=== PATIENT | female | born 1950 | race Caucasian/White ===

== ENCOUNTER 2020-05-04 10:57 | Outpatient (CLI) | payer MEDICARE, SELFPAY ==
--- NOTE | ~2020-05-04 | CT_ITS ---
EXAMINATION: CT diagnostic chest wo con EXAM DATE: 05/04/2020 11:21 INDICATION: R91.8 - Other nonspecific abnormal finding of lung field. Shortness of breath and cough. TECHNIQUE: Spiral CT of the chest without contrast. Axial, coronal and sagittal images were reviewe d. Coronal maximum intensity pixel images of chest reviewed. The dose-length product (DLP) for this examination was 141.03 mGy-cm. The exposure was tailored according to patient size (auto mA exposur e control), and iterative reconstruction (ASIR) was used as additional dose reduction technique. Comp arison is made to prior examination from 12/04/2018. FINDINGS: There is been continued interval decrease in size of the left lower lobe PET negative nodu le measuring 1.4 cm versus 2.1 cm on prior study. Decrease in size of several subcentimeter right mid dle lobe nodules. Persistent calcified bilateral upper lobe scarring. Findings are consistent with po stinfectious residua. No suspicious pulmonary nodules. There is severe emphysema. There is chronic hyperinflation. There are no pleural or pericardial effus ions. Tracheobronchial tree is patent. There is no mediastinal, hilar or axillary lymphadenopathy . There is no pneumothorax. Narrow cardiac silhouette from hyperinflated lungs. The main, central pulmonary arteries are dilated which can indicate elevated pulmonary arterial pressure, pulmonary ar terial hypertension. There is mild coronary arterial calcification, arterial sclerosis. No change i n the soft tissue and fat density peripherally calcified 3 cm mass at the aortic hiatus, benign. The re is 2 cm gallstone. There is an IVC filter. Duodenal diverticulum. There is thoracic spondylosis w ithout osteoblastic or osteolytic lesions identified. IMPRESSION: 1. Scattered postinfectious residua. 2. Severe emphysema. Hyperinflation. 3. Pulmonary arterial hypertension. 4. Other chronic findings. Reviewed, dictated and finalized at location A.
== END 2020-05-04 10:58 | disposition home or self-care (01) ==
LOC: ANHIMG 11:02
PROVIDERS: PCP Family Medicine; Visit Provider Nurse Practitioner Family
DX: R91.8 Other nonspecific abnormal finding of lung field (principal); J44.9 Chronic obstructive pulmonary disease, unspecified; J43.9 Emphysema, unspecified
CPT/HCPCS: 71250

== ENCOUNTER 2020-12-08 08:55 | Outpatient (CLI) | payer MEDICARE, SELFPAY ==
[2020-12-08 09:48] LABS: Basophils Absolute Auto 0.1 K/mm3 (0.0-0.1); Basophils Percent Auto 1.2 % (0.2-1.2); Eosinophils Absolute Auto 0.3 K/mm3 (0-0.3); Eosinophils Percent Auto 4.5 % (0-4.4); Hematocrit 43.8 % (37.0-47.0); Hemoglobin 14.2 g/dL (12.0-15.0); Immature Granulocyte Absolute 0.02 K/mm3 (0.00-0.031); Immature Granulocyte Percent A 0.3 % (0-0.5); Lymphocytes Absolute Auto 1.19 K/mm3 (0.9-3.2); Lymphocytes Percent Auto 17.3 % (18.3-44.2); Mean Corpuscular HGB Conc 32.4 g/dl (32-36); Mean Corpuscular Hemoglobin 30.7 pg (26-34); Mean Corpuscular Volume 94.6 fl (80-100); Mean Platelet Volume 9.7 fl (7.4-10.4); Monocytes Absolute Auto 0.5 K/mm3 (0.1-0.6); Monocytes Percent Auto 7.5 % (2.6-8.5); Neutrophils Absolute Auto 4.8 K/mm3 (1.3-6.7); Neutrophils Percent Auto 69.2 % (45.5-73.1); Platelet Count Result 276 k/mm3 (150-375); Red Blood Count 4.63 M/mm3 (4.2-5.4); Red Cell Distribution Width 14.6 % (11.5-14.5); White Blood Count 6.9 K/mm3 (4.5-10.0)
[2020-12-08 09:59] LABS: Alanine Aminotransferase 22 U/L (4-35); Alkaline Phosphatase 88 U/L (38-126); Anion Gap 5 mmol/L (8-16); Aspartate Amino Transferase 30 U/L (14-36); Bilirubin,Total 0.4 mg/dL (0.2-1.3); Blood Urea Nitrogen 14 mg/dL (7-17); Calcium 9.6 mg/dL (8.4-10.2); Carbon Dioxide 31 mmol/L (22-30); Chloride 106 mmol/L (98-107); Cholesterol 160 mg/dL (0-200); Estimated Glomerular Filt Rate > 60; Glucose 100 mg/dL (65-110); HDL Direct 61 mg/dL; Potassium 3.9 mmol/L (3.4-5.0); Sodium 142 mmol/L (137-145); Triglycerides 92 mg/dL (<150)
[2020-12-08 10:10] LABS: LDL Cholesterol Direct 71 mg/dL
[2020-12-08 10:29] LABS: Thyroid Stimulating Hormone 0.236 uIU/mL (0.465-4.680)
[2020-12-08 10:44] LABS: Add Urine Microscopic? YES; Appearance Urine Cloudy (Clear); Bacteria Urine Trace /hpf; Bilirubin Urine Negative (Negative); Blood Urine Negative (Negative); Color Urine Yellow (Yellow); Glucose Urine UA Negative (Negative); Ketones Urine Negative (Negative); Leukocyte Esterase Ur 2+ LEU/UL (NEGATIVE); Mucus Urine Rare /lpf; Nitrate Urine Positive (Negative); Protein Urine Negative (Negative); RBC Urine 0-2 /hpf (0-2); Specific Grav Ur 1.013 (1.001-1.035); Squamous Epithelial Cell Urine Few /hpf (Few); Transitional Epi Cells Urine Rare /hpf (None Seen); Urobilinogen Urine Negative mg/dL (<2.0)
== END 2020-12-08 08:56 | disposition home or self-care (01) ==
LOC: ANHLAB 09:00
PROVIDERS: PCP Family Medicine; Visit Provider Family Medicine
DX: E78.5 Hyperlipidemia, unspecified (principal); R53.83 Other fatigue; N39.0 Urinary tract infection, site not specified; Z00.00 Encounter for general adult medical examination without abnormal findings
CPT/HCPCS: 36415; 80053; 80061; 81001; 84443; 85025

== ENCOUNTER 2021-01-13 08:57 | Outpatient (CLI) | payer MEDICARE, SELFPAY ==
--- NOTE | ~2021-01-13 | XR_ITS ---
EXAMINATION: XR chest 2V DATE: 01/13/2021 09:18 INDICATION: Chest pain and shortness of breath TECHNIQUE: PA and lateral views of the chest are obtained. COMPARISON: CT, 05/04/2020 FINDINGS: There is severe emphysema. A calcified mass of the right lung apex is consistent with old g ranulomatous disease. The lungs are free of acute opacities. There is no pleural effusion or pneumoth orax. There is mild thoracic spondylosis. IMPRESSION: 1. No acute cardiopulmonary abnormality. Reviewed, dictated and finalized at location A. DRIVER
== END 2021-01-13 08:58 | disposition home or self-care (01) ==
PROVIDERS: PCP Family Medicine; Visit Provider Nurse Practitioner Family
DX: R07.9 Chest pain, unspecified (principal); Z87.09 Personal history of other diseases of the respiratory system
CPT/HCPCS: 71046

== ENCOUNTER 2021-05-10 09:50 | Emergency (ER) | payer MEDICARE, SELFPAY ==
[2021-05-10] VITALS (11 sets, daily range): BP systolic 122–155; BP diastolic 78–110; PULSE 102–132; RESP 20–28; TEMP 36.4; O2SAT 93–100
--- NOTE | ~2021-05-10 | XR_ITS ---
EXAMINATION: XR chest 1V portable DATE: 05/10/2021 11:48 INDICATION: Pneumothorax TECHNIQUE: frontal view of the chest was obtained. COMPARISON: Chest radiograph dated 05/10/2021 at 10:39 AM FINDINGS: Small to moderate-sized left pneumothorax which appears unchanged at the periphery of the left lower lung zone with increased overlying the right apex with separation of the pleural margins increasing f rom 2.5 cm to 4.0 cm. Severe upper lobe predominant severe emphysema. Chronic calcified mass at the r ight upper lung zone and a few scattered calcified nodules in the left mid and upper lung zone consis tent with old granulomatous disease. Bandlike atelectasis in the left lower lung zone. No pleural eff usion or right-sided pneumothorax. The cardiomediastinal silhouette remains normal and midline. Visua lized bones and soft tissues are unremarkable. IMPRESSION: 1. Increasing small to moderate-sized left pneumothorax without mediastinal shift or diaphragmatic de pression to suggest tension. 2. Severe emphysema. 3. Chronic calcified right upper lobe mass likely sequela of old granulomatous disease. Reviewed, dictated and finalized at location A. IMPRESSION: 1. Increasing small to moderate-sized left pneumothorax without mediastinal jordon ft or diaphragmatic depression to suggest tension. 2. Severe emphysema. 3. Chronic calcified right upper lobe mass likely sequela of old granulomatous disease.
--- NOTE | ~2021-05-10 | XR_ITS ---
EXAMINATION: XR chest 1V portable DATE: 05/10/2021 10:41 INDICATION: Soreness of breath TECHNIQUE: frontal view of the chest was obtained. COMPARISON: Chest radiograph dated 01/13/2021 FINDINGS: Severe upper lung predominant emphysema. There is a new small left pneumothorax at both the apex as w ell as the periphery of the left lower lung zone. Unchanged calcified mass at the right upper lung zo ne and several smaller calcified nodules in the left mid and upper lung zones consistent with old gra nulomatous disease. No pleural effusion. The cardiomediastinal silhouette is normal with no midline s hift. Enlargement of the central pulmonary arteries consistent with pulmonary arterial hypertension. IMPRESSION: 1. Severe emphysema with new small to moderate left pneumothorax. Dr. Galicia discussed these findin gs with Dr. Hernandes at 10:50 AM. Reviewed, dictated and finalized at location A. IMPRESSION: 1. Severe emphysema with new small to moderate left pneumothorax. Dr. Galicia discussed these findings with Dr. Hernandes at 10:50 AM.
--- NOTE | ~2021-05-10 | CT_ITS ---
EXAMINATION: CT diagnostic chest wo con DATE: 05/10/2021 12:40 INDICATION: Emphysema, pneumothorax TECHNIQUE: Computed tomography (CT) of the chest was performed without intravenous contrast. The dose -length product (DLP) was 230.01 mGy-cm. Automated exposure control and iterative reconstruction tech [employer] were employed. COMPARISON: 05/04/2020 FINDINGS: There is severe emphysema. A moderate-sized left pneumothorax is noted. The lungs are free of acute opacities. Calcified masses in the upper lobes are consistent with old granulomatous disease . There is a chronic nodule of the left lower lobe abutting the major fissure which is decreased in s ize since the comparison examination. No pleural effusion is identified. No pathologically enlarged t horacic lymph nodes are identified. The heart size is normal. Again noted is a chronic rim calcified mass to the right of aorta near the diaphragm, consistent with a benign finding. There is calcified c oronary artery atherosclerosis. Cholelithiasis is noted. There is moderate thoracic spondylosis. IMPRESSION: 1. Moderate-sized left pneumothorax. 2. Severe emphysema. Reviewed, dictated and finalized at location B.
--- NOTE | 2021-05-10 09:59 | ECG_ITS ---
Measurements Intervals [place] Rate: 118 P: 76 OR: 140 QRS: 43 QRSD: 89 T: 81 QT: 341 QTc: 479 Interpretive Statements SINUS TACHYCARDIA WITH OCCASIONAL ECTOPIC PREMATURE COMPLEXES LOW QRS VOLTAGE IN PRECORDIAL LEADS [QRS DEFLECTION < 1.0 mV IN CHEST LEADS] MODERATE ST DEPRESSION [0.05+ mV ST DEPRESSION] NO PREVIOUS ECG AVAILABLE FOR COMPARISON Electronically Signed On 05-10-2021 14:07:48 CDT by Zeeshan Vasquez M.D.
--- NOTE | 2021-05-10 10:01 | ED.SOB ---
HPI - SOB/Dyspnea General Chief Complaint: Shortness of Breath/Dyspnea Stated Complaint: dyspnea Time Seen by Provider: 05/10/21 09:58 Source: patient, EMS and RN notes reviewed Mode of arrival: EMS Limitations: clinical condition History of Present Illness HPI Narrative: Patient is 70 years old white female presents with shortness of breath started yesterday got worse this morning, history of COPD. Patient on chronic oxygen by nasal cannula at 2 L/min Related Data Home Medications Medication Instructions Recorded Confirmed aspirin 325 mg tablet 325 mg PO DAILY 02/02/19 12/08/20 biotin 10,000 mcg capsule mcg PO 02/02/19 12/08/20 multivitamin 1 tablet PO DAILY 02/02/19 12/08/20 Allergies Allergy/AdvReac Type Severity Reaction Status Date / Time codeine Allergy Intermediate Anaphylactic Verified 12/08/20 10:01 Shock erythromycin base Allergy Mild HIVES AND Verified 12/08/20 10:01 EDEMA Penicillins Allergy Mild EDEMA & Verified 12/08/20 10:01 HIVES Sulfa (Sulfonamide Allergy Mild HIVES AND Verified 12/08/20 10:01 Antibiotics) EDEMA ampicillin Allergy Unknown RASH Verified 12/08/20 10:01 Review of Systems Review of Systems: ROS unobtainable: Yes unobtainable due to medical condition PMFSH Past Medical History Medical History Chronic respiratory failure COPD (chronic obstructive pulmonary disease) Emphysema lung History of kidney stones with extraction History of pulmonary embolism History of tobacco abuse Multiple nodules of lung Osteoporosis Snoring Spontaneous pneumothorax twice Surgical History Surgical History History of adenoidectomy History of breast biopsy History of hysterectomy with bilateral oophorectomy History of tonsillectomy Hx of fracture of wrist s/p L ORIF S/P IVC filter Family History Family History Father Patient's father is Sibling Family history of malignant neoplasm of breast Mother Family history of congestive heart failure Diabetes mellitus Social History Social History Smoking packs per day: 0.5 Smoking cigarettes per day: 10.0 Years smoked: 37 Smoking pack-years: 18.50 Smoking status: Former smoker Tobacco type: cigarettes Second hand tobacco smoke exposure: No Smoking end date: 02/18/99 Alcohol intake: never Substance use: never Substance use type: does not use Gender identity (if verbalized by the patient): Female Exam Narrative: General appearance: Well-developed, well-nourished, restless, labored breathing Skin: Normal color Head: Normocephalic, nontraumatic Eyes: Clear conjunctiva ENT: Oropharynx normal, ears normal, nose normal Neck: Supple, nontender Chest and respiratory: Diminution of air entry bilaterally Heart: Tachycardia Abdomen: Soft, nontender, no organomegaly, quiet bowel sounds Vascular: Normal peripheral pulses, normal capillary refill. Musculoskeletal: Normal range of motion, nontender back Neurologic: Alert and oriented ?3, ABLE BODIED SEAMAN is normal as tested, no gross motor deficit Course Course Emergency Course: Patient came to the ED with shortness of breath, work-up showed exacerbation of COPD and mild to moderate pneumothorax, chest tube at this time, discussed with Dr. Miranda, patient had numerous pneumothorax in the past. Patient transferred to [facility], thoracic surgeon who agreed to not place chest tube at this time and send patient to us as soon as possible. At the time of dispositi
[2021-05-10] MEDS: methylPREDNISolone SOD SUCC 125 MG VIAL IV PUSH (10:21)
[2021-05-10] MEDS: ALBUTEROL SULFATE NEB 2.5 MG/0.5 ML INH 5 MG INHALATION ×3 (10:25→11:16)
[2021-05-10] MEDS: IPRATROPIUM BR 0.02% INH SOLN 0.5 MG/2.5 ML VIAL INHALATION ×3 (10:25→11:16)
[2021-05-10 10:32] LABS: Alveolar/Arterial O2 Gradient 95.9 mmHg; Base Excess ABG -0.3 mEq/l (+/-2.0); Device NASAL CANNULA; Fractional Inspired Oxygen 30 %; HCO3 ABG 24.5 mEq/l (22.0-26.0); Modified Allen's Test Pass; Oxygen Content ABG 20.5 %vol (16.0-22.0); Oxyhemoglobin 93.3 % THb (90.0-100.0); PO2 ABG 69.8 mmHg (80.0-100.0); PO2 FiO2 Ratio Arterial Blood 2.33 %; Site Drawn RIGHT RADIAL; Total Hemoglobin 15.6 g/dL (12.0-18.0); pH ABG 7.395 (7.350-7.450)
--- NOTE | 2021-05-10 11:36 | ECG_ITS ---
Measurements Intervals [place] Rate: 186 P: WI: 0 QRS: 7 QRSD: 86 T: 158 QT: 235 QTc: 414 Interpretive Statements ATRIAL FIBRILLATION WITH RAPID VENTRICULAR RESPONSE LOW QRS VOLTAGE IN PRECORDIAL LEADS [QRS DEFLECTION < 1.0 mV IN CHEST LEADS] NONSPECIFIC ST & T-WAVE ABNORMALITY ABNORMAL ECG Electronically Signed On 05-10-2021 14:19:45 CDT by Zeeshan Vasquez M.D.
[2021-05-10 11:42] LABS: Partial Thromboplastin Time 20.2 SECONDS (22.3-36.8); Prothrombin Time 12.5 Seconds (11.1-14.7)
[2021-05-10 11:44] LABS: Alanine Aminotransferase 19 U/L (4-35); Albumin Level 4.6 g/dL (3.5-5.1); Alkaline Phosphatase 106 U/L (38-126); Anion Gap 6 mmol/L (8-16); Aspartate Amino Transferase 35 U/L (14-36); Bilirubin,Total 0.8 mg/dL (0.2-1.3); Blood Urea Nitrogen 17 mg/dL (7-17); Calcium 9.8 mg/dL (8.4-10.2); Carbon Dioxide 29 mmol/L (22-30); Chloride 103 mmol/L (98-107); Estimated CRCL calculation 70 ml/min; Estimated Glomerular Filt Rate > 60; Glucose 114 mg/dL (65-110); Magnesium 2.1 mg/dL (1.6-2.3); Potassium 3.8 mmol/L (3.4-5.0); Sodium 138 mmol/L (137-145)
[2021-05-10 11:45] LABS: D Dimer 1.75 ug/mL (<0.48)
[2021-05-10] MEDS: dilTIAZem HCl INJ 25 MG/5 ML VIAL 10 MG IV PUSH (11:46)
[2021-05-10 11:56] LABS: NT Pro B Type Natriuretic Pept 149 pg/mL (5-100); Troponin I < 0.012 ng/mL (0.000-0.034)
--- NOTE | 2021-05-10 13:36 | PC.NURSE ---
report called to reina Roche at [facility] in [facility]. [facility] here to transport patient
== END 2021-05-10 13:52 | disposition short-term general hospital (02) ==
PROVIDERS: Emergency Provider Emergency Medicine; PCP Family Medicine
DX: J44.9 Chronic obstructive pulmonary disease, unspecified (principal); J93.9 Pneumothorax, unspecified; I48.91 Unspecified atrial fibrillation; R00.0 Tachycardia, unspecified; Z87.891 Personal history of nicotine dependence; Z87.442 Personal history of urinary calculi
CPT/HCPCS: 36415; 36600; 71045; 71250; 80053; 82805; 83735; 83880; 84484; 85380; 85610; 85730; 87040; 93005; 94640; 96374; 96375; 99285; J2930

== ENCOUNTER 2021-06-09 16:45 | Emergency (ER) | payer MEDICARE, SELFPAY ==
[2021-06-09] VITALS (11 sets, daily range): BP systolic 97–137; BP diastolic 61–77; PULSE 74–99; RESP 14–25; TEMP 37.1; O2SAT 95–100
--- NOTE | 2021-06-09 19:15 | PC.NURSE ---
Patient report given to TITUS Winter. All questions answered and care of pt transferred.
--- NOTE | 2021-06-09 19:28 | ED.GENADULT ---
HPI - General Adult General Chief complaint: Unspecified Stated complaint: all swollen up Time Seen by Provider: 06/09/21 18:42 Source: patient Mode of arrival: ambulatory Limitations: no limitations History of Present Illness HPI narrative: Patient is a 8-year-old female complaining of increasing bilateral extremity edema x1 week. Patient states that she is currently on Lasix for it and her doctor recently increased her dose but states that her edema has not decreased so her doctor told her to go to the emergency room. Patient denies any chest pain, shortness of breath, abdominal distention, calf pain or swelling, fever or chills. Related Data Home Medications Medication Instructions Recorded Confirmed multivitamin 1 tablet PO DAILY 02/02/19 06/06/21 Allergies Allergy/AdvReac Type Severity Reaction Status Date / Time codeine Allergy Intermediate Anaphylactic Verified 06/09/21 19:49 Shock erythromycin base Allergy Mild HIVES AND Verified 06/09/21 19:49 EDEMA Penicillins Allergy Mild EDEMA & Verified 06/09/21 19:49 HIVES Sulfa (Sulfonamide Allergy Mild HIVES AND Verified 06/09/21 19:49 Antibiotics) EDEMA ampicillin Allergy Unknown RASH Verified 06/09/21 19:49 Review of Systems Review of Systems: All systems reviewed & are unremarkable except as noted in HPI and below Constitutional: Constitutional: Denies body ache(s), Denies chills, Denies excessive sweating, Denies fatigue, Denies fever(s), Denies headache(s), Denies lethargy, Denies malaise, Denies weakness and Denies weight loss Eyes: Eyes: Denies blurry vision, Denies change in vision and Denies loss of vision ENT: Denies dizziness, Denies ear discharge, Denies headache(s), Denies lip swelling, Denies epistaxis, Denies nasal congestion, Denies neck pain, Denies throat swelling and Denies tongue swelling Cardiovascular: Cardiovascular: Denies chest pain, Denies chest pain at rest, Denies chest pain with activity, Denies diaphoresis, Denies rapid heart rate, Denies edema, Denies irregular heart rhythm, Denies lightheadedness, Denies palpitations, Denies dyspnea and Denies dyspnea on exertion Respiratory: Respiratory: Denies chest congestion, Denies cough, Denies hemoptysis, Denies dyspnea and Denies dyspnea on exertion Gastrointestinal: Gastrointestinal: Denies abdominal pain, Denies melena, Denies hematochezia, Denies diarrhea, Denies nausea, Denies vomiting and Denies hematemesis Musculoskeletal: Musculoskeletal: Denies abnormal gait, Denies deformity, Denies joint swelling, Denies limited range of motion, Denies neck pain and Denies numbness Neurologic: Denies Abnormal speech present, Denies abnormal gait, Denies confusion, Denies dizziness, Denies headache(s), Denies focal weakness, Denies loss of vision, Denies numbness, Denies Other visual disturbances, Denies Sensory deficit (Neuro) and Denies weakness Psychiatric: Psychiatric: Denies confusion, Denies depression, Denies auditory hallucinations, Denies homicidal ideation and Denies suicidal ideation Endocrine: Endocrine: Denies cold intolerance, Denies excessive sweating, Denies fatigue, Denies heat intolerance and Denies palpitations Hematologic/Lymphatic: Hematologic/Lymphatic: Denies easy bleeding and Denies easy bruising Allergic/Immunologic: Allergic/Immunologic: Denies lip swelling, Denies throat swelling and Denies tongue swelling PMFSH Past Medical History Medical History Chronic respiratory failure COPD (chronic obstructive pulmonary disease) Emphysema lung History of kidney stones with extraction History of pulmonary embolism History of tobacco abuse Multiple nodules of lung Osteoporosis Snoring Spontaneous pneumothorax x3 Surgical History Surgical History History of adenoidectomy History of breast biopsy History of hysterectomy with bilateral oophorectomy History
[2021-06-09] MEDS: FUROSEMIDE INJ 40 MG/4 ML VIAL 20 MG IV PUSH (19:48)
--- NOTE | 2021-06-09 19:51 | PC.NURSE ---
Report received from TITUS Escobar. Labs being collected. IV initiated and lasix given; pt requesting purewick, states cannot use a bedpan nor a commode.
[2021-06-09 19:53] LABS: Basophils Absolute Auto 0.1 K/mm3 (0.0-0.1); Basophils Percent Auto 1.1 % (0.2-1.2); Eosinophils Absolute Auto 0.4 K/mm3 (0-0.3); Eosinophils Percent Auto 6.7 % (0-4.4); Hematocrit 33.8 % (37.0-47.0); Hemoglobin 10.4 g/dL (12.0-15.0); Immature Granulocyte Absolute 0.04 K/mm3 (0.00-0.031); Immature Granulocyte Percent A 0.7 % (0-0.5); Mean Corpuscular HGB Conc 30.8 g/dl (32-36); Mean Corpuscular Hemoglobin 29.8 pg (26-34); Mean Corpuscular Volume 96.8 fl (80-100); Mean Platelet Volume 8.7 fl (7.4-10.4); Monocytes Absolute Auto 0.7 K/mm3 (0.1-0.6); Monocytes Percent Auto 11.6 % (2.6-8.5); Neutrophils Absolute Auto 3.8 K/mm3 (1.3-6.7); Neutrophils Percent Auto 61.9 % (45.5-73.1); Platelet Count Result 318 k/mm3 (150-375); Red Blood Count 3.49 M/mm3 (4.2-5.4); Red Cell Distribution Width 16.4 % (11.5-14.5); White Blood Count 6.1 K/mm3 (4.5-10.0)
--- NOTE | 2021-06-09 19:57 | PC.NURSE ---
Purewicks not available per 3rd floor charge operator. Pt given BSC, hat to measure output, and call light. When this RN out to find toilet paper, pt assists self to commode without difficulty. Pt on 3L/NC which she states is her home dose of oxygen.
[2021-06-09 20:04] LABS: Anion Gap 1 mmol/L (8-16); Blood Urea Nitrogen 14 mg/dL (7-17); Calcium 8.5 mg/dL (8.4-10.2); Carbon Dioxide 34 mmol/L (22-30); Chloride 100 mmol/L (98-107); Estimated CRCL calculation 60 ml/min; Estimated Glomerular Filt Rate > 60; Glucose 95 mg/dL (65-110); Potassium 3.5 mmol/L (3.4-5.0); Sodium 135 mmol/L (137-145)
--- NOTE | 2021-06-09 20:15 | PC.NURSE ---
Pt demanding IV catheter be removed, states is unable to function with it in. IV dc'd cath intact.
== END 2021-06-09 20:35 | disposition home or self-care (01) ==
PROVIDERS: Emergency Provider Emergency Medicine; PCP Family Medicine
DX: R60.0 Localized edema (principal); J96.10 Chronic respiratory failure, unspecified whether with hypoxia or hypercapnia; J43.9 Emphysema, unspecified; Z87.442 Personal history of urinary calculi; Z86.711 Personal history of pulmonary embolism; M81.0 Age-related osteoporosis without current pathological fracture; Z87.891 Personal history of nicotine dependence
CPT/HCPCS: 36415; 80048; 85025; 96374; 99284; J1940

== ENCOUNTER 2022-01-15 11:00 | Outpatient (CLI) | payer MEDICARE, SELFPAY ==
[2022-01-15 11:55] LABS: Appearance Urine Cloudy (Clear); Bilirubin Urine Negative (Negative); Blood Urine 3+ (Negative); Color Urine Yellow (Yellow); Glucose Urine UA Negative (Negative); Ketones Urine Negative (Negative); Leukocyte Esterase Ur 3+ LEU/UL (NEGATIVE); Nitrate Urine Negative (Negative); Protein Urine 2+ mg/dL (Negative); Urobilinogen Urine 0.2 mg/dL (<2.0)
[2022-01-15 11:56] LABS: Hematocrit 35.4 % (37.0-47.0); Hemoglobin 11.4 g/dL (12.0-15.0); Mean Corpuscular HGB Conc 32.2 g/dl (32-36); Mean Corpuscular Hemoglobin 29.6 pg (26-34); Mean Corpuscular Volume 91.9 fl (80-100); Mean Platelet Volume 9.1 fl (7.4-10.4); Platelet Count Result 360 k/mm3 (150-375); Red Blood Count 3.85 M/mm3 (4.2-5.4); Red Cell Distribution Width 13.9 % (11.5-14.5); White Blood Count 7.4 K/mm3 (4.5-10.0)
[2022-01-15 12:03] LABS: Bacteria Urine Trace /hpf; Mucus Urine Rare /lpf; RBC Urine >75 /hpf (0-2); WBC Urine >75 /hpf (0-3)
[2022-01-15 12:11] LABS: Hemoglobin A1C 5.7 % (<5.7)
[2022-01-15 12:14] LABS: Alanine Aminotransferase 16 U/L (6-35); Albumin Level 4.2 g/dL (3.5-5.1); Alkaline Phosphatase 90 U/L (38-126); Anion Gap 10 mmol/L (8-16); Aspartate Amino Transferase 27 U/L (14-36); Bilirubin,Total 0.4 mg/dL (0.2-1.3); Blood Urea Nitrogen 24 mg/dL (7-17); Calcium 10.9 mg/dL (8.4-10.2); Carbon Dioxide 36 mmol/L (22-30); Chloride 94 mmol/L (98-107); Cholesterol 199 mg/dL (0-200); Estimated Glomerular Filt Rate 44; Glucose 95 mg/dL (65-110); HDL Direct 56 mg/dL; Potassium 3.4 mmol/L (3.4-5.0); Sodium 140 mmol/L (137-145); Triglycerides 147 mg/dL (<150)
[2022-01-15 12:21] LABS: Add Urine Microscopic? YES
[2022-01-15 12:25] LABS: LDL Cholesterol Direct 82 mg/dL
== END 2022-01-15 11:01 | disposition home or self-care (01) ==
LOC: ANHLAB 11:06
PROVIDERS: PCP Family Medicine; Visit Provider Family Medicine
DX: E78.5 Hyperlipidemia, unspecified (principal); J44.9 Chronic obstructive pulmonary disease, unspecified; M81.0 Age-related osteoporosis without current pathological fracture; R06.83 Snoring; R73.01 Impaired fasting glucose; R91.8 Other nonspecific abnormal finding of lung field
CPT/HCPCS: 36415; 80053; 80061; 81001; 83036; 84443; 85027

== ENCOUNTER 2022-01-25 23:19 | Inpatient (IN) | payer MEDICARE, SELFPAY ==
--- NOTE | ~2022-01-25 | CT_ITS ---
EXAMINATION: CTA chest PE protocol DATE: 01/26/2022 00:04 INDICATION: Shortness of breath. History of pneumothorax. TECHNIQUE: Computed tomography angiography (CTA) of the chest was performed with 100 mL Omnipaque-350 intravenous contrast timed to evaluate the pulmonary arteries. Coronal maximum intensity projection 3D-reconstructions were created by the technologist. Automated exposure control and iterative reconst ruction technique were employed. Exam dose: 360.52 mGy-cm total exam DLP. COMPARISON: 01/25/2022 portable AP chest 05/10/2021 CT chest FINDINGS: There is diagnostic contrast enhancement of the pulmonary arteries. No pulmonary embolism i s detected. No thoracic aortic aneurysm or dissection. Normal heart size. Coronary artery calcification. No peric ardial effusion. Chronic stable 2.6 cm AP 3.3 cm vertical dimension rim calcified lower right periaortic mediastinal m ass is unchanged since 12/04/2018 and presumably benign. Small sliding hiatal hernia. There is severe bullous emphysema, with chronic fibrocalcific scarring in both upper lobes more promi nent on the right. Approximately 3 cm concentrically calcified gallstone. Very prominent right hydronephrosis. IVC filter. Included skeletal structures are unremarkable other than degenerative spurring of the thoracic spine. IMPRESSION: Severe bullous emphysema No evidence of pulmonary embolism Cholelithiasis Prominent right hydronephrosis IVC filter Reviewed, dictated and finalized at Location A. Reviewed, dictated and finalized at location B. IRATORY SUPERVISOR
--- NOTE | ~2022-01-25 | XR_ITS ---
EXAMINATION: XR chest 1V portable INDICATION: Shortness of breath, history of pneumothorax TECHNIQUE: Portable AP chest at 2320 hours COMPARISON: 05/10/2021 FINDINGS: There is severe emphysema. No pleural effusion or pneumothorax. The lungs are free of acute opacities. Calcified right lung masses and nodules are consistent with old granulomatous disease. IMPRESSION: 1. No acute cardiopulmonary abnormality. 2. Severe emphysema. Reviewed, dictated and finalized at location A. IDER
--- NOTE | ~2022-01-25 | XR_ITS ---
EXAMINATION: XR chest 1V portable DATE: 02/02/2022 06:30 INDICATION: Respiratory failure. TECHNIQUE: A single frontal view of the chest was obtained. COMPARISON: Chest single view 02/01/2022 FINDINGS: There are lucencies in the lungs with architectural distortion and interstitial opacities, consistent with emphysema. A calcified mass in right upper lobe is consistent with old granulomatous disease. There are airspace opacities in the right lower lung zone. There is scarring at left lung ba se. No pleural effusion or pneumothorax. The heart size is normal. The endotracheal tube tip is 5.5 c m above the jade. The nasogastric tube tip is beyond the inferior margin of the radiograph, but at least to the stomach. A right upper extremity peripherally inserted central venous catheter (PICC) is seen with tip in the superior vena cava. IMPRESSION: 1. Improved airspace opacities in right lower lung zone, consistent with atelectasis/scarring versus pneumonia. 2. Severe emphysema. Reviewed, dictated and finalized at location A. CAL RECEPTIONIST MEDICAL ASSISTANT IMPRESSION: 1. Improved airspace opacities in right lower lung zone, consistent with atelec tasis/scarring versus pneumonia. 2. Severe emphysema.
--- NOTE | ~2022-01-25 | XR_ITS ---
EXAMINATION: XR chest 1V portable INDICATION: Respiratory failure TECHNIQUE: Portable AP chest at 0608 hours COMPARISON: 02/02/2022 FINDINGS: There is severe emphysema. A right upper extremity PICC ends with its tip in the superior v kylie cava. The endotracheal and nasogastric tubes have been removed. A calcified mass of the right upp er lobe is consistent with old granulomatous disease. No pleural effusion or pneumothorax. The lungs are free of acute opacities. IMPRESSION: 1. No acute cardiopulmonary abnormality. 2. Endotracheal and nasogastric tube removal. Reviewed, dictated and finalized at location A. US RIDER
--- NOTE | ~2022-01-25 | XR_ITS ---
EXAMINATION: XR chest 1V portable DATE: 02/01/2022 06:07 INDICATION: Respiratory failure. TECHNIQUE: A single frontal view of the chest was obtained. COMPARISON: Chest single view 01/31/2022 FINDINGS: The lungs are hyperexpanded with lucencies and architectural distortion, consistent with em physema. A calcified mass in right upper lobe is consistent with old granulomatous disease. There are airspace opacities in right mid and lower lung zones. There is scarring at left lung base. No pleura l effusion or pneumothorax. The heart size is normal. The endotracheal tube tip is 2.4 cm above the c mary. A right upper extremity peripherally inserted central venous catheter (PICC) is seen with tip in the superior vena cava. The nasogastric tube tip is beyond the inferior margin of the radiograph, but at least to the stomach. IMPRESSION: 1. Stable airspace opacities in right mid and lower lung zone suspicious for pneumonia. 2. Severe emphysema. Reviewed, dictated and finalized at location A. NT PATCHER IMPRESSION: 1. Stable airspace opacities in right mid and lower lung zone suspicious for pn eumonia. 2. Severe emphysema.
--- NOTE | ~2022-01-25 | XR_ITS ---
EXAMINATION: XR barium swallow modified DATE: 02/03/2022 12:11 INDICATION: Possible aspiration TECHNIQUE: Modified barium esophagram was performed by myself who administered fluoroscopy, in conju nction with speech pathologist who administered barium in varying consistencies as per speech patholo gist documentation. This was recorded on tape. A single fluoroscopic spot image was recorded. Fluoros copy exposure time was 2.1 minutes. The DAP for this procedure was 1.406 Gycm2. FINDINGS: Oral stage: Adequate function. Pharyngeal phase: Adequate function. Laryngeal penetration: None. Aspiration: None. Laryngeal sensitivity: Not applicable. IMPRESSION: Normal modified barium swallow. Please refer to speech pathologist findings and specific feeding recommendations. Reviewed, dictated and finalized at location A. TECH
--- NOTE | ~2022-01-25 | XR_ITS ---
EXAMINATION: XR chest 1V portable DATE: 01/29/2022 07:10 INDICATION: Respiratory distress. TECHNIQUE: A single frontal view of the chest was obtained. COMPARISON: Chest single view 01/25/2022, chest CT 01/25/2022 FINDINGS: There are lucencies, interstitial opacities, and architectural distortion in the lungs, con sistent with severe emphysema. There are worsened reticulonodular opacities in right mid and lower eze ng zones. A calcified mass in right upper lobe is consistent with old granulomatous disease. There is chronic blunting of left lateral costophrenic angle, consistent with scarring. No pleural effusion o r pneumothorax. The heart size is normal. IMPRESSION: 1. Worsened reticulonodular opacities in right mid and lower lung zones, consistent with pulmonary ed roger versus pneumonia. 2. Severe emphysema. Reviewed, dictated and finalized at location A. AGE COLLECTOR IMPRESSION: 1. Worsened reticulonodular opacities in right mid and lower lung zones, consis tent with pulmonary edema versus pneumonia. 2. Severe emphysema.
--- NOTE | ~2022-01-25 | XR_ITS ---
EXAMINATION: XR chest 1V portable DATE: 01/30/2022 05:50 INDICATION: Respiratory failure. TECHNIQUE: A single frontal view of the chest was obtained. COMPARISON: Chest single view 01/29/2022, chest CT 01/25/2022 FINDINGS: The lungs demonstrate lucencies and architectural distortion and interstitial opacities, co nsistent with severe emphysema. A calcified mass in right upper lobe is consistent with old granuloma tous disease. There are airspace opacities in right mid and lower lung zones. There is chronic blunti ng of left lateral costophrenic angle, consistent with scarring. No pleural effusion or pneumothorax. The heart size is normal. The endotracheal tube tip is 1.3 cm above the jade. The nasogastric tube tip is beyond the inferior margin of the radiograph, but at least to the stomach. A right upper extr emity peripherally inserted central venous catheter (PICC) is seen with tip in the superior vena cava . IMPRESSION: 1. Stable airspace opacities in right mid and lower lung zones suspicious for pneumonia. 2. Severe emphysema. Reviewed, dictated and finalized at location A. TECH IMPRESSION: 1. Stable airspace opacities in right mid and lower lung zones suspicious for p neumonia. 2. Severe emphysema.
--- NOTE | ~2022-01-25 | US_ITS ---
EXAMINATION: US renal BI DATE: 01/29/2022 22:41 INDICATION: Right-sided hydronephrosis. TECHNIQUE: Multiple ultrasound grayscale images of the kidneys were obtained. COMPARISON: CT abdomen and pelvis 10/08/2018 FINDINGS: The right kidney measures 10.7 x 5.2 x 5.9 cm. The left kidney measures 10.4 x 5.6 x 5.6 cm. The kidn eys demonstrate normal parenchymal echogenicity. There is no hydronephrosis. The bladder is decompres sed. IMPRESSION: 1. Normal kidneys. No hydronephrosis. Reviewed, dictated and finalized at location A. T MESSENGER
--- NOTE | ~2022-01-25 | XR_ITS ---
EXAMINATION: XR abdomen NG/feed tube insert DATE: 01/29/2022 08:03 INDICATION: Orogastric tube placement. TECHNIQUE: A supine view of the abdomen was obtained. COMPARISON: Abdomen radiograph 07/31/2018 FINDINGS: The lower abdomen is excluded. There are no visible dilated loops of bowel. The nasogastric tube tip is in the stomach. There is a filter in the inferior vena cava. IMPRESSION: 1. Nasogastric tube tip in the stomach. Reviewed, dictated and finalized at location A. DRY CLEANER
--- NOTE | ~2022-01-25 | US_ITS ---
Limited Abdominal Sonogram: Real-time sonographic imaging of the right upper quadrant was performed. Clinical History: Abnormal LFTs Findings: The liver appears normal with no evidence of mass lesion or bile duct dilatation. Main por sal vein is patent, with normal directional flow. The gallbladder is well distended, and contains an echogenic, shadowing gallstone, measuring 2.5 cm in diameter. No gallbladder wall thickening evident. The common bile duct measures up to 8 mm. The visualized pancreas is unremarkable. Impression: Cholelithiasis. Mildly dilated common bile duct. Reviewed, dictated and finalized at location [] CISE PHYSIOLOGY PROFESSOR Impression: Cholelithiasis. Mildly dilated common bile duct.
--- NOTE | ~2022-01-25 | XR_ITS ---
EXAMINATION: XR chest 1V portable INDICATION: Shortness of breath TECHNIQUE: Portable AP chest at 1018 hours COMPARISON: 02/03/2022 FINDINGS: There is severe emphysema. Again noted is a chronic calcified mass of the right upper lobe, consistent with old granulomatous disease. A right upper extremity PICC ends with its tip in the sup erior vena cava. The lungs are free of acute opacities. IMPRESSION: 1. No acute cardiopulmonary abnormality. Reviewed, dictated and finalized at location A. UCTION SPECIALIST
--- NOTE | ~2022-01-25 | XR_ITS ---
EXAMINATION: XR chest ET placement DATE: 01/29/2022 08:04 INDICATION: Intubation. TECHNIQUE: A single frontal view of the chest was obtained. COMPARISON: Chest single view at 6:50 AM FINDINGS: Right lateral costophrenic angle is excluded. There are lucencies, interstitial opacities, and architectural distortion the lungs, consistent with severe emphysema. A calcified mass in right u pper lobe is consistent with old granulomatous disease. There are worsened airspace and interstitial opacities in right mid and lower lung zones. There is chronic blunting of left lateral costophrenic a ngle, likely scarring. No pneumothorax. The heart size is normal. The endotracheal tube tip is 7.0 cm above the jade. The nasogastric tube tip is beyond the inferior margin of the radiograph, but at l east to the stomach. IMPRESSION: 1. Worsened airspace and interstitial opacities in right mid and lower lung zones, consistent with pn eumonia. 2. Severe emphysema. Reviewed, dictated and finalized at location A. ER/WAITRESS SECOND CLASS IMPRESSION: 1. Worsened airspace and interstitial opacities in right mid and lower lung zon es, consistent with pneumonia. 2. Severe emphysema.
--- NOTE | ~2022-01-25 | XR_ITS ---
EXAMINATION: XR abdomen NG/feed tube insert INDICATION: OG tube placement TECHNIQUE: Portable AP KUB-NG at 1711 hours COMPARISON: 01/29/2022 FINDINGS: The OG tube has been repositioned and now ends with its tip in the stomach and proximal shari e port near the gastroesophageal junction. An IVC filter is noted. There are small pleural effusions. IMPRESSION: 1. OG tube in the stomach with its proximal side port near the gastroesophageal junction. Consider ad vancing 2 to 3 cm. Reviewed, dictated and finalized at location A. ER TAILER IMPRESSION: 1. OG tube in the stomach with its proximal side port near the gastroesophageal junction. Consider advancing 2 to 3 cm.
--- NOTE | ~2022-01-25 | XR_ITS ---
EXAMINATION: XR chest 1V portable DATE: 01/31/2022 06:26 INDICATION: Respiratory failure. TECHNIQUE: A single frontal view of the chest was obtained. COMPARISON: Chest single view 01/30/2022 FINDINGS: The lungs are hyperexpanded with lucencies, interstitial opacities, and architectural disto rtion, consistent with emphysema. A calcified mass in right upper lobe is consistent with old granulo matous disease. There are airspace opacities in right mid and lower lung zones. No pleural effusion o r pneumothorax. The heart size is normal. The endotracheal tube tip is 3.2 cm above the jade. The n asogastric tube tip is beyond the inferior margin of the radiograph, but at least to the stomach. A r ight upper extremity peripherally inserted central venous catheter (PICC) is seen with tip in the sup erior vena cava. IMPRESSION: 1. Stable airspace opacities in right mid and lower lung zone suspicious for pneumonia. 2. Severe emphysema. Reviewed, dictated and finalized at location A. YL BLENDER OPERATOR IMPRESSION: 1. Stable airspace opacities in right mid and lower lung zone suspicious for pn eumonia. 2. Severe emphysema.
--- NOTE | ~2022-01-25 | XR_ITS ---
EXAMINATION: XR chest PICC line DATE: 01/29/2022 09:26 INDICATION: PICC line placement TECHNIQUE: frontal and lateral views of the chest were obtained. COMPARISON: Chest radiograph dated 01/29/2022 FINDINGS: Right upper extremity peripherally inserted central venous catheter (PICC) tip at the mid superior v kylie cava. Endotracheal tube tip 2.3 cm above the jade. Nasogastric tube extends below the left hem idiaphragm with distal tip collimated off the study. Increased lucency and architectural distortion in the bilateral upper lung zones consistent with kathy re emphysema and associated chronic scarring. Chronic calcified mass in the right upper lung zone con sistent with old granulomatous disease. Increasing indistinct interstitial and mild airspace opacitie s in the right mid and lower lung zones which could represent pneumonia or asymmetric pulmonary edema . No pneumothorax. The lung bases are excluded from the [id number] limiting assessment for pleural effusion. Heart size is normal. IMPRESSION: 1. Right PICC line tip in the midsuperior vena cava. 2. Increasing opacities in the right mid to lower lung zone consistent with pneumonia versus less lik monique asymmetric pulmonary edema. 3. Severe emphysema. Reviewed, dictated and finalized at location A. RAGE STEWARD IMPRESSION: 1. Right PICC line tip in the midsuperior vena cava. 2. Increasing opacities in the right mid to lower lung zone consistent with pne umonia versus less likely asymmetric pulmonary edema. 3. Severe emphysema.
[2022-01-25 23:22] VITALS: BP 103/83; PULSE 112; RESP 31; TEMP 36.9; O2SAT 100
[2022-01-25 23:30] VITALS: BP 127/73; PULSE 110; RESP 26; TEMP 36.8; O2SAT 99
--- NOTE | 2022-01-25 23:37 | ED.GENADULT ---
HPI - General Adult General Chief complaint: Shortness of Breath/Dyspnea Stated complaint: DIFFICULTY IN BREATHING Time Seen by Provider: 01/25/22 23:36 History of Present Illness HPI narrative: This is a 71-year-old female with a history of COPD and multiple spontaneous pneumothorax presenting to the ED with difficulty breathing. Patient has had steadily worse difficulty breathing over last 3 days. It became acutely worse approximately 1 hour before arrival. When EMS arrived she was hypoxic 75% on her home oxygen of 3 L. They placed her on 15 L non-rebreather which increased her oxygen saturation to 98%. Patient denies chest pain, fever, chills, productive cough. She is concerned she is having another pneumothorax. Related Data Home Medications Medication Instructions Recorded Confirmed multivitamin (Multiple Vitamins 1 tablet PO DAILY 02/02/19 01/15/22 tablet) Allergies Allergy/AdvReac Type Severity Reaction Status Date / Time codeine Allergy Intermediate Anaphylactic Verified 12/26/21 08:10 Shock erythromycin base Allergy Mild HIVES AND Verified 12/26/21 08:10 EDEMA Penicillins Allergy Mild EDEMA & Verified 12/26/21 08:10 HIVES Sulfa (Sulfonamide Allergy Mild HIVES AND Verified 12/26/21 08:10 Antibiotics) EDEMA ampicillin Allergy Unknown RASH Verified 12/26/21 08:10 Review of Systems Review of Systems: CONSTITUTIONAL: Denies night sweats. EYES: No eye pain ENT: Denies rhinorrhea CARDIOVASCULAR: Denies palpitations RESPIRATORY: Denies hemoptysis GASTROINTESTINAL: Denies hematemesis GENITOURINARY: Denies hematuria. SKIN: Denies rash MUSCULOSKELETAL: Denies myalgia. NEUROLOGIC: Denies weakness. PSYCHIATRIC: Denies delusions PMFSH Past Medical History Medical History Chronic respiratory failure COPD (chronic obstructive pulmonary disease) Emphysema lung History of kidney stones with extraction History of pulmonary embolism History of tobacco abuse Multiple nodules of lung Osteoporosis Paroxysmal A-fib Snoring Spontaneous pneumothorax x3 Surgical History Surgical History History of adenoidectomy History of breast biopsy History of hysterectomy with bilateral oophorectomy History of tonsillectomy Hx of fracture of wrist s/p L ORIF S/P IVC filter Family History Family History Father Patient's father is Sibling Family history of malignant neoplasm of breast Mother Family history of congestive heart failure Diabetes mellitus Social History Social History Smoking packs per day: 0.5 Smoking cigarettes per day: 10.0 Years smoked: 37 Smoking pack-years: 18.50 Smoking status: Former smoker Tobacco type: cigarettes Second hand tobacco smoke exposure: No Smoking end date: 02/18/99 Alcohol intake: never Substance use: never Substance use type: does not use Gender identity (if verbalized by the patient): Female Exam Narrative: APPEARANCE: Patient is in respiratory distress. She has 1-2 word dyspnea. Head: atraumatic. EYES: EOMI, NOSE: Atraumatic NECK: Trachea midline RESPIRATORY: Increased respiratory rate, decreased lung sounds on the left CARDIOVASCULAR: tachycardic ABDOMINAL: Non-distended MUSCULOSKELETAl: No obvious deformities NEURO: Alert. Moving 4/4 extremities SKIN:: Warm, dry. Normal color PSYCHIATRIC: anxious Course Vital Signs Vital signs: Vital Signs Temperature 98.5 F 01/25/22 23:22 Pulse Rate 112 H 01/25/22 23:22 Respiratory Rate 31 H 01/25/22 23:22 Blood Pressure 103/83 01/25/22 23:22 Pulse Oximetry 100 01/25/22 23:22 Temperature 98.3 F 01/25/22 23:30 Pulse Rate 108 H 01/26/22 01:19 Respiratory Rate 23 H 01/26/22 01:19 Blood Pressure 127/73
[2022-01-25 23:41] LABS: Basophils Percent Auto 0.4 % (0.2-1.2); Eosinophils Absolute Auto 0.2 K/mm3 (0-0.3); Eosinophils Percent Auto 2.2 % (0-4.4); Hematocrit 33.9 % (37.0-47.0); Hemoglobin 11.3 g/dL (12.0-15.0); Immature Granulocyte Absolute 0.04 K/mm3 (0.00-0.031); Immature Granulocyte Percent A 0.4 % (0-0.5); Lymphocytes Absolute Auto 0.69 K/mm3 (0.9-3.2); Lymphocytes Percent Auto 7.1 % (18.3-44.2); Mean Corpuscular HGB Conc 33.3 g/dl (32-36); Mean Corpuscular Hemoglobin 29.7 pg (26-34); Mean Corpuscular Volume 89.2 fl (80-100); Mean Platelet Volume 9.1 fl (7.4-10.4); Monocytes Absolute Auto 0.1 K/mm3 (0.1-0.6); Monocytes Percent Auto 0.9 % (2.6-8.5); Neutrophils Absolute Auto 8.7 K/mm3 (1.3-6.7); Platelet Count Result 340 k/mm3 (150-375); Red Cell Distribution Width 13.8 % (11.5-14.5); White Blood Count 9.7 K/mm3 (4.5-10.0)
[2022-01-25 23:49] LABS: Alanine Aminotransferase 20 U/L (6-35); Albumin Level 4.2 g/dL (3.5-5.1); Alkaline Phosphatase 135 U/L (38-126); Anion Gap 7 mmol/L (8-16); Aspartate Amino Transferase 41 U/L (14-36); Bilirubin,Total 0.5 mg/dL (0.2-1.3); Blood Urea Nitrogen 30 mg/dL (7-17); Calcium 9.9 mg/dL (8.4-10.2); Carbon Dioxide 37 mmol/L (22-30); Chloride 93 mmol/L (98-107); Estimated Glomerular Filt Rate 40; Glucose 131 mg/dL (65-110); Sodium 137 mmol/L (137-145)
[2022-01-25 23:59] LABS: NT Pro B Type Natriuretic Pept 215 pg/mL (5-100)
[2022-01-26] VITALS (83 sets, daily range): BP systolic 97–121; BP diastolic 56–87; PULSE 76–115; RESP 14–32; TEMP 36.4–36.7; O2SAT 92–100; BMI 21.9; BMI 23.2
[2022-01-26 00:07] LABS: Troponin I 0.063 ng/mL (0.000-0.034)
[2022-01-26] MEDS: ALBUTEROL SULFATE NEB 2.5 MG/3 ML INH 15 MG INHALATION (00:13)
[2022-01-26] MEDS: IPRATROPIUM BR 0.02% INH SOLN 0.5 MG/2.5 ML VIAL 1.5 MG INHALATION (00:14)
[2022-01-26 00:16] LABS: Influenza A QL RT-PCR Negative (Negative); Influenza B QL RT-PCR Negative (Negative); SARS-CoV-2 RNA PCR Negative
[2022-01-26] MEDS: MAGNESIUM SULF 2 GM/WATER 50ML 2 GM/50 ML BAG IVPB (00:19)
[2022-01-26] MEDS: methylPREDNISolone SOD SUCC 125 MG VIAL IV PUSH (00:19)
--- NOTE | 2022-01-26 01:03 | ECG_ITS ---
Measurements Intervals [place] Rate: 99 P: 93 VT: 162 QRS: -18 QRSD: 110 T: 98 QT: 396 QTc: 510 Interpretive Statements SINUS RHYTHM LEFTWARD AXIS NONSPECIFIC INTERVENTRICULAR CONDUCTION DELAY COMPARED TO ECG 05/10/2021 11:38:52 SINUS RHYTHM NOW REPLACES ATRIAL FIBRILLATION Electronically Signed On 01-26-2022 7:47:07 PRODUCT DEVELOPER by Hipolito Cash M.D.
[2022-01-26] MEDS: POTASSIUM CHLORIDE 20 MEQ TABLET 40 MEQ PO (02:21)
[2022-01-26 02:56] LABS: Alveolar/Arterial O2 Gradient 125.4 mmHg; Base Excess ABG 7.5 mEq/l (+/-2.0); Fractional Inspired Oxygen 36 %; Oxygen Content ABG 15.8 %vol (16.0-22.0); Oxygen Saturation ABG 96.4 % (95.0-100.0); PCO2 ABG 44.3 mmHg (35.0-45.0); PO2 ABG 79.9 mmHg (80.0-100.0); PO2 FiO2 Ratio Arterial Blood 2.22 %; Total Hemoglobin 11.8 g/dL (12.0-18.0); pH ABG 7.476 (7.350-7.450)
[2022-01-26 02:57] LABS: Device NASAL CANNULA; Modified Allen's Test Pass; Site Drawn RIGHT RADIAL
[2022-01-26] MEDS: LACTATED RINGERS 1,000 ML 100 ML IV CONT ×2 (03:01→14:03)
[2022-01-26] MEDS: methylPREDNISolone SOD SUCC 125 MG VIAL 60 MG IV PUSH ×3 (06:26→23:20)
--- NOTE | 2022-01-26 08:29 | PC.NURSE ---
pt refusing breathing treatment at this time. pt states she wants to eat first. educated pt on the importance of receiving her breathing treatment now. pt still refusing and states she will do it later. Respiratory states they will be back this afternoon to try again.
--- NOTE | 2022-01-26 08:40 | PCRCNOTE ---
0830 ATTEMPTED TO GIVE PT. A BREATHING TX BUT SHE STATED SHE WANTED TO EAT INSTEAD. RTahiraN. NOTIFIED.
[2022-01-26] MEDS: ALBUTEROL SULFATE NEB 2.5 MG/3 ML INH 5 MG INHALATION ×2 (09:16→15:41)
[2022-01-26] MEDS: IPRATROPIUM BR 0.02% INH SOLN 0.5 MG/2.5 ML VIAL INHALATION ×2 (09:17→15:41)
--- NOTE | 2022-01-26 11:28 | PM.IMHP ---
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 Patient has had steadily worse difficulty breathing over last 2 weeks.? It became acutely worse approximately 1 hour before arrival.? She denies any abdominal pain, nausea, vomiting, diarrhea. No fevers or chills. No sick contacts or recent travel. No URI symptoms noted. When EMS arrived she was hypoxic 75% on her home oxygen of 3 L.? They placed her on 15 L non-rebreather which increased her oxygen saturation to 98%.? Patient denies chest pain, fever, chills, productive cough.? She is concerned she is having another pneumothorax. In the ER, chest x-ray was obtained showing no signs of pneumothorax. Point of care ultrasound confirmed this. Stat CT PE was also ordered to confirm no pneumothorax. She did have an elevated troponin that was mild. She was also noted to be hypokalemic. Fluid and COVID were negative. Review of Systems Review of Systems: 12 point review of systems was assessed and was negative except as noted in the HPI PMFSH Past Medical History Medical History Chronic respiratory failure COPD (chronic obstructive pulmonary disease) Emphysema lung History of kidney stones with extraction History of pulmonary embolism History of tobacco abuse Multiple nodules of lung Osteoporosis Paroxysmal A-fib Snoring Spontaneous pneumothorax x3 Surgical History Surgical History History of adenoidectomy History of breast biopsy History of hysterectomy with bilateral oophorectomy History of tonsillectomy Hx of fracture of wrist s/p L ORIF S/P IVC filter Family History Family History Father Patient's father is Sibling Family history of malignant neoplasm of breast Mother Family history of congestive heart failure Diabetes mellitus Social History Social History Smoking packs per day: 0.5 Smoking cigarettes per day: 10.0 Years smoked: 37 Smoking pack-years: 18.50 Smoking status: Former smoker Tobacco type: cigarettes Second hand tobacco smoke exposure: No Smoking end date: 02/18/98 Alcohol intake: never Substance use: never Substance use type: does not use Lack of Transportation: No Lack of Food: Never True Current Housing: I Have Housing Concerned About Future Housing: No Difficulty Paying Gas/Electric Bills: No Difficulty Paying for Meds: No Currently Unemployed: No Education: Associate Degree Difficulty w/ Childcare or Family Care: No Gender identity (if verbalized by the patient): Female Spiritual care concerns: No Meds Home Medications and Allergies Home Medications Medication Instructions Recorded Confirmed Type multivitamin (Multiple Vitamins 1 tablet PO DAILY 02/02/19 01/26/22 History tablet) Anoro Ellipta 62.5 mcg-25 1 inh inhalation Q24H 90 days #90 01/18/21 01/26/22 Rx mcg/actuation powder for ea inhalation (umeclidinium-vilanterol) apixaban 5 mg tablet (Eliquis) 5 mg PO BID #60 tabs 06/06/21 01/26/22 Rx albuterol sulfate 90 mcg/actuation 1 inh inhalation Q4-6H PRN 11/27/21 01/26/22 Rx aerosol inhaler (Ventolin HFA) shortness of breath or wheezing 90 days #8.5 grams amiodarone 200 mg tablet 100 mg PO DAILY 01/26/22 01/26/22 History apixaban 5 mg tablet (Eliquis) 5 mg BID 01/26/22 01/26/22 History furosemide 20 mg tablet 20 mg BID 01/26/22 01/26/22 History spironolactone 25 mg tablet 12.5 mg DAILY 01/26/22 01/26/22 History Allergies Allergy/AdvReac Type Severity [place]
--- NOTE | 2022-01-26 13:07 | PC.NURSE ---
standard heart healthy food tray ordered
--- NOTE | 2022-01-26 15:56 | PCDIET ---
Brief nutrition note: Screened for MST 4, weight loss >34 lb, negative for poor appetite. Per EMR, weight loss -22 lb, 14%/8 months - significant for malnutrition. Pt is being admitted and will be assessed further on Saturday. Bella Rojas RD LDN
--- NOTE | 2022-01-26 16:20 | PC.NURSE ---
heart healthly diet food tray ordered
[2022-01-26] MEDS: APIXABAN 5 MG TABLET PO (21:04)
--- NOTE | 2022-01-26 21:52 | ADMGEN ---
This patient, Alexus Zambrano, was admitted to IMU Room 206-02 on 01/26/22 at 2121. Patient/family oriented to hospital policies and general routines including ID bracelet, bed and alarms, visiting hours, pain management, procedures, bathroom and other care routines, personal items, smoking policy, room service/diet, and visiting hours. Information on how to activate the Rapid Response Team has been discussed. Patient/Family are encouraged to report perceived risks to care and to ask questions if they do not understand what they are told or what they should do.
[2022-01-27] VITALS (21 sets, daily range): BP systolic 101–136; BP diastolic 58–81; PULSE 76–106; RESP 16–24; TEMP 36.2–36.7; O2SAT 92–100
[2022-01-27] MEDS: guaiFENesin 12 HR 600 MG TABCR PO ×2 (01:27→09:37)
[2022-01-27] MEDS: LACTATED RINGERS 1,000 ML 100 ML IV CONT ×2 (03:23→14:42)
[2022-01-27] MEDS: methylPREDNISolone SOD SUCC 125 MG VIAL 60 MG IV PUSH ×3 (05:47→22:10)
[2022-01-27] MEDS: ALBUTEROL SULFATE NEB 2.5 MG/3 ML INH 5 MG INHALATION ×3 (08:30→21:11)
[2022-01-27] MEDS: IPRATROPIUM BR 0.02% INH SOLN 0.5 MG/2.5 ML VIAL INHALATION ×3 (08:30→21:11)
[2022-01-27] MEDS: APIXABAN 5 MG TABLET PO ×2 (09:37→20:41)
[2022-01-27] MEDS: SPIRONOLACTONE 12.5 MG TABLET BY MOUTH (09:37)
[2022-01-27] MEDS: AMIODARONE HCL 100 MG TABLET PO (09:37)
[2022-01-27] MEDS: FUROSEMIDE 20 MG TABLET BY MOUTH ×2 (09:37→16:06)
[2022-01-27] MEDS: MULTIVITAMINS THERAPEUTIC TAB (*BKC) 1 TABLET PO (09:38)
[2022-01-27] MEDS: hydrOXYzine HCL 25 MG TABLET 50 MG PO ×3 (09:42→20:42)
[2022-01-27 10:19] LABS: Hematocrit 32.3 % (37.0-47.0); Hemoglobin 10.3 g/dL (12.0-15.0); Mean Corpuscular HGB Conc 31.9 g/dl (32-36); Mean Corpuscular Hemoglobin 29.9 pg (26-34); Mean Corpuscular Volume 93.6 fl (80-100); Mean Platelet Volume 9.6 fl (7.4-10.4); Platelet Count Result 366 k/mm3 (150-375); Red Blood Count 3.45 M/mm3 (4.2-5.4); Red Cell Distribution Width 14.2 % (11.5-14.5); White Blood Count 23.8 K/mm3 (4.5-10.0)
[2022-01-27 10:39] LABS: Anion Gap 12 mmol/L (8-16); Blood Urea Nitrogen 31 mg/dL (7-17); Calcium 9.6 mg/dL (8.4-10.2); Carbon Dioxide 29 mmol/L (22-30); Chloride 100 mmol/L (98-107); Estimated CRCL calculation 43 ml/min; Estimated Glomerular Filt Rate 55; Glucose 232 mg/dL (65-110); Potassium 3.2 mmol/L (3.4-5.0); Sodium 141 mmol/L (137-145)
[2022-01-27 10:55] LABS: Troponin I 0.711 ng/mL (0.000-0.034)
--- NOTE | 2022-01-27 12:34 | PM.IMPN ---
Progress Note: A&P Assessment and Plan (1) COPD exacerbation: Code(s): J44.1 - Chronic obstructive pulmonary disease with (acute) exacerbation Status: Acute Assessment and Plan: Patient advice to quit smoking. Bronchodilators. Spirometry and chest x-ray Keeping BMI less than 25. Routine exercises. Pneumoniae and flu vaccines as advised Evaluation for home O2 if saturations less than 88% on room air Follow-up with primary care and wood window and door craftsman routine moderate patient's use of steroids has multiple admissions for intubation and COPD exacerbation (2) Paroxysmal A-fib: Code(s): I48.0 - Paroxysmal atrial fibrillation Status: Acute Assessment and Plan: monitor heart rate. Next item continue Eliquis. Continue beta-blockers (3) Acute hypokalemia: Code(s): E87.6 - Hypokalemia Status: Acute Assessment and Plan: monitor potassium level current level is a 3.2. (4) History of tobacco abuse: Code(s): Z87.891 - Personal history of nicotine dependence Status: Acute Assessment and Plan: Smoking cessation counseling done (5) Hyperglycemia: Code(s): R73.9 - Hyperglycemia, unspecified Status: Acute Assessment and Plan: patient's blood sugar running in the 200 will check hemoglobin A1c, thyroid, lipid panel,. May start patient on a sliding scale for right Plan DVT prophylaxis. GI prophylaxis. All records reviewed Discussed plan of care with the nursing staff and with the patient in detail. Answered all questions and concerns from the patient. All labs have been reviewed. Code status updated patient's troponin continued to trend downward dictation may have been done utilizing a voice recognition system. Attempts have been made to correct errors. However, there may be uncorrected grammatical, spelling, and recognition errors present. Time Spent With Patient Time with patient: 25 - 35 minutes Subjective Date/time seen: 01/27/22 12:34 Interval history: no new complaints appears a little anxious Review of Systems Review of Systems: All systems reviewed & are unremarkable except as noted in HPI and below Exam Const: General: comfortable and no acute distress HENMT: Ears: TM's normal bilaterally Eyes: General: appearance normal, both eyes and all related structures Pupils: Equal, round and reactive pupils present Neck: Neck: supple and no JVD Resp: Auscultation: clear to auscultation bilaterally and diminished lung sounds Cardio: Rate: regular rate Rhythm: regular rhythm GI: GI Palp: Yes Soft to palpation Auscultation: normal bowel sounds Skin: General skin exam: normal color Wounds: no wounds Neuro: General: deep tendon reflexes 2+ bilaterally Speech: normal speech Motor exam (neuro): 5/5 motor strength present throughout Extrem: General: normal to inspection Objective Data Vital Signs Vital Signs: Vital Signs - 24 hr 01/26/22 13:59 01/26/22 15:42 01/26/22 15:40 Temperature Pulse Rate 89 88 Respiratory Rate 22 H 20 Blood Pressure 107/70 Pulse Oximetry 99 95 Oxygen Delivery Nasal Cannula Oxygen Flow Rate 3 01/26/22 15:57 01/26/22 17:29 01/26/22 12:45 Temperature Pulse Rate 92 100 89 Respiratory Rate 25 H 20 17 Blood Pressure 111/67 Pulse Oximetry 98 96 Oxygen Delivery Oxygen Flow Rate 01/26/22 13:00 01/26/22 13:01 01/26/22 13:15 Temperature Pulse Rate 86 88 92 Respiratory Rate 19 18 20 Blood Pressure 103/66 Pulse Oximetry 98 97 98 Oxygen Delivery Oxygen Flow Rate 01/26/22 13:30 01/26/22 13:31 01/26/22 13:45 Temperature Pulse Rate 88 89 89 Respiratory Rate 23 H 22 H 25 H Blood Pressure 107/70 Pulse Oximetry 96 97 96 Oxygen Delivery Oxygen Flow Rate 01/26/22 14:06 01/26/22 14:15 01/26/22 14:46 Temperature Pulse Rate 87 87 90 Respiratory Rate 17 19 15 Blood Pressure Pulse Oximetry 97 97 97 Oxy
[2022-01-27 14:01] LABS: Hemoglobin A1C 5.8 % (<5.7)
--- NOTE | 2022-01-27 15:33 | PM.CNPUL ---
Assessment and Plan Assessment and plan (1) COPD exacerbation: Code(s): J44.1 - Chronic obstructive pulmonary disease with (acute) exacerbation Status: Acute Assessment and Plan: She has end stage COPD, had resection of bulla and endobronchial valve in Apr 2021; reports increase in symptoms for the last month, more dyspnea with less and less exertion. She is coughing quite a bit, may benefit from Cornet valve and Pulmozyme. Will stop hydroxyzine, was started for anxiety. Try Robitussin DM for cough ed[place] at night time. Find her most recent echo. She sees student services dean Dr Santos, also at [facility]. She may have pulmonary hypertension. She was negative for COVID/flu/RSV; still, viral infections are the most common trigger for COPD exacerbations. She has an IVC filter from 2017, LE DVTs with collaterals. (2) Chronic respiratory failure: Code(s): J96.10 - Chronic respiratory failure, unspecified whether with hypoxia or hypercapnia Status: Acute Assessment and Plan: Has been on O2 several years. Plan add Cornet valve and Dornase alpha Q 12 hours decrease solumedrol to 40 mg IV Q 8 hours stop hydroxyzine; this is drying her secretions to the point she cannot expectorate, was on it for anxiety Start Robitussin DM 5 mL q.4 hours p.r.n. cough Continue Rx for COPD; look for recent echo results; had in [facility] in November, card Dr Santos Contact her pulmonary doctor tomorrow, Dr Yordy Luque at [facility]; [phone]; another number is [phone]; she has advanced COPD, was much improved after left ptx with bleb resection 3/26/22 and endobronchial valve 05/14/21; worse about 1 month ago History of Present Illness History of Present Illness Consult date: 01/28/22 Requesting physician: Cindi Pappas DO Chief complaint: COPD Narrative: [place] at bedside. NEW CONSULT: Alexus Zambrano is 71 years old former smoker now followed by warehouse clerk Dr Yordy Luque in [place], [place]. She has advanced COPD, history of spontaneous pneumothoraces. She was in the ER here May 10, 2021 for acute shortness of breath with a repeat left pneumothorax, was placed on O2 with transfer to [facility] in [place], [place] for surgery May 13, 2021 for bleb resection. This was followed by an endobronchial valve placement on angie left side. Days later, she developed acute DVT in lower legs, already had an IVC filter from 2018. She recovered, having follow up care there with Dr Chung, cardiothoracic surgery, Dr Dubois pulmonary and Dr Santos [facility]iology. She has been treated with Eliquis for LE DVTs. This admission, she reports 2-3 days of acute increase in shortness of breath without sputum production, no cough. She coughs very little. She sleeps on one small pillow. She had increased shortness of breath an hour after lying down to sleep. She has not have infectious symptoms such as fever, sore throat, congestion, myalgias, loss of smell or taste, Her exercise tolerance is limited. She [place] through all her tasks, however has to stop and rest at times. She has lost 54 lb since May. Review of Systems Review of Systems: All systems reviewed & are unremarkable except as noted in HPI and below PMFSH Past Medical History Medical History Chronic respiratory failure COPD (chronic obstructive pulmonary disease) Emphysema lung History of kidney stones with extraction History of pulmonary embolism History of tobacco abuse Multiple nodules of lung Osteoporosis Paroxysmal A-fib Snoring Spontaneous pneumothorax x3 Surgical History Surgical History History of adenoidectomy History of breast b
[2022-01-28] VITALS (20 sets, daily range): BP systolic 107–138; BP diastolic 43–76; PULSE 57–120; RESP 16–22; TEMP 36.2–36.8; O2SAT 93–100
[2022-01-28] MEDS: LACTATED RINGERS 1,000 ML 100 ML IV CONT (00:44)
[2022-01-28] MEDS: ALBUTEROL SULFATE NEB 2.5 MG/3 ML INH 5 MG INHALATION ×4 (02:38→19:42)
[2022-01-28] MEDS: IPRATROPIUM BR 0.02% INH SOLN 0.5 MG/2.5 ML VIAL INHALATION ×4 (02:39→19:43)
[2022-01-28] MEDS: hydrOXYzine HCL 25 MG TABLET 50 MG PO ×3 (02:48→13:58)
[2022-01-28] MEDS: methylPREDNISolone SOD SUCC 125 MG VIAL 60 MG IV PUSH ×2 (06:24→13:58)
[2022-01-28] MEDS: MULTIVITAMINS THERAPEUTIC TAB (*BKC) 1 TABLET PO (08:45)
[2022-01-28] MEDS: APIXABAN 5 MG TABLET PO ×2 (08:46→20:19)
[2022-01-28] MEDS: AMIODARONE HCL 100 MG TABLET PO (08:46)
[2022-01-28] MEDS: SPIRONOLACTONE 12.5 MG TABLET BY MOUTH (08:46)
[2022-01-28] MEDS: POTASSIUM CHLORIDE 20 MEQ PACKET (FOR LIQUID) 40 MEQ PO (08:47)
[2022-01-28] MEDS: FUROSEMIDE 20 MG TABLET BY MOUTH ×2 (08:47→16:20)
[2022-01-28 11:18] LABS: Alanine Aminotransferase 39 U/L (6-35); Albumin Level 3.5 g/dL (3.5-5.1); Alkaline Phosphatase 82 U/L (38-126); Anion Gap 7 mmol/L (8-16); Aspartate Amino Transferase 51 U/L (14-36); Bilirubin,Total 0.2 mg/dL (0.2-1.3); Blood Urea Nitrogen 25 mg/dL (7-17); Calcium 9.1 mg/dL (8.4-10.2); Carbon Dioxide 29 mmol/L (22-30); Chloride 102 mmol/L (98-107); Estimated CRCL calculation 48 ml/min; Estimated Glomerular Filt Rate > 60; Glucose 229 mg/dL (65-110); Potassium 3.7 mmol/L (3.4-5.0); Sodium 138 mmol/L (137-145)
--- NOTE | 2022-01-28 12:24 | PM.IMPN ---
Progress Note: A&P Assessment and Plan (1) COPD exacerbation: Code(s): J44.1 - Chronic obstructive pulmonary disease with (acute) exacerbation Status: Acute Assessment and Plan: Patient advice to quit smoking. Bronchodilators. O2 if saturations less than 88% on room air Follow-up with primary care and control engineer routine chronic use of steroids multiple admissions for intubation and COPD exacerbation (2) Paroxysmal A-fib: Code(s): I48.0 - Paroxysmal atrial fibrillation Status: Acute Assessment and Plan: monitor heart rate. continue Eliquis. Continue beta-blockers (3) Acute hypokalemia: Code(s): E87.6 - Hypokalemia Status: Acute Assessment and Plan: monitor potassium level current level (4) History of tobacco abuse: Code(s): Z87.891 - Personal history of nicotine dependence Status: Acute Assessment and Plan: Smoking cessation counseling done (5) Hyperglycemia: Code(s): R73.9 - Hyperglycemia, unspecified Status: Acute Assessment and Plan: patient's blood sugar running in the 200 will check hemoglobin A1c, thyroid, lipid panel,. May start patient on a sliding scale for right patient's hemoglobin A1c is 5.8 Plan DVT prophylaxis. GI prophylaxis. All records reviewed Discussed plan of care with the nursing staff and with the patient in detail. Answered all questions and concerns from the patient. All labs have been reviewed. Code status updated patient's troponin continued to trend downward dictation may have been done utilizing a voice recognition system. Attempts have been made to correct errors. However, there may be uncorrected grammatical, spelling, and recognition errors present. Time Spent With Patient Time with patient: 25 - 35 minutes Subjective Date/time seen: 01/28/22 12:24 Interval history: patient still pretty short breath currently getting nebulizer treatment Review of Systems Review of Systems: All systems reviewed & are unremarkable except as noted in HPI and below Exam Narrative: GEN: Alert, oriented, not in distress. HEENT: pupils are equal, EOMI, symmetrical face; oral membranes moist, Mallampati III airway, edentulous NECK: Trachea is midline CHEST: Equal air entry, symmetric excursion, decreased breath sounds. She has 4 small scars on the left lateral chest from thorascopic surgery April 2021. CV: Regular S1S2 no m/g/r. Heart rate is 91, sinus rhythm. ABD : (+) bowel sounds Extremities : no clubbing, cyanosis, or edema. Calves are nontender. PSYCH: normal thought and speech, gait not tested. Objective Data Vital Signs Vital Signs: Vital Signs - 24 hr 01/27/22 14:43 01/27/22 15:06 01/27/22 14:00 Temperature Pulse Rate 93 93 92 Respiratory Rate 18 18 Blood Pressure Pulse Oximetry Oxygen Delivery Oxygen Flow Rate 01/27/22 16:00 01/27/22 16:00 01/27/22 16:00 Temperature 36.7 C Pulse Rate 95 93 93 Respiratory Rate 20 Blood Pressure 109/58 L Pulse Oximetry 98 96 Oxygen Delivery Nasal Cannula Oxygen Flow Rate 3 01/27/22 18:00 01/27/22 20:00 01/27/22 20:00 Temperature 36.4 C Pulse Rate 89 94 94 Respiratory Rate 18 18 Blood Pressure 136/74 Pulse Oximetry 100 100 Oxygen Delivery Nasal Cannula Oxygen Flow Rate 3 01/27/22 21:15 01/27/22 21:17 01/27/22 21:29 Temperature Pulse Rate 87 91 Respiratory Rate 20 20 Blood Pressure Pulse Oximetry 94 Oxygen Delivery Nasal Cannula Oxygen Flow Rate 3 01/27/22 23:58 01/28/22 00:00 01/27/22 20:00 Temperature 36.6 C Pulse Rate 88 88 106 H Respiratory Rate 20 20 Blood Pressure 103/61 Pulse Oximetry 99 99 Oxygen Delivery Nasal Cannula Oxygen Flow Rate 3 01/27/22 22:00 01/28/22 00:00 01/28/22 02:00 Temperature Pulse Rate 89 92 79 Respiratory Rate Blood Pressure Pulse Oximetry Oxygen Delivery Oxygen
[2022-01-28 13:35] LABS: Hematocrit 33.3 % (37.0-47.0); Hemoglobin 10.6 g/dL (12.0-15.0); Mean Corpuscular HGB Conc 31.8 g/dl (32-36); Mean Corpuscular Hemoglobin 30.2 pg (26-34); Mean Corpuscular Volume 94.9 fl (80-100); Mean Platelet Volume 9.3 fl (7.4-10.4); Platelet Count Result 369 k/mm3 (150-375); Red Blood Count 3.51 M/mm3 (4.2-5.4); Red Cell Distribution Width 14.6 % (11.5-14.5)
[2022-01-28 13:49] LABS: Alanine Aminotransferase 43 U/L (6-35); Albumin Level 3.7 g/dL (3.5-5.1); Alkaline Phosphatase 86 U/L (38-126); Anion Gap 5 mmol/L (8-16); Aspartate Amino Transferase 51 U/L (14-36); Bilirubin,Total 0.3 mg/dL (0.2-1.3); Blood Urea Nitrogen 26 mg/dL (7-17); Calcium 9.2 mg/dL (8.4-10.2); Carbon Dioxide 32 mmol/L (22-30); Chloride 102 mmol/L (98-107); Estimated CRCL calculation 48 ml/min; Estimated Glomerular Filt Rate > 60; Glucose 150 mg/dL (65-110); Potassium 3.5 mmol/L (3.4-5.0); Sodium 139 mmol/L (137-145)
[2022-01-28] MEDS: guaiFENesin 12 HR 600 MG TABCR PO (20:19)
[2022-01-28] MEDS: methylPREDNISolone SOD SUCC 40 MG VIAL IV PUSH (21:34)
[2022-01-29] VITALS (40 sets, daily range): BP systolic 73–136; BP diastolic 51–88; PULSE 53–135; RESP 18–36; TEMP 36.1–36.8; O2SAT 93–100; BMI 24.4
[2022-01-29] MEDS: ALBUTEROL SULFATE NEB 2.5 MG/3 ML INH 5 MG INHALATION ×4 (01:14→20:43)
[2022-01-29] MEDS: IPRATROPIUM BR 0.02% INH SOLN 0.5 MG/2.5 ML VIAL INHALATION ×4 (01:14→20:43)
[2022-01-29] MEDS: methylPREDNISolone SOD SUCC 40 MG VIAL IV PUSH ×3 (05:08→21:17)
[2022-01-29] MEDS: LORazepam INJ (*CRX) 2 MG/ML VIAL 1 MG IV PUSH (06:40)
[2022-01-29 06:51] LABS: Alveolar/Arterial O2 Gradient 50.3 mmHg; Base Excess ABG 1.2 mEq/l (+/-2.0); Carboxyhemoglobin 0.3 % THb (0-2.0); Fractional Inspired Oxygen 50 %; HCO3 ABG 28.5 mEq/l (22.0-26.0); Methemoglobin ABG 0.1 %THb (0-1.5); Oxygen Content ABG 17.5 %vol (16.0-22.0); Oxygen Saturation ABG 99.5 % (95.0-100.0); Oxyhemoglobin 98.1 % THb (90.0-100.0); PCO2 ABG 58.1 mmHg (35.0-45.0); PO2 ABG 240.8 mmHg (80.0-100.0); PO2 FiO2 Ratio Arterial Blood 4.82 %; Reduced Hemoglobin 1.5 %THb (0-5.0); Total Hemoglobin 12.3 g/dL (12.0-18.0); pH ABG 7.309 (7.350-7.450)
[2022-01-29 06:54] LABS: Device NASAL CANNULA; Modified Allen's Test Pass; Site Drawn RIGHT BRACHIAL
[2022-01-29 06:55] LABS: Basophils Absolute Auto 0.1 K/mm3 (0.0-0.1); Basophils Percent Auto 0.4 % (0.2-1.2); Hematocrit 35.4 % (37.0-47.0); Hemoglobin 10.9 g/dL (12.0-15.0); Immature Granulocyte Absolute 0.41 K/mm3 (0.00-0.031); Lymphocytes Absolute Auto 0.88 K/mm3 (0.9-3.2); Lymphocytes Percent Auto 4.3 % (18.3-44.2); Mean Corpuscular HGB Conc 30.8 g/dl (32-36); Mean Corpuscular Hemoglobin 29.1 pg (26-34); Mean Corpuscular Volume 94.4 fl (80-100); Mean Platelet Volume 9.4 fl (7.4-10.4); Monocytes Absolute Auto 1.2 K/mm3 (0.1-0.6); Neutrophils Absolute Auto 17.9 K/mm3 (1.3-6.7); Neutrophils Percent Auto 87.3 % (45.5-73.1); Nucleated Red Blood Cells Perc 0.1 % (0.0-0.2); Platelet Count Result 517 k/mm3 (150-375); Red Blood Count 3.75 M/mm3 (4.2-5.4); Red Cell Distribution Width 14.6 % (11.5-14.5); White Blood Count 20.5 K/mm3 (4.5-10.0)
[2022-01-29 07:04] LABS: Alanine Aminotransferase 166 U/L (6-35); Alkaline Phosphatase 106 U/L (38-126); Anion Gap 8 mmol/L (8-16); Aspartate Amino Transferase 165 U/L (14-36); Bilirubin,Total 0.4 mg/dL (0.2-1.3); Blood Urea Nitrogen 29 mg/dL (7-17); Calcium 9.2 mg/dL (8.4-10.2); Carbon Dioxide 32 mmol/L (22-30); Chloride 105 mmol/L (98-107); Estimated CRCL calculation 40 ml/min; Estimated Glomerular Filt Rate 49; Glucose 215 mg/dL (65-110); Potassium 4.3 mmol/L (3.4-5.0); Sodium 145 mmol/L (137-145)
--- NOTE | 2022-01-29 07:14 | P.RRN_ITS ---
Critical Care Event Note Summary Code activated: No Narrative: 01/29/2022 at 06:30 Nursing staff called me because the patient was having respiratory distress. She was sitting forward in bed and tripoding. The patient was initially refusing to wear nebulizer treatment due to claustrophobia. Eventually stated compliant with nebulizer treatment. When I arrived nebulizer treatment was in process in the patient was heard to be audibly wheezing from across the room. Respiratory therapy told me that prior to the nebulizer treatment the patient had almost absent breath sounds. Patient's respiratory rate was 32 and she was diaphoretic. The patient received 1 mg of Ativan due to severe anxiety. An ABG was performed during the course of rapid response in pH of 7.3 pCO2 of 58 and PO2 of 240 but the patient had been on a nebulizer treatment which likely corresponded with her PO2. The patient had been on her home oxygen level of 3 L before that. The patient looks more comfortable. Chest x-ray was obtained and reviewed and did demonstrate worsening opacities the right middle lobe and lower lung zones consistent with pulmonary edema versus pneumonia. I wanted the place patient on BiPAP but the patient adamantly refused. I discussed the patient's case with respiratory therapy and we were going to try vapotherm. Went to another patient's bedside and at at 07:23 and a another rapid response was called. I arrived at the patient's bedside and patient was satting 70% on the they both term. Patient was mccall pale and minimally responsive. She still had labored respirations. Decision was made to move the patient to the ICU for immediate intubation. As the patient arrived to the ICU and I was preparing for intubation medical device engineer arrived and patient care was transitioned to the medical device engineer at that time. Of note patient did he have QT prolongation on initial EKG and medication choices will need to be adjusted based on this information. We may need repeat EKG to see if patient still has persisting QT prolongation. 1. acute decompensated hypercapnic respiratory failure 2. pneumonia 40 minute spent in critical care activities. Due to a high probability of clinically significant, life threatening deterioration, the patient required my highest level of preparedness to intervene emergently and I personally spent this critical care time directly and personally managing the patient. This critical care time included obtaining a history; examining the patient; pulse oximetry; ordering and review of studies; arranging urgent treatment with development of a management plan; evaluation of patient's response to treatment; frequent reassessment; and discussions with other providers. It was exclusive of separately billable procedures and treating other patients and teaching time. Please see Assessment and Plan section and the rest of the note for further information on patient assessment and treatment. This case had a high probability of a clinically significant, sudden, or life threatening deterioration of this patient's condition which required my full and direct attention, intervention and personal management. Critical care time: 30 - 74 mins
[2022-01-29] MEDS: FENTANYL 2,500MCG/NS250ML(*CRX 2,500 MCG/250 ML BAG IV CONT (07:52)
[2022-01-29] MEDS: MIDAZOLAM 100MG/NS 100ML(*CRX) 100 MG/100 ML BAG IV CONT (07:53)
[2022-01-29] MEDS: MIDAZOLAM HCL (*CRX) 2 MG/2 ML VIAL 4 MG IV PUSH (08:00)
[2022-01-29] MEDS: SUCCINYLCHOLINE CHLORIDE 20 MG/ML 10 ML VIAL 100 MG IV PUSH (08:00)
[2022-01-29] MEDS: ETOMIDATE 20 MG/10 ML AMPUL IV PUSH (08:02)
[2022-01-29 08:45] LABS: Alveolar/Arterial O2 Gradient 192.6 mmHg; Base Excess ABG -0.5 mEq/l (+/-2.0); Fractional Inspired Oxygen 50 %; HCO3 ABG 28.2 mEq/l (22.0-26.0); Oxygen Content ABG 16.5 %vol (16.0-22.0); Oxygen Saturation ABG 94.9 % (95.0-100.0); Oxyhemoglobin 93.9 % THb (90.0-100.0); PO2 ABG 88.3 mmHg (80.0-100.0); PO2 FiO2 Ratio Arterial Blood 1.77 %; Total Hemoglobin 12.4 g/dL (12.0-18.0)
[2022-01-29] MEDS: LIDOCAINE HCL 1% PF INJ 5 ML VIAL INFILTRATE (08:45)
[2022-01-29 08:46] LABS: PCO2 ABG 67.2 mmHg (35.0-45.0); pH ABG 7.241 (7.350-7.450)
[2022-01-29 08:47] LABS: Arterial Blood Gas PEEP 5 cmH2O; Arterial Blood Gas Tidal Volume 350 ml; Arterial Blood Gas Vent Mode CMV; Arterial Blood Gas Ventilator rate 20 /MIN; Device VENTILATOR; Modified Allen's Test Pass; Site Drawn LEFT RADIAL
[2022-01-29] MEDS: AZTREONAM 1 GM in DEXTROSE 5% IN WATER 50 ML 100 ML IVPB ×3 (09:34→21:18)
[2022-01-29] MEDS: LACTATED RINGERS 1,000 ML 100 ML IV CONT ×2 (09:35→20:15)
[2022-01-29] MEDS: DOXYCYCLINE 100 MG/NS 100 ML 100 MG/100 ML BAG IVPB ×2 (09:35→20:15)
[2022-01-29] MEDS: DORNASE ALFA INH SOLN 1 MG/ML 2.5 ML AMP 2.5 MG INHALATION ×2 (09:37→20:43)
--- NOTE | 2022-01-29 09:39 | WPDPROCEDUR ---
Procedures Intubation Intubation Date: 01/29/22 Intubation Time: 07:30 Consent: Patient respiratory failure and full code. Patient in altered mental status. Unable to provide any consent. Procedure done emergently as medical necessity A pre-procedural Time-Out was completed immediately before starting the procedure and confirmed: Patient Identification, Site, Procedure, Patient Position and the Availability of Requisite Equipment: Yes Sedative: etomidate Mg given: 20 Paralytic: succinylcholine Mg given: 100 Assist device used: fiber optic device ET tube size: cuffed Tube secured depth (cm): 23 Tube secured location: lips Tube placement confirmation: visualized tube passing through cords, equal breath sounds bilaterally, no breath sounds over epigastrium and confirmation by capnometry Patient tolerated procedure: well Intubation complications: none
[2022-01-29] MEDS: MINERAL OIL/WHITE PETROLATUM OINTMENT 1 APPLIC EACH EYE ×2 (09:40→20:16)
--- NOTE | 2022-01-29 09:40 | WPDCNINT ---
Assessment and Plan Assessment and plan (1) Acute respiratory failure: Code(s): J96.00 - Acute respiratory failure, unspecified whether with hypoxia or hypercapnia Status: Acute Assessment and Plan: Acute on chronic Respiratory failure secondary to end-stage COPD, possible pneumonia Status post resection of bulla, pleurodesis and endobronchial valve in Apr 2021 which was later removed Patient unable to tolerate noninvasive positive pressure ventilation. Poor mental status Intubated 01/29 Continue full mechanical ventilation support to prevent hypoxemia/hypercarbia and end organ damage. ABG reviewed and increase tidal volume to 400. Rate is at 20. 50% FiO2 and 5 of PEEP PCXR reviewed and advance ET tube by 2 cm Empiric doxycycline and aztreonam. Patient is penicillin allergy and also has prolonged QTC on her most recent EKG Sedation with Versed and fentanyl Steroids, bronchodilators Blood and sputum cultures COVID flu and RSV were negative admission (2) COPD exacerbation: Code(s): J44.1 - Chronic obstructive pulmonary disease with (acute) exacerbation Status: Acute Assessment and Plan: See above (3) Paroxysmal A-fib: Code(s): I48.0 - Paroxysmal atrial fibrillation Status: Acute Assessment and Plan: Currently in sinus rhythm Continue Eliquis your own (4) History of pulmonary embolism: Code(s): Z86.711 - Personal history of pulmonary embolism Status: Acute Assessment and Plan: On Eliquis History of IVC filter (5) Pneumonia: Code(s): J18.9 - Pneumonia, unspecified organism Status: Acute Assessment and Plan: Initial CTA did not suggest any pneumonia chest x-ray done early this morning suggest increased infiltrates in the right lower base Empiric aztreonam and doxycycline IV fluids check blood and sputum cultures (6) Acute kidney injury: Code(s): N17.9 - Acute kidney failure, unspecified Status: Acute Assessment and Plan: Slight elevation creatinine today IV fluids ordered Monitor urine output electrolytes and creatinine Check CK level Plan DVT prophylaxis -Eliquis Stress ulcer prophylaxis -Protonix Nutrition -start Tube Feeds Code Status - Full Code Patient has poor IV access hence a PICC line was placed after consent from patient's Case discussed with Dr. Morton with pulmonary Total Critical Care Time - 35 minutes Due to a high probability of clinically significant, life threatening deterioration, the patient required my highest level of preparedness to intervene emergently and I personally spent this critical care time directly and personally managing the patient. This critical care time included obtaining a history; examining the patient; pulse oximetry; ordering and review of studies; arranging urgent treatment with development of a management plan; evaluation of patient's response to treatment; frequent reassessment; and discussions with other providers. It was exclusive of separately billable procedures and treating other patients and teaching time. Please see Assessment and Plan section and the rest of the note for further information on patient assessment and treatment [employer] Consult Note Consult date: 01/29/22 Reason for consult: Acute respiratory failure HPI: Alexus Zambrano is a 71 year old female with a history of end-stage COPD on 3 L at baseline, history of being intubated multiple times in the past, and multiple spontaneous pneumothorax, pleurodesis endobronchial valve in April of 2021 presented to the ER on 01/26 with shortness of breath. Patient was diagnosed with COPD exacerbation and was admitted on the floor. Pulmonary was consulted. Patient was treated with steroids and bronchodilators. Over the course of hospitalization her status deteriorated with worsening hypoxia and respiratory failure. She had a rapid response early this morning for respiratory distress. She refus
[2022-01-29] MEDS: APIXABAN 5 MG TABLET PO ×2 (09:43→20:16)
[2022-01-29] MEDS: AMIODARONE HCL 100 MG TABLET PO (09:43)
[2022-01-29] MEDS: POTASSIUM CHLORIDE 20 MEQ TABLET.ER 40 MEQ PO (09:43)
[2022-01-29] MEDS: MULTIVITAMINS THERAPEUTIC TAB (*BKC) 1 TABLET PO (09:44)
[2022-01-29] MEDS: PANTOPRAZOLE SODIUM IV 40 MG VIAL IV PUSH (09:51)
[2022-01-29 10:20] LABS: Creatine Kinase 73 U/L (30-135)
[2022-01-29 10:34] LABS: Procalcitonin 1.3 ng/mL
[2022-01-29 12:32] LABS: Glucose Point of Care 181 mg/dl (65-105)
--- NOTE | 2022-01-29 14:33 | PM.IMPN ---
Progress Note: A&P Assessment and Plan (1) Acute respiratory failure: Code(s): J96.00 - Acute respiratory failure, unspecified whether with hypoxia or hypercapnia Status: Acute Assessment and Plan: patient hypoxic transferred to ICU patient is DNR so intubation was not done. Started on BiPAP. Still has high WBC count etiology which is unclear steroid was stopped about [address] scan chest shows possible infiltrate pneumonia/ viral etiology. Repeat CT also consistent with a lung mass lower lobe which needs further evaluation with repeat CT in 3 months. Spoke to the director private in detail discussed all findings patient already on antibiotic will continue to monitor patient. Patient and stated COPD condition critical prognosis poor patient having to ICU now (2) Pneumonia: Code(s): J18.9 - Pneumonia, unspecified organism Status: Acute (3) COPD exacerbation: Code(s): J44.1 - Chronic obstructive pulmonary disease with (acute) exacerbation Status: Acute Time Spent With Patient Time with patient: 25 - 35 minutes Subjective Date/time seen: 01/29/22 07.15 Interval history: Patient noted to be short of breath hypoxic pale rapid response was called and Review of Systems Review of Systems: ROS unobtainable: Yes unobtainable due to medical condition Exam Const: General: in distress HENMT: Mouth: Yes moist mucous membranes Eyes: Sclera: sclerae normal Neck: Neck: supple Resp: Auscultation: crackles, rales, rhonchi, wheezes and diminished lung sounds Cardio: Rate: regular rate and tachycardic GI: GI Palp: Yes Soft to palpation Auscultation: normal bowel sounds Objective Data Vital Signs Vital Signs: Vital Signs - 24 hr 01/28/22 14:37 01/28/22 16:00 01/28/22 16:00 Temperature 36.7 C Pulse Rate 100 95 106 H Respiratory Rate 16 20 Blood Pressure 136/67 Pulse Oximetry 93 Oxygen Delivery Oxygen Flow Rate Fraction of Inspired Oxygen 01/28/22 14:52 01/28/22 16:00 01/28/22 18:00 Temperature Pulse Rate 100 84 82 Respiratory Rate 16 Blood Pressure Pulse Oximetry 97 Oxygen Delivery Nasal Cannula Oxygen Flow Rate 3 Fraction of Inspired Oxygen 01/28/22 19:40 01/28/22 19:40 01/28/22 20:00 Temperature 36.2 C L Pulse Rate 112 H 112 H 118 H Respiratory Rate 16 22 H Blood Pressure 120/73 Pulse Oximetry 93 95 Oxygen Delivery Nasal Cannula Oxygen Flow Rate 3 Fraction of Inspired Oxygen 01/28/22 20:00 01/28/22 22:00 01/29/22 00:00 Temperature 36.2 C L Pulse Rate 120 H 97 98 Respiratory Rate 18 Blood Pressure 120/87 Pulse Oximetry 96 Oxygen Delivery Oxygen Flow Rate Fraction of Inspired Oxygen 01/29/22 00:00 01/29/22 01:15 01/29/22 01:17 Temperature Pulse Rate 112 H 53 L 53 L Respiratory Rate 18 18 Blood Pressure Pulse Oximetry 96 Oxygen Delivery Nasal Cannula Oxygen Flow Rate 3 Fraction of Inspired Oxygen 01/29/22 02:00 01/29/22 04:00 01/29/22 04:00 Temperature 36.2 C L Pulse Rate 112 H 100 106 H Respiratory Rate 22 H Blood Pressure 134/88 Pulse Oximetry 96 Oxygen Delivery Oxygen Flow Rate Fraction of Inspired Oxygen 01/29/22 06:00 01/29/22 06:22 01/29/22 06:22 Temperature Pulse Rate 124 H 135 H 135 H Respiratory Rate 36 H 36 H Blood Pressure Pulse Oximetry 97 Oxygen Delivery Nasal Cannula Oxygen Flow Rate 3 Fraction of Inspired Oxygen 01/29/22 07:52 01/29/22 07:53 01/29/22 08:30 Temperature Pulse Rate 109 H 109 H 109 H Respiratory Rate 20 20 Blood Pressure Pulse Oximetry 98 Oxygen Delivery Mechanical Ventilation Oxygen Flow Rate Fraction of Inspired Oxygen 50 01/29/22 08:00 01/29/22 08:00 01/29/22 08:00 Temperature 36.3 C L Pulse Rate 108 H 108 H Respiratory Rate 20 Blood Pressure 90/65 L Pulse Oximetry 100 Oxygen Delivery Mechanical Ventilation Oxygen Fl
[2022-01-29] MEDS: CENTRAL LINE FLUSH 10 ML IV PUSH ×2 (14:46→20:15)
--- NOTE | 2022-01-29 16:42 | WPDURCON ---
Assessment and Plan Assessment and plan (1) Acute kidney injury: Code(s): N17.9 - Acute kidney failure, unspecified Status: Acute Assessment and Plan: Creatinine is stable at 1.10, palomo catheter is in and draining. Recommend a repeat UA/culture even though she is on antibiotics d/t previous UA and 's report of frequency at the bedside commode. (2) Hydronephrosis: Code(s): N13.30 - Unspecified hydronephrosis Status: Acute Assessment and Plan: Seen on CTA 01/26/22, will get a DAYTON now that catheter is in place and see if hydro has resolved. If hydro is resolved it is likely d/t retention, if hydronephrosis remains, a CT abdomen and pelvis is recommended for further evaluation to rule out an obstruction. Urology Consult Note HPI Date Seen: 01/29/22 Time Seen: 12:00 Requesting Physician: Partia Pickard DO Primary Care Provider: Mic Estrada MD Consult Narrative Reason for consult: Right Hydronephrosis. Narrative: Alexus Zambrano is a 71 year old female who presented to the hospital with respiratory distress and long history of COPD with home o2 initially and was unfortunately intubated this morning during a rapid response then catheterized. 400cc was noted upon catheterization of clear yellow urine. Her UA on 01/15/22 does show leukocytes esterase and blood, however a urine culture was not sent. She is unable to give any medical history, but her is at the bedside and states that before her move to the ICU and intubation she was using the bedside commode very frequently, but didn't c/o dysuria or hematuria. She was found incdientally to have right hydronephrosis on CTA on 01/26/22 which appears to be the reason for our consultation. Creatinine is stable at 1.10, however WBC is 20. Review of Systems Review of Systems: ROS unobtainable: Yes unobtainable due to endotracheal tube Cardiovascular: Cardiovascular: Denies chest pain Respiratory: Respiratory: Reports as per HPI [facility] Past Medical History Medical History Chronic respiratory failure COPD (chronic obstructive pulmonary disease) Emphysema lung History of kidney stones with extraction History of pulmonary embolism History of tobacco abuse Multiple nodules of lung Osteoporosis Paroxysmal A-fib Snoring Spontaneous pneumothorax x3 Surgical History Surgical History History of adenoidectomy History of breast biopsy History of hysterectomy with bilateral oophorectomy History of tonsillectomy Hx of fracture of wrist s/p L ORIF S/P IVC filter Family History Family History Father Patient's father is Sibling Family history of malignant neoplasm of breast Mother Diabetes mellitus Family history of congestive heart failure Sibling Family history of malignant neoplasm of breast Sibling Family history of malignant neoplasm of breast Social History Social History Smoking packs per day: 0.5 Smoking cigarettes per day: 10.0 Years smoked: 37 Smoking pack-years: 18.50 Smoking status: Former smoker Tobacco type: cigarettes Second hand tobacco smoke exposure: No Smoking end date: 02/18/98 Alcohol intake: never Substance use: never Substance use type: does not use Lack of Transportation: No Lack of Food: Never True Current Housing: I Have Housing Concerned About Future Housing: No Difficulty Paying Gas/Electric Bills: No Difficulty Paying for Meds: No Currently Unemployed: No Education: Associate Degree Difficulty w/ Childcare or Family Care: No Gender identity (if verbalized by the patient): Female Spiritual care concerns: No Meds Home Medications and Allergies Home Medications Medication Instru
[2022-01-29 18:14] LABS: Appearance Urine Slightly Cloudy (Clear); Bilirubin Urine Negative (Negative); Blood Urine 3+ (Negative); Color Urine Yellow (Yellow); Glucose Urine UA Negative (Negative); Ketones Urine Negative (Negative); Leukocyte Esterase Ur 1+ LEU/UL (NEGATIVE); Nitrate Urine Negative (Negative); Protein Urine 1+ mg/dL (Negative); Urobilinogen Urine 0.2 mg/dL (<2.0); pH Urine 5.5 (5.0-9.0)
[2022-01-29 18:25] LABS: Bacteria Urine Trace /hpf; Mucus Urine Rare /lpf; RBC Urine >75 /hpf (0-2); Squamous Epithelial Cell Urine Rare /hpf (Few); WBC Urine 51-75 /hpf (0-3)
[2022-01-29 18:35] LABS: Add Urine Microscopic? YES
[2022-01-29] MEDS: NOREPINEPHRINE 8 MG/D5W 250 ML 8 MG/250 ML BAG 9.38 MG IV CONT (19:01)
[2022-01-30] VITALS (42 sets, daily range): BP systolic 85–112; BP diastolic 52–77; PULSE 62–105; RESP 18–22; TEMP 36.7–36.9; O2SAT 90–99
[2022-01-30 00:19] LABS: Glucose Point of Care 210 mg/dl (65-105)
[2022-01-30] MEDS: INSULIN ASPART (*BKC) 100 UNITS/ML SUB-Q ×3 (00:21→23:54)
[2022-01-30] MEDS: IPRATROPIUM BR 0.02% INH SOLN 0.5 MG/2.5 ML VIAL INHALATION ×4 (02:23→20:30)
[2022-01-30] MEDS: ALBUTEROL SULFATE NEB 2.5 MG/3 ML INH 5 MG INHALATION ×4 (02:23→20:30)
[2022-01-30 04:39] LABS: Hematocrit 31.7 % (37.0-47.0); Hemoglobin 9.9 g/dL (12.0-15.0); Mean Corpuscular HGB Conc 31.2 g/dl (32-36); Mean Corpuscular Hemoglobin 29.1 pg (26-34); Mean Corpuscular Volume 93.2 fl (80-100); Mean Platelet Volume 9.6 fl (7.4-10.4); Platelet Count Result 407 k/mm3 (150-375); Red Cell Distribution Width 14.8 % (11.5-14.5); White Blood Count 15.7 K/mm3 (4.5-10.0)
[2022-01-30 04:55] LABS: Alanine Aminotransferase 154 U/L (6-35); Albumin Level 3.2 g/dL (3.5-5.1); Alkaline Phosphatase 76 U/L (38-126); Aspartate Amino Transferase 110 U/L (14-36); Bilirubin,Total 0.6 mg/dL (0.2-1.3); Blood Urea Nitrogen 32 mg/dL (7-17); Calcium 8.2 mg/dL (8.4-10.2); Carbon Dioxide 30 mmol/L (22-30); Estimated CRCL calculation 53 ml/min; Estimated Glomerular Filt Rate > 60; Glucose 293 mg/dL (65-110); Magnesium 1.8 mg/dL (1.6-2.3); Potassium 4.1 mmol/L (3.4-5.0); Sodium 134 mmol/L (137-145)
[2022-01-30 05:06] LABS: Alveolar/Arterial O2 Gradient 91.2 mmHg; Base Excess ABG 5.8 mEq/l (+/-2.0); Carboxyhemoglobin 0.3 % THb (0-2.0); Fractional Inspired Oxygen 30 %; HCO3 ABG 31.1 mEq/l (22.0-26.0); Methemoglobin ABG 0.2 %THb (0-1.5); Oxygen Content ABG 14.8 %vol (16.0-22.0); Oxygen Saturation ABG 93.1 % (95.0-100.0); Oxyhemoglobin 91.5 % THb (90.0-100.0); PCO2 ABG 48.6 mmHg (35.0-45.0); PO2 ABG 65.6 mmHg (80.0-100.0); PO2 FiO2 Ratio Arterial Blood 2.19 %; Total Hemoglobin 11.5 g/dL (12.0-18.0); pH ABG 7.424 (7.350-7.450)
[2022-01-30 05:07] LABS: Arterial Blood Gas PEEP 5 cmH2O; Arterial Blood Gas Vent Mode CMV; Arterial Blood Gas Ventilator rate 20 /MIN; Device VENTILATOR; Modified Allen's Test Pass; Site Drawn LEFT RADIAL
[2022-01-30 05:08] LABS: Arterial Blood Gas Tidal Volume 400 ml
[2022-01-30] MEDS: methylPREDNISolone SOD SUCC 40 MG VIAL IV PUSH ×3 (05:49→21:27)
[2022-01-30] MEDS: AZTREONAM 1 GM in DEXTROSE 5% IN WATER 50 ML 100 ML IVPB ×3 (05:49→21:26)
[2022-01-30] MEDS: CENTRAL LINE FLUSH 10 ML IV PUSH ×3 (05:50→21:27)
[2022-01-30 06:11] LABS: Anion Gap 0 mmol/L (8-16); Chloride 104 mmol/L (98-107)
[2022-01-30] MEDS: DORNASE ALFA INH SOLN 1 MG/ML 2.5 ML AMP 2.5 MG INHALATION ×2 (08:18→20:30)
[2022-01-30 08:30] LABS: Hepatitis B Surface Antigen Negative (Negative)
[2022-01-30 08:36] LABS: HAV RESULT Negative (Negative); Hepatitis B Core IgM Result Negative (Negative)
[2022-01-30 08:48] LABS: Hepatitis C Virus Antibody Negative (Negative)
[2022-01-30] MEDS: MIDAZOLAM 100MG/NS 100ML(*CRX) 100 MG/100 ML BAG IV CONT (09:12)
[2022-01-30] MEDS: AMIODARONE HCL 100 MG TABLET PO (09:14)
[2022-01-30] MEDS: APIXABAN 5 MG TABLET PO ×2 (09:14→21:26)
[2022-01-30] MEDS: MULTIVITAMINS THERAPEUTIC TAB (*BKC) 1 TABLET PO (09:14)
[2022-01-30] MEDS: PANTOPRAZOLE SODIUM IV 40 MG VIAL IV PUSH (09:14)
[2022-01-30] MEDS: DOXYCYCLINE 100 MG/NS 100 ML 100 MG/100 ML BAG IVPB ×2 (09:17→21:26)
--- NOTE | 2022-01-30 11:11 | WPDINTPN ---
Progress Note: A&P Assessment and Plan (1) Acute respiratory failure: Code(s): J96.00 - Acute respiratory failure, unspecified whether with hypoxia or hypercapnia Status: Acute Assessment and Plan: Acute on chronic Respiratory failure secondary to end-stage COPD, possible pneumonia Status post resection of bulla, pleurodesis and endobronchial valve in Apr 2021 which was later removed Patient unable to tolerate noninvasive positive pressure ventilation. Poor mental status Intubated 01/29 -Continue full mechanical ventilation support to prevent hypoxemia/hypercarbia and end organ damage. -ABG reviewed 30% FiO2 and 5 of PEEP -chest x-ray this morning: Stable airspace opacities in right mid and lower lung zones suspicious for pneumonia. Severe emphysema. -Empiric vancomycin, doxycycline and aztreonam (01/29) Patient is penicillin allergy and also had prolonged QTC on her most recent EKG -Sedation with Versed and fentanyl, RASS of 0--2, daily sedation vacation -continue Steroids and bronchodilators -COVID, influenza A & B and RSV were negative on admission (2) Shock: Code(s): R57.9 - Shock, unspecified Status: Acute Assessment and Plan: Patient presented with end-stage COPD quit pneumonia, on antibiotics as above - Sputum cultures have been ordered -01/29: Urine cultures pending -will order blood cultures (3) COPD exacerbation: Code(s): J44.1 - Chronic obstructive pulmonary disease with (acute) exacerbation Status: Acute Assessment and Plan: Continue mechanical ventilation, steroids, bronchodilators and antibiotics (4) Paroxysmal A-fib: Code(s): I48.0 - Paroxysmal atrial fibrillation Status: Acute Assessment and Plan: Currently in sinus rhythm Continue Eliquis, which she takes at home (5) History of pulmonary embolism: Code(s): Z86.711 - Personal history of pulmonary embolism Status: Acute Assessment and Plan: On Eliquis History of IVC filter (6) Pneumonia: Code(s): J18.9 - Pneumonia, unspecified organism Status: Acute Assessment and Plan: Initial CTA did not suggest any pneumonia chest x-ray done on 01/29 morning suggest increased infiltrates in the right lower base -Continue antibiotics as above -IV fluids currently off (7) Acute kidney injury: Code(s): N17.9 - Acute kidney failure, unspecified Status: Acute Assessment and Plan: Slight elevation creatinine 01/29 Patient received IV fluids -creatinine down to 0.8 this morning -Monitor urine output electrolytes and creatinine -creatinine kinase level is normal Plan DVT prophylaxis -Eliquis Stress ulcer prophylaxis -Protonix Nutrition - tolerating tube feeds Lines: PICC line placed on 01/29/202201/29:Discussed with and updated with patient's condition, plan of care. Code Status - Full Code Total Critical Care Time - 34 minutes Due to a high probability of clinically significant, life threatening deterioration, the patient required my highest level of preparedness to intervene emergently and I personally spent this critical care time directly and personally managing the patient. This critical care time included obtaining a history; examining the patient; pulse oximetry; ordering and review of studies; arranging urgent treatment with development of a management plan; evaluation of patient's response to treatment; frequent reassessment; and discussions with other providers. It was exclusive of separately billable procedures and treating other patients and teaching time. Please see Assessment and Plan section and the rest of the note for further information on patient assessment and treatment Subjective Date/time seen: 01/30/22 11:12 Interval history: ?71 year old female with a history of end-stage COPD on 3 L at baseline, history of being intubated multiple times in the past, and multiple spontaneous pneumothorax, pleurodesis e
--- NOTE | 2022-01-30 11:24 | PCNFU ---
Nutrition Follow-Up Complete: Inadequate Oral Intake as related to mechanical vent and evidenced by NPO. goal: Meet estimated nutritional needs. Patient is meeting current goal. We will continue current goal. Pt current nutrition is Vital AF 1.2 at 50 ml/hr. Last recorded weight is 68.6 kg. Bowel Motility:+Bm reported 01/27 Labs Reviewed:Glu 293, BUN 32, Alb 3.2,Na 134 Meds Noted:Versed,Fentanyl, Eliquis, Vancomycin, MVI, Protonix, Levophed. Skin: WNL Additional Notes: Patient remains on mechanical vent and tube feedings of Vital AF 1.2 at 50 ml/hr and tolerating. Tube feedings is providing 1320 kcals/82 gms protein/892 ml water. Meeting 100% kcal and protein needs with vent. Flush 30 ml q 4 hours. Agree with diet orders. Will monitor in ICU rounds and reassessing every Saturday and Saturday.
[2022-01-30] MEDS: INSULIN GLARGINE (*BKC) 100 UNITS/ML SUB-Q (11:48)
[2022-01-30 12:15] LABS: Glucose Point of Care 153 mg/dl (65-105)
[2022-01-30] MEDS: FENTANYL 2,500MCG/NS250ML(*CRX 2,500 MCG/250 ML BAG 7.5 MCG IV CONT (15:19)
[2022-01-30 17:28] LABS: Glucose Point of Care 171 mg/dl (65-105)
--- NOTE | 2022-01-30 21:06 | WPDUROPN2 ---
Progress Note: A&P Assessment and Plan (1) Hydronephrosis: Code(s): N13.30 - Unspecified hydronephrosis Status: Acute Assessment and Plan: Renal US shows resolution of hydronephrosis as compared to CTA from 01/26/22. No further assessment needed. Ok to do a voiding trial and remove palomo once extubated. (2) Acute kidney injury: Code(s): N17.9 - Acute kidney failure, unspecified Status: Acute Assessment and Plan: Resolved, creatinine is now 0.80. Subjective Subjective Date/Time Seen: 01/30/22 21:06 Patient's urine remains clear in palomo, urine culture is pending, creatinine is stable at 0.80 [place] shows resolution of hydronephrosis as previously seen on CTA 01/26/22 in the right ureter. Review of Systems Review of Systems: ROS unobtainable: Yes unobtainable due to endotracheal tube Exam Const: General: cooperative Cardio: Rate: regular rate GI: GI Palp: Yes Soft to palpation and No Tenderness to palpation present (GI) : General: Yes no CVA tenderness Urinary Catheter: Urinary Catheter: patent and draining and urine clear Extrem: Right lower extremity: no edema Left lower extremity: no edema Objective Data Vital Signs Vital Signs: Vital Signs - 24 hr 01/29/22 21:43 01/29/22 21:44 01/29/22 22:00 Temperature Pulse Rate 68 69 67 Respiratory Rate 20 20 20 Blood Pressure 120/77 Pulse Oximetry 94 Oxygen Delivery Fraction of Inspired Oxygen 01/29/22 22:00 01/29/22 22:00 01/29/22 23:14 Temperature Pulse Rate 67 65 70 Respiratory Rate 20 Blood Pressure 120/77 Pulse Oximetry 93 Oxygen Delivery Mechanical Ventilation Fraction of Inspired Oxygen 30 01/29/22 23:34 01/30/22 00:00 01/30/22 00:00 Temperature 98.2 F Pulse Rate 64 66 66 Respiratory Rate 20 Blood Pressure 112/75 Pulse Oximetry 94 93 Oxygen Delivery Mechanical Ventilation Fraction of Inspired Oxygen 01/30/22 02:23 01/30/22 02:30 01/30/22 02:32 Temperature Pulse Rate 64 64 62 Respiratory Rate 20 20 Blood Pressure Pulse Oximetry 95 Oxygen Delivery Mechanical Ventilation Fraction of Inspired Oxygen 01/30/22 02:00 01/30/22 02:00 01/30/22 04:00 Temperature Pulse Rate 64 65 62 Respiratory Rate 20 Blood Pressure 98/68 L Pulse Oximetry 99 Oxygen Delivery Fraction of Inspired Oxygen 01/30/22 04:00 01/30/22 04:00 01/30/22 05:08 Temperature Pulse Rate 64 64 64 Respiratory Rate 20 20 Blood Pressure 106/65 Pulse Oximetry 95 94 95 Oxygen Delivery Mechanical Ventilation Mechanical Ventilation Fraction of Inspired Oxygen 30 30 01/30/22 05:53 01/30/22 05:53 01/30/22 08:20 Temperature 98.1 F Pulse Rate 64 64 65 Respiratory Rate 20 Blood Pressure 102/63 Pulse Oximetry 94 94 Oxygen Delivery Mechanical Ventilation Fraction of Inspired Oxygen 30 01/30/22 08:21 01/30/22 09:12 01/30/22 09:14 Temperature Pulse Rate 65 80 73 Respiratory Rate 20 20 Blood Pressure Pulse Oximetry Oxygen Delivery Fraction of Inspired Oxygen 01/30/22 08:48 01/30/22 08:00 01/30/22 08:00 Temperature 98.2 F Pulse Rate 67 68 68 Respiratory Rate 20 20 Blood Pressure 92/54 L Pulse Oximetry 93 Oxygen Delivery Fraction of Inspired Oxygen 01/30/22 08:00 01/30/22 08:00 01/30/22 10:00 Temperature Pulse Rate 68 77 Respiratory Rate 20 20 Blood Pressure Pulse Oximetry 93 Oxygen Delivery Mechanical Ventilation Fraction of Inspired Oxygen 30 01/30/22 10:00 01/30/22 10:00 01/30/22 11:08 Temperature Pulse Rate 77 77 78 Respiratory Rate 20 Blood Pressure 92/55 L Pulse Oximetry 91 94 Oxygen Delivery Mechanical Ventilation Fraction of Inspired Oxygen 30 01/30/22 08:00 01/30/22 10:00 01/30/22 12:00 Temperature Pulse Rate 68 77 81 Respiratory Rate Blood Pressure 92/54 L 92/55 L Pulse Oximetry Oxygen Delivery Fraction of In
[2022-01-30] MEDS: MINERAL OIL/WHITE PETROLATUM OINTMENT 1 APPLIC EACH EYE (21:26)
[2022-01-30 23:53] LABS: Glucose Point of Care 219 mg/dl (65-105)
[2022-01-31] VITALS (42 sets, daily range): BP systolic 84–128; BP diastolic 47–81; PULSE 60–88; RESP 11–21; TEMP 36.6–36.9; O2SAT 68–100
[2022-01-31] MEDS: NOREPINEPHRINE 8 MG/D5W 250 ML 8 MG/250 ML BAG 3.75 MG IV CONT (02:19)
[2022-01-31] MEDS: IPRATROPIUM BR 0.02% INH SOLN 0.5 MG/2.5 ML VIAL INHALATION ×4 (02:30→21:27)
[2022-01-31] MEDS: ALBUTEROL SULFATE NEB 2.5 MG/3 ML INH 5 MG INHALATION ×4 (02:30→21:27)
[2022-01-31] MEDS: MIDAZOLAM 100MG/NS 100ML(*CRX) 100 MG/100 ML BAG IV CONT (04:08)
[2022-01-31] MEDS: AZTREONAM 1 GM in DEXTROSE 5% IN WATER 50 ML 100 ML IVPB ×3 (05:07→21:22)
[2022-01-31] MEDS: methylPREDNISolone SOD SUCC 40 MG VIAL IV PUSH ×3 (05:07→21:07)
[2022-01-31] MEDS: CENTRAL LINE FLUSH 10 ML IV PUSH ×3 (05:07→21:07)
[2022-01-31 05:17] LABS: Hematocrit 32.1 % (37.0-47.0); Hemoglobin 10.1 g/dL (12.0-15.0); Mean Corpuscular HGB Conc 31.5 g/dl (32-36); Mean Corpuscular Hemoglobin 29.4 pg (26-34); Mean Corpuscular Volume 93.3 fl (80-100); Mean Platelet Volume 9.6 fl (7.4-10.4); Platelet Count Result 400 k/mm3 (150-375); Red Blood Count 3.44 M/mm3 (4.2-5.4); Red Cell Distribution Width 15.1 % (11.5-14.5); White Blood Count 17.5 K/mm3 (4.5-10.0)
[2022-01-31 05:36] LABS: Alanine Aminotransferase 153 U/L (6-35); Albumin Level 2.9 g/dL (3.5-5.1); Alkaline Phosphatase 65 U/L (38-126); Anion Gap 1 mmol/L (8-16); Aspartate Amino Transferase 80 U/L (14-36); Bilirubin,Total 0.5 mg/dL (0.2-1.3); Blood Urea Nitrogen 42 mg/dL (7-17); Calcium 7.8 mg/dL (8.4-10.2); Carbon Dioxide 29 mmol/L (22-30); Chloride 105 mmol/L (98-107); Estimated CRCL calculation 53 ml/min; Estimated Glomerular Filt Rate > 60; Glucose 141 mg/dL (65-110); Magnesium 1.9 mg/dL (1.6-2.3); Potassium 5.6 mmol/L (3.4-5.0); Sodium 135 mmol/L (137-145)
[2022-01-31 05:43] LABS: Alveolar/Arterial O2 Gradient 92.9 mmHg; Base Excess ABG 5.1 mEq/l (+/-2.0); Carboxyhemoglobin 0.3 % THb (0-2.0); Fractional Inspired Oxygen 30 %; HCO3 ABG 30.2 mEq/l (22.0-26.0); Methemoglobin ABG 0.1 %THb (0-1.5); Oxygen Content ABG 15.3 %vol (16.0-22.0); Oxygen Saturation ABG 93.3 % (95.0-100.0); PCO2 ABG 46.9 mmHg (35.0-45.0); PO2 ABG 65.9 mmHg (80.0-100.0); Reduced Hemoglobin 7.6 %THb (0-5.0); Total Hemoglobin 11.8 g/dL (12.0-18.0); pH ABG 7.427 (7.350-7.450)
[2022-01-31 05:44] LABS: Device VENTILATOR; Modified Allen's Test Pass; Site Drawn RIGHT RADIAL
[2022-01-31 05:45] LABS: Arterial Blood Gas PEEP 5 cmH2O; Arterial Blood Gas Tidal Volume 400 ml; Arterial Blood Gas Vent Mode CMV; Arterial Blood Gas Ventilator rate 20 /MIN
[2022-01-31 06:06] LABS: Anion Gap 1 mmol/L (8-16); Blood Urea Nitrogen 43 mg/dL (7-17); Calcium 8.4 mg/dL (8.4-10.2); Carbon Dioxide 32 mmol/L (22-30); Chloride 103 mmol/L (98-107); Estimated CRCL calculation 48 ml/min; Estimated Glomerular Filt Rate > 60; Glucose 171 mg/dL (65-110); Potassium 4.2 mmol/L (3.4-5.0); Sodium 136 mmol/L (137-145)
[2022-01-31] MEDS: DORNASE ALFA INH SOLN 1 MG/ML 2.5 ML AMP 2.5 MG INHALATION ×2 (08:16→21:28)
[2022-01-31] MEDS: AMIODARONE HCL 100 MG TABLET PO (08:23)
[2022-01-31] MEDS: APIXABAN 5 MG TABLET PO ×2 (08:23→21:07)
[2022-01-31] MEDS: PANTOPRAZOLE SODIUM IV 40 MG VIAL IV PUSH (08:24)
[2022-01-31] MEDS: MULTIVITAMINS THERAPEUTIC TAB (*BKC) 1 TABLET PO (08:24)
[2022-01-31] MEDS: INSULIN GLARGINE (*BKC) 100 UNITS/ML SUB-Q (08:30)
[2022-01-31] MEDS: MINERAL OIL/WHITE PETROLATUM OINTMENT 1 APPLIC EACH EYE (08:30)
[2022-01-31] MEDS: DOXYCYCLINE 100 MG/NS 100 ML 100 MG/100 ML BAG IVPB ×2 (08:31→21:13)
--- NOTE | 2022-01-31 11:21 | WPDINTPN ---
Progress Note: A&P Assessment and Plan (1) Acute respiratory failure: Code(s): J96.00 - Acute respiratory failure, unspecified whether with hypoxia or hypercapnia Status: Acute Assessment and Plan: Acute on chronic Respiratory failure secondary to end-stage COPD, possible pneumonia Status post resection of bulla, pleurodesis and endobronchial valve in Apr 2021 which was later removed Patient unable to tolerate noninvasive positive pressure ventilation. Poor mental status Intubated 01/29 -Continue full mechanical ventilation support to prevent hypoxemia/hypercarbia and end organ damage. -ABG reviewed 30% FiO2 and 5 of PEEP -chest x-ray this morning: Stable airspace opacities in right mid and lower lung zones suspicious for pneumonia. Severe emphysema. -Empiric vancomycin, doxycycline and aztreonam (01/29) Patient is penicillin allergy and also had prolonged QTC on her most recent EKG -Sedation with Versed and fentanyl, RASS of 0--2, daily sedation vacation -continue Steroids and bronchodilators -COVID, influenza A & B and RSV were negative on admission (2) Shock: Code(s): R57.9 - Shock, unspecified Status: Acute Assessment and Plan: Patient presented with end-stage COPD quit pneumonia, on antibiotics as above - Sputum cultures have been ordered -01/29: Urine cultures pending -01/30: Blood cultures no growth to date, preliminary report (3) COPD exacerbation: Code(s): J44.1 - Chronic obstructive pulmonary disease with (acute) exacerbation Status: Acute Assessment and Plan: Continue mechanical ventilation, steroids, bronchodilators and antibiotics (4) Paroxysmal A-fib: Code(s): I48.0 - Paroxysmal atrial fibrillation Status: Acute Assessment and Plan: Currently in sinus rhythm Continue Eliquis, which she takes at home (5) History of pulmonary embolism: Code(s): Z86.711 - Personal history of pulmonary embolism Status: Acute Assessment and Plan: On Eliquis History of IVC filter (6) Pneumonia: Code(s): J18.9 - Pneumonia, unspecified organism Status: Acute Assessment and Plan: Initial CTA did not suggest any pneumonia chest x-ray done on 01/29 morning suggest increased infiltrates in the right lower base -Continue antibiotics as above -IV fluids currently off (7) Acute kidney injury: Code(s): N17.9 - Acute kidney failure, unspecified Status: Acute Assessment and Plan: Slight elevation creatinine 01/29 Patient received IV fluids -creatinine down to 0.9 this morning -Monitor urine output electrolytes and creatinine -creatinine kinase level is normal Plan DVT prophylaxis -Eliquis Stress ulcer prophylaxis -Protonix Nutrition - tolerating tube feeds Lines: PICC line placed on 01/29/202201/31:Discussed with and updated with patient's condition, plan of care. Code Status - Full Code Total Critical Care Time - 36 minutes Due to a high probability of clinically significant, life threatening deterioration, the patient required my highest level of preparedness to intervene emergently and I personally spent this critical care time directly and personally managing the patient. This critical care time included obtaining a history; examining the patient; pulse oximetry; ordering and review of studies; arranging urgent treatment with development of a management plan; evaluation of patient's response to treatment; frequent reassessment; and discussions with other providers. It was exclusive of separately billable procedures and treating other patients and teaching time. Please see Assessment and Plan section and the rest of the note for further information on patient assessment and treatment Subjective Date/time seen: 01/31/22 11:21 Interval history: ?71 year old female with a history of end-stage COPD on 3 L at baseline, history of being intubated multiple times in the past, and multiple spon
--- NOTE | 2022-01-31 12:01 | PCFNICU ---
ICU Rounding Note: Pt current nutrition is Vital AF 1.2 at 50 ml/hr. Last recorded weight is 68.6 kg. Bowel Motility:+BM reported 01/27 Labs Reviewed:Glu 171, BUN 43, Na 136, Alb 2.9 Meds Noted:Versed,Fentanyl, Eliquis, Vancomycin, MVI, Protonix, Levophed. Skin: WNL Additional Notes:Patient remains on mechanical vent and tube feedings of Vital AF 1.2 at 50 ml/hr and tolerating. Flush 30 ml q 4 hours. Agree with diet orders. Monitoring: Will monitor in ICU rounds and reassessing every Saturday and Saturday.
[2022-01-31 12:28] LABS: Glucose Point of Care 145 mg/dl (65-105)
--- NOTE | 2022-01-31 16:19 | WPDGICN ---
Assessment and Plan Assessment and plan (1) Acute respiratory failure: Code(s): J96.00 - Acute respiratory failure, unspecified whether with hypoxia or hypercapnia Status: Acute Assessment and Plan: she has severe COPD. She is intubated and sedated consequently unable to give any history (2) COPD (chronic obstructive pulmonary disease): Code(s): J44.9 - Chronic obstructive pulmonary disease, unspecified Status: Acute (3) Cholelithiasis: Code(s): K80.20 - Calculus of gallbladder without cholecystitis without obstruction Status: Acute Assessment and Plan: ultrasound does reveal cholelithiasis but no evidence of acute cholecystitis. The bile duct is 8 mm in diameter which is at the upper limits of normal. There was no evidence of common bile duct stone. (4) Common bile duct dilatation: Code(s): K83.8 - Other specified diseases of biliary tract Status: Acute Assessment and Plan: Common bile duct is at the upper limits of normal. Given her normal bilirubin and normal alkaline phosphatase, I think it is unlikely that she has choledocholithiasis. Plan I am not concerned about the findings on ultrasound. Certainly she is at risk for developing cholecystitis at some point, but I doubt that she is a surgical candidate. I will drop off her case please call if I can be of any additional help. GI Consult Note Consult date/time: 01/31/22 16:19 HPI: Alexus Zambrano is a 71 year old female with severe COPD who was admitted with acute respiratory failure. She has a history of having had resection of bolus and pleurodesis. She is currently sedated with Versed and fentanyl and be treated with bronchodilators and steroids. Due to her being sedated I am not able to get any history from her. I have been asked to see her regarding an abnormal ultrasound which shows cholelithiasis and a mildly dilated common bile duct. She has have some elevation of her ALT from 59-153. Alkaline phosphatase however has remained normal. Bilirubin has remained normal. Review of Systems Review of Systems: ROS unobtainable: Yes unobtainable due to endotracheal tube PMFSH Past Medical History Medical History Chronic respiratory failure COPD (chronic obstructive pulmonary disease) Emphysema lung History of kidney stones with extraction History of pulmonary embolism History of tobacco abuse Multiple nodules of lung Osteoporosis Paroxysmal A-fib Snoring Spontaneous pneumothorax x3 Surgical History Surgical History History of adenoidectomy History of breast biopsy History of hysterectomy with bilateral oophorectomy History of tonsillectomy Hx of fracture of wrist s/p L ORIF S/P IVC filter Family History Family History Father Patient's father is Sibling Family history of malignant neoplasm of breast Mother Diabetes mellitus Family history of congestive heart failure Sibling Family history of malignant neoplasm of breast Sibling Family history of malignant neoplasm of breast Social History Social History Smoking packs per day: 0.5 Smoking cigarettes per day: 10.0 Years smoked: 37 Smoking pack-years: 18.50 Smoking status: Former smoker Tobacco type: cigarettes Second hand tobacco smoke exposure: No Smoking end date: 02/18/98 Alcohol intake: never Substance use: never Substance use type: does not use Lack of Transportation: No Lack of Food: Never True Current Housing: I Have Housing Concerned About Future Housing: No Difficulty Paying Gas/Electric Bills: No Difficulty Paying for Meds: No Currently Unemployed: No Education: Associate Degree Difficulty w/ Childcare or Family Care: No Genjorge alberto
[2022-01-31 17:43] LABS: Vancomycin Trough 11.1 ug/mL (10.0-20.0)
[2022-01-31 17:45] LABS: Glucose Point of Care 179 mg/dl (65-105)
[2022-02-01] VITALS (32 sets, daily range): BP systolic 89–130; BP diastolic 61–77; PULSE 52–96; RESP 12–25; TEMP 36–37.1; O2SAT 93–100
[2022-02-01 00:07] LABS: Glucose Point of Care 214 mg/dl (65-105)
[2022-02-01] MEDS: INSULIN ASPART (*BKC) 100 UNITS/ML SUB-Q (00:09)
[2022-02-01] MEDS: MIDAZOLAM 100MG/NS 100ML(*CRX) 100 MG/100 ML BAG IV CONT ×2 (00:14→11:36)
[2022-02-01] MEDS: ALBUTEROL SULFATE NEB 2.5 MG/3 ML INH 5 MG INHALATION ×4 (02:00→20:10)
[2022-02-01] MEDS: IPRATROPIUM BR 0.02% INH SOLN 0.5 MG/2.5 ML VIAL INHALATION ×4 (02:00→20:10)
[2022-02-01] MEDS: CENTRAL LINE FLUSH 10 ML IV PUSH ×3 (05:59→21:52)
[2022-02-01] MEDS: AZTREONAM 1 GM in DEXTROSE 5% IN WATER 50 ML 100 ML IVPB ×3 (05:59→21:51)
[2022-02-01] MEDS: methylPREDNISolone SOD SUCC 40 MG VIAL IV PUSH ×3 (06:02→21:52)
[2022-02-01 06:13] LABS: Glucose Point of Care 182 mg/dl (65-105)
[2022-02-01 07:54] LABS: Alveolar/Arterial O2 Gradient 22.1 mmHg; Base Excess ABG 5.1 mEq/l (+/-2.0); Carboxyhemoglobin 0.3 % THb (0-2.0); Fractional Inspired Oxygen 30 %; HCO3 ABG 28.9 mEq/l (22.0-26.0); Methemoglobin ABG 0.2 %THb (0-1.5); Oxygen Content ABG 16.2 %vol (16.0-22.0); Oxyhemoglobin 97.5 % THb (90.0-100.0); PCO2 ABG 39.4 mmHg (35.0-45.0); PO2 ABG 145.5 mmHg (80.0-100.0); PO2 FiO2 Ratio Arterial Blood 4.85 %; Total Hemoglobin 11.6 g/dL (12.0-18.0); pH ABG 7.483 (7.350-7.450)
[2022-02-01 07:56] LABS: Device VENTILATOR; Modified Allen's Test Pass; Site Drawn RIGHT RADIAL
[2022-02-01 07:57] LABS: Arterial Blood Gas PEEP 5 cmH2O; Arterial Blood Gas Vent Mode ASSIST CONTROL; Arterial Blood Gas Ventilator rate 20 /MIN
[2022-02-01 07:58] LABS: Arterial Blood Gas Tidal Volume 400 ml
[2022-02-01 08:03] LABS: Hematocrit 33.8 % (37.0-47.0); Hemoglobin 10.5 g/dL (12.0-15.0); Mean Corpuscular HGB Conc 31.1 g/dl (32-36); Mean Corpuscular Hemoglobin 29.1 pg (26-34); Mean Corpuscular Volume 93.6 fl (80-100); Mean Platelet Volume 9.8 fl (7.4-10.4); Platelet Count Result 435 k/mm3 (150-375); Red Blood Count 3.61 M/mm3 (4.2-5.4); Red Cell Distribution Width 15.5 % (11.5-14.5); White Blood Count 17.3 K/mm3 (4.5-10.0)
[2022-02-01 08:17] LABS: Alanine Aminotransferase 123 U/L (6-35); Albumin Level 2.9 g/dL (3.5-5.1); Alkaline Phosphatase 71 U/L (38-126); Anion Gap 2 mmol/L (8-16); Aspartate Amino Transferase 49 U/L (14-36); Bilirubin,Total 0.4 mg/dL (0.2-1.3); Blood Urea Nitrogen 45 mg/dL (7-17); Calcium 8.1 mg/dL (8.4-10.2); Carbon Dioxide 30 mmol/L (22-30); Chloride 102 mmol/L (98-107); Estimated CRCL calculation 60 ml/min; Estimated Glomerular Filt Rate > 60; Glucose 132 mg/dL (65-110); Magnesium 2.2 mg/dL (1.6-2.3); Potassium 4.8 mmol/L (3.4-5.0); Sodium 134 mmol/L (137-145)
[2022-02-01] MEDS: DOXYCYCLINE 100 MG/NS 100 ML 100 MG/100 ML BAG IVPB ×2 (08:47→21:01)
[2022-02-01] MEDS: AMIODARONE HCL 100 MG TABLET PO (08:50)
[2022-02-01] MEDS: MINERAL OIL/WHITE PETROLATUM OINTMENT 1 APPLIC EACH EYE ×2 (08:50→21:01)
[2022-02-01] MEDS: APIXABAN 5 MG TABLET PO ×2 (08:50→21:02)
[2022-02-01] MEDS: PANTOPRAZOLE SODIUM IV 40 MG VIAL IV PUSH (08:50)
[2022-02-01] MEDS: MULTIVITAMINS THERAPEUTIC TAB (*BKC) 1 TABLET PO (08:53)
[2022-02-01] MEDS: INSULIN GLARGINE (*BKC) 100 UNITS/ML SUB-Q (09:10)
[2022-02-01 09:14] LABS: Glucose Point of Care 198 mg/dl (65-105)
[2022-02-01] MEDS: DORNASE ALFA INH SOLN 1 MG/ML 2.5 ML AMP 2.5 MG INHALATION (09:53)
[2022-02-01] MEDS: polyethylene glycoL 3350 17 GM POWD.PACK PO (11:30)
[2022-02-01] MEDS: FENTANYL 2,500MCG/NS250ML(*CRX 2,500 MCG/250 ML BAG IV CONT (11:31)
[2022-02-01] MEDS: NOREPINEPHRINE 8 MG/D5W 250 ML 8 MG/250 ML BAG 1.88 MG IV CONT (11:34)
[2022-02-01] MEDS: dexmedeTOMIDine 400 MCG/100 ML 400 MCG/100 ML BAG IV CONT (11:37)
--- NOTE | 2022-02-01 11:52 | PCFNICU ---
ICU Rounding Note: Pt current nutrition is Vital AF 1.2 at 50 ml/hr. Last recorded weight is 68.6 kg. Bowel Motility:+Bm reported 01/27-miralax started today. Labs Reviewed:Glu 132, Na 134, BUN 45, Hgb 10.5,Hct 33.8 Meds Noted:Versed,Fentanyl, Eliquis, Vancomycin, MVI, Protonix Skin: WNL Additional Notes: Patient remain on mechanical vent. Tolerating tube feedings. Plans for breathing trial today. Following daily in ICU rounds. Will monitor in ICU rounds and reassessing every Saturday and Saturday.
--- NOTE | 2022-02-01 12:04 | PC.NURSE ---
Fentanyl and Versed titrated to off at 1145. Precedex started. patient restless but follows commands. bedside. levo off at 1200
[2022-02-01 12:13] LABS: Glucose Point of Care 193 mg/dl (65-105)
--- NOTE | 2022-02-01 13:10 | WPDINTPN ---
Progress Note: A&P Assessment and Plan (1) Acute respiratory failure: Code(s): J96.00 - Acute respiratory failure, unspecified whether with hypoxia or hypercapnia Status: Acute Assessment and Plan: Acute on chronic Respiratory failure secondary to end-stage COPD, possible pneumonia Status post resection of bulla, pleurodesis and endobronchial valve in Apr 2021 which was later removed Patient unable to tolerate noninvasive positive pressure ventilation. Poor mental status Intubated 01/29 -Continue full mechanical ventilation support to prevent hypoxemia/hypercarbia and end organ damage. -ABG reviewed 30% FiO2 and 5 of PEEP -chest x-ray this morning: Stable airspace opacities in right mid and lower lung zones suspicious for pneumonia. Severe emphysema. -Empiric vancomycin, doxycycline and aztreonam (01/29) Patient is penicillin allergy and also had prolonged QTC on her most recent EKG -Sedation with Versed and fentanyl, RASS of 0--2, daily sedation vacation. Will discontinue fentanyl and Versed and start Precedex infusion, once patient is more awake will place her on spontaneous breathing trial and evaluate for extubation -continue Steroids and bronchodilators -COVID, influenza A & B and RSV were negative on admission (2) Shock: Code(s): R57.9 - Shock, unspecified Status: Acute Assessment and Plan: Patient presented with end-stage COPD quit pneumonia, on antibiotics as above - Sputum cultures have been ordered -01/29: Urine cultures growing E coli, should be covered by aztreonam -01/30: Blood cultures no growth to date, preliminary report - (3) COPD exacerbation: Code(s): J44.1 - Chronic obstructive pulmonary disease with (acute) exacerbation Status: Acute Assessment and Plan: Continue mechanical ventilation, steroids, bronchodilators and antibiotics (4) Paroxysmal A-fib: Code(s): I48.0 - Paroxysmal atrial fibrillation Status: Acute Assessment and Plan: Currently in sinus rhythm Continue Eliquis, which she takes at home (5) History of pulmonary embolism: Code(s): Z86.711 - Personal history of pulmonary embolism Status: Acute Assessment and Plan: On Eliquis History of IVC filter (6) Pneumonia: Code(s): J18.9 - Pneumonia, unspecified organism Status: Acute Assessment and Plan: Initial CTA did not suggest any pneumonia chest x-ray done on 01/29 morning suggest increased infiltrates in the right lower base -Continue antibiotics as above -IV fluids currently off (7) Acute kidney injury: Code(s): N17.9 - Acute kidney failure, unspecified Status: Acute Assessment and Plan: Slight elevation creatinine 01/29 Patient received IV fluids -creatinine down to 0.9 this morning -Monitor urine output electrolytes and creatinine -creatinine kinase level is normal Plan DVT prophylaxis -Eliquis Stress ulcer prophylaxis -Protonix Nutrition - tolerating tube feeds Lines: PICC line placed on 01/29/202202/01:Discussed with and updated with patient's condition, plan of care. Code Status - Full Code Total Critical Care Time - 34 minutes Due to a high probability of clinically significant, life threatening deterioration, the patient required my highest level of preparedness to intervene emergently and I personally spent this critical care time directly and personally managing the patient. This critical care time included obtaining a history; examining the patient; pulse oximetry; ordering and review of studies; arranging urgent treatment with development of a management plan; evaluation of patient's response to treatment; frequent reassessment; and discussions with other providers. It was exclusive of separately billable procedures and treating other patients and teaching time. Please see Assessment and Plan section and the rest of the note for further information on patient assessment and treatment Subj
[2022-02-01] MEDS: dexmedeTOMIDine 400 MCG/100 ML 400 MCG/100 ML BAG 12.01 MCG IV CONT (18:05)
[2022-02-01 18:13] LABS: Glucose Point of Care 188 mg/dl (65-105)
[2022-02-01 18:28] LABS: Glucose Point of Care 198 mg/dl (65-105)
[2022-02-01 23:20] LABS: Glucose Point of Care 196 mg/dl (65-105)
[2022-02-02] VITALS (107 sets, daily range): BP systolic 80–127; BP diastolic 60–87; PULSE 54–104; RESP 12–29; TEMP 35.9–37.1; O2SAT 94–100
[2022-02-02] MEDS: ALBUTEROL SULFATE NEB 2.5 MG/3 ML INH 5 MG INHALATION ×4 (02:15→20:39)
[2022-02-02] MEDS: IPRATROPIUM BR 0.02% INH SOLN 0.5 MG/2.5 ML VIAL INHALATION ×4 (02:15→20:40)
[2022-02-02] MEDS: dexmedeTOMIDine 400 MCG/100 ML 400 MCG/100 ML BAG 12.01 MCG IV CONT (03:00)
[2022-02-02] MEDS: AZTREONAM 1 GM in DEXTROSE 5% IN WATER 50 ML 100 ML IVPB ×3 (06:00→21:45)
[2022-02-02] MEDS: methylPREDNISolone SOD SUCC 40 MG VIAL IV PUSH (06:00)
[2022-02-02] MEDS: CENTRAL LINE FLUSH 10 ML IV PUSH ×3 (06:00→21:46)
[2022-02-02 06:19] LABS: Alveolar/Arterial O2 Gradient 80.8 mmHg; Carboxyhemoglobin 0.3 % THb (0-2.0); Fractional Inspired Oxygen 30 %; Methemoglobin ABG 0.3 %THb (0-1.5); Oxygen Content ABG 15.8 %vol (16.0-22.0); Oxyhemoglobin 95.4 % THb (90.0-100.0); PCO2 ABG 39.7 mmHg (35.0-45.0); PO2 ABG 86.5 mmHg (80.0-100.0); PO2 FiO2 Ratio Arterial Blood 2.88 %; Total Hemoglobin 11.7 g/dL (12.0-18.0); pH ABG 7.466 (7.350-7.450)
[2022-02-02 06:21] LABS: Device VENTILATOR; Modified Allen's Test Pass; Site Drawn RIGHT RADIAL
[2022-02-02 06:22] LABS: Arterial Blood Gas PEEP 5 cmH2O; Arterial Blood Gas Pressure Support 10 cmH2O; Arterial Blood Gas Vent Mode SPONTANEOUS
[2022-02-02 06:45] LABS: Alanine Aminotransferase 91 U/L (6-35); Albumin Level 2.8 g/dL (3.5-5.1); Alkaline Phosphatase 75 U/L (38-126); Anion Gap 3 mmol/L (8-16); Aspartate Amino Transferase 29 U/L (14-36); Bilirubin,Total 0.3 mg/dL (0.2-1.3); Blood Urea Nitrogen 43 mg/dL (7-17); Calcium 8.1 mg/dL (8.4-10.2); Carbon Dioxide 32 mmol/L (22-30); Chloride 105 mmol/L (98-107); Estimated CRCL calculation 60 ml/min; Estimated Glomerular Filt Rate > 60; Glucose 171 mg/dL (65-110); Magnesium 2.1 mg/dL (1.6-2.3); Potassium 4.6 mmol/L (3.4-5.0); Sodium 140 mmol/L (137-145)
[2022-02-02 07:36] LABS: Vancomycin Trough 15.9 ug/mL (10.0-20.0)
[2022-02-02] MEDS: DORNASE ALFA INH SOLN 1 MG/ML 2.5 ML AMP 2.5 MG INHALATION ×2 (08:23→20:40)
[2022-02-02 08:43] LABS: Hematocrit 34.2 % (37.0-47.0); Hemoglobin 10.8 g/dL (12.0-15.0); Mean Corpuscular HGB Conc 31.6 g/dl (32-36); Mean Corpuscular Hemoglobin 29.2 pg (26-34); Mean Corpuscular Volume 92.4 fl (80-100); Mean Platelet Volume 9.9 fl (7.4-10.4); Platelet Count Result 357 k/mm3 (150-375); Red Cell Distribution Width 15.5 % (11.5-14.5); White Blood Count 14.8 K/mm3 (4.5-10.0)
[2022-02-02] MEDS: MINERAL OIL/WHITE PETROLATUM OINTMENT 1 APPLIC EACH EYE (08:54)
[2022-02-02] MEDS: APIXABAN 5 MG TABLET PO ×2 (08:57→20:00)
[2022-02-02] MEDS: MULTIVITAMINS THERAPEUTIC TAB (*BKC) 1 TABLET PO (08:57)
[2022-02-02] MEDS: AMIODARONE HCL 100 MG TABLET PO (08:57)
[2022-02-02] MEDS: DOXYCYCLINE 100 MG/NS 100 ML 100 MG/100 ML BAG IVPB (08:58)
[2022-02-02] MEDS: PANTOPRAZOLE SODIUM IV 40 MG VIAL IV PUSH (08:58)
[2022-02-02] MEDS: polyethylene glycoL 3350 17 GM POWD.PACK PO (08:59)
[2022-02-02 09:31] LABS: Alveolar/Arterial O2 Gradient 79.2 mmHg; Base Excess ABG 6.6 mEq/l (+/-2.0); Fractional Inspired Oxygen 30 %; HCO3 ABG 31.5 mEq/l (22.0-26.0); Oxygen Content ABG 15.4 %vol (16.0-22.0); Oxygen Saturation ABG 96.2 % (95.0-100.0); Oxyhemoglobin 94.9 % THb (90.0-100.0); PCO2 ABG 46.3 mmHg (35.0-45.0); PO2 ABG 80.3 mmHg (80.0-100.0); PO2 FiO2 Ratio Arterial Blood 2.68 %; Total Hemoglobin 11.5 g/dL (12.0-18.0)
[2022-02-02 09:32] LABS: Arterial Blood Gas PEEP 5 cmH2O; Arterial Blood Gas Vent Mode SPONTANEOUS; Device VENTILATOR; Site Drawn LEFT BRACHIAL
[2022-02-02 09:33] LABS: Arterial Blood Gas Pressure Support 8 cmH2O
--- NOTE | 2022-02-02 11:47 | PCFNICU ---
ICU Rounding Note: Pt current nutrition is NPO. Last recorded weight is 69 kg. Bowel Motility:No BM noted, miralax given today. Labs Reviewed: Glu 171, BUN 43, Alb 2.8 Meds Noted:Eliquis, Vancomycin, MVI, Protonix Skin: WNL Additional Notes: Patient is currently NPO. Extubated today. Speech/OT/PT ordered. Will monitor in ICU rounds and reassessing every 3 days.
--- NOTE | 2022-02-02 12:07 | WPDINTPN ---
Progress Note: A&P Assessment and Plan (1) Acute respiratory failure: Code(s): J96.00 - Acute respiratory failure, unspecified whether with hypoxia or hypercapnia Status: Acute Assessment and Plan: Acute on chronic Respiratory failure secondary to end-stage COPD, possible pneumonia Status post resection of bulla, pleurodesis and endobronchial valve in Apr 2021 which was later removed Patient unable to tolerate noninvasive positive pressure ventilation. Poor mental status Intubated 01/29 -patient has been on pressure support ventilation 11/22 for 24 hours, tolerating well, currently on Precedex infusion. -patient was placed on spontaneous breathing trial, tolerated well, ABGs were good, patient was successfully extubated on 02/02 -Empiric vancomycin, aztreonam (01/29) , DC doxycycline -continue Steroids and bronchodilators -COVID, influenza A & B and RSV were negative on admission (2) Shock: Code(s): R57.9 - Shock, unspecified Status: Acute Assessment and Plan: Patient presented with end-stage COPD quit pneumonia, on antibiotics as above - Sputum cultures have been ordered -01/29: Urine cultures growing E coli, should be covered by aztreonam -01/30: Blood cultures no growth to date, preliminary report -continue Levophed to maintain mean arterial pressures > 65 mmHg (3) COPD exacerbation: Code(s): J44.1 - Chronic obstructive pulmonary disease with (acute) exacerbation Status: Acute Assessment and Plan: Continue mechanical ventilation, steroids, bronchodilators and antibiotics (4) Paroxysmal A-fib: Code(s): I48.0 - Paroxysmal atrial fibrillation Status: Acute Assessment and Plan: Currently in sinus rhythm Continue Eliquis, which she takes at home (5) History of pulmonary embolism: Code(s): Z86.711 - Personal history of pulmonary embolism Status: Acute Assessment and Plan: On Eliquis History of IVC filter (6) Pneumonia: Code(s): J18.9 - Pneumonia, unspecified organism Status: Acute Assessment and Plan: Initial CTA did not suggest any pneumonia chest x-ray done on 01/29 morning suggest increased infiltrates in the right lower base -Continue antibiotics as above -IV fluids currently off (7) Acute kidney injury: Code(s): N17.9 - Acute kidney failure, unspecified Status: Acute Assessment and Plan: Slight elevation creatinine 12/12 Patient received IV fluids -creatinine down to 0.7 this morning -Monitor urine output electrolytes and creatinine -creatinine kinase level is normal Plan DVT prophylaxis -Eliquis Stress ulcer prophylaxis -Protonix Nutrition -patient extubated on 02/02, will have speech evaluate for bedside swallow Lines: PICC line placed on 01/29/2022 PT/OT to follow the patient, up in chair 02/02:Discussed with and updated with patient's condition, plan of care. He is aware that patient will be extubated today Code Status - Full Code Total Critical Care Time -33 minutes Due to a high probability of clinically significant, life threatening deterioration, the patient required my highest level of preparedness to intervene emergently and I personally spent this critical care time directly and personally managing the patient. This critical care time included obtaining a history; examining the patient; pulse oximetry; ordering and review of studies; arranging urgent treatment with development of a management plan; evaluation of patient's response to treatment; frequent reassessment; and discussions with other providers. It was exclusive of separately billable procedures and treating other patients and teaching time. Please see Assessment and Plan section and the rest of the note for further information on patient assessment and treatment Subjective Date/time seen: 02/02/22 12:07 Interval history: ?71 year old female with a history of end-stage COPD on 3 L at baseline, ar
--- NOTE | 2022-02-02 14:35 | PCSTNOTE ---
Please refer to the Bedside Swallow Evaluation in the EMR. Please note, silent aspiration cannot be ruled out at bedside.
[2022-02-02 17:09] LABS: Glucose Point of Care 156 mg/dl (65-105)
[2022-02-02] MEDS: methylPREDNISolone SOD SUCC 40 MG VIAL 20 MG IV PUSH (17:45)
[2022-02-02 17:50] LABS: Glucose Point of Care 125 mg/dl (65-105)
[2022-02-03] VITALS (48 sets, daily range): BP systolic 111–155; BP diastolic 67–124; PULSE 74–103; RESP 12–31; TEMP 36.7–37.2; O2SAT 88–100
[2022-02-03 00:11] LABS: Glucose Point of Care 117 mg/dl (65-105)
[2022-02-03] MEDS: IPRATROPIUM BR 0.02% INH SOLN 0.5 MG/2.5 ML VIAL INHALATION ×4 (03:14→20:41)
[2022-02-03] MEDS: ALBUTEROL SULFATE NEB 2.5 MG/3 ML INH 5 MG INHALATION ×2 (03:14→09:18)
[2022-02-03 04:19] LABS: Hematocrit 35.4 % (37.0-47.0); Hemoglobin 11.4 g/dL (12.0-15.0); Mean Corpuscular HGB Conc 32.2 g/dl (32-36); Mean Corpuscular Hemoglobin 29.8 pg (26-34); Mean Corpuscular Volume 92.7 fl (80-100); Mean Platelet Volume 9.2 fl (7.4-10.4); Platelet Count Result 404 k/mm3 (150-375); Red Blood Count 3.82 M/mm3 (4.2-5.4); Red Cell Distribution Width 15.9 % (11.5-14.5); White Blood Count 19.6 K/mm3 (4.5-10.0)
[2022-02-03 04:51] LABS: Alanine Aminotransferase 72 U/L (6-35); Albumin Level 3.1 g/dL (3.5-5.1); Alkaline Phosphatase 64 U/L (38-126); Anion Gap 3 mmol/L (8-16); Aspartate Amino Transferase 33 U/L (14-36); Bilirubin,Total 0.5 mg/dL (0.2-1.3); Blood Urea Nitrogen 40 mg/dL (7-17); Calcium 8.1 mg/dL (8.4-10.2); Carbon Dioxide 29 mmol/L (22-30); Chloride 102 mmol/L (98-107); Estimated CRCL calculation 69 ml/min; Estimated Glomerular Filt Rate > 60; Glucose 100 mg/dL (65-110); Magnesium 2.2 mg/dL (1.6-2.3); Potassium 5.3 mmol/L (3.4-5.0); Sodium 134 mmol/L (137-145)
[2022-02-03 06:03] LABS: Alveolar/Arterial O2 Gradient 167.1 mmHg; Base Excess ABG 2.8 mEq/l (+/-2.0); Carboxyhemoglobin 0.9 % THb (0-2.0); Fractional Inspired Oxygen 36 %; HCO3 ABG 27.2 mEq/l (22.0-26.0); Methemoglobin ABG 0.1 %THb (0-1.5); PCO2 ABG 41.3 mmHg (35.0-45.0); PO2 FiO2 Ratio Arterial Blood 1.16 %; Reduced Hemoglobin 23.5 %THb (0-5.0); Total Hemoglobin 12.3 g/dL (12.0-18.0); pH ABG 7.437 (7.350-7.450)
[2022-02-03 06:07] LABS: PO2 ABG 41.7 mmHg (80.0-100.0)
[2022-02-03 06:10] LABS: Modified Allen's Test Pass; Oxyhemoglobin 75.5 % THb (90.0-100.0); Site Drawn RIGHT RADIAL
[2022-02-03 06:11] LABS: Device NASAL CANNULA
[2022-02-03] MEDS: CENTRAL LINE FLUSH 10 ML IV PUSH ×3 (06:11→21:28)
[2022-02-03] MEDS: AZTREONAM 1 GM in DEXTROSE 5% IN WATER 50 ML 100 ML IVPB ×3 (06:11→21:28)
[2022-02-03] MEDS: methylPREDNISolone SOD SUCC 40 MG VIAL 20 MG IV PUSH (06:12)
[2022-02-03] MEDS: FUROSEMIDE INJ 40 MG/4 ML VIAL IV PUSH (09:24)
[2022-02-03] MEDS: PANTOPRAZOLE SODIUM IV 40 MG VIAL IV PUSH (09:26)
--- NOTE | 2022-02-03 10:38 | PM.IMPN ---
Progress Note: A&P Assessment and Plan (1) Acute respiratory failure: Code(s): J96.00 - Acute respiratory failure, unspecified whether with hypoxia or hypercapnia Status: Acute Assessment and Plan: Acute on chronic Respiratory failure secondary to end-stage COPD, possible pneumonia Status post resection of bulla, pleurodesis and endobronchial valve in Apr 2021 which was later removed Patient unable to tolerate noninvasive positive pressure ventilation. Poor mental status Intubated 01/29 -patient has been on pressure support ventilation 11/22 for 24 hours, tolerating well, currently on Precedex infusion. -patient was placed on spontaneous breathing trial, tolerated well, ABGs were good, patient was successfully extubated on 02/02 -Empiric vancomycin, aztreonam (01/29) , DC'd doxycycline -continue bronchodilators -COVID, influenza A & B and RSV were negative on admission -02/03 to medical floor (2) Shock: Code(s): R57.9 - Shock, unspecified Status: Acute Assessment and Plan: Patient presented with end-stage COPD quit pneumonia, on antibiotics as above - Sputum cultures have been ordered -01/29: Urine cultures growing E coli, should be covered by aztreonam -01/30: Blood cultures no growth to date, preliminary report -Resolved (3) COPD exacerbation: Code(s): J44.1 - Chronic obstructive pulmonary disease with (acute) exacerbation Status: Acute Assessment and Plan: Continue steroids, bronchodilators and antibiotics (4) Paroxysmal A-fib: Code(s): I48.0 - Paroxysmal atrial fibrillation Status: Acute Assessment and Plan: Currently in sinus rhythm Continue Eliquis, which she takes at home (5) History of pulmonary embolism: Code(s): Z86.711 - Personal history of pulmonary embolism Status: Acute Assessment and Plan: On Eliquis History of IVC filter (6) Pneumonia: Code(s): J18.9 - Pneumonia, unspecified organism Status: Acute Assessment and Plan: Initial CTA did not suggest any pneumonia chest x-ray done on 01/29 morning suggest increased infiltrates in the right lower base -Continue antibiotics as above -IV fluids currently off (7) Acute kidney injury: Code(s): N17.9 - Acute kidney failure, unspecified Status: Acute Assessment and Plan: Slight elevation creatinine 01/29 Resolved Subjective Date/time seen: 02/03/22 10:38 Interval history: Feeling better. [place] with any movement or conversation. Hungry. Awaiting ST eval for swallowing. Denied cp, abd pain Denied /GI isses Denied ABNL bleeding Denied focal weakness Review of Systems Review of Systems: All systems reviewed & are unremarkable except as noted in HPI and below Exam Narrative: chronically ill-appearing elderly female in no acute distress neck without JVD chest with distant breath sounds heart regular rate with normal S1 and S2 and no audible murmurs extremities without edema abdomen soft good bowel sounds nontender no masses musculoskeletal without gross deformity to visual inspection neurologic cranial nerves intact and symmetric to visual inspection Objective Data Vital Signs Vital Signs: Vital Signs - 24 hr 02/02/22 12:00 02/02/22 10:45 02/02/22 11:00 Temperature Pulse Rate 63 65 Respiratory Rate 15 18 Blood Pressure Pulse Oximetry 97 97 96 Oxygen Delivery Nasal Cannula Oxygen Flow Rate 4 02/02/22 11:01 02/02/22 11:15 02/02/22 11:30 Temperature Pulse Rate 64 66 72 Respiratory Rate 18 19 21 H Blood Pressure 98/60 L Pulse Oximetry 96 97 98 Oxygen Delivery Oxygen Flow Rate 02/02/22 11:45 02/02/22 12:00 02/02/22 12:01 Temperature Pulse Rate 62 67 64 Respiratory Rate 17 18 16 Blood Pressure 110/67 Pulse Oximetry 96 97 96 Oxygen Delivery Oxygen Flow Rate 02/02/22 12:15 02/02/22 12:31 02/02/22 14:21 Temperature Pulse Rate 68 69 67 Respir
[2022-02-03] MEDS: SODIUM ZIRCONIUM CYCLOSILICATE 10 GM POWD.PACK PO (12:14)
[2022-02-03] MEDS: MULTIVITAMINS THERAPEUTIC TAB (*BKC) 1 TABLET PO (12:15)
[2022-02-03] MEDS: polyethylene glycoL 3350 17 GM POWD.PACK PO (12:15)
[2022-02-03] MEDS: APIXABAN 5 MG TABLET PO ×2 (12:15→21:27)
[2022-02-03] MEDS: AMIODARONE HCL 100 MG TABLET PO (12:15)
[2022-02-03 12:25] LABS: Glucose Point of Care 92 mg/dl (65-105)
--- NOTE | 2022-02-03 12:32 | WPDINTPN ---
Progress Note: A&P Assessment and Plan (1) Acute respiratory failure: Code(s): J96.00 - Acute respiratory failure, unspecified whether with hypoxia or hypercapnia Status: Acute Assessment and Plan: Acute on chronic Respiratory failure secondary to end-stage COPD, possible pneumonia Status post resection of bulla, pleurodesis and endobronchial valve in Apr 2021 which was later removed Patient unable to tolerate noninvasive positive pressure ventilation. Poor mental status Intubated 01/29 Extubated 02 02 -Empiric vancomycin, aztreonam (01/29) for total of 7 days -off steroids -continue bronchodilators -COVID, influenza A & B and RSV were negative on admission (2) Shock: Code(s): R57.9 - Shock, unspecified Status: Acute Assessment and Plan: Patient presented with end-stage COPD quit pneumonia, on antibiotics as above - Sputum cultures have been ordered -01/29: Urine cultures growing E coli, should be covered by aztreonam -01/30: Blood cultures no growth to date, preliminary report -patient off Levophed, will start diuresing (3) COPD exacerbation: Code(s): J44.1 - Chronic obstructive pulmonary disease with (acute) exacerbation Status: Acute Assessment and Plan: Continue 3L oxygen via nasal cannula which is her home oxygen setting -continue bronchodilators (4) Paroxysmal A-fib: Code(s): I48.0 - Paroxysmal atrial fibrillation Status: Acute Assessment and Plan: Currently in sinus rhythm Continue Eliquis, which she takes at home (5) History of pulmonary embolism: Code(s): Z86.711 - Personal history of pulmonary embolism Status: Acute Assessment and Plan: On Eliquis History of IVC filter (6) Pneumonia: Code(s): J18.9 - Pneumonia, unspecified organism Status: Acute Assessment and Plan: Initial CTA did not suggest any pneumonia chest x-ray done on 01/29 morning suggest increased infiltrates in the right lower base -Continue antibiotics as above (7) Acute kidney injury: Code(s): N17.9 - Acute kidney failure, unspecified Status: Acute Assessment and Plan: Slight elevation creatinine 01/29 Patient received IV fluids -creatinine down to 0.6 this morning -Monitor urine output electrolytes and creatinine -creatinine kinase level is normal Plan DVT prophylaxis -Eliquis Stress ulcer prophylaxis -Protonix Nutrition -patient has passed a modified barium swallow, started on modified diet Lines: PICC line placed on 01/29/2022 Continue PT/OT to follow the patient, up in chair 02/03:Discussed with and updated with patient's condition, plan of care. Code Status - Full Code Total Critical Care Time -31 minutes -patient be transferred out of the ICU today Due to a high probability of clinically significant, life threatening deterioration, the patient required my highest level of preparedness to intervene emergently and I personally spent this critical care time directly and personally managing the patient. This critical care time included obtaining a history; examining the patient; pulse oximetry; ordering and review of studies; arranging urgent treatment with development of a management plan; evaluation of patient's response to treatment; frequent reassessment; and discussions with other providers. It was exclusive of separately billable procedures and treating other patients and teaching time. Please see Assessment and Plan section and the rest of the note for further information on patient assessment and treatment Subjective Date/time seen: 02/03/22 12:32 Interval history: ?71 year old female with a history of end-stage COPD on 3 L at baseline, history of being intubated multiple times in the past, and multiple spontaneous pneumothorax, pleurodesis endobronchial valve in April of 2021 presented to the ER on 01/26 with shortness of breath. 01/29/2022: Intubated 02/02/2022: Patient extub
[2022-02-03] MEDS: FUROSEMIDE 20 MG TABLET BY MOUTH (18:22)
[2022-02-03 20:03] LABS: Glucose Point of Care 115 mg/dl (65-105)
[2022-02-03] MEDS: guaiFENesin 12 HR 600 MG TABCR PO (21:26)
[2022-02-04] VITALS (9 sets, daily range): BP systolic 111–120; BP diastolic 60–73; PULSE 77–93; RESP 16–26; TEMP 36.4–37.1; O2SAT 94–100
[2022-02-04 00:29] LABS: Glucose Point of Care 108 mg/dl (65-105)
[2022-02-04] MEDS: ALPRAZolam (*CRX) 0.25 MG TABLET PO (00:29)
[2022-02-04] MEDS: ONDANSETRON INJ 4 MG/2 ML VIAL IV PUSH (03:20)
[2022-02-04] MEDS: AZTREONAM 1 GM in DEXTROSE 5% IN WATER 50 ML 100 ML IVPB ×3 (06:13→22:02)
[2022-02-04] MEDS: CENTRAL LINE FLUSH 10 ML IV PUSH ×3 (06:13→23:03)
[2022-02-04 06:38] LABS: Basophils Absolute Auto 0.1 K/mm3 (0.0-0.1); Basophils Percent Auto 0.6 % (0.2-1.2); Eosinophils Absolute Auto 0.1 K/mm3 (0-0.3); Eosinophils Percent Auto 0.8 % (0-4.4); Hematocrit 34.5 % (37.0-47.0); Immature Granulocyte Absolute 0.52 K/mm3 (0.00-0.031); Immature Granulocyte Percent A 4.4 % (0-0.5); Lymphocytes Absolute Auto 1.34 K/mm3 (0.9-3.2); Lymphocytes Percent Auto 11.2 % (18.3-44.2); Mean Corpuscular HGB Conc 31.9 g/dl (32-36); Mean Platelet Volume 9.1 fl (7.4-10.4); Monocytes Absolute Auto 0.9 K/mm3 (0.1-0.6); Monocytes Percent Auto 7.7 % (2.6-8.5); Neutrophils Percent Auto 75.3 % (45.5-73.1); Nucleated Red Blood Cells Perc 0.3 % (0.0-0.2); Platelet Count Result 373 k/mm3 (150-375); Red Blood Count 3.67 M/mm3 (4.2-5.4); Red Cell Distribution Width 16.2 % (11.5-14.5); White Blood Count 11.9 K/mm3 (4.5-10.0)
[2022-02-04 06:54] LABS: Anion Gap 0 mmol/L (8-16); Blood Urea Nitrogen 32 mg/dL (7-17); Calcium 7.8 mg/dL (8.4-10.2); Carbon Dioxide 34 mmol/L (22-30); Chloride 100 mmol/L (98-107); Estimated CRCL calculation 60 ml/min; Estimated Glomerular Filt Rate > 60; Glucose 76 mg/dL (65-110); Magnesium 2.2 mg/dL (1.6-2.3); Phosphorus 3.1 mg/dL (2.5-4.5); Potassium 4.3 mmol/L (3.4-5.0); Sodium 134 mmol/L (137-145)
[2022-02-04] MEDS: APIXABAN 5 MG TABLET PO ×2 (08:39→20:34)
[2022-02-04] MEDS: AMIODARONE HCL 100 MG TABLET PO (08:39)
[2022-02-04] MEDS: guaiFENesin 12 HR 600 MG TABCR PO ×2 (08:40→20:34)
[2022-02-04] MEDS: FUROSEMIDE 20 MG TABLET BY MOUTH ×2 (08:40→16:53)
[2022-02-04] MEDS: IPRATROPIUM BR 0.02% INH SOLN 0.5 MG/2.5 ML VIAL INHALATION ×2 (09:38→14:59)
[2022-02-04] MEDS: UMECLIDINIUM/VILANTEROL 62.5-25 MCG ELLIPTA 1 PUFF INHALATION (09:38)
[2022-02-04 10:33] LABS: Base Excess ABG 6.3 mEq/l (+/-2.0); Fractional Inspired Oxygen 28 %; HCO3 ABG 31.2 mEq/l (22.0-26.0); Oxygen Content ABG 16.9 %vol (16.0-22.0); Oxygen Saturation ABG 95.9 % (95.0-100.0); Oxyhemoglobin 94.5 % THb (90.0-100.0); PCO2 ABG 46.4 mmHg (35.0-45.0); PO2 ABG 77.9 mmHg (80.0-100.0); PO2 FiO2 Ratio Arterial Blood 2.78 %; Total Hemoglobin 12.7 g/dL (12.0-18.0); pH ABG 7.446 (7.350-7.450)
[2022-02-04 10:37] LABS: Site Drawn RIGHT RADIAL
[2022-02-04 10:38] LABS: Device NASAL CANNULA; Modified Allen's Test Pass
--- NOTE | 2022-02-04 12:52 | P.PNIM_ITS ---
Progress Note: A&P Assessment and Plan (1) Acute respiratory failure: Code(s): J96.00 - Acute respiratory failure, unspecified whether with hypoxia or hypercapnia Status: Acute Assessment and Plan: Acute on chronic Respiratory failure secondary to end-stage COPD, possible pneumonia Status post resection of bulla, pleurodesis and endobronchial valve in Apr 2021 which was later removed Patient unable to tolerate noninvasive positive pressure ventilation. Poor mental status Intubated 01/29 Extubated 02 02 -Empiric vancomycin, aztreonam (01/29) for total of 7 days -off steroids -continue bronchodilators -COVID, influenza A & B and RSV were negative on admission (2) Shock: Code(s): R57.9 - Shock, unspecified Status: Acute Assessment and Plan: Patient presented with end-stage COPD quit pneumonia, on antibiotics as above - Sputum cultures have been ordered -01/29: Urine cultures growing E coli, should be covered by aztreonam -01/30: Blood cultures no growth to date, preliminary report -patient off Levophed, will start diuresing (3) COPD exacerbation: Code(s): J44.1 - Chronic obstructive pulmonary disease with (acute) exacerbation Status: Acute Assessment and Plan: Continue 3L oxygen via nasal cannula which is her home oxygen setting -continue bronchodilators (4) Paroxysmal A-fib: Code(s): I48.0 - Paroxysmal atrial fibrillation Status: Acute Assessment and Plan: Currently in sinus rhythm Continue Eliquis, which she takes at home (5) History of pulmonary embolism: Code(s): Z86.711 - Personal history of pulmonary embolism Status: Acute Assessment and Plan: On Eliquis History of IVC filter (6) Pneumonia: Code(s): J18.9 - Pneumonia, unspecified organism Status: Acute Assessment and Plan: Initial CTA did not suggest any pneumonia chest x-ray done on 01/29 morning suggest increased infiltrates in the right lower base -Continue antibiotics as above (7) Acute kidney injury: Code(s): N17.9 - Acute kidney failure, unspecified Status: Acute Assessment and Plan: Slight elevation creatinine 01/29 Patient received IV fluids -creatinine down to 0.6 this morning -Monitor urine output electrolytes and creatinine -creatinine kinase level is normal Plan DVT prophylaxis -Eliquis Stress ulcer prophylaxis -Protonix Nutrition -patient has passed a modified barium swallow, started on modified diet Lines: PICC line placed on 01/29/2022 Continue PT/OT to follow the patient, up in chair 02/03:Discussed with and updated with patient's condition, plan of care. Code Status - Full Code Total Critical Care Time -31 minutes -patient be transferred out of the ICU today Due to a high probability of clinically significant, life threatening deterioration, the patient required my highest level of preparedness to intervene emergently and I personally spent this critical care time directly and personally managing the patient. This critical care time included obtaining a history; examining the patient; pulse oximetry; ordering and review of studies; arranging urgent treatment with development of a management plan; evaluation of patient's response to treatment; frequent reassessment; and discussions with other providers. It was exclusive of separately billable procedures and treating other patients and teaching time. Please see Assessment and Plan section and the rest of the note for further information on patient assessment and treatment
--- NOTE | 2022-02-04 13:19 | PCOTNOTE ---
Attempted OT evaluation, RN reports patient is being transferred to 3rd floor and is not available for evaluation. Will follow.
[2022-02-05] VITALS (9 sets, daily range): BP systolic 100–110; BP diastolic 51–63; PULSE 67–92; RESP 16–20; TEMP 36.4–36.9; O2SAT 98
[2022-02-05] MEDS: CENTRAL LINE FLUSH 10 ML IV PUSH ×3 (06:49→20:48)
[2022-02-05 07:21] LABS: Vancomycin Trough 21.5 ug/mL (10.0-20.0)
[2022-02-05] MEDS: IPRATROPIUM BR 0.02% INH SOLN 0.5 MG/2.5 ML VIAL INHALATION ×2 (07:46→13:36)
[2022-02-05] MEDS: APIXABAN 5 MG TABLET PO ×2 (09:43→20:46)
[2022-02-05] MEDS: FUROSEMIDE 20 MG TABLET BY MOUTH ×2 (09:43→17:21)
[2022-02-05] MEDS: guaiFENesin 12 HR 600 MG TABCR PO ×2 (09:43→20:46)
[2022-02-05] MEDS: polyethylene glycoL 3350 17 GM POWD.PACK PO (09:46)
[2022-02-05] MEDS: AMIODARONE HCL 100 MG TABLET PO (09:48)
--- NOTE | 2022-02-05 11:43 | PM.IMPN ---
Progress Note: A&P Assessment and Plan (1) Acute respiratory failure: Code(s): J96.00 - Acute respiratory failure, unspecified whether with hypoxia or hypercapnia Status: Acute Assessment and Plan: Acute on chronic Respiratory failure secondary to end-stage COPD, possible pneumonia Status post resection of bulla, pleurodesis and endobronchial valve in Apr 2021 which was later removed Patient unable to tolerate noninvasive positive pressure ventilation. Poor mental status Intubated 01/29 Extubated 02 02 -Empiric vancomycin, aztreonam (01/29) for total of 7 days -off steroids -continue bronchodilators -COVID, influenza A & B and RSV were negative on admission (2) Shock: Code(s): R57.9 - Shock, unspecified Status: Acute Assessment and Plan: Patient presented with end-stage COPD quit pneumonia, on antibiotics as above - Sputum cultures have been ordered -01/29: Urine cultures growing E coli, should be covered by aztreonam -01/30: Blood cultures no growth to date, preliminary report -patient off Levophed, will start diuresing (3) COPD exacerbation: Code(s): J44.1 - Chronic obstructive pulmonary disease with (acute) exacerbation Status: Acute Assessment and Plan: Continue 3L oxygen via nasal cannula which is her home oxygen setting -continue bronchodilators (4) Paroxysmal A-fib: Code(s): I48.0 - Paroxysmal atrial fibrillation Status: Acute Assessment and Plan: Currently in sinus rhythm Continue Eliquis, which she takes at home (5) History of pulmonary embolism: Code(s): Z86.711 - Personal history of pulmonary embolism Status: Acute Assessment and Plan: On Eliquis History of IVC filter (6) Pneumonia: Code(s): J18.9 - Pneumonia, unspecified organism Status: Acute Assessment and Plan: Initial CTA did not suggest any pneumonia chest x-ray done on 01/29 morning suggest increased infiltrates in the right lower base -Continue antibiotics as above (7) Acute kidney injury: Code(s): N17.9 - Acute kidney failure, unspecified Status: Acute Assessment and Plan: Slight elevation creatinine 01/29 Patient received IV fluids -creatinine down to 0.6 this morning -Monitor urine output electrolytes and creatinine -creatinine kinase level is normal Plan DVT prophylaxis -Eliquis Stress ulcer prophylaxis -Protonix Nutrition -patient has passed a modified barium swallow, started on modified diet Lines: PICC line placed on 01/29/2022 Continue PT/OT to follow the patient, up in chair 02/03:Discussed with and updated with patient's condition, plan of care. Code Status - Full Code Total Critical Care Time -31 minutes -patient be transferred out of the ICU today Due to a high probability of clinically significant, life threatening deterioration, the patient required my highest level of preparedness to intervene emergently and I personally spent this critical care time directly and personally managing the patient. This critical care time included obtaining a history; examining the patient; pulse oximetry; ordering and review of studies; arranging urgent treatment with development of a management plan; evaluation of patient's response to treatment; frequent reassessment; and discussions with other providers. It was exclusive of separately billable procedures and treating other patients and teaching time. Please see Assessment and Plan section and the rest of the note for further information on patient assessment and treatment Subjective Date/time seen: 02/05/22 11:43 breathing better Exam Narrative: General: Patient is pleasant, in no acute distress Lungs/Chest: Clear to auscultation bilaterally, decreased at bases, adequate air entry, no wheezing or crackles. Cardiac: RRR. Normal S1 S2. No murmurs Circulation: Pedal pulses are intact and symmetrical. Abdomen: Decreased bowel sounds. Obese.
--- NOTE | 2022-02-05 23:50 | PCRCNOTE ---
Window of time for administration has passed. See next scheduled administration.
[2022-02-06] VITALS (9 sets, daily range): BP systolic 115–126; BP diastolic 64–66; PULSE 68–92; RESP 18–20; TEMP 36.6; O2SAT 96–100
[2022-02-06] MEDS: IPRATROPIUM BR 0.02% INH SOLN 0.5 MG/2.5 ML VIAL INHALATION ×3 (03:30→13:53)
[2022-02-06] MEDS: CENTRAL LINE FLUSH 10 ML IV PUSH ×2 (06:11→15:23)
[2022-02-06] MEDS: FUROSEMIDE 20 MG TABLET BY MOUTH (08:28)
[2022-02-06] MEDS: guaiFENesin 12 HR 600 MG TABCR PO (08:28)
[2022-02-06] MEDS: APIXABAN 5 MG TABLET PO (08:28)
[2022-02-06] MEDS: AMIODARONE HCL 100 MG TABLET PO (08:30)
--- NOTE | 2022-02-06 08:54 | PCOTNOTE ---
Patient reports getting cleaned up, walking around in room, and just getting back into bed. Patient declined any ADLs or mobility. Will continue plan of care for OT tomorrow 02/07/22.
--- NOTE | 2022-02-06 09:40 | PCNFU ---
Nutrition Follow-Up Complete: Inadequate Oral Intake as related to mechanical vent and evidenced by NPO. Goal: Meet estimated nutritional needs. Patient is progressing towards goal.We will continue current goal. Pt current nutrition is Regular. Last recorded weight is 64.9 kg. Weight loss of 57 ibs reported per patient since April 2021. Bowel Motility:+BM reported 02/03 Labs Reviewed:no new labs to report. Meds Noted: Eliquis, Lascj Skin: WNL Additional Notes: Patient diet order has advanced to a regular diet. Oral Intake fair. Patient is refusing ensure, diet supplement changed to Nutritional Ice Cream BID providing an additional 300 kcals and 9 gms protein. Agree with diet ordersl Will monitor every 7 days.
--- NOTE | 2022-02-06 11:55 | PM.DS ---
DS: Admitting Diagnosis Discharge Date February 06, 2022 Admitting Diagnosis COPD DS: Summary Hospital Course Hospital Course: admitted for COPD exacerbation. Patient did require some time in the ICU. Since then she has been on 2-3 L of oxygen which is her normal oxygen level. She is not complaining any new shortness of breath she is actually up walking around her room in doing her normal activities. Patient can be discharged. Time Spent with Patient Time attestation: Total time spent providing and/or coordinating discharge services: Discharge Plan Discharge Attending physician on discharge: Hipolito Vargas Consulting providers: Vita Andersen ; Larry Godwin ; Annette Mosqueda ; Jude Heaton Discharging Clinician: Hipolito Vargas Patient Disposition: Home, Self-Care Activity: no preference Diet: as tolerated Patient Instructions: Antibiotic Form Stand Alone Forms: General Discharge Information Follow-up/Referrals: Mic Estrada MD [Primary Care Provider] - Discharge Medications: Continued multivitamin [Multiple Vitamins] Tablet 1 tablet PO DAILY spironolactone 25 mg tablet 12.5 mg PO DAILY furosemide 20 mg tablet 40 mg PO DAILY Eliquis 5 mg tablet 5 mg PO BID amiodarone 200 mg tablet 100 mg PO DAILY albuterol sulfate 90 mcg/actuation HFA aerosol inhaler 2 inh INHALATION Q4-6H PRN (Reason: Shortness Of Breath Or Wheezing) Anoro Ellipta 62.5-25 mcg/actuation blister with device 1 inh inhalation Q24H 90 Days Qty: 90 3RF Date of admission: 01/26/22 02:20 Primary Care Provider: Mic Estrada Admitting Provider: Patria Pickard Attending physician on admission: Patria Pickard Condition: Stable
--- NOTE | 2022-02-06 11:56 | PM.DS ---
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 Poor mental status Intubated 01/29 Extubated 02 02 -Empiric vancomycin, aztreonam (01/29) for total of 7 days -off steroids -continue bronchodilators -COVID, influenza A & B and RSV were negative on admission (2) Shock: Code(s): R57.9 - Shock, unspecified Status: Acute Assessment and Plan: Patient presented with end-stage COPD quit pneumonia, on antibiotics as above - Sputum cultures have been ordered -01/29: Urine cultures growing E coli, should be covered by aztreonam -01/30: Blood cultures no growth to date, preliminary report -patient off Levophed, will start diuresing (3) COPD exacerbation: Code(s): J44.1 - Chronic obstructive pulmonary disease with (acute) exacerbation Status: Acute Assessment and Plan: Continue 3L oxygen via nasal cannula which is her home oxygen setting -continue bronchodilators (4) Paroxysmal A-fib: Code(s): I48.0 - Paroxysmal atrial fibrillation Status: Acute Assessment and Plan: Currently in sinus rhythm Continue Eliquis, which she takes at home (5) History of pulmonary embolism: Code(s): Z86.711 - Personal history of pulmonary embolism Status: Acute Assessment and Plan: On Eliquis History of IVC filter (6) Pneumonia: Code(s): J18.9 - Pneumonia, unspecified organism Status: Acute Assessment and Plan: Initial CTA did not suggest any pneumonia chest x-ray done on 01/29 morning suggest increased infiltrates in the right lower base -Continue antibiotics as above (7) Acute kidney injury: Code(s): N17.9 - Acute kidney failure, unspecified Status: Acute Assessment and Plan: Slight elevation creatinine 01/29 Patient received IV fluids -creatinine down to 0.6 this morning -Monitor urine output electrolytes and creatinine -creatinine kinase level is normal Plan DVT prophylaxis -Eliquis Stress ulcer prophylaxis -Protonix Nutrition -patient has passed a modified barium swallow, started on modified diet Lines: PICC line placed on 01/29/2022 Continue PT/OT to follow the patient, up in chair 02/03:Discussed with and updated with patient's condition, plan of care. Code Status - Full Code Total Critical Care Time -31 minutes -patient be transferred out of the ICU today Due to a high probability of clinically significant, life threatening deterioration, the patient required my highest level of preparedness to intervene emergently and I personally spent this critical care time directly and personally managing the patient. This critical care time included obtaining a history; examining the patient; pulse oximetry; ordering and review of studies; arranging urgent treatment with development of a management plan; evaluation of patient's response to treatment; frequent reassessment; and discussions with other providers. It was exclusive of separately billable procedures and treating other patients and teaching time. Please see Assessment and Plan section and the rest of the note for further information on patient assessment and treatment DS: Summary Hospital Course Hospital Course: 71-year-old female history of COPD. Came in with respiratory failure had to be intubated in the ICU. She was extubated on the did exceptionally well. Patient can be discharged home Time Spent with Patient Time attestation: Total ariela
== END 2022-02-06 16:22 | disposition home or self-care (01) | DRG 207 ==
LOC: ANHED 01-26 01:36 → ANHIMU 01-26 15:18 → ANHICU 01-30 10:34 → ANH3MED 02-06 11:55 → ANHICU 02-07 10:54 → ANHIMU 02-07 10:54
PROVIDERS: Internal Medicine; Nurse Practitioner Adult Health; Admitting Provider Internal Medicine; Emergency Provider Emergency Medicine; PCP Family Medicine; Visit Provider Chiropractor
DX: J44.1 Chronic obstructive pulmonary disease with (acute) exacerbation (principal); J96.22 Acute and chronic respiratory failure with hypercapnia; J18.9 Pneumonia, unspecified organism; N17.9 Acute kidney failure, unspecified; N13.30 Unspecified hydronephrosis; R57.9 Shock, unspecified; J44.0 Chronic obstructive pulmonary disease with (acute) lower respiratory infection; I48.0 Paroxysmal atrial fibrillation; E87.6 Hypokalemia; R73.9 Hyperglycemia, unspecified; M81.0 Age-related osteoporosis without current pathological fracture; Z20.822 Contact with and (suspected) exposure to COVID-19; Z79.01 Long term (current) use of anticoagulants; Z86.711 Personal history of pulmonary embolism; Z87.442 Personal history of urinary calculi; Z87.891 Personal history of nicotine dependence
CPT/HCPCS: 31500; 36415; 36569; 36600; 71045; 71275; 76705; 76775; 80048; 80053; 80074; 80202; 81001; 82375; 82550; 82805; 82948; 83036; 83050; 83735; 83880; 84100; 84145; 84484; 85025; 85027; 85380; 87040; 87077; 87086; 87088; 87186; 87636; 92610; 92611; 93005; 94002; 94003; 94640; 94667; 96365; 96375; 97161; 97165; 97530; 99291; A9270; C1751; C9113; J0330; J1815; J1940; J2060; J2250; J2405; J2920; J2930; J3010; J3370; J3475; J7120; Q9967

== ENCOUNTER 2022-07-17 11:10 | Outpatient (CLI) | payer MEDICARE, SELFPAY ==
[2022-07-17 11:43] LABS: Basophils Absolute Auto 0.1 K/mm3 (0.0-0.1); Basophils Percent Auto 0.8 % (0.2-1.2); Eosinophils Absolute Auto 0.2 K/mm3 (0-0.3); Eosinophils Percent Auto 2.2 % (0-4.4); Hematocrit 34.4 % (37.0-47.0); Immature Granulocyte Absolute 0.04 K/mm3 (0.00-0.031); Immature Granulocyte Percent A 0.4 % (0-0.5); Lymphocytes Percent Auto 11.3 % (18.3-44.2); Mean Corpuscular Hemoglobin 29.4 pg (26-34); Mean Platelet Volume 9.5 fl (7.4-10.4); Monocytes Absolute Auto 0.9 K/mm3 (0.1-0.6); Monocytes Percent Auto 8.5 % (2.6-8.5); Neutrophils Absolute Auto 8.2 K/mm3 (1.3-6.7); Neutrophils Percent Auto 76.8 % (45.5-73.1); Platelet Count Result 372 k/mm3 (150-375); Red Blood Count 3.74 M/mm3 (4.2-5.4); Red Cell Distribution Width 14.9 % (11.5-14.5); White Blood Count 10.6 K/mm3 (4.5-10.0)
[2022-07-17 11:47] LABS: Alanine Aminotransferase 21 U/L (6-35); Albumin Level 4.4 g/dL (3.5-5.1); Alkaline Phosphatase 81 U/L (38-126); Aspartate Amino Transferase 35 U/L (14-36); Blood Urea Nitrogen 26 mg/dL (7-17); Calcium 11.1 mg/dL (8.4-10.2); Carbon Dioxide > 40 mmol/L (22-30); Chloride 94 mmol/L (98-107); Estimated Glomerular Filt Rate 40; Glucose 116 mg/dL (65-110); Potassium 3.6 mmol/L (3.4-5.0); Sodium 139 mmol/L (137-145)
[2022-07-17 12:55] LABS: Folic Acid > 20.0 ng/mL (2.76->20)
== END 2022-07-17 11:11 | disposition home or self-care (01) ==
LOC: ANHLAB 11:14
PROVIDERS: PCP Family Medicine; Visit Provider Family Medicine
DX: D72.829 Elevated white blood cell count, unspecified (principal); E87.6 Hypokalemia; R53.83 Other fatigue; R91.8 Other nonspecific abnormal finding of lung field; I48.0 Paroxysmal atrial fibrillation
CPT/HCPCS: 36415; 80053; 82607; 82746; 84443; 85025

== ENCOUNTER 2022-08-10 12:11 | Outpatient (CLI) | payer MEDICARE, SELFPAY ==
[2022-08-10 13:16] LABS: Blood Urea Nitrogen 26 mg/dL (7-17); Calcium 13.5 mg/dL (8.4-10.2); Carbon Dioxide > 40 mmol/L (22-30); Chloride 89 mmol/L (98-107); Estimated Glomerular Filt Rate 25; Glucose 100 mg/dL (65-110); Potassium 3.2 mmol/L (3.4-5.0); Sodium 137 mmol/L (137-145)
== END 2022-08-10 12:12 | disposition home or self-care (01) ==
LOC: ANHLAB 12:12
PROVIDERS: PCP Family Medicine; Visit Provider Physician Assistant
DX: N17.9 Acute kidney failure, unspecified (principal)
CPT/HCPCS: 36415; 80048

== ENCOUNTER 2022-08-13 08:19 | Outpatient (CLI) | payer MEDICARE, SELFPAY ==
[2022-08-13 09:24] LABS: Blood Urea Nitrogen 32 mg/dL (7-17); Calcium 12.7 mg/dL (8.4-10.2); Carbon Dioxide > 40 mmol/L (22-30); Chloride 94 mmol/L (98-107); Estimated Glomerular Filt Rate 26; Glucose 96 mg/dL (65-110); Potassium 3.3 mmol/L (3.4-5.0); Sodium 138 mmol/L (137-145)
== END 2022-08-13 08:20 | disposition home or self-care (01) ==
LOC: ANHLAB 08:20
PROVIDERS: PCP Family Medicine; Visit Provider Physician Assistant
DX: N17.9 Acute kidney failure, unspecified (principal); E87.6 Hypokalemia
CPT/HCPCS: 36415; 80048

== ENCOUNTER → 2022-08-15 12:55 | Outpatient (CLI) | payer MEDICARE, SELFPAY ==
--- NOTE | ~2022-08-15 | US_ITS ---
EXAMINATION: US renal BI DATE: 08/15/2022 13:25 INDICATION: ANIKET, hypokalemia TECHNIQUE: Multiple grayscale and Doppler ultrasound images of the kidneys were obtained. COMPARISON: 01/29/2022; CT abdomen pelvis 10/08/2018 FINDINGS: The right kidney measures 9.3 x 5.3 x 6.3 cm. The left kidney measures 10.6 x 5.5 x 6.0 cm. The kidne ys demonstrate normal parenchymal echogenicity. Mild bilateral increased cortical echogenicity. Left upper and lower pole echogenic foci with shadowing. There is no hydronephrosis. The bladder is normal . IMPRESSION: Bilateral medical renal disease. Left upper and lower pole renal calculi. Reviewed, dictated and finalized at location K.
--- NOTE | ~2022-08-15 | XR_ITS ---
EXAMINATION: XR chest 2V Exam Date/Time: 08/15/2022 13:15 CDT HISTORY: sob hx of copd and smoking and hypercalcemia Comparison: 02/04/2022. RESULT: Lines, tubes, and devices: None. Lungs and pleura: Severe emphysematous change. Large upper lung bullae. Stable peripheral right uppe r lung masses. Left costophrenic angle blunting. Cardiomediastinal silhouette: Stable. Other: No acute osseous or upper abdominal finding. IMPRESSION: Small left pleural effusion versus chronic pleural parenchymal scarring. Reviewed, dictated and finalized at location K.
== END ==
PROVIDERS: PCP Family Medicine; Visit Provider Physician Assistant
DX: E83.52 Hypercalcemia (principal); N17.9 Acute kidney failure, unspecified; Z87.891 Personal history of nicotine dependence; E87.6 Hypokalemia; R06.02 Shortness of breath; J90 Pleural effusion, not elsewhere classified
CPT/HCPCS: 71046; 76775

== ENCOUNTER 2022-08-20 10:42 | Outpatient (CLI) | payer MEDICARE, SELFPAY ==
[2022-08-20 12:56] LABS: Anion Gap 3 mmol/L (8-16); Blood Urea Nitrogen 31 mg/dL (7-17); Carbon Dioxide 38 mmol/L (22-30); Chloride 100 mmol/L (98-107); Estimated Glomerular Filt Rate 14; Glucose 91 mg/dL (65-110); Potassium 4.2 mmol/L (3.4-5.0); Sodium 141 mmol/L (137-145)
[2022-08-20 13:45] LABS: Calcium 14.5 mg/dL (8.4-10.2)
== END 2022-08-20 10:43 | disposition home or self-care (01) ==
PROVIDERS: Visit Provider Physician Assistant
DX: N17.9 Acute kidney failure, unspecified (principal); E83.52 Hypercalcemia
CPT/HCPCS: 36415; 80048

== ENCOUNTER → 2022-08-20 11:37 | Outpatient (CLI) | payer MEDICARE, SELFPAY ==
--- NOTE | ~2022-08-20 | CT_ITS ---
CT Scan of the Chest without Contrast: Clinical Indication: Abnormal chest x-ray Technique: Contiguous sections were acquired throughout the chest without intravenous contrast. Dose reduction technique was used on this scan by utilizing automated exposure control and iterative recon struction technique. The dose-length product (DLP) was 213.27 mGy-cm. COMPARISON: Chest x-ray dated 08/15/2022, prior CT dated 01/25/2022 Findings: There is no evidence of any significant mediastinal, hilar or axillary lymphadenopathy. The mediastin al soft tissues appear normal. There is no evidence of pleural or pericardial effusion. Severe COPD/emphysema is unchanged. Densely calcified chronic bilateral upper lobe pulmonary scarring , right worse than left, is unchanged. Images through the upper abdomen reveal multiple left renal stones in the left renal pelvis and left upper pole, measuring up to 1.3 cm in diameter. IVC filter and large calcified gallstone are present. There is a round mass adjacent to the right-side of the descending thoracic aorta at the aortic hiat us, with dense peripheral calcification, stable from prior exam.. Impression: Stable severe emphysema/COPD with chronic bilateral upper lobe calcified scarring, right worse than l eft. Stable round, peripherally calcified mass adjacent to the thoracic aorta at the aortic hiatus, consis tent with benign lesion given lack of interval change. Cholelithiasis and left nephrolithiasis, as noted above. Reviewed, dictated and finalized at [facility]. Impression: Stable severe emphysema/COPD with chronic bilateral upper lobe calcified scarri ng, right worse than left. Stable round, peripherally calcified mass adjacent to the thoracic aorta at the aortic hiatus, consistent with benign lesion given lack of interval change. Cholelithiasis and left nephrolithiasis, as noted above.
== END ==
PROVIDERS: PCP Physician Assistant; Visit Provider Physician Assistant
DX: R93.89 Abnormal findings on diagnostic imaging of other specified body structures (principal); J90 Pleural effusion, not elsewhere classified; J44.9 Chronic obstructive pulmonary disease, unspecified; J43.9 Emphysema, unspecified; K80.20 Calculus of gallbladder without cholecystitis without obstruction
CPT/HCPCS: 71250

== ENCOUNTER 2022-08-20 15:01 | Inpatient (IN) | payer MEDICARE, SELFPAY ==
--- NOTE | ~2022-08-20 | XR_ITS ---
Portable chest x-ray Comparison: 08/07/2022 Clinical History: Shortness of breath, COPD Findings: Stable dense consolidation or nodule at the right lung apex. Stable scarring left upper lo be. Chronic blunting of the left costophrenic angle angles noted. COPD pattern is unchanged. Cardiom ediastinal silhouette is stable. Bones and soft tissues are unremarkable. Impression: No acute abnormality. Stable COPD pattern with left upper lobe scarring and chronic blunting of the left costophrenic angle . Stable dense consolidation or nodule at the right lung apex, indeterminate. Reviewed, dictated and finalized at location . Impression: No acute abnormality. Stable COPD pattern with left upper lobe scarring and chronic blunting of the l eft costophrenic angle. Stable dense consolidation or nodule at the right lung apex, indeterminate.
--- NOTE | ~2022-08-20 | XR_ITS ---
EXAMINATION: XR chest 1V portable Exam Date/Time: 08/25/2022 15:45 CDT HISTORY: shortness of breath Comparison: 08/23/2022. RESULT: Lines, tubes, and devices: None. Lungs and pleura: No new edema, focal consolidation or effusion. Unchanged right upper lobe mass, le ft costophrenic angle blunting, and bullous emphysema. Cardiomediastinal silhouette: Stable. Other: No acute osseous or upper abdominal finding. IMPRESSION: No acute cardiopulmonary process, no significant interval change. Reviewed, dictated and finalized at location K.
--- NOTE | ~2022-08-20 | CT_ITS ---
EXAMINATION: CT abdomen pelvis wo con DATE: 08/21/2022 11:28 INDICATION: Abdominal pain, weight loss TECHNIQUE: Computed tomography (CT) of the abdomen and pelvis was performed without intravenous contr ast. The dose-length product (DLP) was 315.55 mGy-cm. Automated exposure control and iterative recons truction technique were employed. COMPARISON: 12/16/2018 FINDINGS: There is severe emphysema of the visualized lung bases. The heart size is normal. There is a chronic, stable 3.1 cm rim calcified mass to the right of the aorta at the level of the diaphragm w ith areas of internal fat. The liver, spleen, pancreas, and adrenal glands are normal. There is a sto ne of the nondistended gallbladder. There is a staghorn calculus of the left kidney lower pole extend ing into the renal pelvis. Staghorn calculus is also noted in the left kidney upper pole. The right k idney is unremarkable. There are stones in the urinary bladder. An IVC filter is noted. No pathologic ally enlarged abdominal or pelvic lymph nodes are identified. There is calcified atherosclerosis of t he aorta and many of the other arteries. No free intraperitoneal gas or evidence of bowel obstruction . A moderate volume of colonic stool is present. There are bilateral pars defects at L4 with grade 1 anterolisthesis of L4 on L5. There is moderate lumbar spondylosis. IMPRESSION: 1. Bilateral nephrolithiasis and stones in the urinary bladder. 2. Cholelithiasis. 3. Severe emphysema Reviewed, dictated and finalized at location A.
--- NOTE | ~2022-08-20 | XR_ITS ---
EXAMINATION: XR chest 1V portable DATE: 08/23/2022 16:29 INDICATION: Dyspnea. TECHNIQUE: A single frontal view of the chest was obtained on 2 radiographs. COMPARISON: Chest single view 08/21/2022, chest CT 08/20/2022 FINDINGS: There is severe emphysema. A calcified mass in right lung upper lobe is consistent with old granulomatous disease. There are stable interstitial opacities bilaterally, likely chronic lung dise ase. There is chronic blunting of left lateral costophrenic angle. No pleural effusion or pneumothora x without size is normal. IMPRESSION: 1. Severe emphysema. Reviewed, dictated and finalized at location A. IMPRESSION: 1. Severe emphysema.
[2022-08-20 15:07] VITALS: BP 186/95; PULSE 98; RESP 20; TEMP 36.7; O2SAT 97
[2022-08-20 16:49] LABS: Basophils Absolute Auto 0.1 K/mm3 (0.0-0.1); Eosinophils Absolute Auto 0.3 K/mm3 (0-0.3); Hematocrit 32.4 % (37.0-47.0); Hemoglobin 10.3 g/dL (12.0-15.0); Immature Granulocyte Absolute 0.04 K/mm3 (0.00-0.031); Immature Granulocyte Percent A 0.4 % (0-0.5); Lymphocytes Absolute Auto 0.87 K/mm3 (0.9-3.2); Lymphocytes Percent Auto 8.5 % (18.3-44.2); Mean Corpuscular HGB Conc 31.8 g/dl (32-36); Mean Corpuscular Hemoglobin 29.6 pg (26-34); Mean Corpuscular Volume 93.1 fl (80-100); Mean Platelet Volume 8.6 fl (7.4-10.4); Monocytes Absolute Auto 0.7 K/mm3 (0.1-0.6); Monocytes Percent Auto 6.7 % (2.6-8.5); Neutrophils Absolute Auto 8.2 K/mm3 (1.3-6.7); Neutrophils Percent Auto 80.4 % (45.5-73.1); Platelet Count Result 445 k/mm3 (150-375); Red Blood Count 3.48 M/mm3 (4.2-5.4); Red Cell Distribution Width 14.6 % (11.5-14.5); White Blood Count 10.2 K/mm3 (4.5-10.0)
[2022-08-20] MEDS: SODIUM CHLORIDE 0.9% IV 1,000 ML 999 ML IV CONT (16:55)
[2022-08-20] MEDS: ONDANSETRON INJ 4 MG/2 ML VIAL IV PUSH (16:55)
[2022-08-20 17:02] LABS: Alanine Aminotransferase 20 U/L (6-35); Albumin Level 4.3 g/dL (3.5-5.1); Alkaline Phosphatase 96 U/L (38-126); Anion Gap 3 mmol/L (8-16); Aspartate Amino Transferase 35 U/L (14-36); Bilirubin,Total 0.4 mg/dL (0.2-1.3); Blood Urea Nitrogen 35 mg/dL (7-17); Carbon Dioxide 38 mmol/L (22-30); Chloride 100 mmol/L (98-107); Estimated Glomerular Filt Rate 14; Glucose 106 mg/dL (65-110); Potassium 4.1 mmol/L (3.4-5.0); Sodium 141 mmol/L (137-145)
--- NOTE | 2022-08-20 17:05 | ED.GENADULT ---
HPI - General Adult General Chief complaint: Recheck/Abnormal Lab/Rx Stated complaint: abnormal US results Time Seen by Provider: 08/20/22 16:34 Source: patient Mode of arrival: ambulatory Limitations: no limitations History of Present Illness HPI narrative: This is a 72-year-old female with PMH of COPD, PE who presents to the ED after referral from her primary care doctor. (Dr. Estrada) They are concerned about abnormal renal scans and elevated kidney labs. patient reports her only complaint at this time is dark and foul-smelling urine that has been onset for the past couple of weeks. States she is short of breath but this is no different than normal for her. She states she is on 3 L of oxygen 10/09 for COPD. Patient states that her doctor took her off Lasix about a week and a half ago after they saw the increased kidney labs. She states they are unsure what is causing this function, however and she did get a renal ultrasound as well. Denies fevers, chills, chest pain, flank pain, back pain, urinary burning or hematuria. Related Data Home Medications Medication Instructions Recorded Confirmed multivitamin (Multiple Vitamins 1 tablet PO DAILY 02/02/19 07/17/22 tablet) amiodarone 200 mg tablet 100 mg PO DAILY 01/26/22 07/17/22 apixaban 5 mg tablet (Eliquis) 5 mg PO BID 01/26/22 07/17/22 spironolactone 25 mg tablet 12.5 mg PO DAILY 01/26/22 07/17/22 furosemide 20 mg tablet 20 mg PO BID 02/22/22 07/17/22 Allergies Allergy/AdvReac Type Severity Reaction Status Date / Time codeine Allergy Intermediate Anaphylactic Verified 02/22/22 09:33 Shock erythromycin base Allergy Mild HIVES AND Verified 02/22/22 09:33 EDEMA Penicillins Allergy Mild EDEMA & Verified 02/22/22 09:33 HIVES Sulfa (Sulfonamide Allergy Mild HIVES AND Verified 02/22/22 09:33 Antibiotics) EDEMA ampicillin Allergy Unknown RASH Verified 02/22/22 09:33 [facility] Past Medical History Medical History Chronic respiratory failure COPD (chronic obstructive pulmonary disease) Emphysema lung History of kidney stones with extraction History of pulmonary embolism History of tobacco abuse Multiple nodules of lung Osteoporosis Paroxysmal A-fib Snoring Spontaneous pneumothorax x3 Surgical History Surgical History History of adenoidectomy History of breast biopsy History of hysterectomy with bilateral oophorectomy History of tonsillectomy Hx of fracture of wrist s/p L ORIF S/P IVC filter Family History Family History Father Patient's father is Sibling Family history of malignant neoplasm of breast Mother Diabetes mellitus Family history of congestive heart failure Sibling Family history of malignant neoplasm of breast Sibling Family history of malignant neoplasm of breast Social History Social History Smoking packs per day: 0.5 Smoking cigarettes per day: 10.0 Years smoked: 37 Smoking pack-years: 18.50 Smoking status: Former smoker Tobacco type: cigarettes Second hand tobacco smoke exposure: No Smoking end date: 02/18/98 Alcohol intake: never Substance use: never Substance use type: does not use Lack of Transportation: No Lack of Food: Never True Current Housing: I Have Housing Concerned About Future Housing: No Difficulty Paying Gas/Electric Bills: No Difficulty Paying for Meds: No Currently Unemployed: No Education: Associate Degree Difficulty w/ Childcare or Family Care: No Living arrangements: with family Occupation/Education: other Gender identity (if verbalized by the patient): Female Spiritual care concerns: No Exam Narrative: GENERAL: Well-appearing, well-nourished, and in no acute distress. HEAD: Normocephalic, atraumatic. EYES
[2022-08-20 17:10] LABS: Calcium 14.5 mg/dL (8.4-10.2)
[2022-08-20 17:23] LABS: Appearance Urine Turbid (Clear); Bacteria Urine 4+ /hpf; Bilirubin Urine Negative (Negative); Blood Urine 3+ (Negative); Color Urine Yellow (Yellow); Glucose Urine UA Negative (Negative); Ketones Urine Negative (Negative); Leukocyte Esterase Ur 3+ LEU/UL (Negative); Nitrate Urine Negative (Negative); Non Pathogenic Casts 0-2; Protein Urine 2+ mg/dL (Negative); RBC Urine >100 /hpf (0-2); Squamous Epithelial Cell Urine None seen /hpf (Few); Urobilinogen Urine 0.2 mg/dL (<2.0); WBC Urine >100 /hpf
[2022-08-20 17:25] LABS: Add Urine Microscopic? YES
[2022-08-20 17:31] LABS: Alveolar/Arterial O2 Gradient 2.5 mmHg; Base Excess ABG 7.9 mEq/l (+/-2.0); Fractional Inspired Oxygen 21 %; HCO3 ABG 33.6 mEq/l (22.0-26.0); Oxygen Content ABG 15.7 %vol (16.0-22.0); Oxygen Saturation ABG 96.4 % (95.0-100.0); Oxyhemoglobin 94.7 % THb (90.0-100.0); PCO2 ABG 52.3 mmHg (35.0-45.0); PO2 ABG 84.6 mmHg (80.0-100.0); PO2 FiO2 Ratio Arterial Blood 4.03 %; Total Hemoglobin 11.7 g/dL (12.0-18.0); pH ABG 7.426 (7.350-7.450)
[2022-08-20 17:33] LABS: Lactic Acid Reflex 1.1 mmol/L (0.7-2.0)
[2022-08-20 18:16] LABS: Modified Allen's Test Pass; Site Drawn RIGHT RADIAL
[2022-08-20 18:49] VITALS: BP 135/84; PULSE 82; RESP 22; O2SAT 95
--- NOTE | 2022-08-20 19:42 | PM.IMHP ---
H&P: HPI History of Present Illness Date/Time: 08/20/22 19:42 Chief Complaint: Abnormal labs Narrative: This is a 72-year-old female with PMH including but not limited to of emphysema/COPD, PE who presents to the ED after referral from her primary care doctor. (Dr. Estrada).? They are concerned about abnormal renal scans and elevated kidney labs. The patient was in usual state of health until about a year ago. She carries a diagnosis of chronic respiratory failure and requires oxygen supplementation at a rate of 3 liters per minute. About a year ago, she started noticing loss of appetite and has lost about 60 lb since. Around the same time she read an article about the benefits of vitamin-D for pulmonary health and started self supplementing with 5000 units of vitamin-D daily. Patient reports her only complaint at this time is dark and foul-smelling urine that has been onset for the past couple of weeks.? She endorses shortness of breath, which is her baseline but this is no different than normal for her.? She states she has been on 3 L of oxygen 10/09 for COPD.? Patient states that her doctor took her off Lasix about a week and a half ago after they saw the increased kidney labs.?She sees Dr Chung for her chronic lung disease. She states they are unsure what is causing this renal dysfunction, however and she did get a renal ultrasound as well.? Denies fevers, chills, chest pain, flank pain, back pain, urinary burning or hematuria. The hospital medicine service was consulted for further evaluation and management. She was started on IV fluid with normal saline, Lasix, Calcitonin and zoledronic acid. Nephrology was consulted. Review of Systems Review of Systems: CONSTITUTIONAL: Negative for any fevers, chills, night sweats, tiredness, fatigue, malaise, anorexia or weight loss. CARDIOVASCULAR: Negative for chest pain, palpitations, dizziness, orthopnea or lower extremity edema. RESPIRATORY: Negative for shortness of breath, cough, wheezing, sputum. GASTROINTESTINAL: positive for inappetence, nausea and weight loss; negative for vomiting, diarrhea and abdominal pain. GENITOURINARY: Negative for frequency, nocturia, dysuria, hematuria. GYNECOLOGIC: Negative for abnormal bleeding. HEMATOLOGIC: Negative for any abnormal bleeding or bruising. MUSCULOSKELETAL: Negative for joint swelling, stiffness or pain. SKIN: Negative for rashes, eruptions, lesions or dryness. NEUROLOGIC: Negative for any focal neurologic complaints. PSYCHIATRIC: Negative for anxiety, panic, depression. [facility] Past Medical History Medical History Chronic respiratory failure COPD (chronic obstructive pulmonary disease) Emphysema lung History of kidney stones with extraction History of pulmonary embolism History of tobacco abuse Multiple nodules of lung Osteoporosis Paroxysmal A-fib Snoring Spontaneous pneumothorax x3 Surgical History Surgical History History of adenoidectomy History of breast biopsy History of hysterectomy with bilateral oophorectomy History of tonsillectomy Hx of fracture of wrist s/p L ORIF S/P IVC filter Family History Family History Father Patient's father is Sibling Family history of malignant neoplasm of breast Mother Diabetes mellitus Family history of congestive heart failure Sibling Family history of malignant neoplasm of breast Sibling Family history of malignant neoplasm of breast Social History Social History Smoking packs per day: 0.5 Smoking cigarettes per day: 10.0 Years smoked: 37 Smoking pack-years: 18.50 Smoking status: Former smoker Tobacco type: cigarettes Second hand tobacco smoke exposure: No Smoking end date: 02/18/98 Alcohol intake: never Substance use: tere
[2022-08-20 20:29] VITALS: BP 162/89; PULSE 84; RESP 19; O2SAT 100
[2022-08-20] MEDS: ALBUTEROL SULFATE (*SP) AEROSOL 1 PUFF 2 PUFF INHALATION (20:35)
--- NOTE | 2022-08-20 20:55 | ADMGEN ---
This patient, Alexus Zambrano, was admitted to Medical Room 248-01. Patient/family oriented to hospital policies and general routines including ID bracelet, bed and alarms, visiting hours, pain management, procedures, bathroom and other care routines, personal items, smoking policy, room service/diet, and visiting hours. Information on how to activate the Rapid Response Team has been discussed. Patient/Family are encouraged to report perceived risks to care and to ask questions if they do not understand what they are told or what they should do.
[2022-08-20 21:07] VITALS: BMI 19.3
[2022-08-20] MEDS: SODIUM CHLORIDE 0.9% IV 1,000 ML 100 ML IV CONT (21:14)
[2022-08-20] MEDS: ZOLEDRONIC ACID 4 MG/100 ML 100 ML 400 MG IVPB (21:15)
[2022-08-20] MEDS: levoFLOXacin 500 MG/D5W 100 ML 500 MG/100 ML BAG 100 MG IVPB (21:35)
[2022-08-20 22:24] VITALS: BP 161/87; PULSE 93; RESP 20; TEMP 36.6; O2SAT 99
[2022-08-20 23:57] LABS: Creatinine Urine 38.8 mg/dL; Total Protein Urine Random 142 mg/dL; Ur Ttl Prot Creatinine Ratio 3.66 mg/mg (0-0.20); Urea Random Urine 234 MG/DL
[2022-08-20 23:59] LABS: Sodium Urine Random 84 meq/L
[2022-08-21] VITALS (9 sets, daily range): BP systolic 125–132; BP diastolic 53–63; PULSE 71–92; RESP 16–21; TEMP 36.2–36.9; O2SAT 94–100; BMI 19.3
[2022-08-21] MEDS: APIXABAN 5 MG TABLET PO ×3 (00:33→16:18)
[2022-08-21] MEDS: FUROSEMIDE INJ 40 MG/4 ML VIAL IV PUSH ×3 (01:06→16:18)
[2022-08-21 02:38] LABS: Eosinophil Urine None Seen % (None Seen)
[2022-08-21 04:59] LABS: Urine Eos QC 2nd Tech Confirmed
[2022-08-21 06:22] LABS: Albumin Level 3.5 g/dL (3.5-5.1); Anion Gap 3 mmol/L (8-16); Blood Urea Nitrogen 31 mg/dL (7-17); Calcium 12.4 mg/dL (8.4-10.2); Carbon Dioxide 35 mmol/L (22-30); Chloride 105 mmol/L (98-107); Creatine Kinase 52 U/L (30-135); Estimated CRCL calculation 13 ml/min; Estimated Glomerular Filt Rate 14; Glucose 93 mg/dL (65-110); Phosphorus 4.5 mg/dL (2.5-4.5); Potassium 3.6 mmol/L (3.4-5.0); Sodium 143 mmol/L (137-145)
[2022-08-21 06:23] LABS: Complement C3 112 mg/dL (88-165)
[2022-08-21 06:45] LABS: Vitamin D 25 Hydroxy 91.4 ng/mL
[2022-08-21] MEDS: SODIUM CHLORIDE 0.9% IV 1,000 ML 100 ML IV CONT ×3 (06:45→21:00)
--- NOTE | 2022-08-21 07:00 | ECG_ITS ---
Measurements Intervals Kane Rate: 69 P: 80 NM: 167 QRS: 0 QRSD: 97 T: 58 QT: 397 QTc: 428 Interpretive Statements SINUS RHYTHM RSR' IN V1 OR V2, CONSIDER RIGHT VENTRICULAR HYPERTROPHY OR RIGHT VCD BASELINE ARTIFACT- I, II, III, AVR, AVF, V3-V6 BORDERLINE ECG COMPARED TO ECG 01/26/2022 01:03:39 NO SIGNIFICANT CHANGES Electronically Signed On 08-21-2022 7:18:18 CDT by Jeffery Bernstein D.O.
[2022-08-21] MEDS: UMECLIDINIUM/VILANTEROL 62.5-25 MCG ELLIPTA 1 PUFF INHALATION (07:26)
--- NOTE | 2022-08-21 08:23 | PM.IMPN ---
Progress Note: A&P Assessment and Plan (1) Hypercalcemia due to high vitamin D level: Code(s): E83.52 - Hypercalcemia; E67.3 - Hypervitaminosis D Status: Acute Assessment and Plan: -calcium on admission was 14.5. Chart review shows calcium in June was 11.1. -vitamin-D level 91.4 -she received calcitonin, zolendric acid, IV Lasix, started on prednisone, in receiving IV infusion. -serial BMPs -a telemetry -EKG shows sinus rhythm -labs pending include PTH -nephrology was consulted note does not state plan but they ordered a bunch of labs. (2) COPD (chronic obstructive pulmonary disease): Code(s): J44.9 - Chronic obstructive pulmonary disease, unspecified Status: Acute Assessment and Plan: -added azithromycin 500 mg daily for acute COPD exacerbation -supplemental oxygen at 3 L nasal cannula -q.6 schedule nebulizers -ABG on arrival shows a compensated respiratory acidosis -chest x-ray pending -sputum culture pending (3) Paroxysmal A-fib: Code(s): I48.0 - Paroxysmal atrial fibrillation Status: Acute Assessment and Plan: -rate controlled on amiodarone 100 mg p.o. daily also receiving Eliquis 5 mg b.i.d. -patient will tell you that she does not have a history of AFib. 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 But she swears she does not have it however she is on Eliquis for DVTs and then she does have this amiodarone ordered. -EKG was sinus rhythm (4) Acute UTI: Code(s): N39.0 - Urinary tract infection, site not specified Status: Acute Assessment and Plan: -mild leukocytosis on admission has started to resolve with initiation of antibiotics. She is receiving Rocephin 2 g b.i.d. -urine culture pending -UA was nitrite negative, 3+ leukocyte esterase, with pyuria. -will obtain blood cultures if patient has a fever. -I got an abdominal CT because she had concerns for a soft mass in her right upper quadrant that was palpable but freely movable. Given this along with her hypercalcemia I was not sure if there was a tumor present. She said that this sometimes cause her abdominal pain. CT shows bilateral nephrolithiasis and stones in the urinary bladder, cholelithiasis, and severe emphysema. Subjective Date/time seen: 08/21/22 08:23 Interval history: This is a 72-year-old female with a past medical history of emphysema/COPD requiring multiple ICU stays and PE/DVT on Eliquis. She was sent to the ER by her PCP with concerns about abnormal renal ultrasound and elevated creatinine. She states in the last year her health has been declining, she has lost about 60 lb in a year and has been having concerns for a mass in her left upper quadrant. She says that sometimes it causes abdominal pain. She had been taking vitamin-D because she had read that it can help with her breathing. Over the past week he she has been having increased sputum production which is clear and increased dyspnea, along with dizziness. She denies complaints of UTI though. Labs on admission show a mild leukocytosis, compensated respiratory acidosis, creatinine of 3.2/BUN 35, and a calcium of 14.5. Her UA was positive for 3+ leukocyte esterase and pyuria. She was started on ceftriaxone for her UTI. Added azithromycin for acute COPD exacerbation as well as scheduled nebulizers. We are hydrating her with NS at 100 mL an hour and monitoring creatinine. She also received treatment for her hypercalcemia with zoledronic acid, IV Lasix, prednisone, and calcitonin. We have serial BMPs ordered. Hypercalcemia remains, level is 12. Nephrology was consulted for assistance with her case. 08/21: Patient is seen today resting in bed, is at the bedside. During our interview she has intermittent periods of severe dyspnea without exertion with associated anxiety. She is on 3 L nasal cannula at baseline and she currently i
[2022-08-21] MEDS: SPIRONOLACTONE 12.5 MG TABLET PO (08:57)
[2022-08-21] MEDS: predniSONE 20 MG TABLET 40 MG PO (08:58)
[2022-08-21] MEDS: cefTRIAXone 2 GM/NS 100 ML 2 GM/100 ML BAG IVPB ×2 (09:09→20:51)
[2022-08-21] MEDS: CALCITONIN SALMON INJ 400 UNITS/2 ML VIAL 100 UNITS SUB-Q (09:10)
--- NOTE | 2022-08-21 12:07 | P.CONNP_ITS ---
Assessment and Plan Assessment and plan (1) Acute kidney injury: Code(s): N17.9 - Acute kidney failure, unspecified Status: Acute Assessment and Plan: * etiology not clear * normal baseline creatinine in January 2022 * however, noted rise in creatinine in end of June and July 2022 (1.3 --> 2.0mg/dl) * potential etiologies: * hypercalcemia * prerenal factors * concurrent diuretic use (spironolactone) * UTI/infection * evaluation to date: * renal ultrasound without obstruction * UA suggestive of infection * urine electrolytes non-prerenal * significant proteinuria noted * on antibiotics * hypercalcemia being treated (see #3) * follow trend of repeat labs and UOP (2) Acute UTI: Code(s): N39.0 - Urinary tract infection, site not specified Status: Acute Assessment and Plan: * admission UA highly suggestive * on antibiotics * follow-up on urine culture (3) Hypercalcemia: Code(s): E83.52 - Hypercalcemia Status: Acute Assessment and Plan: * presumably precipitated by OTC vitamin D supplementation * s/p IVF hydration and forced diuresis * s/p zometa and on calcitonin and steroids * follow-up on pending studies (PTH, PTHrp, Vitamin D, SPEP, UPEP.....etc) * follow repeat calcium levels (4) Chronic respiratory failure: Code(s): J96.10 - Chronic respiratory failure, unspecified whether with hypoxia or hypercapnia Status: Chronic Assessment and Plan: * appears stable/compensated at this time * due to known history of COPD * on 3L by nasal cannula at baseline * continue home medications/inhalers Long extensive discussion (> 20 minutes) with the patient as well as her at bedside with regard to her renal dysfunction along with the ongoing evaluation/investigation into the etiology of this issue with the hope that current interventions will eventually stabilize if not improve her kidney function. We did discuss the possibility that if her renal function fails to improve or continues to deteriorate without a clear-cut cause/etiology, renal biopsy may be considered as a further investigative test to delineate the etiology of her renal dysfunction. They both appeared to voice understanding. I will continue follow the patient with you while she remains hospitalized and make further recommendations as needed. Thank you for allowing me to participate in the care of this patient. History of Present Illness Reason for Consult Consult date: 08/21/22 Reason for consult: acute renal failure Chief Complaint Chief complaint: jessica,hypercalemia,uti History of Present Illness Narrative: The patient is a 72-year-old female with a past medical history as outlined below who presented to [facility] Emergency room at the behest of her primary care physician for further evaluation of her ongoing renal dysfunction/acute kidney injury. It has been noted by outpatient labs that the patient's kidney function has been deteriorating since end of June 2022. her renal function is apparently normal at baseline and this was a significant change. Unfortunately, her kidney function by outpatient labs continue to deteriorate in association with loss of appetite and weight loss. as her kidney function continued to deteriorate by outpatient labs, she was referred to the emergency room for further assessment of this issue/problem. Workup and evaluation emergency room confirmed her renal dysfunction/ acute kidney injury in association with hypercalcemia. Her only other acute complaint was that of foul s
--- NOTE | 2022-08-21 12:07 | PM.CNNEP ---
Assessment and Plan Assessment and plan (1) Acute kidney injury: Code(s): N17.9 - Acute kidney failure, unspecified Status: Acute Assessment and Plan: etiology not clear normal baseline creatinine in January 2022 however, noted rise in creatinine in end of June and July 2022 (1.3 --> 2.0mg/dl) potential etiologies: hypercalcemia prerenal factors concurrent diuretic use (spironolactone) UTI/infection evaluation to date: renal ultrasound without obstruction UA suggestive of infection urine electrolytes non-prerenal significant proteinuria noted on antibiotics hypercalcemia being treated (see #3) follow trend of repeat labs and UOP (2) Acute UTI: Code(s): N39.0 - Urinary tract infection, site not specified Status: Acute Assessment and Plan: admission UA highly suggestive on antibiotics follow-up on urine culture (3) Hypercalcemia: Code(s): E83.52 - Hypercalcemia Status: Acute Assessment and Plan: presumably precipitated by OTC vitamin D supplementation s/p IVF hydration and forced diuresis s/p zometa and on calcitonin and steroids follow-up on pending studies (PTH, PTHrp, Vitamin D, SPEP, UPEP.....etc) follow repeat calcium levels (4) Chronic respiratory failure: Code(s): J96.10 - Chronic respiratory failure, unspecified whether with hypoxia or hypercapnia Status: Chronic Assessment and Plan: appears stable/compensated at this time due to known history of COPD on 3L by nasal cannula at baseline continue home medications/inhalers Long extensive discussion (> 20 minutes) with the patient as well as her at bedside with regard to her renal dysfunction along with the ongoing evaluation/investigation into the etiology of this issue with the hope that current interventions will eventually stabilize if not improve her kidney function. We did discuss the possibility that if her renal function fails to improve or continues to deteriorate without a clear-cut cause/etiology, renal biopsy may be considered as a further investigative test to delineate the etiology of her renal dysfunction. They both appeared to voice understanding. I will continue follow the patient with you while she remains hospitalized and make further recommendations as needed. Thank you for allowing me to participate in the care of this patient. History of Present Illness Reason for Consult Consult date: 08/21/22 Reason for consult: acute renal failure Chief Complaint Chief complaint: jessica,hypercalemia,uti History of Present Illness Narrative: The patient is a 72-year-old female with a past medical history as outlined below who presented to [facility] Emergency room at the behest of her primary care physician for further evaluation of her ongoing renal dysfunction/acute kidney injury. It has been noted by outpatient labs that the patient's kidney function has been deteriorating since end of June 2022. her renal function is apparently normal at baseline and this was a significant change. Unfortunately, her kidney function by outpatient labs continue to deteriorate in association with loss of appetite and weight loss. as her kidney function continued to deteriorate by outpatient labs, she was referred to the emergency room for further assessment of this issue/problem. Workup and evaluation emergency room confirmed her renal dysfunction/ acute kidney injury in association with hypercalcemia. Her only other acute complaint was that of foul smelly urine that she has noticed for the last week or so. She does have shortness of breath but this is a chronic issues/problems secondary to her known history of COPD and the need for chronic oxygen support/therapy. She does report that her primary care physician took her off diuretics about a week and a half ago when it was noted that her renal function was declining. Urinalysis done in the [facility]
[2022-08-21 12:08] LABS: Anion Gap 6 mmol/L (8-16); Blood Urea Nitrogen 30 mg/dL (7-17); Calcium 12.6 mg/dL (8.4-10.2); Carbon Dioxide 34 mmol/L (22-30); Chloride 104 mmol/L (98-107); Estimated CRCL calculation 13 ml/min; Estimated Glomerular Filt Rate 15; Glucose 124 mg/dL (65-110); Potassium 3.7 mmol/L (3.4-5.0); Sodium 144 mmol/L (137-145)
[2022-08-21] MEDS: IPRATROPIUM BR 0.02% INH SOLN 0.5 MG/2.5 ML VIAL INHALATION ×2 (13:20→20:32)
[2022-08-21] MEDS: ALBUTEROL SULFATE NEB 2.5 MG/3 ML INH INHALATION ×2 (13:20→20:32)
[2022-08-21 15:05] LABS: Alanine Aminotransferase 20 U/L (6-35); Alkaline Phosphatase 87 U/L (38-126); Anion Gap 4 mmol/L (8-16); Aspartate Amino Transferase 29 U/L (14-36); Basophils Absolute Auto 0.1 K/mm3 (0.0-0.1); Basophils Percent Auto 0.9 % (0.2-1.2); Bilirubin,Total 0.3 mg/dL (0.2-1.3); Blood Urea Nitrogen 30 mg/dL (7-17); Calcium 12.6 mg/dL (8.4-10.2); Carbon Dioxide 35 mmol/L (22-30); Chloride 103 mmol/L (98-107); Eosinophils Absolute Auto 0.4 K/mm3 (0-0.3); Eosinophils Percent Auto 4.7 % (0-4.4); Estimated CRCL calculation 13 ml/min; Estimated Glomerular Filt Rate 14; Glucose 122 mg/dL (65-110); Hematocrit 29.1 % (37.0-47.0); Hemoglobin 8.7 g/dL (12.0-15.0); Immature Granulocyte Absolute 0.01 K/mm3 (0.00-0.031); Immature Granulocyte Percent A 0.1 % (0-0.5); Lymphocytes Absolute Auto 0.61 K/mm3 (0.9-3.2); Mean Corpuscular HGB Conc 29.9 g/dl (32-36); Mean Corpuscular Hemoglobin 29.2 pg (26-34); Mean Corpuscular Volume 97.7 fl (80-100); Mean Platelet Volume 9.1 fl (7.4-10.4); Monocytes Absolute Auto 0.7 K/mm3 (0.1-0.6); Monocytes Percent Auto 7.9 % (2.6-8.5); Neutrophils Percent Auto 79.4 % (45.5-73.1); Platelet Count Result 393 k/mm3 (150-375); Potassium 3.8 mmol/L (3.4-5.0); Red Blood Count 2.98 M/mm3 (4.2-5.4); Red Cell Distribution Width 15.3 % (11.5-14.5); Sodium 142 mmol/L (137-145); White Blood Count 8.8 K/mm3 (4.5-10.0)
[2022-08-21] MEDS: AZITHROMYCIN 250 MG TABLET 500 MG PO (15:22)
[2022-08-21 15:23] LABS: Ovalocytes 1+ (NORMAL); Platelet Estimate Increased (Adequate); Schistocytes None Seen (NORMAL)
[2022-08-22] VITALS (14 sets, daily range): BP systolic 113–123; BP diastolic 53–58; PULSE 63–101; RESP 18–20; TEMP 36.5–36.7; O2SAT 94–98
[2022-08-22] MEDS: ALBUTEROL SULFATE NEB 2.5 MG/3 ML INH INHALATION ×4 (01:44→20:00)
[2022-08-22] MEDS: IPRATROPIUM BR 0.02% INH SOLN 0.5 MG/2.5 ML VIAL INHALATION ×4 (01:44→20:00)
[2022-08-22 05:01] LABS: Basophils Percent Auto 0.2 % (0.2-1.2); Hematocrit 26.9 % (37.0-47.0); Hemoglobin 8.5 g/dL (12.0-15.0); Immature Granulocyte Absolute 0.07 K/mm3 (0.00-0.031); Immature Granulocyte Percent A 0.7 % (0-0.5); Lymphocytes Absolute Auto 0.28 K/mm3 (0.9-3.2); Lymphocytes Percent Auto 2.6 % (18.3-44.2); Mean Corpuscular HGB Conc 31.6 g/dl (32-36); Mean Corpuscular Hemoglobin 29.9 pg (26-34); Mean Corpuscular Volume 94.7 fl (80-100); Mean Platelet Volume 9.2 fl (7.4-10.4); Monocytes Absolute Auto 0.6 K/mm3 (0.1-0.6); Neutrophils Absolute Auto 9.6 K/mm3 (1.3-6.7); Neutrophils Percent Auto 90.5 % (45.5-73.1); Platelet Count Result 388 k/mm3 (150-375); Red Blood Count 2.84 M/mm3 (4.2-5.4); Red Cell Distribution Width 14.8 % (11.5-14.5); White Blood Count 10.6 K/mm3 (4.5-10.0)
[2022-08-22 05:15] LABS: INR 1.4; Partial Thromboplastin Time 26.3 SECONDS (22.3-36.8); Prothrombin Time 17.6 Seconds (11.1-14.7)
[2022-08-22 05:16] LABS: Alanine Aminotransferase 19 U/L (6-35); Albumin Level 3.6 g/dL (3.5-5.1); Alkaline Phosphatase 68 U/L (38-126); Anion Gap 9 mmol/L (8-16); Aspartate Amino Transferase 24 U/L (14-36); Bilirubin,Total 0.2 mg/dL (0.2-1.3); Blood Urea Nitrogen 31 mg/dL (7-17); Calcium 11.1 mg/dL (8.4-10.2); Carbon Dioxide 29 mmol/L (22-30); Chloride 104 mmol/L (98-107); Estimated CRCL calculation 14 ml/min; Estimated Glomerular Filt Rate 16; Glucose 130 mg/dL (65-110); Magnesium 1.9 mg/dL (1.6-2.3); Phosphorus 4.2 mg/dL (2.5-4.5); Potassium 3.3 mmol/L (3.4-5.0); Sodium 142 mmol/L (137-145)
[2022-08-22] MEDS: CALCITONIN SALMON INJ 400 UNITS/2 ML VIAL 100 UNITS SUB-Q (08:31)
[2022-08-22] MEDS: SPIRONOLACTONE 12.5 MG TABLET PO (08:31)
[2022-08-22] MEDS: APIXABAN 5 MG TABLET PO ×2 (08:31→16:30)
[2022-08-22] MEDS: predniSONE 20 MG TABLET 40 MG PO (08:31)
[2022-08-22] MEDS: AZITHROMYCIN 250 MG TABLET 500 MG PO (08:31)
[2022-08-22] MEDS: FUROSEMIDE INJ 40 MG/4 ML VIAL IV PUSH (08:32)
[2022-08-22] MEDS: cefTRIAXone 2 GM/NS 100 ML 2 GM/100 ML BAG IVPB (08:32)
[2022-08-22] MEDS: UMECLIDINIUM/VILANTEROL 62.5-25 MCG ELLIPTA 1 PUFF INHALATION (09:37)
[2022-08-22] MEDS: SODIUM CHLORIDE 0.9% IV 1,000 ML 100 ML IV CONT ×2 (09:41→19:49)
--- NOTE | 2022-08-22 11:01 | PM.IMPN ---
Progress Note: A&P Assessment and Plan (1) Hypercalcemia due to high vitamin D level: Code(s): E83.52 - Hypercalcemia; E67.3 - Hypervitaminosis D Status: Acute Assessment and Plan: -calcium on admission was 14.5.? Chart review shows calcium in June was 11.1. Today improved to 11.1 -vitamin-D level 91.4 -she received calcitonin, zolendric acid, IV Lasix, started on prednisone, is receiving IV infusion. -serial BMPs -telemetry -EKG shows sinus rhythm -labs pending include PTH -nephrology was consulted note does not state plan but they ordered a bunch of labs. (2) ANIKET (acute kidney injury): Code(s): N17.9 - Acute kidney failure, unspecified Status: Acute Assessment and Plan: Significant rise in serum Cr over baseline, not improving after IV fluids. Discontinued IV furosemide. Will monitor for signs of fluid overload. Nephrology consulted and greatly appreciate recommendations. (3) COPD (chronic obstructive pulmonary disease): Code(s): J44.9 - Chronic obstructive pulmonary disease, unspecified Status: Acute Assessment and Plan: -previous provider added azithromycin 500 mg daily for acute COPD exacerbation -supplemental oxygen at 3 L nasal cannula -q.6 schedule nebulizers -ABG on arrival shows a compensated respiratory acidosis -chest x-ray pending -sputum culture pending (4) Acute UTI: Code(s): N39.0 - Urinary tract infection, site not specified Status: Acute Assessment and Plan: -mild leukocytosis on admission has started to resolve with initiation of antibiotics.? She is receiving Rocephin 2 g b.i.d. which was changed to every 24 hours. -urine culture E. coli with several medication resistant requiring continued IV antibiotics given patient's allergies and renal function. -UA was nitrite negative, 3+ leukocyte esterase, with pyuria. -will obtain blood cultures if patient has a fever. (5) Paroxysmal A-fib: Code(s): I48.0 - Paroxysmal atrial fibrillation Status: Acute Assessment and Plan: -rate controlled on amiodarone 100 mg p.o. daily also receiving Eliquis 5 mg b.i.d. -patient will tell you that she does not have a history of AFib.? 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 But she swears she does not have it however she is on Eliquis for DVTs and then she does have this amiodarone ordered. -EKG was sinus rhythm Time Spent With Patient Time with patient: Greater than 35 minutes Subjective Date/time seen: 08/22/22 11:01 Interval history: This is a 72-year-old female with a past medical history of emphysema/COPD requiring multiple ICU stays and PE/DVT on Eliquis.? She was sent to the ER by her PCP with concerns about abnormal renal ultrasound and elevated creatinine.? She states in the last year her health has been declining, she has lost about 60 lb in a year and has been having concerns for a mass in her left upper quadrant.? She says that sometimes it causes abdominal pain.? She had been taking vitamin-D because she had read that it can help with her breathing.? Over the past week he she has been having increased sputum production which is clear and increased dyspnea, along with dizziness.? She denies complaints of UTI though. Labs on admission show a mild leukocytosis, compensated respiratory acidosis, creatinine of 3.2/BUN 35, and a calcium of 14.5.? Her UA was positive for 3+ leukocyte esterase and pyuria.? She was started on ceftriaxone for her UTI.? Added azithromycin for acute COPD exacerbation as well as scheduled nebulizers.? We are hydrating her with NS at 100 mL an hour and monitoring creatinine.? She also received treatment for her hypercalcemia with zoledronic acid, IV Lasix, prednisone, and calcitonin.? We have serial BMPs ordered.? Hypercalcemia remains, level is 12.? Nephrology was consulted for assistance with her case. 08/21:? Patient is seen
--- NOTE | 2022-08-22 14:51 | P.PNNP_ITS ---
Progress Note: A&P Assessment and Plan (1) Acute kidney injury: Code(s): N17.9 - Acute kidney failure, unspecified Status: Acute Assessment and Plan: * slight improvement noted * etiology not clear * normal baseline creatinine in January 2022 * however, noted rise in creatinine in end of June and July 2022 (1.3 --> 2.0mg/dl) * potential etiologies: * hypercalcemia * prerenal factors * concurrent diuretic use (spironolactone) * UTI/infection * evaluation to date: * renal ultrasound without obstruction * UA suggestive of infection * urine electrolytes non-prerenal * significant proteinuria noted * on antibiotics * hypercalcemia being treated (see #3) * follow trend of repeat labs and UOP (2) Acute UTI: Code(s): N39.0 - Urinary tract infection, site not specified Status: Acute Assessment and Plan: * admission UA highly suggestive * urine culture with E. coli * on antibitoics (3) Hypercalcemia: Code(s): E83.52 - Hypercalcemia Status: Acute Assessment and Plan: * presumably precipitated by OTC vitamin D supplementation * s/p IVF hydration and forced diuresis * s/p zometa and on calcitonin and steroids * follow-up on pending studies (PTH, PTHrp, Vitamin D, SPEP, UPEP.....etc) * follow repeat calcium levels (4) Chronic respiratory failure: Code(s): J96.10 - Chronic respiratory failure, unspecified whether with hypoxia or hypercapnia Status: Chronic Assessment and Plan: * appears stable/compensated at this time * due to known history of COPD * on 3L by nasal cannula at baseline * continue home medications/inhalers Will continue to follow. Subjective Date/time seen: 08/22/22 14:51 Interval history: Follow-up for acute kidney injury/acute renal failure. Seems to be doing fairly well at the time of my visit; respiratory stat us/breathing appears at baseline; calcium still elevated bu not worse; renal function is a tad better as well; no other acute issues/events overnight or earlier this morning. Exam Narrative: General: chronically ill appearing female in NAD Heart: normal S1 and S2; no rub Lungs: coarse breath souinds Abdomen: soft, nontender, nondistended, positive bowel sounds Extremities: no cyanosis or clubbing; no edema Skin: warm and dry Objective Data Vital Signs Vital Signs: Vital Signs Temp Pulse Resp BP Pulse Ox O2 Del Method O2 Flow Rate 08/22/22 14:45 63 20 08/22/22 14:33 101 H 20 08/22/22 13:49 97.8 F 81 18 113/53 L 98 08/22/22 08:32 20 96 Nasal Cannula 3 08/22/22 09:45 93 20 08/22/22 09:39 85 20 08/22/22 09:39 96 Nasal Cannula 3 08/22/22 06:00 98.1 F 86 18 118/58 L 97 08/22/22 01:53 85 18 08/22/22 01:46 93 18 08/21/22 20:00 82 16 98 Nasal Cannula 3 08/21/22 21:45 97.8 F 86 20 132/63 99 08/21/22 20:37 92 20 94 Nasal Cannula 3 08/21/22 20:34 92 19 Intake/Output Intake/Output: Intake & Output 08/19/22 08/20/22 08/21/22 08/22/22 23:59 23:59 23:59 23:59 Intake Total 1200 3810 1980 Output Total 4950 2800 Balance 1726 -4155 -655
--- NOTE | 2022-08-22 14:51 | PM.PNNEP ---
Progress Note: A&P Assessment and Plan (1) Acute kidney injury: Code(s): N17.9 - Acute kidney failure, unspecified Status: Acute Assessment and Plan: slight improvement noted etiology not clear normal baseline creatinine in January 2022 however, noted rise in creatinine in end of June and July 2022 (1.3 --> 2.0mg/dl) potential etiologies: hypercalcemia prerenal factors concurrent diuretic use (spironolactone) UTI/infection evaluation to date: renal ultrasound without obstruction UA suggestive of infection urine electrolytes non-prerenal significant proteinuria noted on antibiotics hypercalcemia being treated (see #3) follow trend of repeat labs and UOP (2) Acute UTI: Code(s): N39.0 - Urinary tract infection, site not specified Status: Acute Assessment and Plan: admission UA highly suggestive urine culture with E. coli on antibitoics (3) Hypercalcemia: Code(s): E83.52 - Hypercalcemia Status: Acute Assessment and Plan: presumably precipitated by OTC vitamin D supplementation s/p IVF hydration and forced diuresis s/p zometa and on calcitonin and steroids follow-up on pending studies (PTH, PTHrp, Vitamin D, SPEP, UPEP.....etc) follow repeat calcium levels (4) Chronic respiratory failure: Code(s): J96.10 - Chronic respiratory failure, unspecified whether with hypoxia or hypercapnia Status: Chronic Assessment and Plan: appears stable/compensated at this time due to known history of COPD on 3L by nasal cannula at baseline continue home medications/inhalers Will continue to follow. Subjective Date/time seen: 08/22/22 14:51 Interval history: Follow-up for acute kidney injury/acute renal failure. Seems to be doing fairly well at the time of my visit; respiratory status/breathing appears at baseline; calcium still elevated bu not worse; renal function is a tad better as well; no other acute issues/events overnight or earlier this morning. Exam Narrative: General: chronically ill appearing female in NAD Heart: normal S1 and S2; no rub Lungs: coarse breath souinds Abdomen: soft, nontender, nondistended, positive bowel sounds Extremities: no cyanosis or clubbing; no edema Skin: warm and dry Objective Data Vital Signs Vital Signs: Vital Signs Temp Pulse Resp BP Pulse Ox O2 Del Method O2 Flow Rate 08/22/22 14:45 63 20 08/22/22 14:33 101 H 20 08/22/22 13:49 97.8 F 81 18 113/53 L 98 08/22/22 08:32 20 96 Nasal Cannula 3 08/22/22 09:45 93 20 08/22/22 09:39 85 20 08/22/22 09:39 96 Nasal Cannula 3 08/22/22 06:00 98.1 F 86 18 118/58 L 97 08/22/22 01:53 85 18 08/22/22 01:46 93 18 08/21/22 20:00 82 16 98 Nasal Cannula 3 08/21/22 21:45 97.8 F 86 20 132/63 99 08/21/22 20:37 92 20 94 Nasal Cannula 3 08/21/22 20:34 92 19 Intake/Output Intake/Output: Intake & Output 08/19/22 08/20/22 08/21/22 08/22/22 23:59 23:59 23:59 23:59 Intake Total 1200 3810 1980 Output Total 4950 2800 Balance 1200 -8690 820 Meds/Results Medications: Active Medications Generic Name Dose Route Start Last Admin Trade Name Freq PRN Reason Stop Dose Admin Albuterol 2 puff 08/20/22 23:38 08/20/22 20:35 Albuterol Sulfate (*Sp) Aerosol 1 Puff INHALATION 2 puff Q6HRT PRN Administration Shortness Of Breath Albuterol 2.5 mg 08/21/22 14:00 08/22/22 14:32 Albuterol Sulfate Neb 2.5 Mg/3 Ml Inh INHALATION 2.5 mg Q6HRT KENYETTA Administration Apixaban 5 mg 08/20/22 22:47 08/22/22 08:31 Apixaban 5 Mg Tablet PO 5 mg BID KENYETTA Administration Calcitonin [place] 100 units 08/21/22 09:00 08/22/22 08:31 Calcitonin [place] Inj 400 Units/2 Ml Vial SUB-Q 100 units DAILY KENYETTA Administration Sodium Chloride 1,000 mls @ 100 mls/hr 08/20/22 18:40 08/22/22 09:41
[2022-08-22 16:25] LABS: Ionized Calcium 7.1 mg/dL (4.7-5.5)
[2022-08-23] VITALS (15 sets, daily range): BP systolic 114–141; BP diastolic 54–70; PULSE 75–96; RESP 16–20; TEMP 36.1–36.6; O2SAT 94–100
[2022-08-23] MEDS: ALBUTEROL SULFATE NEB 2.5 MG/3 ML INH INHALATION ×4 (01:15→20:09)
[2022-08-23] MEDS: IPRATROPIUM BR 0.02% INH SOLN 0.5 MG/2.5 ML VIAL INHALATION ×4 (01:15→20:09)
[2022-08-23 05:15] LABS: Albumin Level 3.1 g/dL (3.5-5.1); Anion Gap 5 mmol/L (8-16); Blood Urea Nitrogen 31 mg/dL (7-17); Calcium 9.7 mg/dL (8.4-10.2); Carbon Dioxide 29 mmol/L (22-30); Chloride 107 mmol/L (98-107); Estimated CRCL calculation 18 ml/min; Estimated Glomerular Filt Rate 21; Glucose 126 mg/dL (65-110); Phosphorus 3.7 mg/dL (2.5-4.5); Potassium 3.2 mmol/L (3.4-5.0); Sodium 141 mmol/L (137-145)
[2022-08-23] MEDS: SODIUM CHLORIDE 0.9% IV 1,000 ML 100 ML IV CONT (06:02)
[2022-08-23] MEDS: UMECLIDINIUM/VILANTEROL 62.5-25 MCG ELLIPTA 1 PUFF INHALATION (07:58)
[2022-08-23] MEDS: POTASSIUM CHLORIDE 20 MEQ ER TABLET 40 MEQ PO (08:41)
[2022-08-23] MEDS: APIXABAN 5 MG TABLET PO ×2 (08:43→18:05)
[2022-08-23] MEDS: predniSONE 20 MG TABLET 40 MG PO (08:43)
[2022-08-23] MEDS: MULTIVITAMINS THERAPEUTIC TAB (*BKC) 1 TABLET PO (08:44)
[2022-08-23] MEDS: CALCITONIN SALMON INJ 400 UNITS/2 ML VIAL 100 UNITS SUB-Q (08:44)
[2022-08-23] MEDS: cefTRIAXone 2 GM/NS 100 ML 2 GM/100 ML BAG IVPB (08:44)
[2022-08-23] MEDS: SPIRONOLACTONE 12.5 MG TABLET PO (08:45)
[2022-08-23 09:28] LABS: Kappa\\Lambda Light Chains 2.28 (0.26-1.65)
--- NOTE | 2022-08-23 09:49 | PM.IMPN ---
Progress Note: A&P Assessment and Plan (1) Hypercalcemia due to high vitamin D level: Code(s): E83.52 - Hypercalcemia; E67.3 - Hypervitaminosis D Status: Acute Assessment and Plan: With treatment patient has received in the hospital stay calcium has returned to a normal level currently 9.7. (2) ANIKET (acute kidney injury): Code(s): N17.9 - Acute kidney failure, unspecified Status: Acute Assessment and Plan: Patient received IV fluids overnight and less IV Lasix which improved renal function however potentially contribute to worsening difficulty breathing. Will attempt to balance fluid intake and renal support vs respiratory support. (3) COPD (chronic obstructive pulmonary disease): Code(s): J44.9 - Chronic obstructive pulmonary disease, unspecified Status: Acute Assessment and Plan: Current exacerbation of chronic COPD. Patient receiving scheduled nebs and inhalers. She is oral steroids. Restart azithromycin for acute exacerbation. (4) Acute UTI: Code(s): N39.0 - Urinary tract infection, site not specified Status: Acute Assessment and Plan: Continue IV antibiotics as patient is not able to take oral antibiotics are indicated for current E coli infection. Will plan to continue for 2 more days. (5) Paroxysmal A-fib: Code(s): I48.0 - Paroxysmal atrial fibrillation Status: Acute Assessment and Plan: Patient is on Eliquis and amiodarone. Heart rate is normal and rhythm is normal at this time. Time Spent With Patient Time with patient: Greater than 35 minutes Subjective Date/time seen: 08/23/22 09:49 Interval history: This is a 72-year-old female with a past medical history of emphysema/COPD requiring multiple ICU stays and PE/DVT on Eliquis.? She was sent to the ER by her PCP with concerns about abnormal renal ultrasound and elevated creatinine.? She states in the last year her health has been declining, she has lost about 60 lb in a year and has been having concerns for a mass in her left upper quadrant.? She says that sometimes it causes abdominal pain.? She had been taking vitamin-D because she had read that it can help with her breathing.? Over the past week he she has been having increased sputum production which is clear and increased dyspnea, along with dizziness.? She denies complaints of UTI though. Labs on admission show a mild leukocytosis, compensated respiratory acidosis, creatinine of 3.2/BUN 35, and a calcium of 14.5.? Her UA was positive for 3+ leukocyte esterase and pyuria.? She was started on ceftriaxone for her UTI.? Added azithromycin for acute COPD exacerbation as well as scheduled nebulizers.? We are hydrating her with NS at 100 mL an hour and monitoring creatinine.? She also received treatment for her hypercalcemia with zoledronic acid, IV Lasix, prednisone, and calcitonin.? We have serial BMPs ordered.? Hypercalcemia remains, level is 12.? Nephrology was consulted for assistance with her case. 08/21:? Patient is seen today resting in bed, is at the bedside.? During our interview she has intermittent periods of severe dyspnea without exertion with associated anxiety.? She is on 3 L nasal cannula at baseline and she currently is receiving 3-4 L nasal cannula.? She reports an increase in sputum production and says the sputum is clear thick.? She is worried that she will have to get intubated at some point and she says that she has had multiple intubations in the past.? I spoke to her about our plan and treatment for her hypercalcemia and UTI.? Will also treat her for acute COPD exacerbation.? ROS is positive for dizziness, dyspnea with and without exertion, increased sputum production, decreased appetite, and general malaise. 08/22:? Patient seen today resting on the side of the bed with oxygen in place at 3 liters/minute via nasal cannula.? Patient denies any increased difficulty breathing.? She states that overall she feels much better
[2022-08-23] MEDS: AZITHROMYCIN 250 MG TABLET 500 MG PO (10:13)
[2022-08-23] MEDS: FUROSEMIDE INJ 40 MG/4 ML VIAL 20 MG IV PUSH (10:14)
--- NOTE | 2022-08-23 13:57 | P.PNNP_ITS ---
Progress Note: A&P Assessment and Plan (1) Acute kidney injury: Code(s): N17.9 - Acute kidney failure, unspecified Status: Acute Assessment and Plan: * ongoing improvement noted * suspect due to hypercalcemia + UTI and perhaps nephrolithiasis * normal baseline creatinine in January 2022 * however, noted rise in creatinine in end of June and July 2022 (1.3 --> 2.0mg/dl) * potential etiologies: * hypercalcemia * prerenal factors * concurrent diuretic use (spironolactone) * UTI/infection * evaluation to date: * renal ultrasound without obstruction * UA suggestive of infection * urine electrolytes non-prerenal * significant proteinuria noted * CT scan noted -- staghorn calculi present; will consult Urology * on antibiotics * hypercalcemia being treated (see #3) * follow trend of repeat labs and UOP (2) Acute UTI: Code(s): N39.0 - Urinary tract infection, site not specified Status: Acute Assessment and Plan: * admission UA highly suggestive * urine culture with E. coli * on antibitoics (3) Hypercalcemia: Code(s): E83.52 - Hypercalcemia Status: Acute Assessment and Plan: * improving * presumably precipitated by OTC vitamin D supplementation * s/p IVF hydration and forced diuresis * s/p zometa and on calcitonin and steroids * follow-up on pending studies (PTH, PTHrp, Vitamin D, SPEP, UPEP.....etc) * follow repeat calcium levels (4) Chronic respiratory failure: Code(s): J96.10 - Chronic respiratory failure, unspecified whether with hypoxia or hypercapnia Status: Chronic Assessment and Plan: * appears stable/compensated at this time * due to known history of COPD * on 3L by nasal cannula at baseline * continue home medications/inhalers Will continue to follow. Subjective Date/time seen: 08/23/22 13:37 Interval history: Follow-up for acute kidney injury/acute renal failure and hypercalcemia. Calcium appears to have normalize and renal function continues to improve with current interventions; worsening shortness of breath so IVFs stopped and getting intermittent IV lasix as well (due to concerns of potential fluid overload). Exam Narrative: General: chronically ill appearing female in NAD Heart: normal S1 and S2; no rub Lungs: coarse breath sounds Abdomen: soft, nontender, nondistended, positive bowel sounds Extremities: no cyanosis or clubbing; no edema Skin: warm and intact Objective Data Vital Signs Vital Signs: Vital Signs Temp Pulse Resp BP Pulse Ox O2 Del Method O2 Flow Rate 08/23/22 13:10 97.8 F 81 16 122/54 L 100 08/23/22 08:00 97 Nasal Cannula 3 08/23/22 08:10 78 20 08/23/22 08:01 97 Nasal Cannula 3 08/23/22 07:59 76 20 08/23/22 06:45 97.0 F L 82 20 114/64 99 08/23/22 01:34 75 20 08/23/22 01:15 78 20 08/22/22 22:38 97.7 F 85 18 123/57 L 95 08/22/22 20:00 82 18 95 Nasal Cannula 2 08/22/22 20:11 79 20 08/22/22 20:02 86 94 Nasal Cannula 3 08/22/22 20:01 86 20 Intake/Output Intake/Output: Intake & Output 08/20/22 08/21/22 08/22/22 08/23/22 23:59 23:59 23:59 23:59 Intake Total 1200 3810 3
--- NOTE | 2022-08-23 13:57 | PM.PNNEP ---
Progress Note: A&P Assessment and Plan (1) Acute kidney injury: Code(s): N17.9 - Acute kidney failure, unspecified Status: Acute Assessment and Plan: ongoing improvement noted suspect due to hypercalcemia + UTI and perhaps nephrolithiasis normal baseline creatinine in January 2022 however, noted rise in creatinine in end of June and July 2022 (1.3 --> 2.0mg/dl) potential etiologies: hypercalcemia prerenal factors concurrent diuretic use (spironolactone) UTI/infection evaluation to date: renal ultrasound without obstruction UA suggestive of infection urine electrolytes non-prerenal significant proteinuria noted CT scan noted -- staghorn calculi present; will consult Urology on antibiotics hypercalcemia being treated (see #3) follow trend of repeat labs and UOP (2) Acute UTI: Code(s): N39.0 - Urinary tract infection, site not specified Status: Acute Assessment and Plan: admission UA highly suggestive urine culture with E. coli on antibitoics (3) Hypercalcemia: Code(s): E83.52 - Hypercalcemia Status: Acute Assessment and Plan: improving presumably precipitated by OTC vitamin D supplementation s/p IVF hydration and forced diuresis s/p zometa and on calcitonin and steroids follow-up on pending studies (PTH, PTHrp, Vitamin D, SPEP, UPEP.....etc) follow repeat calcium levels (4) Chronic respiratory failure: Code(s): J96.10 - Chronic respiratory failure, unspecified whether with hypoxia or hypercapnia Status: Chronic Assessment and Plan: appears stable/compensated at this time due to known history of COPD on 3L by nasal cannula at baseline continue home medications/inhalers Will continue to follow. Subjective Date/time seen: 08/23/22 13:37 Interval history: Follow-up for acute kidney injury/acute renal failure and hypercalcemia. Calcium appears to have normalize and renal function continues to improve with current interventions; worsening shortness of breath so IVFs stopped and getting intermittent IV lasix as well (due to concerns of potential fluid overload). Exam Narrative: General: chronically ill appearing female in NAD Heart: normal S1 and S2; no rub Lungs: coarse breath sounds Abdomen: soft, nontender, nondistended, positive bowel sounds Extremities: no cyanosis or clubbing; no edema Skin: warm and intact Objective Data Vital Signs Vital Signs: Vital Signs Temp Pulse Resp BP Pulse Ox O2 Del Method O2 Flow Rate 08/23/22 13:10 97.8 F 81 16 122/54 L 100 08/23/22 08:00 97 Nasal Cannula 3 08/23/22 08:10 78 20 08/23/22 08:01 97 Nasal Cannula 3 08/23/22 07:59 76 20 08/23/22 06:45 97.0 F L 82 20 114/64 99 08/23/22 01:34 75 20 08/23/22 01:15 78 20 08/22/22 22:38 97.7 F 85 18 123/57 L 95 08/22/22 20:00 82 18 95 Nasal Cannula 2 08/22/22 20:11 79 20 08/22/22 20:02 86 94 Nasal Cannula 3 08/22/22 20:01 86 20 Intake/Output Intake/Output: Intake & Output 08/20/22 08/21/22 08/22/22 08/23/22 23:59 23:59 23:59 23:59 Intake Total 1200 3810 3650 1720 Output Total 4950 3500 1000 Balance 1200 -1140 150 720 Meds/Results Medications: Active Medications Generic Name Dose Route Start Last Admin Trade Name Freq PRN Reason Stop Dose Admin Albuterol 2 puff 08/20/22 23:38 08/20/22 20:35 Albuterol Sulfate (*Sp) Aerosol 1 Puff INHALATION 2 puff Q6HRT PRN Administration Shortness Of Breath Albuterol 2.5 mg 08/21/22 14:00 08/23/22 13:48 Albuterol Sulfate Neb 2.5 Mg/3 Ml Inh INHALATION 2.5 mg Q6HRT KENYETTA Administration Apixaban 5 mg 08/20/22 22:47 08/23/22 08:43 Apixaban 5 Mg Tablet PO 5 mg BID KENYETTA Administration Ceftriaxone Sodium 2 gm in 100 mls @ 200 mls/hr 08/23/22 09:00 08/23/22 08:44 Rocephin 2 Gm/Ns 100 Ml IVPB
[2022-08-23 15:37] LABS: Albumin 3.1 g/dL (3.8-4.8); Alpha 1 Globulin 0.3 g/dL (0.2-0.3); Alpha 2 Globulin 0.8 g/dL (0.5-0.9); Beta 1 Globulin 0.3 g/dL (0.4-0.6); Gamma Globulin 0.8 g/dL (0.8-1.7); Protein, Total 5.6 g/dL (6.1-8.1)
[2022-08-23] MEDS: ALBUTEROL SULFATE (*SP) AEROSOL 1 PUFF 2 PUFF INHALATION (18:02)
[2022-08-23 19:32] LABS: Anti Glomerular Basement Memb <1.0 AI (<1.0)
[2022-08-24] VITALS (15 sets, daily range): BP systolic 102–126; BP diastolic 45–61; PULSE 72–93; RESP 16–20; TEMP 36.4–37.4; O2SAT 94–98
[2022-08-24] MEDS: IPRATROPIUM BR 0.02% INH SOLN 0.5 MG/2.5 ML VIAL INHALATION ×4 (01:16→20:21)
[2022-08-24] MEDS: ALBUTEROL SULFATE NEB 2.5 MG/3 ML INH INHALATION ×4 (01:16→20:22)
[2022-08-24 05:15] LABS: Basophils Percent Auto 0.1 % (0.2-1.2); Hematocrit 26.8 % (37.0-47.0); Hemoglobin 8.2 g/dL (12.0-15.0); Immature Granulocyte Absolute 0.06 K/mm3 (0.00-0.031); Immature Granulocyte Percent A 0.6 % (0-0.5); Lymphocytes Absolute Auto 0.54 K/mm3 (0.9-3.2); Lymphocytes Percent Auto 5.2 % (18.3-44.2); Mean Corpuscular HGB Conc 30.6 g/dl (32-36); Mean Corpuscular Volume 94.7 fl (80-100); Monocytes Absolute Auto 0.8 K/mm3 (0.1-0.6); Monocytes Percent Auto 7.5 % (2.6-8.5); Neutrophils Absolute Auto 8.9 K/mm3 (1.3-6.7); Neutrophils Percent Auto 86.6 % (45.5-73.1); Platelet Count Result 373 k/mm3 (150-375); Red Blood Count 2.83 M/mm3 (4.2-5.4); Red Cell Distribution Width 15.5 % (11.5-14.5); White Blood Count 10.3 K/mm3 (4.5-10.0)
[2022-08-24 05:28] LABS: Albumin Level 3.4 g/dL (3.5-5.1); Anion Gap 5 mmol/L (8-16); Blood Urea Nitrogen 29 mg/dL (7-17); Calcium 9.4 mg/dL (8.4-10.2); Carbon Dioxide 29 mmol/L (22-30); Chloride 107 mmol/L (98-107); Estimated CRCL calculation 21 ml/min; Estimated Glomerular Filt Rate 26; Glucose 113 mg/dL (65-110); Phosphorus 3.3 mg/dL (2.5-4.5); Potassium 3.2 mmol/L (3.4-5.0); Sodium 141 mmol/L (137-145)
[2022-08-24] MEDS: UMECLIDINIUM/VILANTEROL 62.5-25 MCG ELLIPTA 1 PUFF INHALATION (07:06)
[2022-08-24 08:22] LABS: Vitamin D 1,25 (OH)2 Total 63 pg/mL (18-72); Vitamin D2 1,25 (OH)2 <8 pg/mL; Vitamin D3 1,25 (OH)2 63 pg/mL
[2022-08-24] MEDS: predniSONE 20 MG TABLET 40 MG PO (08:49)
[2022-08-24] MEDS: POTASSIUM CHLORIDE 20 MEQ ER TABLET 40 MEQ PO (08:50)
[2022-08-24] MEDS: cefTRIAXone 2 GM/NS 100 ML 2 GM/100 ML BAG IVPB (08:51)
[2022-08-24] MEDS: SPIRONOLACTONE 25 MG TABLET PO (08:51)
[2022-08-24] MEDS: CALCITONIN SALMON INJ 400 UNITS/2 ML VIAL 100 UNITS SUB-Q (08:56)
[2022-08-24 10:49] LABS: Bacteria Urine None Seen /hpf; Non Pathogenic Casts 0-2; RBC Urine >100 /hpf (0-2); Squamous Epithelial Cell Urine Few /hpf (Few); WBC Urine 51-100 /hpf
[2022-08-24] MEDS: APIXABAN 2.5 MG TABLET PO ×2 (10:55→20:28)
[2022-08-24 10:56] LABS: Appearance Urine Cloudy (Clear); Bilirubin Urine Negative (Negative); Blood Urine 3+ (Negative); Glucose Urine UA Negative (Negative); Ketones Urine Negative (Negative); Leukocyte Esterase Ur 2+ LEU/UL (Negative); Nitrate Urine Negative (Negative); Protein Urine 2+ mg/dL (Negative); Urobilinogen Urine 0.2 mg/dL (<2.0); pH Urine 6.5 (5.0-9.0)
[2022-08-24 10:58] LABS: Color Urine Light Red (Yellow)
[2022-08-24 10:59] LABS: Add Urine Microscopic? YES
--- NOTE | 2022-08-24 12:06 | PM.PNNEP ---
Progress Note: A&P Assessment and Plan (1) Acute kidney injury: Code(s): N17.9 - Acute kidney failure, unspecified Status: Acute Assessment and Plan: ongoing improvement noted suspect due to hypercalcemia + UTI and perhaps nephrolithiasis (previous passage of stones) normal baseline creatinine in January 2022 however, noted rise in creatinine in end of June and July 2022 (1.3 --> 2.0mg/dl) potential etiologies: hypercalcemia prerenal factors concurrent diuretic use (spironolactone) UTI/infection evaluation to date: renal ultrasound without obstruction UA suggestive of infection urine electrolytes non-prerenal significant proteinuria noted CT scan noted -- staghorn calculi present; Urology consulted serologies negative to date (some still pending) on antibiotics hypercalcemia being treated (see #3) follow trend of repeat labs and UOP (2) Acute UTI: Code(s): N39.0 - Urinary tract infection, site not specified Status: Acute Assessment and Plan: admission UA highly suggestive urine culture with E. coli on antibitoics (3) Hypercalcemia: Code(s): E83.52 - Hypercalcemia Status: Acute Assessment and Plan: improving presumably precipitated by OTC vitamin D supplementation s/p IVF hydration and forced diuresis s/p zometa and on calcitonin and steroids follow-up on pending studies (PTH, PTHrp, Vitamin D, SPEP, UPEP.....etc) follow repeat calcium levels (4) Chronic respiratory failure: Code(s): J96.10 - Chronic respiratory failure, unspecified whether with hypoxia or hypercapnia Status: Chronic Assessment and Plan: appears stable/compensated at this time due to known history of COPD on 3L by nasal cannula at baseline continue home medications/inhalers Will continue to follow. Subjective Date/time seen: 08/24/22 12:06 Interval history: Follow-up for acute kidney injury/acute renal failure and hypercalcemia. Renal function continues to improve with current interventions; she reports some hematuria but her major complaint is that of her fluctuating respiratory status/shortness of breath; eating and drinking okay; no acute distress at the time of my visit. Exam Narrative: General: chronically ill appearing female in NAD Heart: normal S1 and S2; no rub Lungs: coarse breath sounds Abdomen: soft, nontender, nondistended, positive bowel sounds Extremities: no cyanosis or clubbing; no edema Skin: warm and intact Objective Data Vital Signs Vital Signs: Vital Signs Temp Pulse Resp BP Pulse Ox O2 Del Method O2 Flow Rate 08/24/22 12:05 81 18 08/24/22 08:35 95 Nasal Cannula 3 08/24/22 07:15 86 18 08/24/22 07:05 82 18 08/24/22 07:05 82 18 95 Nasal Cannula 3 08/24/22 04:24 97.9 F 72 18 118/61 98 08/24/22 01:28 80 16 08/24/22 01:18 83 16 08/23/22 20:20 87 18 08/23/22 20:00 97 Nasal Cannula 3 08/23/22 20:13 85 18 97 Nasal Cannula 3 08/23/22 20:09 85 18 08/23/22 19:27 97.8 F 96 18 141/70 H 94 Intake/Output Intake/Output: Intake & Output 08/21/22 08/22/22 08/23/22 08/24/22 23:59 23:59 23:59 23:59 Intake Total 3810 3650 2060 860 Output Total 4950 3500 3500 1200 Balance -1140 150 -1440 -340 Meds/Results Medications: Active Medications Generic Name Dose Route Start Last Admin Trade Name Freq PRN Reason Stop Dose Admin Albuterol 2 puff 08/20/22 23:38 08/23/22 18:02 Albuterol Sulfate (*Sp) Aerosol 1 Puff INHALATION 2 puff Q6HRT PRN Administration Shortness Of Breath Albuterol 2.5 mg 08/21/22 14:00 08/24/22 13:06 Albuterol Sulfate Neb 2.5 Mg/3 Ml Inh INHALATION 2.5 mg Q6HRT KENYETTA Administration Apixaban 2.5 mg 08/24/22 09:00 08/24/22 10:55 Apixaban 2.5 Mg Tablet PO 2.5 mg Q12HR KENYETTA Administration Ascorbic Acid 500 mg 08/25/22 0
--- NOTE | 2022-08-24 12:06 | P.PNNP_ITS ---
Progress Note: A&P Assessment and Plan (1) Acute kidney injury: Code(s): N17.9 - Acute kidney failure, unspecified Status: Acute Assessment and Plan: * ongoing improvement noted * suspect due to hypercalcemia + UTI and perhaps nephrolithiasis (previous passage of stones) * normal baseline creatinine in January 2022 * however, noted rise in creatinine in end of June and July 2022 (1.3 --> 2.0mg/dl) * potential etiologies: * hypercalcemia * prerenal factors * concurrent diuretic use (spironolactone) * UTI/infection * evaluation to date: * renal ultrasound without obstruction * UA suggestive of infection * urine electrolytes non-prerenal * significant proteinuria noted * CT scan noted -- staghorn calculi present; Urology consulted * serologies negative to date (some still pending) * on antibiotics * hypercalcemia being treated (see #3) * follow trend of repeat labs and UOP (2) Acute UTI: Code(s): N39.0 - Urinary tract infection, site not specified Status: Acute Assessment and Plan: * admission UA highly suggestive * urine culture with E. coli * on antibitoics (3) Hypercalcemia: Code(s): E83.52 - Hypercalcemia Status: Acute Assessment and Plan: * improving * presumably precipitated by OTC vitamin D supplementation * s/p IVF hydration and forced diuresis * s/p zometa and on calcitonin and steroids * follow-up on pending studies (PTH, PTHrp, Vitamin D, SPEP, UPEP.....etc) * follow repeat calcium levels (4) Chronic respiratory failure: Code(s): J96.10 - Chronic respiratory failure, unspecified whether with hypoxia or hypercapnia Status: Chronic Assessment and Plan: * appears stable/compensated at this time * due to known history of COPD * on 3L by nasal cannula at baseline * continue home medications/inhalers Will continue to follow. Subjective Date/time seen: 08/24/22 12:06 Interval history: Follow-up for acute kidney injury/acute renal failure and hypercalcemia. Renal function continues to improve with current interventions; she reports some hematuria but her major complaint is that of her fluctuating respiratory status/shortness of breath; eating and drinking okay; no acute distress at the time of my visit. Exam Narrative: General: chronically ill appearing female in NAD Heart: normal S1 and S2; no rub Lungs: coarse breath sounds Abdomen: soft, nontender, nondistended, positive bowel sounds Extremities: no cyanosis or clubbing; no edema Skin: warm and intact Objective Data Vital Signs Vital Signs: Vital Signs Temp Pulse Resp BP Pulse Ox O2 Del Method O2 Flow Rate 08/24/22 12:05 81 18 08/24/22 08:35 95 Nasal Cannula 3 08/24/22 07:15 86 18 08/24/22 07:05 82 18 08/24/22 07:05 82 18 95 Nasal Cannula 3 08/24/22 04:24 97.9 F 72 18 118/61 98 08/24/22 01:28 80 16 08/24/22 01:18 83 16 08/23/22 20:20 87 18 08/23/22 20:00 97 Nasal Cannula 3 08/23/22 20:13 85 18 97 Nasal Cannula 3 08/23/22 20:09 85 18 08/23/22 19:27 97.8 F 96 18 141/70 H 94 Intake/Output Intake/Output: Intake & Output 08/21/22
--- NOTE | 2022-08-24 14:22 | WPDURCON ---
Assessment and Plan Assessment and plan (1) Acute UTI: Code(s): N39.0 - Urinary tract infection, site not specified Status: Acute Assessment and Plan: - continue antibiotics per primary team (2) Renal calculus, left: Code(s): N20.0 - Calculus of kidney Status: Acute Assessment and Plan: - pt with recurrent large left sided stone burden. Recommend follow up at [facility] where she had her previous left PCNL in 2019 - as there are no obstructing stones on current imaging, no need for acute intervention at this time. Plan outpatient follow up at [facility]. (3) Bladder stone: Code(s): N21.0 - Calculus in bladder Status: Acute Assessment and Plan: small bladder stones present on CT. Pt may have been passing a small stone prior to admission which exacerbated her ARF. (4) ANIKET (acute kidney injury): Code(s): N17.9 - Acute kidney failure, unspecified Status: Acute Assessment and Plan: per Nephrology. Urology Consult Note HPI Date Seen: 08/24/22 Requesting Physician: Gamaliel Mclean APRN Primary Care Provider: Mic Estrada MD Consult Narrative Narrative: Alexus Zambrano is a 72 year old female admitted with UTI and ARF. Her renal function is improving. CT Scan revealed large volume of left renal stones as well as small bladder stones. Pt has history of PCNL in [address] [facility] Past Medical History Medical History (Updated 08/24/22 @ 14:31 by Arely Johnson MD) Bladder stone Chronic respiratory failure COPD (chronic obstructive pulmonary disease) Emphysema lung History of kidney stones with extraction History of pulmonary embolism History of tobacco abuse Multiple nodules of lung Osteoporosis Paroxysmal A-fib Renal calculus, left Snoring Spontaneous pneumothorax x3 Surgical History Surgical History History of adenoidectomy History of breast biopsy History of hysterectomy with bilateral oophorectomy History of tonsillectomy Hx of fracture of wrist s/p L ORIF S/P IVC filter Family History Family History Father Patient's father is Sibling Family history of malignant neoplasm of breast Mother Diabetes mellitus Family history of congestive heart failure Sibling Family history of malignant neoplasm of breast Sibling Family history of malignant neoplasm of breast Social History Social History Smoking packs per day: 0.5 Smoking cigarettes per day: 10.0 Years smoked: 37 Smoking pack-years: 18.50 Smoking status: Former smoker Tobacco type: cigarettes Second hand tobacco smoke exposure: No Smoking end date: 02/18/98 Alcohol intake: never Substance use: never Substance use type: does not use Lack of Transportation: No Lack of Food: Never True Current Housing: I Have Housing Concerned About Future Housing: No Difficulty Paying Gas/Electric Bills: No Difficulty Paying for Meds: No Currently Unemployed: No Education: High School Diploma/GED Difficulty w/ Childcare or Family Care: No Living arrangements: with family Occupation/Education: other Gender identity (if verbalized by the patient): Female Spiritual care concerns: No Meds Home Medications and Allergies Home Medications Medication Instructions Recorded Confirmed Type multivitamin (Multiple Vitamins 1 tablet PO DAILY 02/02/19 08/20/22 History tablet) Anoro Ellipta 62.5 mcg-25 1 inh inhalation Q24H 90 days #90 01/18/21 08/20/22 Rx mcg/actuation powder for ea inhalation (umeclidinium-vilanterol) amiodarone 200 mg tablet 100 mg PO DAILY 01/26/22 08/20/22 History apixaban 5 mg tablet (Eliquis) 5 mg PO BID 01/26/22 08/20/22 History spironolactone 25 mg tablet 12.5 mg PO DAILY 1
--- NOTE | 2022-08-24 14:37 | PM.IMPN ---
Progress Note: A&P Assessment and Plan (1) Hypercalcemia due to high vitamin D level: Code(s): E83.52 - Hypercalcemia; E67.3 - Hypervitaminosis D Status: Acute Assessment and Plan: Calcium has improved to 9.4. Patient no longer on IV fluids or excess diuresis. Still receiving calcitonin. (2) ANIKET (acute kidney injury): Code(s): N17.9 - Acute kidney failure, unspecified Status: Acute Assessment and Plan: Improving renal function current creatinine 1.9. Nephrology has seen patient and they consulted Urology due to staghorn calculi in left kidney nonobstructing and bladder stones. Urology saw patient recommended nonemergent follow-up at [facility] where she previously had procedure for similar findings. Appreciate any further nephrology recommendations. (3) Acute UTI: Code(s): N39.0 - Urinary tract infection, site not specified Status: Acute Assessment and Plan: No symptoms of dysuria no fever normal white blood cell count. Tomorrow will be the last dose IV Rocephin. Baseline patient allergies and sensitivities there is no great oral option. (4) COPD (chronic obstructive pulmonary disease): Code(s): J44.9 - Chronic obstructive pulmonary disease, unspecified Status: Acute Assessment and Plan: Patient has waxing and waning dyspnea on 3 L nasal cannula which is home dose. Patient is on azithromycin and prednisone for acute exacerbation (5) Chronic respiratory failure: Code(s): J96.10 - Chronic respiratory failure, unspecified whether with hypoxia or hypercapnia Status: Chronic Assessment and Plan: Stable on home oxygen at 3 L which is chronic (6) Paroxysmal A-fib: Code(s): I48.0 - Paroxysmal atrial fibrillation Status: Acute Assessment and Plan: On exam patient's heart rate is regular in rhythm is regular with apical pulse rate approximately 80 she is on amiodarone and Eliquis due to AFib and prior VTEs. (7) Renal calculus, left: Code(s): N20.0 - Calculus of kidney Status: Acute Assessment and Plan: Nonobstructing staghorn calculi left kidney patient evaluated by Urology recommended nonemergent follow-up at [facility]. (8) Hematuria: Code(s): R31.9 - Hematuria, unspecified Status: Acute Assessment and Plan: New onset hematuria today without pain. Urinalysis shows greater than 100 red cells with 3+ blood, white blood cells 51-100 with 2+ leukocyte esterase 2+ protein and few urine squamous epithelials. Given patient's altered renal function, decision was made to decrease apixaban dose to 2.5 mg b.i.d. Time Spent With Patient Time with patient: 25 - 35 minutes Subjective Date/time seen: 08/24/22 0900 Interval history: This is a 72-year-old female with a past medical history of emphysema/COPD requiring multiple ICU stays and PE/DVT on Eliquis.? She was sent to the ER by her PCP with concerns about abnormal renal ultrasound and elevated creatinine.? She states in the last year her health has been declining, she has lost about 60 lb in a year and has been having concerns for a mass in her left upper quadrant.? She says that sometimes it causes abdominal pain.? She had been taking vitamin-D because she had read that it can help with her breathing.? Over the past week he she has been having increased sputum production which is clear and increased dyspnea, along with dizziness.? She denies complaints of UTI though. Labs on admission show a mild leukocytosis, compensated respiratory acidosis, creatinine of 3.2/BUN 35, and a calcium of 14.5.? Her UA was positive for 3+ leukocyte esterase and pyuria.? She was started on ceftriaxone for her UTI.? Added azithromycin for acute COPD exacerbation as well as scheduled nebulizers.? We are hydrating her with NS at 100 mL an hour and monitoring creatinine.? She also received treatment for her hypercalcemia with zoledronic acid, IV Lasix, prednisone, and calcitonin.? W
[2022-08-24] MEDS: ALBUTEROL SULFATE (*SP) AEROSOL 1 PUFF 2 PUFF INHALATION (17:27)
[2022-08-25] VITALS (13 sets, daily range): BP systolic 107–126; BP diastolic 54–68; PULSE 72–93; RESP 16–20; TEMP 36.3–36.7; O2SAT 94–99
[2022-08-25] MEDS: ALBUTEROL SULFATE NEB 2.5 MG/3 ML INH INHALATION ×4 (01:28→19:52)
[2022-08-25] MEDS: IPRATROPIUM BR 0.02% INH SOLN 0.5 MG/2.5 ML VIAL INHALATION ×4 (01:28→19:52)
[2022-08-25 05:35] LABS: Hematocrit 28.1 % (37.0-47.0); Hemoglobin 8.5 g/dL (12.0-15.0); Mean Corpuscular HGB Conc 30.2 g/dl (32-36); Mean Corpuscular Hemoglobin 28.8 pg (26-34); Mean Corpuscular Volume 95.3 fl (80-100); Mean Platelet Volume 8.9 fl (7.4-10.4); Platelet Count Result 411 k/mm3 (150-375); Red Blood Count 2.95 M/mm3 (4.2-5.4); Red Cell Distribution Width 15.6 % (11.5-14.5); White Blood Count 9.3 K/mm3 (4.5-10.0)
[2022-08-25 05:51] LABS: Alanine Aminotransferase 19 U/L (6-35); Albumin Level 3.4 g/dL (3.5-5.1); Alkaline Phosphatase 60 U/L (38-126); Anion Gap 3 mmol/L (8-16); Aspartate Amino Transferase 21 U/L (14-36); Bilirubin,Total 0.2 mg/dL (0.2-1.3); Blood Urea Nitrogen 28 mg/dL (7-17); Calcium 9.7 mg/dL (8.4-10.2); Carbon Dioxide 28 mmol/L (22-30); Chloride 108 mmol/L (98-107); Estimated CRCL calculation 25 ml/min; Estimated Glomerular Filt Rate 32; Glucose 100 mg/dL (65-110); Potassium 3.7 mmol/L (3.4-5.0); Sodium 139 mmol/L (137-145)
[2022-08-25] MEDS: UMECLIDINIUM/VILANTEROL 62.5-25 MCG ELLIPTA 1 PUFF INHALATION (07:41)
[2022-08-25 07:55] LABS: Angiotensin Converting Enzyme 43.8 U/L (9-67)
[2022-08-25] MEDS: SPIRONOLACTONE 25 MG TABLET PO (08:14)
[2022-08-25] MEDS: predniSONE 20 MG TABLET 40 MG PO (08:15)
[2022-08-25] MEDS: ASCORBIC ACID 500 MG TABLET PO (08:15)
[2022-08-25] MEDS: AZITHROMYCIN 250 MG TABLET PO (08:15)
[2022-08-25] MEDS: APIXABAN 2.5 MG TABLET PO ×2 (08:16→22:12)
[2022-08-25] MEDS: FERROUS SULFATE 324 MG TABLET PO (08:16)
[2022-08-25] MEDS: cefTRIAXone 2 GM/NS 100 ML 2 GM/100 ML BAG IVPB (08:18)
--- NOTE | 2022-08-25 10:28 | PM.IMPN ---
Progress Note: A&P Assessment and Plan (1) Hypercalcemia due to high vitamin D level: Code(s): E83.52 - Hypercalcemia; E67.3 - Hypervitaminosis D Status: Acute Assessment and Plan: calcium level has remained normal and stable for the last 3 days. (2) ANIKET (acute kidney injury): Code(s): N17.9 - Acute kidney failure, unspecified Status: Acute Assessment and Plan: Improving renal function with conservative diuretic therapy. Plan to patient Lasix daily and 25 mg spironolactone daily this seems to balance renal function with COPD/CHF dyspnea and hypokalemia (3) Acute UTI: Code(s): N39.0 - Urinary tract infection, site not specified Status: Acute Assessment and Plan: Patient denies any dysuria. Today should be the last dose of IV Rocephin. Urinalysis completed yesterday with hematuria and some WBCs has urine culture in process but previously noted E coli should have been treated adequately with IV Rocephin. (4) COPD (chronic obstructive pulmonary disease): Code(s): J44.9 - Chronic obstructive pulmonary disease, unspecified Status: Acute Assessment and Plan: Chronic, with waxing and waning dyspnea. Patient wears 3 L oxygen continuously, not requiring titrations, currently on azithromycin for acute exacerbation. (5) Chronic respiratory failure: Code(s): J96.10 - Chronic respiratory failure, unspecified whether with hypoxia or hypercapnia Status: Chronic Assessment and Plan: Chronic 3 L oxygen without additional demand requirements, continue at home on discharge (6) Paroxysmal A-fib: Code(s): I48.0 - Paroxysmal atrial fibrillation Status: Acute Assessment and Plan: HR and rhythm normal on assessment, seems well controlled on amiodarone. Eliquis for VTE prophylaxis decreased to 2.5 mg bid due to weight, renal function and hematuria. (7) Renal calculus, left: Code(s): N20.0 - Calculus of kidney Status: Acute Assessment and Plan: Staghorn calculi left kidney, seen by Urology with instruction to follow up outpatient at [facility] with previous Urology group (8) Hematuria: Code(s): R31.9 - Hematuria, unspecified Status: Acute Assessment and Plan: Drastically improved after Eliquis dose reduction. Time Spent With Patient Time with patient: Greater than 35 minutes Subjective Date/time seen: 08/25/22 10:28 Interval history: This is a 72-year-old female with a past medical history of emphysema/COPD requiring multiple ICU stays and PE/DVT on Eliquis.? She was sent to the ER by her PCP with concerns about abnormal renal ultrasound and elevated creatinine.? She states in the last year her health has been declining, she has lost about 60 lb in a year and has been having concerns for a mass in her left upper quadrant.? She says that sometimes it causes abdominal pain.? She had been taking vitamin-D because she had read that it can help with her breathing.? Over the past week he she has been having increased sputum production which is clear and increased dyspnea, along with dizziness.? She denies complaints of UTI though. Labs on admission show a mild leukocytosis, compensated respiratory acidosis, creatinine of 3.2/BUN 35, and a calcium of 14.5.? Her UA was positive for 3+ leukocyte esterase and pyuria.? She was started on ceftriaxone for her UTI.? Added azithromycin for acute COPD exacerbation as well as scheduled nebulizers.? We are hydrating her with NS at 100 mL an hour and monitoring creatinine.? She also received treatment for her hypercalcemia with zoledronic acid, IV Lasix, prednisone, and calcitonin.? We have serial BMPs ordered.? Hypercalcemia remains, level is 12.? Nephrology was consulted for assistance with her case. 08/21:? Patient is seen today resting in bed, is at the bedside.? During our interview she has intermittent periods of severe dyspnea without exertion with associated anxiety.? She
--- NOTE | 2022-08-25 11:19 | PM.PNNEP ---
Progress Note: A&P Assessment and Plan (1) Acute kidney injury: Code(s): N17.9 - Acute kidney failure, unspecified Status: Acute Assessment and Plan: ongoing improvement noted suspect due to hypercalcemia + UTI and perhaps nephrolithiasis (previous passage of stones) normal baseline creatinine in January 2022 however, noted rise in creatinine in end of June and July 2022 (1.3 --> 2.0mg/dl) potential etiologies: hypercalcemia prerenal factors concurrent diuretic use (spironolactone) UTI/infection evaluation to date: renal ultrasound without obstruction UA suggestive of infection urine electrolytes non-prerenal significant proteinuria noted CT scan noted -- staghorn calculi present; Urology recommendations noted serologies negative to date (some still pending) on antibiotics cautious use of diuretics... hypercalcemia being treated (see #3) follow trend of repeat labs and UOP (2) Acute UTI: Code(s): N39.0 - Urinary tract infection, site not specified Status: Acute Assessment and Plan: admission UA highly suggestive urine culture with E. coli on antibitoics (3) Hypercalcemia: Code(s): E83.52 - Hypercalcemia Status: Acute Assessment and Plan: improving presumably precipitated by OTC vitamin D supplementation s/p IVF hydration and forced diuresis s/p zometa and steroids; on calcitonin but will d/c today follow-up on pending studies (PTH, PTHrp, Vitamin D, SPEP, UPEP.....etc) follow repeat calcium levels (4) Chronic respiratory failure: Code(s): J96.10 - Chronic respiratory failure, unspecified whether with hypoxia or hypercapnia Status: Chronic Assessment and Plan: fluctuating recently due to known history of COPD on 3L by nasal cannula at baseline continue home medications/inhalers if continues to worsen - consider consulting Pulmonary recheck CXR Will continue to follow. Subjective Date/time seen: 08/25/22 11:19 Interval history: Follow-up for acute kidney injury/acute renal failure and hypercalcemia. Still complaining about her breathing/respiratory status but seems more concerned about her dizziness as well; renal function coninues to improve with current interventions and calcium has been stable for the last few days; no further reports of hematuria; no other issues/events ovenight or earlier this morning. Exam Narrative: General: chronically ill appearing female in NAD Heart: normal S1 and S2; no rub Lungs: coarse breath sounds Abdomen: soft, nontender, nondistended, positive bowel sounds Extremities: no cyanosis or clubbing; no edema Skin: no rash Objective Data Vital Signs Vital Signs: Vital Signs Temp Pulse Resp BP Pulse Ox O2 Del Method O2 Flow Rate 08/25/22 10:35 97.8 F 78 20 126/66 96 08/25/22 08:15 95 Nasal Cannula 3 08/25/22 08:00 79 18 08/25/22 07:42 79 18 08/25/22 07:42 95 Nasal Cannula 3 08/25/22 04:54 97.4 F L 72 20 107/54 L 97 08/25/22 01:39 87 18 08/25/22 01:31 85 18 08/24/22 20:45 94 Nasal Cannula 3 08/24/22 20:34 85 18 08/24/22 20:26 93 18 94 Nasal Cannula 3 08/24/22 20:22 93 18 08/24/22 19:48 97.6 F 79 18 126/54 L 97 08/24/22 17:30 83 18 Intake/Output Intake/Output: Intake & Output 08/22/22 08/23/22 08/24/22 08/25/22 23:59 23:59 23:59 23:59 Intake Total 3650 2060 1010 999 Output Total 3500 3500 2350 2900 Balance 150 -7050 -3540 -1901 Meds/Results Medications: Active Medications Generic Name Dose Route Start Last Admin Trade Name Freq PRN Reason Stop Dose Admin Albuterol 2 puff 08/20/22 23:38 08/24/22 17:27 Albuterol Sulfate (*Sp) Aerosol 1 Puff INHALATION 2 puff Q6HRT PRN Administration Shortness Of Breath Albuterol 2.5 mg 08/21/22 14:00 08/25/22 14:18 Albuterol Sulfate Neb 2.5 M
--- NOTE | 2022-08-25 11:19 | P.PNNP_ITS ---
Progress Note: A&P Assessment and Plan (1) Acute kidney injury: Code(s): N17.9 - Acute kidney failure, unspecified Status: Acute Assessment and Plan: * ongoing improvement noted * suspect due to hypercalcemia + UTI and perhaps nephrolithiasis (previous passage of stones) * normal baseline creatinine in January 2022 * however, noted rise in creatinine in end of June and July 2022 (1.3 --> 2.0mg/dl) * potential etiologies: * hypercalcemia * prerenal factors * concurrent diuretic use (spironolactone) * UTI/infection * evaluation to date: * renal ultrasound without obstruction * UA suggestive of infection * urine electrolytes non-prerenal * significant proteinuria noted * CT scan noted -- staghorn calculi present; Urology recommendations noted * serologies negative to date (some still pending) * on antibiotics * cautious use of diuretics... * hypercalcemia being treated (see #3) * follow trend of repeat labs and UOP (2) Acute UTI: Code(s): N39.0 - Urinary tract infection, site not specified Status: Acute Assessment and Plan: * admission UA highly suggestive * urine culture with E. coli * on antibitoics (3) Hypercalcemia: Code(s): E83.52 - Hypercalcemia Status: Acute Assessment and Plan: * improving * presumably precipitated by OTC vitamin D supplementation * s/p IVF hydration and forced diuresis * s/p zometa and steroids; on calcitonin but will d/c today * follow-up on pending studies (PTH, PTHrp, Vitamin D, SPEP, UPEP.....etc) * follow repeat calcium levels (4) Chronic respiratory failure: Code(s): J96.10 - Chronic respiratory failure, unspecified whether with hypoxia or hypercapnia Status: Chronic Assessment and Plan: * fluctuating recently * due to known history of COPD * on 3L by nasal cannula at baseline * continue home medications/inhalers * if continues to worsen - consider consulting Pulmonary * recheck CXR Will continue to follow. Subjective Date/time seen: 08/25/22 11:19 Interval history: Follow-up for acute kidney injury/acute renal failure and hypercalcemia. Still complaining about her breathing/respiratory status but seems more concerned about her dizziness as well; renal function coninues to improve with current interventions and calcium has been stable for the last few days; no further reports of hematuria; no other issues/events ovenight or earlier this morning. Exam Narrative: General: chronically ill appearing female in NAD Heart: normal S1 and S2; no rub Lungs: coarse breath sounds Abdomen: soft, nontender, nondistended, positive bowel sounds Extremities: no cyanosis or clubbing; no edema Skin: no rash Objective Data Vital Signs Vital Signs: Vital Signs Temp Pulse Resp BP Pulse Ox O2 Del Method O2 Flow Rate 08/25/22 10:35 97.8 F 78 20 126/66 96 08/25/22 08:15 95 Nasal Cannula 3 08/25/22 08:00 79 18 08/25/22 07:42 79 18 08/25/22 07:42 95 Nasal Cannula 08/25/22 04:54 97.4 F L 72 20 107/54 L 97 08/25/22 01:39 87 18 08/25/22 01:31 85 18 08/24/22 20:45 94 Nasal Cannula 08/24/22 20:34 85 18 08/24/22 20:26 93 18 94 Nasal Cannula 08/24/22 20:22 93 18
[2022-08-25] MEDS: DOCUSATE SODIUM 100 MG CAPSULE PO ×2 (11:31→18:41)
[2022-08-25] MEDS: SENNOSIDES 8.6 MG TABLET PO ×2 (11:31→18:41)
[2022-08-25] MEDS: POTASSIUM CHLORIDE 20 MEQ ER TABLET PO (11:31)
[2022-08-25] MEDS: FUROSEMIDE INJ 40 MG/4 ML VIAL 20 MG IV PUSH (11:32)
[2022-08-25] MEDS: CALCITONIN SALMON INJ 400 UNITS/2 ML VIAL 100 UNITS SUB-Q (11:37)
[2022-08-25] MEDS: MECLIZINE HCL 12.5 MG TABLET PO (15:29)
[2022-08-26] VITALS (7 sets, daily range): BP systolic 125; BP diastolic 60; PULSE 70–77; RESP 14–18; TEMP 36.6; O2SAT 98–100
[2022-08-26] MEDS: MECLIZINE HCL 12.5 MG TABLET PO ×2 (01:51→10:52)
[2022-08-26] MEDS: IPRATROPIUM BR 0.02% INH SOLN 0.5 MG/2.5 ML VIAL INHALATION ×2 (01:54→08:16)
[2022-08-26] MEDS: ALBUTEROL SULFATE NEB 2.5 MG/3 ML INH INHALATION ×2 (01:54→08:16)
[2022-08-26 06:04] LABS: Hemoglobin 8.6 g/dL (12.0-15.0); Mean Corpuscular HGB Conc 30.7 g/dl (32-36); Mean Corpuscular Hemoglobin 29.5 pg (26-34); Mean Corpuscular Volume 95.9 fl (80-100); Mean Platelet Volume 8.8 fl (7.4-10.4); Platelet Count Result 404 k/mm3 (150-375); Red Blood Count 2.92 M/mm3 (4.2-5.4); Red Cell Distribution Width 15.6 % (11.5-14.5); White Blood Count 8.9 K/mm3 (4.5-10.0)
[2022-08-26] MEDS: UMECLIDINIUM/VILANTEROL 62.5-25 MCG ELLIPTA 1 PUFF INHALATION (08:18)
[2022-08-26 08:53] LABS: Alanine Aminotransferase 24 U/L (6-35); Albumin Level 3.4 g/dL (3.5-5.1); Alkaline Phosphatase 59 U/L (38-126); Anion Gap 4 mmol/L (8-16); Aspartate Amino Transferase 26 U/L (14-36); Bilirubin,Total 0.2 mg/dL (0.2-1.3); Blood Urea Nitrogen 30 mg/dL (7-17); Calcium 9.4 mg/dL (8.4-10.2); Carbon Dioxide 28 mmol/L (22-30); Chloride 106 mmol/L (98-107); Estimated CRCL calculation 28 ml/min; Estimated Glomerular Filt Rate 37; Glucose 76 mg/dL (65-110); Potassium 3.5 mmol/L (3.4-5.0); Sodium 138 mmol/L (137-145)
[2022-08-26] MEDS: ASCORBIC ACID 500 MG TABLET PO (09:04)
[2022-08-26] MEDS: FERROUS SULFATE 324 MG TABLET PO (09:04)
[2022-08-26] MEDS: AZITHROMYCIN 250 MG TABLET PO (09:04)
[2022-08-26] MEDS: APIXABAN 2.5 MG TABLET PO (09:04)
[2022-08-26] MEDS: FUROSEMIDE 20 MG TABLET PO (09:05)
[2022-08-26] MEDS: DOCUSATE SODIUM 100 MG CAPSULE PO (09:05)
[2022-08-26] MEDS: SENNOSIDES 8.6 MG TABLET PO (09:05)
[2022-08-26] MEDS: SPIRONOLACTONE 25 MG TABLET PO (09:06)
--- NOTE | 2022-08-26 09:32 | P.PNNP_ITS ---
Progress Note: A&P Assessment and Plan (1) Acute kidney injury: Code(s): N17.9 - Acute kidney failure, unspecified Status: Acute Assessment and Plan: * ongoing improvement noted * suspect due to hypercalcemia + UTI and perhaps nephrolithiasis (previous passage of stones) * normal baseline creatinine in January 2022 * however, noted rise in creatinine in end of June and July 2022 (1.3 --> 2.0mg/dl) * potential etiologies: * hypercalcemia * prerenal factors * concurrent diuretic use (spironolactone) * UTI/infection * evaluation to date: * renal ultrasound without obstruction * UA suggestive of infection * urine electrolytes non-prerenal * significant proteinuria noted * CT scan noted -- staghorn calculi present; Urology recommendations noted * serologies negative to date (some still pending) * on antibiotics * cautious use of diuretics... * hypercalcemia being treated (see #3) * follow trend of repeat labs and UOP (2) Acute UTI: Code(s): N39.0 - Urinary tract infection, site not specified Status: Acute Assessment and Plan: * admission UA highly suggestive * urine culture with E. coli * on antibitoics (3) Hypercalcemia: Code(s): E83.52 - Hypercalcemia Status: Acute Assessment and Plan: * improving/resolved * presumably precipitated by OTC vitamin D supplementation * s/p IVF hydration and forced diuresis * s/p zometa and steroids; on calcitonin but will d/c today * follow-up on pending studies (PTH, PTHrp, Vitamin D, SPEP, UPEP.....etc) * follow repeat calcium levels (4) Chronic respiratory failure: Code(s): J96.10 - Chronic respiratory failure, unspecified whether with hypoxia or hypercapnia Status: Chronic Assessment and Plan: * fluctuating recently * due to known history of COPD * on 3L by nasal cannula at baseline * continue home medications/inhalers * repeat CXR noted Will continue to follow. Subjective Date/time seen: 08/26/22 09:32 Interval history: Follow-up for acute kidney injury/acute renal failure and hypercalcemia. Seems to be doing reasonably well at the time of my visit; breathing/respiratory status appears stable; calcium remains stable and renal function continue to slowly improve with current therapy/interventions; no issues overnight or earlier this AM. Exam Narrative: General: chronically ill appearing female in NAD Heart: normal S1 and S2; no rub Lungs: coarse breath sounds Abdomen: soft, nontender, nondistended, positive bowel sounds Extremities: no cyanosis or clubbing; no edema Skin: no nodules Objective Data Vital Signs Vital Signs: Vital Signs Temp Pulse Resp BP Pulse Ox O2 Del Method O2 Flow Rate 08/26/22 09:02 98 Nasal Cannula 3 08/26/22 08:34 76 18 08/26/22 08:22 74 18 98 Nasal Cannula 3 08/26/22 08:18 74 18 08/26/22 06:44 97.9 F 70 14 125/60 100 08/26/22 02:09 75 18 08/26/22 01:57 77 18 08/25/22 21:00 93 18 94 Nasal Cannula 3 08/25/22 20:00 99 Nasal Cannula 3 08/25/22 21:44 98.0 F 80 16 118/68 99 08/25/22 19:56 93 18 08/25/22 14:33 84 18 08/25/22 14:19 79 18 08/25/22 13:35 97.8 F 78 20 126/66 96 In
--- NOTE | 2022-08-26 09:32 | PM.PNNEP ---
Progress Note: A&P Assessment and Plan (1) Acute kidney injury: Code(s): N17.9 - Acute kidney failure, unspecified Status: Acute Assessment and Plan: ongoing improvement noted suspect due to hypercalcemia + UTI and perhaps nephrolithiasis (previous passage of stones) normal baseline creatinine in January 2022 however, noted rise in creatinine in end of June and July 2022 (1.3 --> 2.0mg/dl) potential etiologies: hypercalcemia prerenal factors concurrent diuretic use (spironolactone) UTI/infection evaluation to date: renal ultrasound without obstruction UA suggestive of infection urine electrolytes non-prerenal significant proteinuria noted CT scan noted -- staghorn calculi present; Urology recommendations noted serologies negative to date (some still pending) on antibiotics cautious use of diuretics... hypercalcemia being treated (see #3) follow trend of repeat labs and UOP (2) Acute UTI: Code(s): N39.0 - Urinary tract infection, site not specified Status: Acute Assessment and Plan: admission UA highly suggestive urine culture with E. coli on antibitoics (3) Hypercalcemia: Code(s): E83.52 - Hypercalcemia Status: Acute Assessment and Plan: improving/resolved presumably precipitated by OTC vitamin D supplementation s/p IVF hydration and forced diuresis s/p zometa and steroids; on calcitonin but will d/c today follow-up on pending studies (PTH, PTHrp, Vitamin D, SPEP, UPEP.....etc) follow repeat calcium levels (4) Chronic respiratory failure: Code(s): J96.10 - Chronic respiratory failure, unspecified whether with hypoxia or hypercapnia Status: Chronic Assessment and Plan: fluctuating recently due to known history of COPD on 3L by nasal cannula at baseline continue home medications/inhalers repeat CXR noted Will continue to follow. Subjective Date/time seen: 08/26/22 09:32 Interval history: Follow-up for acute kidney injury/acute renal failure and hypercalcemia. Seems to be doing reasonably well at the time of my visit; breathing/respiratory status appears stable; calcium remains stable and renal function continue to slowly improve with current therapy/interventions; no issues overnight or earlier this AM. Exam Narrative: General: chronically ill appearing female in NAD Heart: normal S1 and S2; no rub Lungs: coarse breath sounds Abdomen: soft, nontender, nondistended, positive bowel sounds Extremities: no cyanosis or clubbing; no edema Skin: no nodules Objective Data Vital Signs Vital Signs: Vital Signs Temp Pulse Resp BP Pulse Ox O2 Del Method O2 Flow Rate 08/26/22 09:02 98 Nasal Cannula 3 08/26/22 08:34 76 18 08/26/22 08:22 74 18 98 Nasal Cannula 3 08/26/22 08:18 74 18 08/26/22 06:44 97.9 F 70 14 125/60 100 08/26/22 02:09 75 18 08/26/22 01:57 77 18 08/25/22 21:00 93 18 94 Nasal Cannula 3 08/25/22 20:00 99 Nasal Cannula 3 08/25/22 21:44 98.0 F 80 16 118/68 99 08/25/22 19:56 93 18 08/25/22 14:33 84 18 08/25/22 14:19 79 18 08/25/22 13:35 97.8 F 78 20 126/66 96 Intake/Output Intake/Output: Intake & Output 08/23/22 08/24/22 08/25/22 08/26/22 23:59 23:59 23:59 23:59 Intake Total 2060 1010 1299 840 Output Total 3500 2350 3150 1000 Balance -1440 -1340 -4981 -160 Meds/Results Radiology Results: ITS Impressions Abdomen/Pelvis CT 08/21/22 11:37 IMPRESSION: 1. Bilateral nephrolithiasis and stones in the urinary bladder. 2. Cholelithiasis. 3. Severe emphysema Chest X-Ray 08/25/22 16:04 IMPRESSION: No acute cardiopulmonary process, no significant interval change. Labs Labs: Laboratory Tests 08/26/22 05:51 08/26/22 05:51 Calcium 9.4 Total Bilirubin 0.2 AST 26 ALT 24 Alkaline Phosphatase 59 Total
--- NOTE | 2022-08-26 10:04 | PM.DS ---
DS: Admitting Diagnosis Discharge Date 08/26/2022 Admitting Diagnosis Hypercalcemia due to high Vitamin D level Chronic respiratory failure COPD History of Pulmonary Embolism Paroxysmal A-fib Acute kidney injury Acute UTI DS: Discharge Diagnosis Discharge Diagnosis (1) Hypercalcemia due to high vitamin D level: Code(s): E83.52 - Hypercalcemia; E67.3 - Hypervitaminosis D Status: Acute (2) ANIKET (acute kidney injury): Code(s): N17.9 - Acute kidney failure, unspecified Status: Acute (3) Acute UTI: Code(s): N39.0 - Urinary tract infection, site not specified Status: Acute (4) Paroxysmal A-fib: Code(s): I48.0 - Paroxysmal atrial fibrillation Status: Acute (5) History of pulmonary embolism: Code(s): Z86.711 - Personal history of pulmonary embolism Status: Acute (6) Chronic respiratory failure: Code(s): J96.10 - Chronic respiratory failure, unspecified whether with hypoxia or hypercapnia Status: Chronic (7) Hematuria: Code(s): R31.9 - Hematuria, unspecified Status: Acute (8) Renal calculus, left: Code(s): N20.0 - Calculus of kidney Status: Acute DS: Summary Hospital Course Reason for hospitalization: Patient was admitted due to severe hypercalcemia in the setting of high dose Vitamin D supplementation for chronic COPD as well as findings of ANIKET on outpatient labs. Patient wears oxygen 3 LPM at all times. Hospital Course: Patient admitted to the hospital on August 20 after primary care provider received outpatient labs showing ANIKET and severe hypercalcemia. Initial admission patient's only complaint was dark foul-smelling urine and chronic shortness of breath related to COPD and chronic respiratory failure. She was found to an acute UTI and was treated with IV antibiotics. Hypercalcemia was treated with IV fluids, IV diuretics, calcitonin and zoledronic acid. Nephrology was consulted. During hospital stay hemoglobin noted to from 10 to 8. In the setting acute kidney injury on top of chronic kidney disease patient required balancing of IV fluids versus diuretics. over the 1st few days calcium level steadily downtrending and reached normal level a couple days ago. Nephrology stated discontinue calcitonin today. nephrology also consulted with Urology due to staghorn nephrolithiasis left kidney an urology recommended outpatient follow-up with [facility] who previously performed procedure for similar findings. Patient also had some hypokalemia throughout the stay related to diuretic use and poor dietary intake. She notes that she also takes potassium at home that was a recent prescription. ANIKET has improved and the patient appears to be back near normal baseline. Couple days ago she developed hematuria and her apixaban dosing was reduced due to reduced creatinine clearance. Patient also complained of intermittent dizziness throughout the hospital stay necessarily related to position changes or energy output. Patient did receive relief of this dizziness with addition of meclizine. Status at Discharge Cognitive/behavioral status at discharge: Awake, alert, oriented and pleasant Functional status at discharge: uses cane/walker Time Spent with Patient Time attestation: Total time spent providing and/or coordinating discharge services: Time spent: Greater than 30 minutes Exam Narrative: General:? Thin, chronically ill-appearing 72-year-old female,?sitting up on edge of bed with oxygen in place. no dyspnea noted. Neuro: awake, alert and oriented x4, speech clear, no focal neuro deficits noted HEENMT:? normocephalic, atraumatic, EOMI, sclerae anicteric, moist oral mucosa Respiratory:? Lungs clear slightly distant sounding at times. no rales or rhonchi. She reports baseline respiratory at this time. Cardio: regular rate, regular rhythm with S1-S2 Abdomen:? nondistended, normoactive bowel sounds, soft, nontender to palp
[2022-08-26 21:40] LABS: ANCA Screen Negative (Negative)
[2022-08-27 15:38] LABS: Cryoglobulin, QL Negative (Negative)
== END 2022-08-26 10:56 | disposition home or self-care (01) | DRG 683 ==
LOC: ANHED 18:45 → ANH2MED 20:03
PROVIDERS: Internal Medicine; Internal Medicine Nephrology; Nurse Practitioner Acute Care; Admitting Provider Student in an Organized Health Care Education/Training Program; Emergency Provider Physician Assistant; PCP Family Medicine; Visit Provider Nurse Practitioner
DX: N17.9 Acute kidney failure, unspecified (principal); J96.10 Chronic respiratory failure, unspecified whether with hypoxia or hypercapnia; N39.0 Urinary tract infection, site not specified; B96.20 Unspecified Escherichia coli [E. coli] as the cause of diseases classified elsewhere; E83.52 Hypercalcemia; E67.3 Hypervitaminosis D; I48.0 Paroxysmal atrial fibrillation; N20.0 Calculus of kidney; R31.9 Hematuria, unspecified; R42 Dizziness and giddiness; J43.9 Emphysema, unspecified; N18.9 Chronic kidney disease, unspecified; M81.0 Age-related osteoporosis without current pathological fracture; Z86.711 Personal history of pulmonary embolism; Z87.891 Personal history of nicotine dependence; Z87.442 Personal history of urinary calculi; Z90.710 Acquired absence of both cervix and uterus; Z99.81 Dependence on supplemental oxygen
CPT/HCPCS: 36415; 36600; 71045; 74176; 80048; 80053; 80069; 81001; 81050; 82164; 82306; 82330; 82550; 82570; 82595; 82652; 82805; 83520; 83605; 83735; 83883; 84100; 84155; 84156; 84165; 84166; 84300; 84540; 85025; 85027; 85610; 85730; 85999; 86036; 86038; 86039; 86160; 86225; 86334; 86335; 86850; 86900; 86901; 87070; 87077; 87086; 87088; 87186; 87205; 93005; 94640; 96361; 96365; 96367; 96372; 96375; 96376; 99285; A9270; G0378; J0630; J0696; J1940; J1956; J2405; J3489; J7030; J7512

== ENCOUNTER 2022-09-12 10:25 | Outpatient (CLI) | payer MEDICARE, SELFPAY ==
[2022-09-12 11:36] LABS: Albumin Level 4.4 g/dL (3.5-5.1); Anion Gap 9 mmol/L (8-16); Blood Urea Nitrogen 30 mg/dL (7-17); Calcium 9.5 mg/dL (8.4-10.2); Carbon Dioxide 29 mmol/L (22-30); Chloride 100 mmol/L (98-107); Estimated Glomerular Filt Rate 32; Glucose 91 mg/dL (65-110); Phosphorus 2.8 mg/dL (2.5-4.5); Potassium 4.5 mmol/L (3.4-5.0); Sodium 138 mmol/L (137-145)
== END 2022-09-12 10:26 | disposition home or self-care (01) ==
PROVIDERS: PCP Family Medicine; Visit Provider Internal Medicine Nephrology
DX: N17.9 Acute kidney failure, unspecified (principal); E83.52 Hypercalcemia
CPT/HCPCS: 36415; 80069

== ENCOUNTER 2022-11-12 09:47 | Outpatient (CLI) | payer MEDICARE, SELFPAY ==
[2022-11-12 11:04] LABS: Creatinine Urine 76.9 mg/dL; Total Protein Urine Random 147 mg/dL; Ur Ttl Prot Creatinine Ratio 1.91 mg/mg (0-0.20)
[2022-11-12 11:38] LABS: Albumin Level 4.5 g/dL (3.5-5.1); Anion Gap 7 mmol/L (8-16); Blood Urea Nitrogen 27 mg/dL (7-17); Calcium 10.2 mg/dL (8.4-10.2); Carbon Dioxide 28 mmol/L (22-30); Chloride 103 mmol/L (98-107); Estimated Glomerular Filt Rate 49; Glucose 96 mg/dL (65-110); Phosphorus 2.8 mg/dL (2.5-4.5); Potassium 4.7 mmol/L (3.4-5.0); Sodium 138 mmol/L (137-145)
== END 2022-11-12 09:48 | disposition home or self-care (01) ==
PROVIDERS: PCP Family Medicine; Visit Provider Internal Medicine Nephrology
DX: E83.52 Hypercalcemia (principal); N17.9 Acute kidney failure, unspecified
CPT/HCPCS: 36415; 80069; 82570; 84156

== ENCOUNTER 2023-01-21 11:37 | Outpatient (CLI) | payer MEDICARE, SELFPAY ==
[2023-01-21 12:25] LABS: Hematocrit 38.5 % (37.0-47.0); Hemoglobin 11.8 g/dL (12.0-15.0); Mean Corpuscular HGB Conc 30.6 g/dl (32-36); Mean Corpuscular Hemoglobin 29.4 pg (26-34); Mean Platelet Volume 9.3 fl (7.4-10.4); Platelet Count Result 341 k/mm3 (150-375); Red Blood Count 4.01 M/mm3 (4.2-5.4); Red Cell Distribution Width 14.8 % (11.5-14.5); White Blood Count 7.1 K/mm3 (4.5-10.0)
[2023-01-21 12:38] LABS: Appearance Urine Turbid (Clear); Bacteria Urine 4+ /hpf; Bilirubin Urine 1+ (Negative); Blood Urine 3+ (Negative); Calcium Oxalate Crystals Urine Present /hpf; Glucose Urine UA Negative (Negative); Ketones Urine Negative (Negative); Leukocyte Esterase Ur 3+ LEU/UL (Negative); Need Manual Microscopic Reviewed; Nitrate Urine Positive (Negative); Protein Urine 2+ mg/dL (Negative); RBC Urine >100 /hpf (0-2); Specific Grav Ur 1.017 (1.001-1.035); Squamous Epithelial Cell Urine None seen /hpf (Few); WBC Urine >100 /hpf; pH Urine 8.5 (5.0-9.0)
[2023-01-21 12:39] LABS: Color Urine Brown (Yellow)
[2023-01-21 12:40] LABS: Add Urine Microscopic? YES
[2023-01-21 12:40] LABS: Alanine Aminotransferase 16 U/L (6-35); Albumin Level 4.3 g/dL (3.5-5.1); Alkaline Phosphatase 80 U/L (38-126); Anion Gap 8 mmol/L (8-16); Aspartate Amino Transferase 32 U/L (14-36); Bilirubin,Total 0.7 mg/dL (0.2-1.3); Blood Urea Nitrogen 26 mg/dL (7-17); Calcium 9.4 mg/dL (8.4-10.2); Carbon Dioxide 31 mmol/L (22-30); Chloride 101 mmol/L (98-107); Cholesterol 209 mg/dL (0-200); Estimated Glomerular Filt Rate 55; Glucose 99 mg/dL (65-110); HDL Direct 60 mg/dL; Potassium 3.9 mmol/L (3.4-5.0); Sodium 140 mmol/L (137-145); Triglycerides 109 mg/dL (<150)
[2023-01-21 12:51] LABS: LDL Cholesterol Direct 99 mg/dL
== END 2023-01-21 11:38 | disposition home or self-care (01) ==
LOC: ANHLAB 11:40
PROVIDERS: PCP Family Medicine; Visit Provider Family Medicine
DX: I48.0 Paroxysmal atrial fibrillation (principal); N17.9 Acute kidney failure, unspecified; N39.0 Urinary tract infection, site not specified; J44.9 Chronic obstructive pulmonary disease, unspecified; E78.5 Hyperlipidemia, unspecified; N18.30 Chronic kidney disease, stage 3 unspecified; R91.8 Other nonspecific abnormal finding of lung field
CPT/HCPCS: 36415; 80053; 80061; 81001; 84443; 85027; 87077; 87086; 87186

== ENCOUNTER 2023-03-21 11:37 | Outpatient (CLI) | payer MEDICARE, SELFPAY ==
[2023-03-21 12:18] LABS: Creatinine Urine 93.1 mg/dL; Total Protein Urine Random 76 mg/dL; Ur Ttl Prot Creatinine Ratio 0.82 mg/mg (0-0.20)
[2023-03-21 12:21] LABS: Albumin Level 4.1 g/dL (3.5-5.1); Anion Gap 5 mmol/L (8-16); Blood Urea Nitrogen 23 mg/dL (7-17); Calcium 9.5 mg/dL (8.4-10.2); Carbon Dioxide 34 mmol/L (22-30); Chloride 101 mmol/L (98-107); Estimated Glomerular Filt Rate > 60; Glucose 95 mg/dL (65-110); Phosphorus 2.4 mg/dL (2.5-4.5); Sodium 140 mmol/L (137-145)
== END 2023-03-21 11:38 | disposition home or self-care (01) ==
LOC: ANHLAB 11:40
PROVIDERS: PCP Family Medicine; Visit Provider Internal Medicine Nephrology
DX: R80.9 Proteinuria, unspecified (principal); N17.9 Acute kidney failure, unspecified
CPT/HCPCS: 36415; 80069; 82570; 84156

== ENCOUNTER 2023-04-17 12:45 | Outpatient (CLI) | payer MEDICARE, SELFPAY ==
[2023-04-17 14:00] LABS: Appearance Urine Turbid (Clear); Bacteria Urine 4+ /hpf; Bilirubin Urine 1+ (Negative); Blood Urine 2+ (Negative); Color Urine Red (Yellow); Glucose Urine UA Negative (Negative); Ketones Urine Negative (Negative); Leukocyte Esterase Ur 3+ LEU/UL (NEGATIVE); Need Manual Microscopic Reviewed; Nitrate Urine Positive (Negative); Protein Urine 2+ mg/dL (Negative); RBC Urine >100 /hpf (0-2); Specific Grav Ur 1.017 (1.001-1.035); Squamous Epithelial Cell Urine None seen /hpf (Few); Urobilinogen Urine 0.2 mg/dL (<2.0); WBC Urine >100 /hpf (0-3); pH Urine 7.5 (5.0-9.0)
[2023-04-17 14:13] LABS: Add Urine Microscopic? YES
== END 2023-04-17 12:46 | disposition home or self-care (01) ==
PROVIDERS: PCP Family Medicine; Visit Provider Physician Assistant Medical
DX: R30.0 Dysuria (principal); N39.0 Urinary tract infection, site not specified
CPT/HCPCS: 81001; 87077; 87086; 87088; 87186

== ENCOUNTER 2023-07-16 09:12 | Outpatient (CLI) | payer MEDICARE, SELFPAY ==
[2023-07-16 10:21] LABS: Bacteria Urine None Seen /hpf; Need Manual Microscopic Reviewed; RBC Urine >100 /hpf (0-2); Squamous Epithelial Cell Urine None Seen /hpf (Few); WBC Urine >100 /hpf (0-3)
[2023-07-16 10:22] LABS: Appearance Urine Cloudy (Clear); Bilirubin Urine Negative (Negative); Blood Urine 3+ (Negative); Glucose Urine UA Negative (Negative); Ketones Urine Negative (Negative); Leukocyte Esterase Ur 2+ LEU/UL (Negative); Nitrate Urine Negative (Negative); Protein Urine 2+ mg/dL (Negative); Specific Grav Ur 1.017 (1.001-1.035); Urobilinogen Urine 0.2 mg/dL (<2.0); pH Urine 5.5 (5.0-9.0)
[2023-07-16 10:24] LABS: Color Urine Yellow (Yellow)
[2023-07-16 10:25] LABS: Add Urine Microscopic? YES
== END 2023-07-16 09:13 | disposition home or self-care (01) ==
LOC: ANHLAB 09:14
PROVIDERS: PCP Family Medicine; Visit Provider Physician Assistant Medical
DX: N39.0 Urinary tract infection, site not specified (principal)
CPT/HCPCS: 81001; 87086

== ENCOUNTER 2023-08-07 20:06 | Inpatient (IN) | payer MEDICARE, SELFPAY ==
[2023-08-07] VITALS (7 sets, daily range): BP systolic 124–142; BP diastolic 82–93; PULSE 83–91; RESP 19–30; TEMP 37; O2SAT 92–100
--- NOTE | ~2023-08-07 | XR_ITS ---
EXAMINATION: XR retrograde pyelo w/stent LT DATE: 08/08/2023 15:51 INDICATION: Left internal ureteral stent placement TECHNIQUE: Fluoroscopic images from a left internal ureteral stent placement are submitted for review . 29 seconds of fluoroscopy time. FINDINGS: There is a left double-J internal ureteral stent projecting in expected position, with proximal [place] loop at the level of the renal pelvis and distal loop in the pelvis within the bladder lumen. IMPRESSION: 1. Left internal ureteral stent placement. Please refer to real-time procedural findings for detail s. Reviewed, dictated and finalized at location B. IMPRESSION: 1. Left internal ureteral stent placement. Please refer to real-time procedur al findings for details.
--- NOTE | ~2023-08-07 | CT_ITS ---
EXAMINATION: CT abdomen pelvis w con DATE: 08/07/2023 21:04 INDICATION: Abdominal pain TECHNIQUE: Computed tomography (CT) of the abdomen and pelvis was performed with 100 mL Omnipaque-350 intravenous contrast. Automated exposure control and iterative reconstruction technique were employe d. The dose-length product was 335.60 mGy-cm. COMPARISON: CT studies dated 08/21/2022 and 06/22/2010 FINDINGS: Severe emphysema in the lower lungs particularly at the basilar left lower lobe. Heart size is normal . No pericardial or pleural effusion. 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 Calcified gallstone within th e otherwise normal-appearing gallbladder with no gallbladder dilation, wall thickening or pericholecy stic inflammatory stranding to suggest acute cholecystitis. Liver, spleen and bilateral adrenal gland s are normal. There are a few punctate calcification is at the head of the otherwise normal-appearing pancreas likely sequela of chronic pancreatitis. Again seen are multiple large left renal staghorn c alculi, one now positioned at the ureteropelvic junction with new mild left hydronephrosis, mildly in creased asymmetric left perinephric stranding and subtly decreased enhancement of the left kidney rel ative to the right kidney. Right kidney is normal with no urolithiasis or hydronephrosis. Infrarenal IVC filter. There is mild colonic diverticulosis with a sigmoid predominance. There is no adjacent i nflammatory change to suggest diverticulitis. No bowel obstruction. Bladder is normal. The uterus is not identified and has likely been surgically resected. No free intraperitoneal gas or fluid. No path ologically enlarged abdominal or pelvic lymphadenopathy. Couple chronic bone islands in the right hem ipelvis. Chronic L4 spondylolysis with bilateral pars interarticularis defects and 5 mm anterolisthes is on L5. Severe lower lumbar spondylosis. IMPRESSION: 1. Multiple chronic large left renal staghorn calculi with one of the stones now likely obstructing a t the ureteropelvic junction with new mild left hydronephrosis and delayed left nephrogram. Correlate with urinalysis to exclude associated ascending urinary tract infection. 2. Severe emphysema. 3. Cholelithiasis. Reviewed, dictated and finalized at location A. IMPRESSION: 1. Multiple chronic large left renal staghorn calculi with one of the stones no w likely obstructing at the ureteropelvic junction with new mild left hydroneph rosis and delayed left nephrogram. Correlate with urinalysis to exclude associa jordon ascending urinary tract infection. 2. Severe emphysema. 3. Cholelithiasis.
--- NOTE | ~2023-08-07 | XR_ITS ---
EXAMINATION: XR chest 1V portable DATE: 08/07/2023 20:49 INDICATION: COPD and shortness of breath TECHNIQUE: frontal view of the chest was obtained. COMPARISON: Chest radiograph dated 08/25/[address] dated 08/20/2022 FINDINGS: Severe emphysema with increased lucency and architectural distortion most prominent in the right uppe r lung zone and to lesser degree in the left upper and lower lung. No significant change in a calcifi ed right upper lobe mass consistent with old granulomatous disease. A few additional bilateral small calcified pulmonary nodules consistent with old granulomatous disease. Scattered linear and curviline ar atelectasis/scarring in both lungs. Chronic blunting of the left costophrenic angle. No new airspa ce opacities, pulmonary edema, pleural effusion or pneumothorax. Heart size is normal. IMPRESSION: 1. Stable appearance of severe emphysema with scattered small calcified pulmonary nodules and larger right upper lobe calcified mass consistent with old granulomatous disease. Reviewed, dictated and finalized at location A. IMPRESSION: 1. Stable appearance of severe emphysema with scattered small calcified pulmona ry nodules and larger right upper lobe calcified mass consistent with old granu lomatous disease.
--- NOTE | 2023-08-07 20:21 | ECG_ITS ---
Test Date: 2023-08-07 21:29:47 Measurements Intervals [place] Rate: 84 P: 93 MT: 177 QRS: 15 QRSD: 98 T: 89 QT: 351 QTc: 417 Interpretive Statements SINUS RHYTHM POSSIBLE RIGHT VENTRICULAR CONDUCTION DELAY [RSR (QR) IN V1/V2] NONSPECIFIC ST AND T-WAVE ABNORMALITY ABNORMAL ECG No previous ECG available for comparison Electronically Signed On 08-08-2023 15:09:14 CDT by Zeeshan Vasquez M.D.
[2023-08-07 20:37] LABS: Basophils Absolute Auto 0.1 K/mm3 (0.0-0.1); Basophils Percent Auto 0.5 % (0.2-1.2); Eosinophils Absolute Auto 0.2 K/mm3 (0-0.3); Eosinophils Percent Auto 1.3 % (0-4.4); Hematocrit 40.7 % (37.0-47.0); Hemoglobin 13.1 g/dL (12.0-15.0); Immature Granulocyte Absolute 0.04 K/mm3 (0.00-0.031); Immature Granulocyte Percent A 0.3 % (0-0.5); Lymphocytes Percent Auto 4.3 % (18.3-44.2); Mean Corpuscular HGB Conc 32.2 g/dl (32-36); Mean Corpuscular Hemoglobin 30.2 pg (26-34); Mean Corpuscular Volume 93.8 fl (80-100); Mean Platelet Volume 9.5 fl (7.4-10.4); Monocytes Absolute Auto 0.9 K/mm3 (0.1-0.6); Monocytes Percent Auto 6.1 % (2.6-8.5); Neutrophils Absolute Auto 12.1 K/mm3 (1.3-6.7); Neutrophils Percent Auto 87.5 % (45.5-73.1); Platelet Count Result 327 k/mm3 (150-375); Red Blood Count 4.34 M/mm3 (4.2-5.4); Red Cell Distribution Width 14.1 % (11.5-14.5); White Blood Count 13.8 K/mm3 (4.5-10.0)
[2023-08-07 20:39] LABS: Alanine Aminotransferase 18 U/L (6-35); Albumin Level 4.4 g/dL (3.5-5.1); Alkaline Phosphatase 87 U/L (38-126); Anion Gap 7 mmol/L (4-12); Aspartate Amino Transferase 31 U/L (14-36); Bilirubin,Total 0.5 mg/dL (0.2-1.3); Blood Urea Nitrogen 26 mg/dL (7-17); Calcium 9.9 mg/dL (8.4-10.2); Carbon Dioxide 28 mmol/L (22-30); Chloride 104 mmol/L (98-107); Estimated CRCL calculation 28 ml/min; Estimated Glomerular Filt Rate 37; Glucose 122 mg/dL (65-110); Potassium 4.2 mmol/L (3.4-5.0); Sodium 139 mmol/L (137-145)
[2023-08-07] MEDS: IPRATROPIUM 0.5 MG/ALBUTEROL SULFATE 2.5 MG AMPUL.NEB 3 ML INHALATION (20:55)
[2023-08-07 21:00] LABS: Lactic Acid Reflex 1.2 mmol/L (0.7-2.0); Lipase 155 U/L (23-300)
[2023-08-07 21:01] LABS: Hypochromasia 1+; Ovalocytes 1+; Platelet Estimate Adequate (Adequate); Schistocytes None Seen
[2023-08-07 21:01] LABS: INR 1.2; Prothrombin Time 15.6 Seconds (11.1-14.7)
[2023-08-07 21:13] LABS: NT Pro B Type Natriuretic Pept 227 pg/mL (19.9-100); Troponin I < 0.012 ng/mL (0.000-0.034)
[2023-08-07 21:25] LABS: Alveolar/Arterial O2 Gradient 103.4 mmHg; Base Excess ABG 1.2 mEq/l (+/-2.0); Fractional Inspired Oxygen 33 %; Oxygen Saturation ABG 95.8 % (95.0-100.0); Oxyhemoglobin 95.8 % THb (90.0-100.0); PO2 ABG 79.2 mmHg (80.0-100.0); PO2 FiO2 Ratio Arterial Blood 2.44 %; Total Hemoglobin 12.6 g/dL (12.0-18.0); pH ABG 7.409 (7.350-7.450)
[2023-08-07 21:26] LABS: Device NASAL CANNULA; Liters per Minute 3.5 LPM; Modified Allen's Test Pass; Site Drawn RIGHT RADIAL
[2023-08-07 22:22] LABS: Influenza A QL RT-PCR Negative (Negative); Influenza B QL RT-PCR Negative (Negative); RSV RNA, RT-PCR Negative (Negative); SARS-CoV-2 RNA PCR Negative (Negative)
--- NOTE | 2023-08-07 22:22 | ED.GENADULT ---
HPI - General Adult General Chief complaint: Shortness of Breath/Dyspnea Stated complaint: DIFFICULTY IN BREATHING, ABD PAIN Time Seen by Provider: 08/07/23 20:20 History of Present Illness HPI narrative: Patient is a 73-year-old female who presents emergency department chief complaint of abdominal pain and shortness of breath. Patient reports he has prior history of COPD reports she wears 3 to have the nasal cannula oxygen and reports that she has had chest tube before in the past has had surgeries on the lung patient reports that been more short of a the patient reports pain improved by anything worse he is on blood thinners Eliquis. Patient reports she has had surgeries before for kidney stones Related Data Home Medications Medication Instructions Recorded Confirmed amiodarone 200 mg tablet 100 mg PO DAILY 01/26/22 07/22/23 Allergies Allergy/AdvReac Type Severity Reaction Status Date / Time codeine Allergy Intermediate Anaphylactic Verified 08/07/23 20:18 Shock erythromycin base Allergy Mild HIVES AND Verified 08/07/23 20:18 EDEMA Penicillins Allergy Mild EDEMA & Verified 08/07/23 20:18 HIVES Sulfa (Sulfonamide Allergy Mild HIVES AND Verified 08/07/23 20:18 Antibiotics) EDEMA ampicillin Allergy Unknown RASH Verified 08/07/23 20:18 Review of Systems Review of Systems: A 10 system review of systems was completed on the patient and is negative except for what is stated in the HPI. Nursing and ancillary documentation was reviewed. [facility] Past Medical History Medical History Bladder stone Chronic respiratory failure COPD (chronic obstructive pulmonary disease) Emphysema lung History of kidney stones with extraction History of pulmonary embolism History of tobacco abuse Multiple nodules of lung Osteoporosis Paroxysmal A-fib Renal calculus, left Snoring Spontaneous pneumothorax x3 Surgical History Surgical History History of adenoidectomy History of breast biopsy History of hysterectomy with bilateral oophorectomy History of tonsillectomy Hx of fracture of wrist s/p L ORIF S/P IVC filter Family History Family History Father Patient's father is Sibling Family history of malignant neoplasm of breast Mother Diabetes mellitus Family history of congestive heart failure Sibling Family history of malignant neoplasm of breast Sibling Family history of malignant neoplasm of breast Social History Social History Smoking packs per day: 0.5 Smoking cigarettes per day: 10.0 Years smoked: 37 Smoking pack-years: 18.50 Smoking status: Former smoker Tobacco type: cigarettes Second hand tobacco smoke exposure: No Smoking end date: 02/18/98 Alcohol intake: never Substance use: never Substance use type: does not use Lack of Transportation: No Lack of Food: Never True Current Housing: I Have Housing Concerned About Future Housing: No Difficulty Paying Gas/Electric Bills: No Difficulty Paying for Meds: No Currently Unemployed: No Education: High School Diploma/GED Difficulty w/ Childcare or Family Care: No Living arrangements: with family Occupation/Education: other Gender identity (if verbalized by the patient): Female Spiritual care concerns: No Exam Narrative: GENERAL: Well-appearing, well-nourished, and in no acute distress. HEAD: Normocephalic, atraumatic. EYES: PERRLA and EOMI. ENT: Nares clear, no rhinorrhea or epistaxis. Mucous membranes moist. NECK: Supple. CHEST: Clear to auscultation. No respiratory distress. HEART: Regular rate and rhythm. No murmur heard. Normal peripheral pulses. ABDOMEN: Soft, nontender, nondistended, normal active bowel sound
--- NOTE | 2023-08-07 22:30 | PCRCNOTE ---
ER ABG was obtained from patient when patient came back from Chest Xray. Patient was on her way to chest xray when RT arrived to obtain ABG. ABG was obtained as soon as it was available.
[2023-08-07 22:37] LABS: Appearance Urine Clear (Clear); Bacteria Urine 4+ /hpf; Bilirubin Urine Negative (Negative); Blood Urine 2+ (Negative); Color Urine Yellow (Yellow); Glucose Urine UA Negative (Negative); Ketones Urine Negative (Negative); Leukocyte Esterase Ur 2+ LEU/UL (Negative); Nitrate Urine Positive (Negative); Non Pathogenic Casts 0-2; Protein Urine Trace mg/dL (Negative); Squamous Epithelial Cell Urine None Seen /hpf (Few); Urobilinogen Urine 0.2 mg/dL (<2.0); WBC Urine 21-50 /hpf (0-3)
[2023-08-07 22:38] LABS: Procalcitonin 0.1 ng/mL
[2023-08-07 23:00] LABS: Add Urine Microscopic? YES
[2023-08-07] MEDS: MORPHINE SULFATE (*CRX) 4 MG/ML INJ IV PUSH (23:15)
[2023-08-08] VITALS (29 sets, daily range): BP systolic 85–150; BP diastolic 56–84; PULSE 76–108; RESP 10–22; TEMP 36.1–36.9; O2SAT 94–100
--- NOTE | 2023-08-08 | ECG_ITS ---
Test Date: 2023-08-08 00:08:56 Measurements Intervals [place] Rate: 87 P: 90 NH: 171 QRS: 5 QRSD: 91 T: 90 QT: 362 QTc: 437 Interpretive Statements SINUS RHYTHM POSSIBLE RIGHT VENTRICULAR CONDUCTION DELAY [RSR (QR) IN V1/V2] NONSPECIFIC ST & T-WAVE ABNORMALITY ABNORMAL ECG Compared to ECG 08/07/2023 21:29:47 No significant changes Electronically Signed On 08-08-2023 15:13:29 CDT by Zeeshan Vasquez M.D.
[2023-08-08] MEDS: CEFEPIME 2 GM/NS 50 ML 2 GM/50 ML BAG IVPB (00:11)
[2023-08-08] MEDS: TAMSULOSIN HCL 0.4 MG CAPSULE PO (00:11)
[2023-08-08 00:44] LABS: Troponin I < 0.012 ng/mL (0.000-0.034)
[2023-08-08] MEDS: SODIUM CHLORIDE 0.9% IV 1,000 ML 75 ML IV CONT ×2 (01:18→17:15)
[2023-08-08] MEDS: ONDANSETRON INJ 4 MG/2 ML VIAL IV PUSH ×4 (01:19→20:25)
[2023-08-08] MEDS: MORPHINE SULFATE (*CRX) 4 MG/ML INJ IV PUSH ×5 (01:52→20:26)
[2023-08-08] MEDS: IPRATROPIUM 0.5 MG/ALBUTEROL SULFATE 2.5 MG AMPUL.NEB 3 ML INHALATION ×4 (02:07→19:29)
--- NOTE | 2023-08-08 02:13 | ADMGEN ---
This patient, Alexus Zambrano, was admitted to Medical Room 341-01. Patient/family oriented to hospital policies and general routines including ID bracelet, bed and alarms, visiting hours, pain management, procedures, bathroom and other care routines, personal items, smoking policy, room service/diet, and visiting hours. Information on how to activate the Rapid Response Team has been discussed. Patient/Family are encouraged to report perceived risks to care and to ask questions if they do not understand what they are told or what they should do.
--- NOTE | 2023-08-08 06:48 | WPDURCON ---
Assessment and Plan Assessment and plan (1) Hydronephrosis: Code(s): N13.30 - Unspecified hydronephrosis Status: Acute (2) Acute UTI: Code(s): N39.0 - Urinary tract infection, site not specified Status: Acute (3) Renal calculus, left: Code(s): N20.0 - Calculus of kidney Status: Acute Assessment and Plan: Patient will require cystoscopy with left ureteral stent placement today because of acute pain and obstructive pyelonephritis. Increasing left renal stone burden will require left percutaneous nephrolithotomy which can best be addressed with her prior urologist at [facility]. Urology Consult Note HPI Date Seen: 08/08/23 Requesting Physician: Patria Pickard DO Primary Care Provider: Mic Estrada MD Consult Narrative Narrative: Alexus Zambrano is a 73 year old female with a history of recurrent urolithiasis requiring left percutaneous nephrolith[place] [address] Saleh at [facility]. She has advanced COPD requiring home oxygen and is on chronic anticoagulants. She was seen in August [address] Reid is an inpatient consult. She had a large left renal stone burden at that time and recommendations were made for her to follow-up at [facility] for additional intervention. She never complied with those recommendations and now presents to the emergency department with increasing shortness of breath and left flank pain. imaging shows some increase in her left kidney stone burden with new left ureteral obstruction secondary to a stone at the UP[facility]. She denies fevers chills or gross hematuria. Review of Systems Review of Systems: All systems reviewed & are unremarkable except as noted in HPI and below PMFSH Past Medical History Medical History Bladder stone Chronic respiratory failure COPD (chronic obstructive pulmonary disease) Emphysema lung History of kidney stones with extraction History of pulmonary embolism History of tobacco abuse Multiple nodules of lung Osteoporosis Paroxysmal A-fib Renal calculus, left Snoring Spontaneous pneumothorax x3 Surgical History Surgical History History of adenoidectomy History of breast biopsy History of hysterectomy with bilateral oophorectomy History of tonsillectomy Hx of fracture of wrist s/p L ORIF S/P IVC filter Family History Family History Father Patient's father is Sibling Family history of malignant neoplasm of breast Mother Diabetes mellitus Family history of congestive heart failure Sibling Family history of malignant neoplasm of breast Sibling Family history of malignant neoplasm of breast Social History Social History Smoking packs per day: 0.5 Smoking cigarettes per day: 10.0 Years smoked: 37 Smoking pack-years: 18.50 Smoking status: Former smoker Tobacco type: cigarettes Second hand tobacco smoke exposure: No Smoking end date: 02/18/98 Alcohol intake: never Substance use: never Substance use type: does not use Do You Feel Safe in your Home?: Yes Lack of Transportation: No Lack of Food: Never True Current Housing: I Have Housing Concerned About Future Housing: No Difficulty Paying Gas/Electric Bills: No Difficulty Paying for Meds: No Currently Unemployed: No Education: Trade/Vocational Certificate Difficulty w/ Childcare or Family Care: No Living arrangements: with family Occupation/Education: other Gender identity (if verbalized by the patient): Female Spiritual care concerns: No Meds Home Medications and Allergies Home Medications Medication Instructions Recorded Confirmed Type amiodarone 200 mg tablet 100 mg PO DAILY
--- NOTE | 2023-08-08 08:08 | PM.IMHP ---
H&P: HPI History of Present Illness Date/Time: 08/08/23 08:08 Chief Complaint: sob, abd/flank pain Narrative: 73 year old female w PMF of COPD, emphysema, h/o PE, lung nodules, afib,OA, recurrent urolithiasis requiring left percutaneous nephrol[place] [address] Saleh at [facility]. She has advanced COPD requiring home oxygen and is on chronic anticoagulants for her Afib. She was seen in August [address] Reid is an inpatient consult. She had a large left renal stone burden-recommendations were made for her to follow-up at [facility] for additional intervention. She never f/u with [facility] and now presents to the emergency department with increasing shortness of breath and left flank pain. imaging shows some increase in her left kidney stone burden with new left ureteral obstruction secondary to a stone at the UPJ. She denies fevers chills or gross hematuria. Urology saw her this am- Dr Puentes: Patient will require cystoscopy with left ureteral stent placement today because of acute pain and obstructive pyelonephritis. Increasing left renal stone burden will require left percutaneous nephrolithotomy which can best be addressed with her prior urologist at [facility]. 08/07- pt is seen and examined today- reports leg swelling if she is not taking her Lasix and spironolactone but denies CHF- states had a work up AND EVERYTHING WAS NEGATIVE. she used to smoke- but quit years ago (25years ago) she has 20 pad smoking history. reports that she doensot not have afib. 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 she is on amiodarone as well- but insists that she does not have afib. She reports that she is wearing oxygen at home all the time at 3.5 l per id Review of Systems Constitutional: Constitutional: Denies body ache(s) and Denies chills Eyes: Eyes: Denies photophobia ENT: Reports Normal hearing present and Denies nasal congestion Cardiovascular: Cardiovascular: Denies chest pain, Denies diaphoresis and Denies leg edema Respiratory: Respiratory: Denies chest congestion and Denies cough Gastrointestinal: Gastrointestinal: Denies abdominal pain Musculoskeletal: Comments: flank pain Neurologic: Denies confusion Psychiatric: Psychiatric: Denies anxiety and Denies behavioral changes [facility] Past Medical History Medical History Bladder stone Chronic respiratory failure COPD (chronic obstructive pulmonary disease) Emphysema lung History of kidney stones with extraction History of pulmonary embolism History of tobacco abuse Multiple nodules of lung On home O2 Osteoporosis Paroxysmal A-fib Renal calculus, left Snoring Spontaneous pneumothorax x3 Surgical History Surgical History History of adenoidectomy History of breast biopsy History of hysterectomy with bilateral oophorectomy History of tonsillectomy Hx of fracture of wrist s/p L ORIF S/P IVC filter Family History Family History Father Patient's father is Sibling Family history of malignant neoplasm of breast Mother Diabetes mellitus Family history of congestive heart failure Sibling Family history of malignant neoplasm of breast Sibling Family history of malignant neoplasm of breast Social History Social History Smoking packs per day: 0.5 Smoking cigarettes per day: 10.0 Years smoked: 37 Smoking pack-years: 18.50 Smoking status: Former smoker Tobacco type: cigarettes Second hand tobacco smoke exposure: No Smoking end date: 02/18/98 Alcohol intake: never Substance use: never Substance use type: does not use Do You Feel Safe in your Home?: Yes Lack of Transportation: No Lack of Food: Never True Current Housing: I Have
[2023-08-08] MEDS: AMIODARONE HCL 100 MG TABLET PO (09:27)
--- NOTE | 2023-08-08 14:47 | WPDANESEPPF ---
Anes - Initial Pre Proc Eval Procedure: Operation Date: 08/08/23 14:45 Proposed Procedures p Left Cystoscopy, Left Stent Placement(Left) - Sage Puentes MD Date/Time: 08/08/23 14:47 Surgeon: Patria Pickard DO Pre Op Diagnosis: COPD,ANIKET,UTI,Ureterolithiasis Patient Data Age: 73 Gender: F Height: 1.66 m Weight: 55.5 kg Last Vital Signs Temp 36.6 C 08/08/23 13:55 Pulse 90 08/08/23 13:55 Resp 18 08/08/23 13:55 BP 117/62 08/08/23 13:55 Pulse Ox 97 08/08/23 13:55 O2 Del Method Nasal Cannula 08/08/23 07:05 O2 Flow Rate 3.5 08/08/23 07:05 FiO2 34 08/08/23 07:05 Allergies Allergy/AdvReac Type Severity Reaction Status Date / Time codeine Allergy Intermediate Anaphylactic Verified 08/07/23 20:18 Shock erythromycin base Allergy Mild HIVES AND Verified 08/07/23 20:18 EDEMA Penicillins Allergy Mild EDEMA & Verified 08/07/23 20:18 HIVES Sulfa (Sulfonamide Allergy Mild HIVES AND Verified 08/07/23 20:18 Antibiotics) EDEMA ampicillin Allergy Unknown RASH Verified 08/07/23 20:18 Home Medications Medication Instructions Recorded Confirmed Type amiodarone 200 mg tablet 100 mg PO DAILY 01/26/22 08/08/23 History apixaban 2.5 mg tablet (Eliquis) 2.5 mg PO Q12HR #60 tabs 08/26/22 08/08/23 Rx furosemide 20 mg tablet 20 mg PO DAILY #30 tabs 08/26/22 08/08/23 Rx spironolactone 25 mg tablet 25 mg PO DAILY #30 tabs 08/26/22 08/08/23 Rx ascorbic acid (vitamin C) 500 mg 500 mg PO DAILY@0800 #90 tabs 09/24/22 08/08/23 Rx tablet (Vitamin C) albuterol sulfate 90 mcg/actuation 2 puff inhalation Q4-6H PRN 08/08/23 08/08/23 History aerosol inhaler Shortness Of Breath Or Wheezing umeclidinium 62.5 mcg-vilanterol 1 inh inhalation DAILY 08/08/23 08/08/23 History 25 mcg/actuation powdr for inhalation (Anoro Ellipta) Laboratory Tests 08/07/23 08/07/23 08/07/23 20:24 20:43 20:50 WBC 13.8 H K/mm3 (4.5-10.0) RBC 4.34 M/mm3 (4.2-5.4) Hgb 13.1 g/dL (12.0-15.0) Hct 40.7 % (37.0-47.0) MCV 93.8 fl (80-100) MCH 30.2 pg (26-34) MCHC 32.2 g/dl (32-36) RDW 14.1 % (11.5-14.5) Plt Count 327 k/mm3 (150-375) MPV 9.5 fl (7.4-10.4) Immature Gran % (Auto) 0.3 % (0-0.5) Neut % (Auto) 87.5 H % (45.5-73.1) Lymph % (Auto) 4.3 L % (18.3-44.2) [place] % (Auto) 6.1 % (2.6-8.5) Eos % (Auto) 1.3 % (0-4.4) Baso % (Auto) 0.5 % (0.2-1.2) Lymph # (Auto) 0.60 L K/mm3 (0.9-3.2) [place] # (Auto) 0.9 H K/mm3 (0.1-0.6) Eos # (Auto) 0.2 K/mm3 (0-0.3) Baso # (Auto) 0.1 K/mm3 (0.0-0.1) Abs Immat Gran (auto) 0.04 H K/mm3 (0.00-0.031) Absolute Neuts (auto) 12.1 H K/mm3 (1.3-6.7) Absolute Nucleated RBC 0.000 K/mm3 (0.0-0.012) Nucleated RBC % 0.0 % (0.0-0.2) Platelet Estimate Adequate (Adequate) Hypochromasia 1+ Ovalocytes 1+ Schistocytes None seen PT 15.6 H Seconds (11.1-14.7) INR 1.2 APTT 30.0 Seconds (22.3-36.8) Puncture Site Right radial ABG pH 7.409 (7.350-7.450) ABG pCO2 42.0 mmHg (35.0-45.0) ABG pO2 79.2 L mmHg (80.0-100.0) ABG PO2/FiO2 Ratio 2.44 % ABG HCO3 26.0 mEq/l (22.0-26.0) ABG O2 Saturation 95.8 % (95.0-100.0) ABG O2 Content 17.0 %vol (16.0-22.0) ABG Base Excess 1.2 mEq/l (+/-2.0) A-a Gradient 103.4 mmHg Oxyhemoglobin 95.8 % THb (90.0-100.0) Total Hemoglobin 12.6 g/dL (12.0-18.0) O2 Delivery Device Nasal cannula O2 Liters/Min 3.5 LPM FiO2 33 % Sodium 139 mmol/L (137-145) Potassium 4.2 mmol/L (3.4-5.0) Chloride 104 mmol/L (
[2023-08-08] MEDS: LACTATED RINGERS 1,000 ML 30 ML IV CONT ×2 (15:13→15:53)
--- NOTE | 2023-08-08 15:13 | WPDHPUPDATE1 ---
History and Physical Update Update Date/Time: 08/08/23 15:13 History and Physical has been reviewed, including an updated exam of the patient. There are NO changes in the patient's condition. Risks, benefits, and alternatives have been discussed and questions answered. Patient agrees to proceed with procedure.
--- NOTE | 2023-08-08 15:48 | P.OP_ITS ---
Procedure Note - Detailed Date of Procedure 08/08/23 Pre-op Diagnosis COPD,ANIKET,UTI,Ureterolithiasis, left staghorn calculus Post-op Diagnosis Same Procedure Performed Cystoscopy, left retrograde pyelography, left ureteral stent placement Surgeon Sage Puentes MD Anesthesia General Description of Procedure Patient brought the op suite she was prepped draped in routine sterile fashion while in dorsal lithotomy position after systemic sedation is administered per the anesthesia department. 2% xylocaine jelly was introduced intraurethrally. Cystoscopy is undertaken with a 19 F rigid cystoscope. Bladder shows mild hyperemia. There was no intravesical stones, neoplasm or other identifiable pathology. 0.035 in glidewire was advanced into her left renal pelvis. A [place] catheter was used to obtain left retrograde pyelogram and a 4.8 F double-J ureteral stent is positioned with proximal coil in an upper pole calyx and distal coil in the bladder. Scopes wires removed. Patient tolerated the procedure well. Urine Output 200 Drains No Packing No Pathology None sent Complications No immediate complications Condition Stable
[2023-08-08] MEDS: APIXABAN 2.5 MG TABLET PO (20:24)
[2023-08-09] VITALS (12 sets, daily range): BP systolic 101–126; BP diastolic 50–70; PULSE 71–95; RESP 18–22; TEMP 36.1–36.4; O2SAT 95–100
[2023-08-09] MEDS: CEFEPIME 1 GM/NS 50 ML 1 GM/50 ML BAG IVPB (00:14)
[2023-08-09] MEDS: ALBUTEROL SULFATE (*SP) AEROSOL 1 PUFF 2 PUFF INHALATION ×3 (06:26→20:26)
--- NOTE | 2023-08-09 06:36 | WPDUROPN2 ---
Progress Note: A&P Assessment and Plan (1) Ureterolithiasis: Code(s): N20.1 - Calculus of ureter Status: Acute (2) Hydronephrosis: Code(s): N13.30 - Unspecified hydronephrosis Status: Acute Assessment and Plan: Feeling better with indwelling stent I had long talk with patient's (patient was still) in PACU yesterday regarding options for left partial staghorn stone a. Back to [facility]. for left percutaneous nephrolithotomy (PCNL) - as she had in 2019 b. PCNL at [facility] - would require separate procedure for placement percutaneous nephrostomy (PCN) in [place] with an interventional radiologist c. Staged left ureteroscopy with laser lithotripsy -> would likely require 3-4 procedures to render stone-free d. Chronic indwelling stent with changes every 6-12 months. Subjective Subjective Date/Time Seen: 08/09/23 06:36 Interval history: SOB this morning - awaiting breathing treatment. Left flank pain resolved. Review of Systems Review of Systems: All systems reviewed & are unremarkable except as noted in HPI and below Exam Const: General: no acute distress Resp: Effort & Inspection: normal respiratory effort GI: Inspection: non-distended GI Palp: No abdominal tenderness and No Guarding due to palpation present (GI) Auscultation: normal bowel sounds Objective Data Vital Signs Vital Signs: Vital Signs - 24 hr 08/08/23 07:05 08/08/23 07:05 08/08/23 07:15 Temperature Pulse Rate 86 92 Respiratory Rate 18 18 Blood Pressure Pulse Oximetry 97 Oxygen Delivery Nasal Cannula Oxygen Flow Rate 3.5 Fraction of Inspired Oxygen 34 08/08/23 09:27 08/08/23 13:04 08/08/23 13:12 Temperature Pulse Rate 89 88 90 Respiratory Rate 20 18 Blood Pressure Pulse Oximetry Oxygen Delivery Oxygen Flow Rate Fraction of Inspired Oxygen 08/08/23 13:55 08/08/23 15:09 08/08/23 15:53 Temperature 97.8 F 98.5 F 96.9 F L Pulse Rate 90 91 93 Respiratory Rate 18 16 10 L Blood Pressure 117/62 102/58 L 85/65 L Pulse Oximetry 97 98 100 Oxygen Delivery Nasal Cannula Simple Face Mask Oxygen Flow Rate 4 8 Fraction of Inspired Oxygen 08/08/23 16:05 08/08/23 16:20 06/20/24 16:35 Temperature Pulse Rate 81 98 88 Respiratory Rate 16 16 20 Blood Pressure 110/64 117/60 118/62 Pulse Oximetry 96 94 94 Oxygen Delivery Nasal Cannula Nasal Cannula Nasal Cannula Oxygen Flow Rate 3 3 3 Fraction of Inspired Oxygen 08/08/23 08:00 08/08/23 17:30 08/08/23 12:00 Temperature 98.2 F Pulse Rate 88 76 76 Respiratory Rate 22 H Blood Pressure 125/56 L Pulse Oximetry 99 Oxygen Delivery Oxygen Flow Rate Fraction of Inspired Oxygen 08/08/23 19:29 08/08/23 19:32 08/08/23 19:42 Temperature Pulse Rate 86 90 Respiratory Rate 18 18 Blood Pressure Pulse Oximetry 96 Oxygen Delivery Nasal Cannula Oxygen Flow Rate 3.5 Fraction of Inspired Oxygen 08/08/23 20:07 08/08/23 20:00 08/08/23 20:00 Temperature 98 F Pulse Rate 90 96 Respiratory Rate 18 Blood Pressure 107/56 L Pulse Oximetry 97 Oxygen Delivery Room Air Oxygen Flow Rate Fraction of Inspired Oxygen 08/09/23 00:00 08/09/23 00:21 08/09/23 04:00 Temperature 97.1 F L Pulse Rate 79 83 75 Respiratory Rate 18 Blood Pressure 101/58 L Pulse Oximetry 98 Oxygen Delivery Oxygen Flow Rate Fraction of Inspired Oxygen 08/09/23 04:24 Temperature 97.6 F Pulse Rate 71 Respiratory Rate 18 Blood Pressure 126/70 Pulse Oximetry 95 Oxygen Delivery Oxygen Flow Rate Fraction of Inspired Oxygen Intake/Output Intake/Output: Intake & Output 08/06/23 08/07/23 08/08/23 08/09/23 23:59 23:59 23:59 23:59 Intake Total 1390 250 Output Total 400 350 Balance 990 -100 Meds/Results Medications: Active Medications Generic Name Dose Route Start Last Admin Trade Name Freq PRN Reason Stop Dose Admin Mikael
[2023-08-09] MEDS: SODIUM CHLORIDE 0.9% IV 1,000 ML 75 ML IV CONT ×2 (06:38→17:31)
[2023-08-09 07:08] LABS: Alanine Aminotransferase 18 U/L (6-35); Albumin Level 3.7 g/dL (3.5-5.1); Alkaline Phosphatase 73 U/L (38-126); Anion Gap 6 mmol/L (4-12); Aspartate Amino Transferase 29 U/L (14-36); Bilirubin,Total 0.8 mg/dL (0.2-1.3); Blood Urea Nitrogen 25 mg/dL (7-17); Calcium 8.6 mg/dL (8.4-10.2); Carbon Dioxide 29 mmol/L (22-30); Chloride 105 mmol/L (98-107); Estimated CRCL calculation 29 ml/min; Estimated Glomerular Filt Rate 37; Glucose 97 mg/dL (65-110); Potassium 4.2 mmol/L (3.4-5.0); Sodium 140 mmol/L (137-145)
--- NOTE | 2023-08-09 08:01 | WPDANESPN ---
Anes - Prog Note Post-Op Date/Time: 08/09/23 08:01 Cardiovascular status: normal Respiratory status: normal Airway patency: baseline Mental status: baseline Post-Op hydration status: normal Vital Signs: Last Vital Signs Temp 36.4 C 08/09/23 04:24 Pulse 71 08/09/23 04:24 Resp 18 08/09/23 04:24 BP 126/70 08/09/23 04:24 Pulse Ox 96 08/09/23 07:34 O2 Del Method Nasal Cannula 08/09/23 07:34 O2 Flow Rate 3.5 08/09/23 07:34 FiO2 34 08/08/23 07:05 Pain Score (VAS): 0/10 I/O: Intake & Output 08/08/23 08/09/23 08/09/23 23:59 07:59 15:59 Intake Total 340 1250 Output Total 350 Balance 340 900 Laboratory Tests 08/07/23 20:24 08/09/23 06:45 08/09/23 06:45 Sodium 140 Potassium 4.2 Chloride 105 Carbon Dioxide 29 Anion Gap 6 BUN 25 H Creatinine 1.40 H Estim Creat Clear Calc 29 Estimated GFR 37 L Glucose 97 Calcium 8.6 Total Bilirubin 0.8 AST 29 ALT 18 Alkaline Phosphatase 73 Total Protein 7.0 Albumin 3.7 Microbiology 08/07/23 22:15 Urine Clean Catch Urine Culture - Preliminary Gram negative bacilli isolated 08/07/23 22:12 Blood Blood Culture - Preliminary 08/07/23 22:12 Blood Blood Culture - Preliminary Post-procedural complaints: none Patient Feedback: Patient satisfied with anesthetic care.
[2023-08-09] MEDS: APIXABAN 2.5 MG TABLET PO ×2 (08:53→21:25)
[2023-08-09] MEDS: AMIODARONE HCL 100 MG TABLET PO (08:55)
--- NOTE | 2023-08-09 09:45 | PM.IMPN ---
Progress Note: A&P Assessment and Plan (1) COPD (chronic obstructive pulmonary disease): Code(s): J44.9 - Chronic obstructive pulmonary disease, unspecified Status: Acute Assessment and Plan: on home o2 -continue - breathing treatment-duonebsm - albuterol prn (2) History of pulmonary embolism: Code(s): Z86.711 - Personal history of pulmonary embolism Status: Acute Assessment and Plan: on chronic antocoag-will continue once done with surgery (3) Paroxysmal A-fib: Code(s): I48.0 - Paroxysmal atrial fibrillation Status: Acute Assessment and Plan: on chronic anticoag- will continue once done with surgery (4) Calculus (=stone): Code(s): N20.9 - Urinary calculus, unspecified Status: Acute Assessment and Plan: urology is following, notes reviewed: -Dr Puentes disucced wuith yesterday options for left percutaneous nephrolithotomy (PCNL) at [facility] PCNL at [facility] - would require separate procedure for placement percutaneous nephrostomy (PCN) in [place] with an interventional radiologist c. Staged left ureteroscopy with laser lithotripsy -> would likely require 3-4 procedures to render stone-free d. Chronic indwelling stent with changes every 6-12 months - flank pain improved -continue antibiotics (5) History of tobacco abuse: Code(s): Z87.891 - Personal history of nicotine dependence Status: Acute Assessment and Plan: -counselled on tobacco abstinence Plan Diet: advance diet to day DVT prophylaxis: will continue home anticoag once done with surgery Code: Discussed with pt- she wishes to be Full code Lines: peripheral Time Spent With Patient Time with patient: 25 - 35 minutes Subjective Date/time seen: 08/09/23 09:45 Interval history: 73 year old female w PMF of COPD, emphysema, h/o PE, lung nodules, afib,OA, recurrent urolithiasis requiring left percutaneous nephrolith[place] [address]h [address] [facility]. She has advanced COPD requiring home oxygen and is on chronic anticoagulants for her Afib. She was seen in August [address] Reid is an inpatient consult. She had a large left renal stone burden-recommendations were made for her to follow-up at [facility] for additional intervention. She never f/u with [facility] and now presents to the emergency department with increasing shortness of breath and left flank pain. imaging shows some increase in her left kidney stone burden with new left ureteral obstruction secondary to a stone at the [facility]. She denies fevers chills or gross hematuria. Urology saw her this am- Dr Puentes: Patient will require cystoscopy with left ureteral stent placement today because of acute pain and obstructive pyelonephritis. Increasing left renal stone burden will require left percutaneous nephrolithotomy which can best be addressed with her prior urologist at [facility]. 08/07- pt is seen and examined today- reports leg swelling if she is not taking her Lasix and spironolactone but denies CHF- states had a work up AND EVERYTHING WAS NEGATIVE. she used to smoke- but quit years ago (25years ago) she has 20 pad smoking history. reports that she does not not have afib. 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 she is on amiodarone as well- but insists that she does not have afib. She reports that she is wearing oxygen at home all the time at 3.5 l per nc 08/08- seen and examined- per urology: would require separate procedure for placement percutaneous nephrostomy (PCN) in [place] with an interventional radiologist. Staged left ureteroscopy with laser lithotripsy -> would likely require 3-4 procedures to render stone-free Chronic indwelling stent with changes every 6-12 months . pt is stable- refuses duoneb as it makes her claustrophobic- has albuterol prn. Anticipate to discharge if cleared with urology. Review of Systems Constitutional: Constitutio
[2023-08-09] MEDS: cefTRIAXone 2 GM/NS 100 ML 2 GM/100 ML BAG IVPB (21:23)
[2023-08-10] VITALS (7 sets, daily range): BP systolic 115–133; BP diastolic 70–71; PULSE 78–94; RESP 16–20; TEMP 36.4; O2SAT 93–100
[2023-08-10] MEDS: ALBUTEROL SULFATE (*SP) AEROSOL 1 PUFF 2 PUFF INHALATION ×4 (00:50→20:13)
[2023-08-10 05:04] LABS: Alanine Aminotransferase 15 U/L (6-35); Albumin Level 3.1 g/dL (3.5-5.1); Alkaline Phosphatase 66 U/L (38-126); Anion Gap 2 mmol/L (4-12); Aspartate Amino Transferase 29 U/L (14-36); Bilirubin,Total 0.3 mg/dL (0.2-1.3); Blood Urea Nitrogen 20 mg/dL (7-17); Calcium 8.7 mg/dL (8.4-10.2); Carbon Dioxide 30 mmol/L (22-30); Chloride 110 mmol/L (98-107); Estimated CRCL calculation 39 ml/min; Estimated Glomerular Filt Rate 55; Glucose 108 mg/dL (65-110); Potassium 4.1 mmol/L (3.4-5.0); Sodium 142 mmol/L (137-145)
[2023-08-10] MEDS: AMIODARONE HCL 100 MG TABLET PO (08:40)
[2023-08-10] MEDS: APIXABAN 2.5 MG TABLET PO ×2 (08:41→21:18)
[2023-08-10] MEDS: SODIUM CHLORIDE 0.9% IV 1,000 ML 75 ML IV CONT (08:41)
[2023-08-10] MEDS: UMECLIDINIUM/VILANTEROL 62.5-25 MCG ELLIPTA 1 PUFF INHALATION (09:29)
--- NOTE | 2023-08-10 10:21 | PM.IMPN ---
Progress Note: A&P Assessment and Plan (1) COPD (chronic obstructive pulmonary disease): Code(s): J44.9 - Chronic obstructive pulmonary disease, unspecified Status: Acute Assessment and Plan: on home o2 -continue - breathing treatment-duonebs- cannot take -will restart home anoro - albuterol prn (2) History of pulmonary embolism: Code(s): Z86.711 - Personal history of pulmonary embolism Status: Acute Assessment and Plan: on chronic anticoag-will continue (3) Paroxysmal A-fib: Code(s): I48.0 - Paroxysmal atrial fibrillation Status: Acute Assessment and Plan: on chronic anticoag- will continue once done with surgery (4) Calculus (=stone): Code(s): N20.9 - Urinary calculus, unspecified Status: Acute Assessment and Plan: urology is following, notes reviewed: -Dr Puentes disucced wuith yesterday options for left percutaneous nephrolithotomy (PCNL) at [facility] PCNL at [facility] - would require separate procedure for placement percutaneous nephrostomy (PCN) in [place] with an interventional radiologist c. Staged left ureteroscopy with laser lithotripsy -> would likely require 3-4 procedures to render stone-free d. Chronic indwelling stent with changes every 6-12 months - flank pain improved -continue antibiotics - in anticipation of discharge-will check if she took Augmentin before- and tolerated it well. if not- will consider Cefuroxine 500 mg bid x 7 more days based on sensitives. (5) History of tobacco abuse: Code(s): Z87.891 - Personal history of nicotine dependence Status: Acute Assessment and Plan: -counselled on tobacco abstinence Plan Diet: advance diet to day DVT prophylaxis: will continue home anticoag once done with surgery Code: Discussed with pt- she wishes to be Full code Lines: peripheral Time Spent With Patient Time with patient: 25 - 35 minutes Subjective Date/time seen: 08/10/23 10:21 Interval history: 73 year old female w PMF of COPD, emphysema, h/o PE, lung nodules, afib,OA, recurrent urolithiasis requiring left percutaneous nephrolithotomy [place] [address] Saleh at [facility]. She has advanced COPD requiring home oxygen and is on chronic anticoagulants for her Afib. She was seen in August [address] Reid is an inpatient consult. She had a large left renal stone burden-recommendations were made for her to follow-up at [facility] for additional intervention. She never f/u with [facility] and now presents to the emergency department with increasing shortness of breath and left flank pain. imaging shows some increase in her left kidney stone burden with new left ureteral obstruction secondary to a stone at the [facility]. She denies fevers chills or gross hematuria. Urology saw her this am- Dr Puentes: Patient will require cystoscopy with left ureteral stent placement today because of acute pain and obstructive pyelonephritis. Increasing left renal stone burden will require left percutaneous nephrolithotomy which can best be addressed with her prior urologist at [facility]. 08/07- pt is seen and examined today- reports leg swelling if she is not taking her Lasix and spironolactone but denies CHF- states had a work up AND EVERYTHING WAS NEGATIVE. she used to smoke- but quit years ago (25years ago) she has 20 pad smoking history. reports that she does not not have afib. 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 she is on amiodarone as well- but insists that she does not have afib. She reports that she is wearing oxygen at home all the time at 3.5 l per nc 08/08- seen and examined- per urology: would require separate procedure for placement percutaneous nephrostomy (PCN) in [place] with an interventional radiologist. Staged left ureteroscopy with laser lithotripsy -> would likely require 3-4 procedures to render stone-free Chronic indwelling stent with changes every 6-
[2023-08-10] MEDS: cefTRIAXone 2 GM/NS 100 ML 2 GM/100 ML BAG IVPB (21:19)
[2023-08-11 05:34] VITALS: BP 135/77; PULSE 80; RESP 18; TEMP 36.2; O2SAT 95
[2023-08-11 06:16] LABS: Alanine Aminotransferase 17 U/L (6-35); Albumin Level 3.2 g/dL (3.5-5.1); Alkaline Phosphatase 71 U/L (38-126); Anion Gap 3 mmol/L (4-12); Aspartate Amino Transferase 29 U/L (14-36); Bilirubin,Total 0.3 mg/dL (0.2-1.3); Blood Urea Nitrogen 13 mg/dL (7-17); Calcium 8.8 mg/dL (8.4-10.2); Carbon Dioxide 32 mmol/L (22-30); Chloride 106 mmol/L (98-107); Estimated CRCL calculation 43 ml/min; Estimated Glomerular Filt Rate > 60; Glucose 84 mg/dL (65-110); Potassium 3.9 mmol/L (3.4-5.0); Sodium 141 mmol/L (137-145)
[2023-08-11] MEDS: ALBUTEROL SULFATE (*SP) AEROSOL 1 PUFF 2 PUFF INHALATION (07:15)
[2023-08-11] MEDS: UMECLIDINIUM/VILANTEROL 62.5-25 MCG ELLIPTA 1 PUFF INHALATION (07:15)
[2023-08-11 07:18] VITALS: O2SAT 98
[2023-08-11 09:16] VITALS: PULSE 88
[2023-08-11] MEDS: AMIODARONE HCL 100 MG TABLET PO (09:16)
[2023-08-11] MEDS: APIXABAN 2.5 MG TABLET PO (09:17)
[2023-08-11 09:20] VITALS: O2SAT 98
--- NOTE | 2023-08-11 09:23 | PM.IMPN ---
Progress Note: A&P Assessment and Plan (1) COPD (chronic obstructive pulmonary disease): Code(s): J44.9 - Chronic obstructive pulmonary disease, unspecified Status: Acute Assessment and Plan: on home o2 -continue - breathing treatment-duonebs- cannot take -will restart home anoro - albuterol prn (2) History of pulmonary embolism: Code(s): Z86.711 - Personal history of pulmonary embolism Status: Acute Assessment and Plan: on chronic anticoag-will continue (3) Paroxysmal A-fib: Code(s): I48.0 - Paroxysmal atrial fibrillation Status: Acute Assessment and Plan: on chronic anticoag- will continue once done with surgery (4) Calculus (=stone): Code(s): N20.9 - Urinary calculus, unspecified Status: Acute Assessment and Plan: urology is following, notes reviewed: -Dr Puentes disucced wuith yesterday options for left percutaneous nephrolithotomy (PCNL) at [facility] PCNL at [facility] - would require separate procedure for placement percutaneous nephrostomy (PCN) in [place] with an interventional radiologist c. Staged left ureteroscopy with laser lithotripsy -> would likely require 3-4 procedures to render stone-free d. Chronic indwelling stent with changes every 6-12 months - flank pain improved -continue antibiotics - in anticipation of discharge-will check if she took Augmentin before- and tolerated it well. if not- will consider Cefuroxine 500 mg bid x 7 more days based on sensitives. -will collect cbc-ordered (5) History of tobacco abuse: Code(s): Z87.891 - Personal history of nicotine dependence Status: Acute Assessment and Plan: -counselled on tobacco abstinence Plan Diet: advance diet to day DVT prophylaxis: will continue home anticoag once done with surgery Code: Discussed with pt- she wishes to be Full code Lines: peripheral Time Spent With Patient Time with patient: 15 - 25 minutes Subjective Date/time seen: 08/11/23 09:23 Interval history: 73 year old female w PMF of COPD, emphysema, h/o PE, lung nodules, afib,OA, recurrent urolithiasis requiring left percutaneous nephrolithotomy [place] [address] Saleh at [facility]. She has advanced COPD requiring home oxygen and is on chronic anticoagulants for her Afib. She was seen in August [address] Reid is an inpatient consult. She had a large left renal stone burden-recommendations were made for her to follow-up at [facility] for additional intervention. She never f/u with [facility] and now presents to the emergency department with increasing shortness of breath and left flank pain. imaging shows some increase in her left kidney stone burden with new left ureteral obstruction secondary to a stone at the [facility]. She denies fevers chills or gross hematuria. Urology saw her this am- Dr Puentes: Patient will require cystoscopy with left ureteral stent placement today because of acute pain and obstructive pyelonephritis. Increasing left renal stone burden will require left percutaneous nephrolithotomy which can best be addressed with her prior urologist at [facility]. 08/07- pt is seen and examined today- reports leg swelling if she is not taking her Lasix and spironolactone but denies CHF- states had a work up AND EVERYTHING WAS NEGATIVE. she used to smoke- but quit years ago (25years ago) she has 20 pad smoking history. reports that she does not not have afib. 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 she is on amiodarone as well- but insists that she does not have afib. She reports that she is wearing oxygen at home all the time at 3.5 l per nc 08/08- seen and examined- per urology: would require separate procedure for placement percutaneous nephrostomy (PCN) in [place] with an interventional radiologist. Staged left ureteroscopy with laser lithotripsy -> would likely require 3-4 procedures to render stone-free Chronic indwelling st
[2023-08-11 10:02] LABS: Hematocrit 33.8 % (37.0-47.0); Hemoglobin 10.4 g/dL (12.0-15.0); Mean Corpuscular HGB Conc 30.8 g/dl (32-36); Mean Corpuscular Hemoglobin 30.3 pg (26-34); Mean Corpuscular Volume 98.5 fl (80-100); Mean Platelet Volume 10.1 fl (7.4-10.4); Platelet Count Result 298 k/mm3 (150-375); Red Blood Count 3.43 M/mm3 (4.2-5.4); Red Cell Distribution Width 14.9 % (11.5-14.5); White Blood Count 7.3 K/mm3 (4.5-10.0)
--- NOTE | 2023-08-11 12:16 | PM.DS ---
DS: Admitting Diagnosis Discharge Date 08/10 Admitting Diagnosis flank pain DS: Discharge Diagnosis Discharge Diagnosis (1) COPD (chronic obstructive pulmonary disease): Code(s): J44.9 - Chronic obstructive pulmonary disease, unspecified Status: Acute Assessment and Plan: on home o2 -continue - breathing treatment-duonebs- cannot take -will restart home anoro - albuterol prn (2) History of pulmonary embolism: Code(s): Z86.711 - Personal history of pulmonary embolism Status: Acute Assessment and Plan: on chronic anticoag-will continue (3) Paroxysmal A-fib: Code(s): I48.0 - Paroxysmal atrial fibrillation Status: Acute Assessment and Plan: on chronic anticoag- will continue once done with surgery (4) Calculus (=stone): Code(s): N20.9 - Urinary calculus, unspecified Status: Acute Assessment and Plan: urology is following, notes reviewed: -Dr Puentes disucced wuith yesterday options for left percutaneous nephrolithotomy (PCNL) at [facility] PCNL at [facility] - would require separate procedure for placement percutaneous nephrostomy (PCN) in [place] with an interventional radiologist c. Staged left ureteroscopy with laser lithotripsy -> would likely require 3-4 procedures to render stone-free d. Chronic indwelling stent with changes every 6-12 months - flank pain improved -continue antibiotics - in anticipation of discharge-will check if she took Augmentin before- and tolerated it well. if not- will consider Cefuroxine 500 mg bid x 7 more days based on sensitives. -will collect cbc-ordered (5) History of tobacco abuse: Code(s): Z87.891 - Personal history of nicotine dependence Status: Acute Assessment and Plan: -counselled on tobacco abstinence Plan Final dx: Ureterolithiasism hydronephrosis Diet: advance diet to day DVT prophylaxis: will continue home anticoag once done with surgery Code: Discussed with pt- she wishes to be Full code Lines: peripheral DS: Summary Hospital Course Hospital Course: Interval history: 73 year old female w PMF of COPD, emphysema, h/o PE, lung nodules, afib,OA, recurrent urolithiasis requiring left percutaneous nephrolithotomy [place] [address] Saleh at [facility]. She has advanced COPD requiring home oxygen and is on chronic anticoagulants for her Afib. She was seen in August [address] Reid is an inpatient consult. She had a large left renal stone burden-recommendations were made for her to follow-up at [facility] for additional intervention. She never f/u with [facility] and now presents to the emergency department with increasing shortness of breath and left flank pain. imaging shows some increase in her left kidney stone burden with new left ureteral obstruction secondary to a stone at the [facility]. She denies fevers chills or gross hematuria. Urology saw her this am- Dr Puentes: Patient will require cystoscopy with left ureteral stent placement today because of acute pain and obstructive pyelonephritis. Increasing left renal stone burden will require left percutaneous nephrolithotomy which can best be addressed with her prior urologist at [facility]. 08/07- pt is seen and examined today- reports leg swelling if she is not taking her Lasix and spironolactone but denies CHF- states had a work up AND EVERYTHING WAS NEGATIVE. she used to smoke- but quit years ago (25years ago) she has 20 pad smoking history. reports that she does not not have afib. 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 she is on amiodarone as well- but insists that she does not have afib. She reports that she is wearing oxygen at home all the time at 3.5 l per nc08/08- seen and examined- per urology: would require separate procedure for placement percutaneous nephrostomy (PCN) in [place] with an interventional radiologist. Staged left ureteroscopy with laser lithotripsy -> would
== END 2023-08-11 13:19 | disposition home or self-care (01) | DRG 661 ==
LOC: ANHED 23:52 → ANH3MED 08-08 01:02
PROVIDERS: Urology; Admitting Provider Internal Medicine; Emergency Provider Emergency Medicine; PCP Family Medicine; Visit Provider Nurse Practitioner
PROC: BT1F1ZZ Fluoroscopy of Left Kidney, Ureter and Bladder using Low Osmolar Contrast (ICD-10-PCS; CPT 52352; principal; 2023-08-08 14:45)
DX: N13.6 Pyonephrosis (principal); N17.9 Acute kidney failure, unspecified; N39.0 Urinary tract infection, site not specified; J43.9 Emphysema, unspecified; I48.0 Paroxysmal atrial fibrillation; M19.90 Unspecified osteoarthritis, unspecified site; M81.0 Age-related osteoporosis without current pathological fracture; Z99.81 Dependence on supplemental oxygen; Z88.0 Allergy status to penicillin; Z87.442 Personal history of urinary calculi; Z20.822 Contact with and (suspected) exposure to COVID-19; Z87.891 Personal history of nicotine dependence; Z86.711 Personal history of pulmonary embolism; Z79.01 Long term (current) use of anticoagulants
CPT/HCPCS: 36415; 36600; 71045; 74177; 74420; 80053; 81001; 82805; 83605; 83690; 83735; 83880; 84145; 84484; 85025; 85027; 85610; 85730; 87040; 87077; 87086; 87088; 87186; 87637; 93005; 94640; 96374; 99285; A9270; C1758; C1769; C2617; J0692; J0696; J2270; J2371; J2405; J2704; J7030; J7120; Q9966; Q9967

== ENCOUNTER 2023-11-08 10:10 | Outpatient (CLI) | payer MEDICARE, SELFPAY ==
[2023-11-08 11:08] LABS: Hematocrit 33.3 % (37.0-47.0); Hemoglobin 10.3 g/dL (12.0-15.0)
[2023-11-08 11:23] LABS: INR 1.4; Prothrombin Time 17.1 Seconds (11.1-14.7)
[2023-11-08 11:24] LABS: Partial Thromboplastin Time 36.8 Seconds (22.3-36.8)
[2023-11-08 11:29] LABS: Anion Gap 9 mmol/L (4-12); Blood Urea Nitrogen 20 mg/dL (7-17); Calcium 9.3 mg/dL (8.4-10.2); Carbon Dioxide 31 mmol/L (22-30); Chloride 99 mmol/L (98-107); Estimated Glomerular Filt Rate 49; Glucose 95 mg/dL (65-110); Sodium 139 mmol/L (137-145)
== END 2023-11-08 10:11 | disposition home or self-care (01) ==
LOC: ANHSURGERY 10:13
PROVIDERS: Anesthesiology; PCP Family Medicine; Visit Provider Urology
DX: N28.9 Disorder of kidney and ureter, unspecified (principal); Z78.9 Other specified health status; Z01.818 Encounter for other preprocedural examination
CPT/HCPCS: 36415; 80048; 85014; 85018; 85610; 85730

== ENCOUNTER 2023-11-14 06:33 | Inpatient (IN) | payer MEDICARE, SELFPAY ==
[2023-11-14] VITALS (25 sets, daily range): BP systolic 103–147; BP diastolic 62–110; PULSE 84–126; RESP 19–29; TEMP 36.1–36.8; O2SAT 84–100; BMI 20.1
--- NOTE | ~2023-11-14 | XR_ITS ---
EXAMINATION: XR chest 1V portable DATE: 11/14/2023 07:00 INDICATION: Shortness of breath TECHNIQUE: frontal view of the chest was obtained. COMPARISON: Chest radiograph dated 08/07/2023 FINDINGS: Again seen is severe emphysema with increased lucency and architectural distortion most prominent in the right upper and left upper and lower lung zones. No significant change in a calcified right upper lobe mass consistent with old granulomatous disease. Chronic blunting of the left costophrenic angle and scattered linear and curvilinear atelectasis/scarring in both lungs. New blunting at the right c ostophrenic angle consistent with a very small right pleural effusion. No other new airspace opacitie s, pulmonary edema or pneumothorax. Heart size is normal. IMPRESSION: 1. New very small right pleural effusion. 2. Stable appearance of severe emphysema scattered atelectasis/scarring and right upper lobe calcifie d mass consistent with old granulomatous disease. Reviewed, dictated and finalized at location A. IMPRESSION: 1. New very small right pleural effusion. 2. Stable appearance of severe emphysema scattered atelectasis/scarring and rig ht upper lobe calcified mass consistent with old granulomatous disease.
--- NOTE | ~2023-11-14 | XR_ITS ---
XR fluoroscopy no charge Indication: Left ureteral stent exchange and attempt TECHNIQUE: Fluoroscopy used during Left ureteral stent exchange and attempt performed by [Nadir Puentes MD] on 11/15/2023. 5 seconds of fluoroscopy with 1 fluoroscopic images captured. FINDINGS: Correlate with procedure note. IMPRESSION: Fluoroscopy used during Left ureteral stent exchange and attempt. Reviewed, dictated and finalized at location B.
--- NOTE | 2023-11-14 06:34 | ECG_ITS ---
Test Date: 2023-11-14 06:55:18 Measurements Intervals [place] Rate: 121 P: 0 [place]: 0 QRS: 0 QRSD: 85 T: 28 QT: 309 QTc: 439 Interpretive Statements SIGNIFICANT BASELINE ARTIFACT ATRIAL FIBRILLATION WITH RAPID VENTRICULAR RESPONSE VENTRICULAR PREMATURE COMPLEX CANNOT R/O SEPTAL INFARCT, AGE INDETERMINATE BORDERLINE ST-T WAVE ABNORMALITY- INF/HIGH LAT LEADS BASELINE ARTIFACT- I, II, III, AVR, AVL, AVF, V1-V6 ABNORMAL ECG Compared to ECG 08/08/2023 00:08:56 ATRIAL FIBRILLATION NOW PRESENT Electronically Signed On 11-14-2023 08:00:55 CDT by Jeffery Bernstein D.O.
[2023-11-14] MEDS: IPRATROPIUM BR 0.02% INH SOLN 0.5 MG/2.5 ML VIAL 1 MG INHALATION (06:54)
[2023-11-14] MEDS: ALBUTEROL SULFATE NEB 2.5 MG/3 ML INH 15 MG INHALATION (06:54)
[2023-11-14] MEDS: MAGNESIUM SULF 2 GM/WATER 50ML 2 GM/50 ML BAG IVPB (06:56)
[2023-11-14] MEDS: methylPREDNISolone SOD SUCC 125 MG VIAL IV PUSH (06:57)
--- NOTE | 2023-11-14 06:57 | ED.SOB ---
HPI - SOB/Dyspnea General Chief Complaint: Shortness of Breath/Dyspnea <Renuka Hoffman MD - Last Filed: 11/23/23 14:04> Stated Complaint: short of breath from surgery center <Renuka Hoffman MD - Last Filed: 11/23/23 14:04> Time Seen by Provider: 11/14/23 06:43 <Renuka Hoffman MD - Last Filed: 11/23/23 14:04> History of Present Illness HPI Narrative: Patient has been having difficulty breathing for the past week, does have COPD and is on 3 L of oxygen. has been intubated in the past, last time a year ago, and required transfer for lung surgery. on Eliquis <Renuka Hoffman MD - Last Filed: 11/23/23 14:04> 73-year-old female presenting to the emergency department for evaluation for increased shortness of breath. Patient has been having difficulty breathing for the past week, does have COPD and is on 3.5 L of oxygen. has been intubated in the past, last time a year ago, and required transfer for lung surgery. on Eliquis Patient was supposed to have a procedure today by Urology but due to her respiratory difficulty patient was brought to the emergency department. <Jeremias Hi MD - Last Filed: 11/14/23 18:33> Related Data Home Medications: Home Medications Medication Instructions Recorded Confirmed amiodarone 200 mg tablet 100 mg PO DAILY 01/26/22 11/22/23 albuterol sulfate 90 mcg/actuation 2 puff inhalation Q4-6H PRN 08/08/23 11/22/23 aerosol inhaler Shortness Of Breath Or Wheezing <Renuka Hoffman MD - Last Filed: 11/23/23 14:04> Allergies/Adverse Reactions: Allergies Allergy/AdvReac Type Severity Reaction Status Date / Time codeine Allergy Intermediate Anaphylactic Verified 11/22/23 10:56 Shock erythromycin base Allergy Mild HIVES AND Verified 11/22/23 10:56 EDEMA Penicillins Allergy Mild EDEMA & Verified 11/22/23 10:56 HIVES Sulfa (Sulfonamide Allergy Mild HIVES AND Verified 11/22/23 10:56 Antibiotics) EDEMA ampicillin Allergy Unknown RASH Verified 11/22/23 10:56 <Renuka Hoffman MD - Last Filed: 11/23/23 14:04> Review of Systems Review of Systems: All systems reviewed & are unremarkable except as noted in HPI and below <Renuka Hoffman MD - Last Filed: 11/23/23 14:04> [facility] Past Medical History Medical History: Medical History Bladder stone Chronic respiratory failure COPD (chronic obstructive pulmonary disease) Emphysema lung History of kidney stones with extraction History of pulmonary embolism History of tobacco abuse Multiple nodules of lung On home O2 Osteoporosis Paroxysmal A-fib Renal calculus, left Snoring Spontaneous pneumothorax x3 <eRnuka Hoffman MD - Last Filed: 11/23/23 14:04> Surgical History Surgical History: Surgical History History of adenoidectomy History of breast biopsy History of hysterectomy with bilateral oophorectomy History of tonsillectomy Hx of fracture of wrist s/p L ORIF S/P IVC filter <Renuka Hoffman MD - Last Filed: 11/23/23 14:04> Family History Family History: Family History Father Patient's father is Sibling Family history of malignant neoplasm of breast Mother Diabetes mellitus Family history of congestive heart failure Sibling Family history of malignant neoplasm of breast Sibling Family history of malignant neoplasm of breast <Renuka Hoffman MD - Last Filed: 11/23/23 14:04> Social History Social History: Social History Smoking packs per day: 0.5 Smoking cigarettes per day: 10.0 Years smoked: 28 Smoking pack-years: 14.00 Smoking status: Former smoker Tobacco type: cigarettes Second hand tobacco smoke exposure: No Smoking end date: 02/18/97 Alcohol intake: never Substance use: never Substance use
[2023-11-14 07:06] LABS: Basophils Absolute Auto 0.1 K/mm3 (0.0-0.1); Basophils Percent Auto 1.5 % (0.2-1.2); Eosinophils Absolute Auto 0.4 K/mm3 (0-0.3); Eosinophils Percent Auto 5.2 % (0-4.4); Hematocrit 36.2 % (37.0-47.0); Hemoglobin 10.8 g/dL (12.0-15.0); Immature Granulocyte Absolute 0.06 K/mm3 (0.00-0.031); Immature Granulocyte Percent A 0.8 % (0-0.5); Lymphocytes Percent Auto 21.6 % (18.3-44.2); Mean Corpuscular HGB Conc 29.8 g/dl (32-36); Mean Corpuscular Hemoglobin 28.1 pg (26-34); Mean Corpuscular Volume 94.3 fl (80-100); Mean Platelet Volume 8.6 fl (7.4-10.4); Monocytes Absolute Auto 0.9 K/mm3 (0.1-0.6); Monocytes Percent Auto 10.9 % (2.6-8.5); Neutrophils Absolute Auto 4.7 K/mm3 (1.3-6.7); Platelet Count Result 587 k/mm3 (150-375); Red Blood Count 3.84 M/mm3 (4.2-5.4); Red Cell Distribution Width 15.1 % (11.5-14.5); White Blood Count 7.9 K/mm3 (4.5-10.0)
[2023-11-14 07:16] LABS: Chloride 100 mmol/L (98-107)
[2023-11-14 07:17] LABS: Lactic Acid Reflex 1.4 mmol/L (0.7-2.0)
--- NOTE | 2023-11-14 07:20 | PCRCNOTE ---
ABG late due to Patient is a hard stick.
[2023-11-14 07:22] LABS: Alveolar/Arterial O2 Gradient 103.8 mmHg; Base Excess ABG 0.5 mEq/l (+/-2.0); Fractional Inspired Oxygen 50 %; HCO3 ABG 27.3 mEq/l (22.0-26.0); Oxygen Content ABG 16.2 %vol (16.0-22.0); Oxygen Saturation ABG 99.2 % (95.0-100.0); PCO2 ABG 53.9 mmHg (35.0-45.0); PO2 ABG 192.1 mmHg (80.0-100.0); PO2 FiO2 Ratio Arterial Blood 3.84 %; Total Hemoglobin 11.3 g/dL (12.0-18.0); pH ABG 7.322 (7.350-7.450)
[2023-11-14 07:22] LABS: Alanine Aminotransferase 11 U/L (6-35); Albumin Level 3.9 g/dL (3.5-5.1); Alkaline Phosphatase 134 U/L (38-126); Anion Gap 5 mmol/L (4-12); Aspartate Amino Transferase 25 U/L (14-36); Bilirubin,Total 0.3 mg/dL (0.2-1.3); Blood Urea Nitrogen 13 mg/dL (7-17); Calcium 9.5 mg/dL (8.4-10.2); Carbon Dioxide 33 mmol/L (22-30); Estimated CRCL calculation 36 ml/min; Estimated Glomerular Filt Rate 49; Glucose 134 mg/dL (65-110); Sodium 138 mmol/L (137-145)
[2023-11-14] MEDS: LORazepam INJ (*CRX) 2 MG/ML VIAL 0.5 MG IV PUSH (07:23)
[2023-11-14 07:24] LABS: Device NON-INVASIVE VENT; Modified Allen's Test Pass; Non-Invasive Expiratory Pressure 7 CMH2O; Non-Invasive Inspiratory Pressure 14 CMH2O; Non-Invasive Vent Rate 18 /MIN; Site Drawn RIGHT RADIAL
[2023-11-14 07:37] LABS: Anisocytosis 2+; Platelet Estimate Increased (Adequate); Schistocytes None Seen
--- NOTE | 2023-11-14 08:28 | PC.NURSE ---
Patient more relaxed at this time and resting.
--- NOTE | 2023-11-14 11:46 | PM.IMHP ---
H&P: HPI History of Present Illness Date/Time: 11/14/23 11:46 Chief Complaint: shortness of breath Narrative: Patient is a 73-year-old female who presented to the emergency department with complaints of shortness of breath that started that morning. Patient was in the preoperative area at [place] for a planned left ureter stent exchange when patient started having worsening respiratory distress. Patient was sent to the emergency department for further evaluation. Patient does have a past medical history of COPD, AFib, PE, chronic respiratory failure on home oxygen, and bilateral renal stones. upon arrival to the emergency room patient was immediately placed on BiPAP with ABG showing acute respiratory failure with hypercapnia. Patient did report she was extremely anxious about upcoming procedure because she has had difficulty with intubations in past, patient given ativan and admitted to the IMU. Patient did reported urinary problems and feels as though she is developing a UTI, UA ordered. Review of Systems Review of Systems: All systems reviewed & are unremarkable except as noted in HPI and below PMFSH Past Medical History Medical History Bladder stone Chronic respiratory failure COPD (chronic obstructive pulmonary disease) Emphysema lung History of kidney stones with extraction History of pulmonary embolism History of tobacco abuse Multiple nodules of lung On home O2 Osteoporosis Paroxysmal A-fib Renal calculus, left Snoring Spontaneous pneumothorax x3 Surgical History Surgical History History of adenoidectomy History of breast biopsy History of hysterectomy with bilateral oophorectomy History of tonsillectomy Hx of fracture of wrist s/p L ORIF S/P IVC filter Family History Family History Father Patient's father is Sibling Family history of malignant neoplasm of breast Mother Diabetes mellitus Family history of congestive heart failure Sibling Family history of malignant neoplasm of breast Sibling Family history of malignant neoplasm of breast Social History Social History Smoking packs per day: 0.5 Smoking cigarettes per day: 10.0 Years smoked: 37 Smoking pack-years: 18.50 Smoking status: Former smoker Tobacco type: cigarettes Second hand tobacco smoke exposure: No Smoking end date: 02/18/98 Alcohol intake: former Substance use: never Substance use type: does not use Do You Feel Safe in your Home?: Yes Lack of Transportation: No Lack of Food: Never True Current Housing: I Have Housing Concerned About Future Housing: No Difficulty Paying Gas/Electric Bills: No Difficulty Paying for Meds: No Currently Unemployed: No Education: Trade/Vocational Certificate Difficulty w/ Childcare or Family Care: No Living arrangements: with family Additional living arrangements comments: Occupation/Education: other Gender identity (if verbalized by the patient): Female Spiritual care concerns: No Meds Home Medications and Allergies Home Medications Medication Instructions Recorded Confirmed Type amiodarone 200 mg tablet 100 mg PO DAILY 01/26/22 11/14/23 History apixaban 2.5 mg tablet (Eliquis) 2.5 mg PO Q12HR #60 tabs 08/26/22 11/14/23 Rx furosemide 20 mg tablet 20 mg PO DAILY #30 tabs 08/26/22 11/14/23 Rx spironolactone 25 mg tablet 25 mg PO DAILY #30 tabs 08/26/22 11/14/23 Rx ascorbic acid (vitamin C) 500 mg 500 mg PO DAILY@0800 #90 tabs 09/24/22 11/14/23 Rx tablet (Vitamin C) albuterol sulfate 90 mcg/actuation 2 puff inhalation Q4-6H PRN 08/08/23 11/14/23 History aerosol inhaler Shortness Of Breath Or Wheezing ferrous sulfate 325 mg (65 mg 325 mg PO DAILY@0800
[2023-11-14] MEDS: methylPREDNISolone SOD SUCC 125 MG VIAL 60 MG IV PUSH ×3 (12:57→23:42)
--- NOTE | 2023-11-14 13:31 | WPDURCON ---
Assessment and Plan Assessment and plan (1) Renal calculus, left: Code(s): N20.0 - Calculus of kidney Status: Acute Assessment and Plan: Patient with large left staghorn calculi that is managed with intermittent left ureteral stent exchange. Was scheduled for cystoscopy with routine left ureteral stent exchange today, though unable to proceed with outpatient surgery given acute respiratory failure. If patient has improvement in respiratory status, will plan to proceed with inpatient cystoscopy and left ureteral stent exchange tomorrow with Dr. Puentes. Urology Consult Note HPI Date Seen: 11/14/23 Requesting Physician: Bibiana Phillips APRN Primary Care Provider: Mic Estrada MD Consult Narrative Narrative: Alexus Zambrano is a 73 year old female with a history of COPD on chronic oxygen at home and large left staghorn managed with intermittent left ureteral stent exchanges. She presented to outpatient surgery department this morning for scheduled cystoscopy and left ureteral stent exchange. Unfortunately, on arrival, she was found to be more short of breath than typical and was directed to the emergency room for further evaluation. On arrival, she was hypoxic and started on BiPAP. She has been admitted for acute on chronic respiratory failure and COPD exacerbation. Her scheduled surgery today was canceled. At the time of my evaluation, she is feeling fair. Reports breathing is improved, though still not to baseline. Denies any issues with indwelling left ureteral stent. Reports she is voiding without difficulty. Denies dysuria or hematuria. She has no additional concerns. Review of Systems Review of Systems: All systems reviewed & are unremarkable except as noted in HPI and below PMFSH Past Medical History Medical History Bladder stone Chronic respiratory failure COPD (chronic obstructive pulmonary disease) Emphysema lung History of kidney stones with extraction History of pulmonary embolism History of tobacco abuse Multiple nodules of lung On home O2 Osteoporosis Paroxysmal A-fib Renal calculus, left Snoring Spontaneous pneumothorax x3 Surgical History Surgical History History of adenoidectomy History of breast biopsy History of hysterectomy with bilateral oophorectomy History of tonsillectomy Hx of fracture of wrist s/p L ORIF S/P IVC filter Family History Family History Father Patient's father is Sibling Family history of malignant neoplasm of breast Mother Diabetes mellitus Family history of congestive heart failure Sibling Family history of malignant neoplasm of breast Sibling Family history of malignant neoplasm of breast Social History Social History Smoking packs per day: 0.5 Smoking cigarettes per day: 10.0 Years smoked: 37 Smoking pack-years: 18.50 Smoking status: Former smoker Tobacco type: cigarettes Second hand tobacco smoke exposure: No Smoking end date: 02/18/98 Alcohol intake: former Substance use: never Substance use type: does not use Do You Feel Safe in your Home?: Yes Lack of Transportation: No Lack of Food: Never True Current Housing: I Have Housing Concerned About Future Housing: No Difficulty Paying Gas/Electric Bills: No Difficulty Paying for Meds: No Currently Unemployed: No Education: Trade/Vocational Certificate Difficulty w/ Childcare or Family Care: No Living arrangements: with family Additional living arrangements comments: Occupation/Education: other Gender identity (if verbalized by the patient): Female Spiritual care concerns: No Meds Home Medications and Allergies Home Medications Medication In
[2023-11-14] MEDS: ALBUTEROL SULFATE NEB 2.5 MG/3 ML INH INHALATION ×2 (13:32→20:18)
[2023-11-14 16:16] LABS: Alveolar/Arterial O2 Gradient 83.1 mmHg; Base Excess ABG 1.9 mEq/l (+/-2.0); Fractional Inspired Oxygen 35 %; HCO3 ABG 26.5 mEq/l (22.0-26.0); Oxygen Content ABG 15.2 %vol (16.0-22.0); Oxygen Saturation ABG 98.4 % (95.0-100.0); Oxyhemoglobin 98.6 % THb (90.0-100.0); PCO2 ABG 41.4 mmHg (35.0-45.0); PO2 ABG 118.3 mmHg (80.0-100.0); PO2 FiO2 Ratio Arterial Blood 3.38 %; Total Hemoglobin 10.8 g/dL (12.0-18.0); pH ABG 7.424 (7.350-7.450)
[2023-11-14 16:17] LABS: Device BIPAP; Site Drawn RIGHT RADIAL
[2023-11-14 16:18] LABS: Expiratory Pressure 7 cmH2O; Inspiratory Pressure 14 cmH2O
[2023-11-14] MEDS: SODIUM CHLORIDE 0.9% IV 1,000 ML 75 ML IV CONT (16:52)
[2023-11-14] MEDS: SERTRALINE HCL 25 MG TABLET PO (17:20)
[2023-11-15] VITALS (35 sets, daily range): BP systolic 101–126; BP diastolic 60–81; PULSE 60–112; RESP 14–28; TEMP 36.3–36.8; O2SAT 92–100
[2023-11-15] MEDS: ALBUTEROL SULFATE NEB 2.5 MG/3 ML INH INHALATION ×4 (02:10→20:10)
[2023-11-15 05:31] LABS: Basophils Percent Auto 0.3 % (0.2-1.2); Immature Granulocyte Percent A 0.9 % (0-0.5); Lymphocytes Absolute Auto 0.44 K/mm3 (0.9-3.2); Mean Corpuscular HGB Conc 30.3 g/dl (32-36); Mean Corpuscular Hemoglobin 28.8 pg (26-34); Mean Corpuscular Volume 95.1 fl (80-100); Mean Platelet Volume 8.5 fl (7.4-10.4); Monocytes Absolute Auto 0.3 K/mm3 (0.1-0.6); Monocytes Percent Auto 2.4 % (2.6-8.5); Neutrophils Absolute Auto 10.2 K/mm3 (1.3-6.7); Neutrophils Percent Auto 92.4 % (45.5-73.1); Platelet Count Result 463 k/mm3 (150-375); Red Blood Count 3.47 M/mm3 (4.2-5.4); Red Cell Distribution Width 15.1 % (11.5-14.5); White Blood Count 11.1 K/mm3 (4.5-10.0)
[2023-11-15 05:57] LABS: Anisocytosis 1+; Hypochromasia 2+; Platelet Estimate Increased (Adequate); Schistocytes None Seen
[2023-11-15 06:00] LABS: Alanine Aminotransferase 20 U/L (6-35); Albumin Level 3.7 g/dL (3.5-5.1); Alkaline Phosphatase 108 U/L (38-126); Anion Gap 9 mmol/L (4-12); Aspartate Amino Transferase 28 U/L (14-36); Bilirubin,Total 0.3 mg/dL (0.2-1.3); Blood Urea Nitrogen 17 mg/dL (7-17); Calcium 8.5 mg/dL (8.4-10.2); Carbon Dioxide 27 mmol/L (22-30); Chloride 103 mmol/L (98-107); Estimated CRCL calculation 45 ml/min; Estimated Glomerular Filt Rate > 60; Glucose 153 mg/dL (65-110); Magnesium 2.4 mg/dL (1.6-2.3); Potassium 4.2 mmol/L (3.4-5.0); Sodium 139 mmol/L (137-145)
[2023-11-15 06:09] LABS: Add Urine Microscopic? YES; Appearance Urine Turbid (Clear); Bacteria Urine 4+ /hpf; Bilirubin Urine Negative (Negative); Blood Urine 3+ (Negative); Color Urine Yellow (Yellow); Glucose Urine UA Negative (Negative); Ketones Urine Negative (Negative); Leukocyte Esterase Ur 3+ LEU/UL (Negative); Nitrate Urine Negative (Negative); Non Pathogenic Casts 0-2; Protein Urine 3+ mg/dL (Negative); RBC Urine >100 /hpf (0-2); Specific Grav Ur 1.019 (1.001-1.035); Squamous Epithelial Cell Urine None Seen /hpf (Few); Urobilinogen Urine 0.2 mg/dL (<2.0); WBC Urine >100 /hpf (0-3); pH Urine 6.5 (5.0-9.0)
[2023-11-15] MEDS: methylPREDNISolone SOD SUCC 125 MG VIAL 60 MG IV PUSH ×3 (06:09→17:57)
[2023-11-15] MEDS: SODIUM CHLORIDE 0.9% IV 1,000 ML 75 ML IV CONT (06:09)
--- NOTE | 2023-11-15 09:25 | WPDUROPN2 ---
Progress Note: A&P Assessment and Plan (1) Renal calculus, left: Code(s): N20.0 - Calculus of kidney Status: Acute Assessment and Plan: Patient with large left staghorn calculi that is managed with intermittent left ureteral stent exchange. Was scheduled for outpatient cystoscopy with routine left ureteral stent exchange yesterday (11/14/2023), though unable to proceed given acute respiratory failure and therefore admitted. She has now had significant improvement in her respiratory status, therefore will plan to proceed with scheduled surgery this afternoon with Dr. Puentes (2) Abnormal urinalysis: Code(s): R82.90 - Unspecified abnormal findings in urine Status: Acute Assessment and Plan: UA abnormal, as expected with indwelling stent. She is relatively asymptomatic. Urine culture is pending at this time. She is currently on IV ceftriaxone. Subjective Subjective Date/Time Seen: 11/15/23 09:25 Interval history: Pain is feeling much better today. She has been weaned from BiPAP and is now on 3 L supplemental O2. Reports overall feeling improved. Endorses no concerns. Overnight she noticed some dysuria and requested a UA be completed which was abnormal as expected with indwelling stent. She is voiding without difficulty at this time. Denies nausea, vomiting, fever, chills. Review of Systems Review of Systems: All systems reviewed & are unremarkable except as noted in HPI and below Exam Narrative: General: Awake, alert, comfortable, no acute distress HEENT: Normocephalic, atraumatic, sclerae anicteric Respiratory: No respiratory distress, nonlabored breathing without accessory muscle use on 3 L supplemental O2 Abdomen: Nondistended, soft, nontender Skin: Normal coloration, warm and dry Neurologic: No focal neuro deficits noted Psychiatric: Appropriate mood and affect, judgment and insight intact Objective Data Vital Signs Vital Signs: Vital Signs - 24 hr 11/14/23 09:45 11/14/23 10:17 11/14/23 12:00 Temperature Pulse Rate 105 H 101 H 103 H Respiratory Rate 21 H 24 H Blood Pressure 106/66 Pulse Oximetry 100 97 Oxygen Delivery BiPAP Oxygen Flow Rate Fraction of Inspired Oxygen 11/14/23 12:00 11/14/23 13:32 11/14/23 13:39 Temperature 97.9 F Pulse Rate 104 H 94 96 Respiratory Rate 24 H 20 20 Blood Pressure 110/62 Pulse Oximetry 97 100 Oxygen Delivery BiPAP Oxygen Flow Rate Fraction of Inspired Oxygen 11/14/23 13:41 11/14/23 13:43 11/14/23 14:00 Temperature Pulse Rate 95 97 Respiratory Rate 20 Blood Pressure Pulse Oximetry 100 Oxygen Delivery BiPAP Oxygen Flow Rate Fraction of Inspired Oxygen 35 11/14/23 15:20 11/14/23 16:20 11/14/23 16:00 Temperature 98.3 F Pulse Rate 102 H 95 Respiratory Rate 23 H Blood Pressure 103/90 Pulse Oximetry 100 98 Oxygen Delivery Nasal Cannula Oxygen Flow Rate 3.5 Fraction of Inspired Oxygen 11/14/23 16:00 11/14/23 18:00 11/14/23 19:52 Temperature 97.6 F Pulse Rate 95 93 92 Respiratory Rate 23 H 24 H Blood Pressure 120/74 Pulse Oximetry 98 99 Oxygen Delivery Nasal Cannula Oxygen Flow Rate 3.5 Fraction of Inspired Oxygen 35 11/14/23 20:18 11/14/23 20:18 11/14/23 20:00 Temperature Pulse Rate 92 Respiratory Rate 20 Blood Pressure Pulse Oximetry 98 97 Oxygen Delivery Nasal Cannula Nasal Cannula Oxygen Flow Rate 3.5 3.5 Fraction of Inspired Oxygen 11/14/23 20:00 11/14/23 20:32 11/14/23 22:00 Temperature Pulse Rate 92 90 84 Respiratory Rate 20 Blood Pressure Pulse Oximetry Oxygen Delivery Oxygen Flow Rate Fraction of Inspired Oxygen 11/15/23 00:00 11/15/23 05:31 11/15/23 02:10 Temperature 97.8 F Pulse Rate 93 112 H Respiratory Rate 24 H 26 H Blood Pressure 126/73 Pulse Oximetry 99 96 Oxygen Delivery Nasal Cannula Oxygen Flow Rate 3.5 Fraction of Inspired Oxyge
[2023-11-15] MEDS: LACTATED RINGERS 1,000 ML 30 ML IV CONT (11:00)
--- NOTE | 2023-11-15 11:47 | WPDANESEPPF ---
Anes - Initial Pre Proc Eval Procedure: Operation Date: 11/15/23 12:30 Proposed Procedures p Cystoscopy,Left Stent Exchange - Sage Puentes MD Date/Time: 11/15/23 11:47 Surgeon: Bibiana Phillips APRN Pre Op Diagnosis: COPD Exacerbation/Respiratory Distress Patient Data Age: 73 Gender: F Height: 1.68 m Weight: 58 kg Last Vital Signs Temp 98.1 F 11/15/23 07:56 Pulse 88 11/15/23 10:00 Resp 20 11/15/23 08:23 BP 112/71 11/15/23 07:56 Pulse Ox 100 11/15/23 08:23 O2 Del Method Nasal Cannula 11/15/23 08:23 O2 Flow Rate 3.5 11/15/23 08:23 FiO2 35 11/15/23 07:56 Allergies Allergy/AdvReac Type Severity Reaction Status Date / Time codeine Allergy Intermediate Anaphylactic Verified 11/14/23 07:23 Shock erythromycin base Allergy Mild HIVES AND Verified 11/14/23 07:23 EDEMA Penicillins Allergy Mild EDEMA & Verified 11/14/23 07:23 HIVES Sulfa (Sulfonamide Allergy Mild HIVES AND Verified 11/14/23 07:23 Antibiotics) EDEMA ampicillin Allergy Unknown RASH Verified 11/14/23 07:23 Home Medications Medication Instructions Recorded Confirmed Type amiodarone 200 mg tablet 100 mg PO DAILY 01/26/22 11/14/23 History apixaban 2.5 mg tablet (Eliquis) 2.5 mg PO Q12HR #60 tabs 08/26/22 11/14/23 Rx furosemide 20 mg tablet 20 mg PO DAILY #30 tabs 08/26/22 11/14/23 Rx spironolactone 25 mg tablet 25 mg PO DAILY #30 tabs 08/26/22 11/14/23 Rx ascorbic acid (vitamin C) 500 mg 500 mg PO DAILY@0800 #90 tabs 09/24/22 11/14/23 Rx tablet (Vitamin C) albuterol sulfate 90 mcg/actuation 2 puff inhalation Q4-6H PRN 08/08/23 11/14/23 History aerosol inhaler Shortness Of Breath Or Wheezing ferrous sulfate 325 mg (65 mg 325 mg PO DAILY@0800 #90 tabs 08/12/23 11/14/23 Rx iron) tablet umeclidinium 62.5 mcg-vilanterol 1 inh inhalation DAILY #60 ea 10/16/23 11/14/23 Rx 25 mcg/actuation powdr for inhalation (Anoro Ellipta) Laboratory Tests 11/14/23 11/15/23 11/15/23 16:12 04:18 05:55 WBC 11.1 H K/mm3 (4.5-10.0) RBC 3.47 L M/mm3 (4.2-5.4) Hgb 10.0 L g/dL (12.0-15.0) Hct 33.0 L % (37.0-47.0) MCV 95.1 fl (80-100) MCH 28.8 pg (26-34) MCHC 30.3 L g/dl (32-36) RDW 15.1 H % (11.5-14.5) Plt Count 463 H k/mm3 (150-375) MPV 8.5 fl (7.4-10.4) Immature Gran % (Auto) 0.9 H % (0-0.5) Neut % (Auto) 92.4 H % (45.5-73.1) Lymph % (Auto) 4.0 L % (18.3-44.2) Tyrrell % (Auto) 2.4 L % (2.6-8.5) Eos % (Auto) 0.0 % (0-4.4) Baso % (Auto) 0.3 % (0.2-1.2) Lymph # (Auto) 0.44 L K/mm3 (0.9-3.2) Tyrrell # (Auto) 0.3 K/mm3 (0.1-0.6) Eos # (Auto) 0.0 K/mm3 (0-0.3) Baso # (Auto) 0.0 K/mm3 (0.0-0.1) Abs Immat Gran (auto) 0.10 H K/mm3 (0.00-0.031) Absolute Neuts (auto) 10.2 H K/mm3 (1.3-6.7) Absolute Nucleated RBC 0.000 K/mm3 (0.0-0.012) Nucleated RBC % 0.0 % (0.0-0.2) Platelet Estimate Increased (Adequate) Hypochromasia 2+ Anisocytosis 1+ Schistocytes None seen Puncture Site Right radial ABG pH 7.424 (7.350-7.450) ABG pCO2 41.4 mmHg (35.0-45.0) ABG pO2 118.3 H mmHg (80.0-100.0) ABG PO2/FiO2 Ratio 3.38 % ABG HCO3 26.5 H mEq/l (22.0-26.0) ABG O2 Saturation 98.4 % (95.0-100.0) ABG O2 Content 15.2 L %vol (16.0-22.0) ABG Base Excess 1.9 mEq/l (+/-2.0) A-a Gradient 83.1 mmHg Oxyhemoglobin 98.6 % THb (90.0-100.0) Total Hemoglobin 10.8 L g/dL (12.0-18.0) O2 Delivery Device Bipap O2 Liters/Min Not Reportable FiO2 35 % Expiratory Pressure 7 cmH2O Inspiratory Pressure 14 cmH2O Sodium 139 m
--- NOTE | 2023-11-15 12:31 | W.PM.PROC2 ---
Procedure Note - Detailed Date of Procedure 11/15/23 Pre-op Diagnosis Left staghorn renal calculus Post-op Diagnosis Other ( left staghorn renal calculus / retained encrusted left ureteral stent) Procedure Performed cystoscopy, attempted left ureteral stent exchange Surgeon Sage Puentes MD Anesthesia General Description of Procedure patient is brought the operative suite where she is prepped draped in routine sterile fashion while in dorsal lithotomy position. 2% xylocaine jelly was introduced intraurethrally and systemic sedation is administered per the anesthesia department. Cystoscopy was undertaken with a 21 F rigid cystoscope. Her indwelling stone shows incrustation on the bladder coil. I cannot remove the stent because of encrustation on the renal coil. Will make arrangements for left ESWL with simultaneous stent exchange
--- NOTE | 2023-11-15 14:37 | P.PNIM_ITS ---
Progress Note: A&P Assessment and Plan (1) Acute and chronic respiratory failure with hypercapnia: Code(s): J96.22 - Acute and chronic respiratory failure with hypercapnia Status: Acute Assessment and Plan: * secondary to COPD and possible anxiety over surgery scheduled * Currently on Bipap improving * ABG [facility] 7.322/PO2 192.1/pCO2 53.9 wean as tolerated * Chronic hypoxia on 3 L at home * previous smoker * DuoNebs * steroids * CXR with Small pleural effusion/ severe emphysema * ABG @ 1600 * Ativan PRN for anxiety * will start on low dose sertraline 11/15/23: * F/U ABG WNL * Weaned from Bipap * Back to her 3.5 L Baseline (2) COPD exacerbation: Code(s): J44.1 - Chronic obstructive pulmonary disease with (acute) exacerbation Status: Acute Assessment and Plan: * Bronchodilators. * Chest x-ray reviewed severe emphysema * incentive spirometry while awake. * steroids initiated * Rocephin allergic to PCN * supplemental oxygen therapy to maintain oxygen 92%/Wears 3L at home * on Bipap wean to 3 L * Follow-up with nutritionists as outpatient 11/15/2023 * Back to [facility] * continue with current treatment (3) Renal calculus, left: Code(s): N20.0 - Calculus of kidney Status: Acute Assessment and Plan: * Plan for Staged left stent exchange * Increased SOB pre-op sent to ER and admitted for respiratory distress * Urology consulted (Dr. Puentes) * NPO tonight * IV fluids * can hopefully have procedure tomorrow if respiratory status has improved 11/15/2023 * Stent exchange 11/15/23 tolerated well but unable to perform stent exchange due to indwelling stone shows incrustation on the bladder coil * Plan O/P procedure with urology * keep overnight to monitor respiratory status Plan Code status: Full code per patient DVT prophylaxis: Eliquis on hold for procedure Stress ulcer prophylaxis: Protonix 40 daily PT/OT notes: Ambulatory Disposition: Admitted to IMU for acute respiratory failure with hypercapnia secondary to COPD exacerbation currently placed on Bipap. patient's respiratory status had improved and she underwent stent exchange today will keep overnight to monitor respiratory status currently weaned back to her baseline of 3.5 L Will return home when medically stable. Time Spent With Patient Time with patient: 15 - 25 minutes Subjective Date/time seen: 11/15/23 14:37 Interval history: Patient is a 73-year-old female who presented to the emergency department with complaints of shortness of breath that started that morning. Patient was in the preoperative area at [place] for a planned left ureter stent exchange when patient started having worsening respiratory distress admitted to IMU for acute respiratory failure with hypercapnia with COPD exacerbation. 11/15/23: Patient with no complaints post surgery, Reports breathing easier and SOB has improved. Denied any CP or N/V, currently back to her 3.5L supplemental oxygen Review of Systems Review of Systems: All systems reviewed & are unremarkable except as noted in HPI and below Exam Narrative: Physical Exam: * GENERAL: pleasant anx
--- NOTE | 2023-11-15 14:37 | PM.IMPN ---
Progress Note: A&P Assessment and Plan (1) Acute and chronic respiratory failure with hypercapnia: Code(s): J96.22 - Acute and chronic respiratory failure with hypercapnia Status: Acute Assessment and Plan: secondary to COPD and possible anxiety over surgery scheduled Currently on Bipap improving ABG PGH 7.322/PO2 192.1/pCO2 53.9 wean as tolerated Chronic hypoxia on 3 L at home previous smoker DuoNebs steroids CXR with Small pleural effusion/ severe emphysema ABG @ 1600 Ativan PRN for anxiety will start on low dose sertraline 11/15/23: F/U ABG WNL Weaned from Bipap Back to her 3.5 L Baseline (2) COPD exacerbation: Code(s): J44.1 - Chronic obstructive pulmonary disease with (acute) exacerbation Status: Acute Assessment and Plan: Bronchodilators. Chest x-ray reviewed severe emphysema incentive spirometry while awake. steroids initiated Rocephin allergic to PCN supplemental oxygen therapy to maintain oxygen 92%/Wears 3L at home on Bipap wean to 3 L Follow-up with senior outside sales representative as outpatient 11/15/2023 Back to [facility] continue with current treatment (3) Renal calculus, left: Code(s): N20.0 - Calculus of kidney Status: Acute Assessment and Plan: Plan for Staged left stent exchange Increased SOB pre-op sent to ER and admitted for respiratory distress Urology consulted (Dr. Puentes) NPO tonight IV fluids can hopefully have procedure tomorrow if respiratory status has improved 11/15/2023 Stent exchange 11/15/23 tolerated well but unable to perform stent exchange due to indwelling stone shows incrustation on the bladder coil Plan O/P procedure with urology keep overnight to monitor respiratory status Plan Code status: Full code per patient DVT prophylaxis: Eliquis on hold for procedure Stress ulcer prophylaxis: Protonix 40 daily PT/OT notes: Ambulatory Disposition: Admitted to IMU for acute respiratory failure with hypercapnia secondary to COPD exacerbation currently placed on Bipap. patient's respiratory status had improved and she underwent stent exchange today will keep overnight to monitor respiratory status currently weaned back to her baseline of 3.5 L Will return home when medically stable. Time Spent With Patient Time with patient: 15 - 25 minutes Subjective Date/time seen: 11/15/23 14:37 Interval history: Patient is a 73-year-old female who presented to the emergency department with complaints of shortness of breath that started that morning. Patient was in the preoperative area at [place] for a planned left ureter stent exchange when patient started having worsening respiratory distress admitted to IMU for acute respiratory failure with hypercapnia with COPD exacerbation. 11/15/23: Patient with no complaints post surgery, Reports breathing easier and SOB has improved. Denied any CP or N/V, currently back to her 3.5L supplemental oxygen Review of Systems Review of Systems: All systems reviewed & are unremarkable except as noted in HPI and below Exam Narrative: Physical Exam: GENERAL: pleasant anxious, Alert and oriented x 3 female. On Bipap HEENT: Moist mucous membranes. LUNGS: Diminished to auscultation bilaterally. USE of accessory muscle use, tachypnea CARDIOVASCULAR: Regular rate and rhythm. No murmur. ABDOMEN: Soft, non tenderness and non-distended. EXTREMITIES: No edema. Non-tender SKIN: No rashes or lesions. Skin warm, dry. NEUROLOGIC: No focal neurological deficits. PSYCHIATRIC: Appropriate mood and affect. Good judgement and insight. Objective Data Vital Signs Vital Signs: Vital Signs - 24 hr 11/14/23 15:20 11/14/23 16:20 11/14/23 16:00 Temperature 98.3 F Pulse Rate 102 H 95 Respiratory Rate 23 H Blood Pressure 103/90 Pulse Oximetry 100 98 Oxygen Delivery Nasal Cannula Oxygen Flow Rate 3.5 Fract
[2023-11-15] MEDS: AMIODARONE HCL 100 MG TABLET PO (15:11)
[2023-11-15] MEDS: LORazepam INJ (*CRX) 2 MG/ML VIAL 0.5 MG IV PUSH (16:34)
--- NOTE | 2023-11-15 16:43 | PC.NURSE ---
This patient, Alexus Zambrano, was transferred to [ 241] on 11/15/23 at 1643. Personal belongings sent with patient. Report given to [Leanne QURESHI ]. Appropriate documentation sent with patient.
--- NOTE | 2023-11-15 16:57 | PC.NURSE ---
Patient received from U [id number] into 241. Patient oriented to new room and shown how to call for help. Resting comfortably
[2023-11-15] MEDS: UMECLIDINIUM/VILANTEROL 62.5-25 MCG ELLIPTA 1 PUFF INHALATION (17:03)
[2023-11-15] MEDS: SERTRALINE HCL 25 MG TABLET PO (17:57)
[2023-11-15] MEDS: ACETAMINOPHEN 325 MG TABLET 650 MG PO (21:35)
[2023-11-16] VITALS (14 sets, daily range): BP systolic 105–125; BP diastolic 63–87; PULSE 83–110; RESP 14–22; TEMP 36.6–36.7; O2SAT 92–97
[2023-11-16] MEDS: ALBUTEROL SULFATE (*SP) AEROSOL 1 PUFF 2 PUFF INHALATION ×3 (02:15→13:15)
[2023-11-16] MEDS: methylPREDNISolone SOD SUCC 125 MG VIAL 60 MG IV PUSH ×4 (04:06→18:04)
[2023-11-16 05:52] LABS: Basophils Percent Auto 0.1 % (0.2-1.2); Hematocrit 31.9 % (37.0-47.0); Hemoglobin 9.9 g/dL (12.0-15.0); Immature Granulocyte Absolute 0.13 K/mm3 (0.00-0.031); Immature Granulocyte Percent A 0.8 % (0-0.5); Lymphocytes Absolute Auto 0.26 K/mm3 (0.9-3.2); Lymphocytes Percent Auto 1.6 % (18.3-44.2); Mean Corpuscular Hemoglobin 29.1 pg (26-34); Mean Corpuscular Volume 93.8 fl (80-100); Mean Platelet Volume 8.9 fl (7.4-10.4); Monocytes Absolute Auto 0.6 K/mm3 (0.1-0.6); Monocytes Percent Auto 3.3 % (2.6-8.5); Neutrophils Absolute Auto 15.8 K/mm3 (1.3-6.7); Neutrophils Percent Auto 94.2 % (45.5-73.1); Platelet Count Result 486 k/mm3 (150-375); Red Cell Distribution Width 15.5 % (11.5-14.5); White Blood Count 16.8 K/mm3 (4.5-10.0)
[2023-11-16 06:02] LABS: Alanine Aminotransferase 11 U/L (6-35); Albumin Level 3.3 g/dL (3.5-5.1); Alkaline Phosphatase 97 U/L (38-126); Anion Gap 3 mmol/L (4-12); Aspartate Amino Transferase 23 U/L (14-36); Bilirubin,Total 0.2 mg/dL (0.2-1.3); Blood Urea Nitrogen 26 mg/dL (7-17); Calcium 8.4 mg/dL (8.4-10.2); Carbon Dioxide 29 mmol/L (22-30); Chloride 107 mmol/L (98-107); Estimated CRCL calculation 38 ml/min; Estimated Glomerular Filt Rate 49; Glucose 183 mg/dL (65-110); Potassium 4.8 mmol/L (3.4-5.0); Sodium 139 mmol/L (137-145)
[2023-11-16] MEDS: UMECLIDINIUM/VILANTEROL 62.5-25 MCG ELLIPTA 1 PUFF INHALATION (07:10)
[2023-11-16] MEDS: ALBUTEROL SULFATE NEB 2.5 MG/3 ML INH INHALATION ×3 (07:29→21:01)
[2023-11-16 07:55] LABS: Platelet Estimate Slightly Increased (Adequate)
[2023-11-16 07:56] LABS: Anisocytosis 1+; Hypochromasia 1+; Schistocytes None Seen
[2023-11-16] MEDS: AMIODARONE HCL 100 MG TABLET PO (08:54)
[2023-11-16] MEDS: ASCORBIC ACID 500 MG TABLET PO (08:55)
[2023-11-16] MEDS: FERROUS SULFATE 325 MG TABLET DR BY MOUTH (08:55)
[2023-11-16] MEDS: SPIRONOLACTONE 25 MG TABLET PO (08:55)
[2023-11-16] MEDS: FUROSEMIDE 20 MG TABLET PO (08:58)
--- NOTE | 2023-11-16 09:06 | WPDANESPN ---
Anes - Prog Note Post-Op Date/Time: 11/16/23 09:06 Cardiovascular status: normal Respiratory status: normal Airway patency: baseline Mental status: baseline Post-Op hydration status: normal Vital Signs: Last Vital Signs Temp 36.6 C 11/16/23 04:22 Pulse 110 H 11/16/23 08:54 Resp 18 11/16/23 07:10 BP 118/63 11/16/23 04:22 Pulse Ox 94 11/16/23 07:10 O2 Del Method Nasal Cannula 11/16/23 07:10 O2 Flow Rate 3 11/16/23 07:10 FiO2 35 11/15/23 15:57 Pain Score (VAS): 04/27 I/O: Intake & Output 11/15/23 11/16/23 11/16/23 23:59 07:59 15:59 Intake Total 240 Output Total 300 Balance -60 Laboratory Tests 11/16/23 05:28 11/16/23 05:28 11/16/23 05:28 WBC 16.8 H RBC 3.40 L Hgb 9.9 L Hct 31.9 L MCV 93.8 MCH 29.1 MCHC 31.0 L RDW 15.5 H Plt Count 486 H MPV 8.9 Immature Gran % (Auto) 0.8 H Neut % (Auto) 94.2 H Lymph % (Auto) 1.6 L [place] % (Auto) 3.3 Eos % (Auto) 0.0 Baso % (Auto) 0.1 L Lymph # (Auto) 0.26 L [place] # (Auto) 0.6 Eos # (Auto) 0.0 Baso # (Auto) 0.0 Abs Immat Gran (auto) 0.13 H Absolute Neuts (auto) 15.8 H Absolute Nucleated RBC 0.000 Nucleated RBC % 0.0 Platelet Estimate Slightly increased Hypochromasia 1+ Anisocytosis 1+ Schistocytes None seen Sodium 139 Potassium 4.8 Chloride 107 Carbon Dioxide 29 Anion Gap 3 L BUN 26 H Creatinine 1.10 H Estim Creat Clear Calc 38 Estimated GFR 49 L Glucose 183 H Calcium 8.4 Total Bilirubin 0.2 AST 23 ALT 11 Alkaline Phosphatase 97 Total Protein 7.0 Albumin 3.3 L Post-procedural complaints: none Patient Feedback: Patient satisfied with anesthetic care.
--- NOTE | 2023-11-16 11:50 | P.PNIM_ITS ---
Progress Note: A&P Assessment and Plan (1) Acute and chronic respiratory failure with hypercapnia: Code(s): J96.22 - Acute and chronic respiratory failure with hypercapnia Status: Acute Assessment and Plan: * secondary to COPD and possible anxiety over surgery scheduled * Currently on Bipap improving * ABG PGH 7.322/PO2 192.1/pCO2 53.9 wean as tolerated * Chronic hypoxia on 3 L at home * previous smoker * DuoNebs * steroids * CXR with Small pleural effusion/ severe emphysema * ABG @ 1600 * Ativan PRN for anxiety * will start on low dose sertraline 11/15/23: * F/U ABG WNL * Weaned from Bipap * Back to her 3.5 L Baseline 11/16/23: * on 3 L NC * still SOB and anxious (2) COPD exacerbation: Code(s): J44.1 - Chronic obstructive pulmonary disease with (acute) exacerbation Status: Acute Assessment and Plan: * Bronchodilators. * Chest x-ray reviewed severe emphysema * incentive spirometry while awake. * steroids initiated * Rocephin allergic to PCN * supplemental oxygen therapy to maintain oxygen 92%/Wears 3L at home * on Bipap wean to 3 L * Follow-up with chain forming machine operator as outpatient 11/15/2023 * Back to [facility] * continue with current treatment 11/16/23: * No change in treatment L (3) Renal calculus, left: Code(s): N20.0 - Calculus of kidney Status: Acute Assessment and Plan: * Plan for Staged left stent exchange * Increased SOB pre-op sent to ER and admitted for respiratory distress * Urology consulted (Dr. Puentes) * NPO tonight * IV fluids * can hopefully have procedure tomorrow if respiratory status has improved 11/15/2023 * Stent exchange 11/15/23 tolerated well but unable to perform stent exchange due to indwelling stone shows incrustation on the bladder coil * Plan O/P procedure with urology * keep overnight to monitor respiratory status (4) Acute UTI: Code(s): N39.0 - Urinary tract infection, site not specified Status: Acute Assessment and Plan: * Rociphen IV pending cultures * Proteus mirabilis lst UA Plan Code status: Full code per patient DVT prophylaxis: Eliquis on hold for procedure Stress ulcer prophylaxis: Protonix 40 daily PT/OT notes: Ambulatory Disposition: Patient continues admission the medical unit for COPD exacerbation still with SOB and anxiety about respiratory status will continue current treatment was told she was had Pneumonia updated her on her current findings ABX for UTI pending cultures Time Spent With Patient Time with patient: 15 - 25 minutes Subjective Date/time seen: 11/16/23 11:50 Interval history: Patient is a 73-year-old female who presented to the emergency department with complaints of shortness of breath that started that morning. Patient was in the preoperative area at [place] for a planned left ureter stent exchange when patient started having worsening respiratory distress admitted to IMU for acute respiratory failure with hypercapnia with COPD exacerbation. 11/16/23: Patient still very anxious and states she has SOB does not feel at baseline she reported she is afraid to go home due to her respiratory status. Patient denied any fever, ch
--- NOTE | 2023-11-16 11:50 | PM.IMPN ---
Progress Note: A&P Assessment and Plan (1) Acute and chronic respiratory failure with hypercapnia: Code(s): J96.22 - Acute and chronic respiratory failure with hypercapnia Status: Acute Assessment and Plan: secondary to COPD and possible anxiety over surgery scheduled Currently on Bipap improving ABG PGH 7.322/PO2 192.1/pCO2 53.9 wean as tolerated Chronic hypoxia on 3 L at home previous smoker DuoNebs steroids CXR with Small pleural effusion/ severe emphysema ABG @ 1600 Ativan PRN for anxiety will start on low dose sertraline 11/15/23: F/U ABG WNL Weaned from Bipap Back to her 3.5 L Baseline 11/16/23: on 3 L NC still SOB and anxious (2) COPD exacerbation: Code(s): J44.1 - Chronic obstructive pulmonary disease with (acute) exacerbation Status: Acute Assessment and Plan: Bronchodilators. Chest x-ray reviewed severe emphysema incentive spirometry while awake. steroids initiated Rocephin allergic to PCN supplemental oxygen therapy to maintain oxygen 92%/Wears 3L at home on Bipap wean to 3 L Follow-up with customs brokerage agent as outpatient 11/15/2023 Back to [facility] continue with current treatment 11/16/23: No change in treatment (3) Renal calculus, left: Code(s): N20.0 - Calculus of kidney Status: Acute Assessment and Plan: Plan for Staged left stent exchange Increased SOB pre-op sent to ER and admitted for respiratory distress Urology consulted (Dr. Puentes) NPO tonight IV fluids can hopefully have procedure tomorrow if respiratory status has improved 11/15/2023 Stent exchange 11/15/23 tolerated well but unable to perform stent exchange due to indwelling stone shows incrustation on the bladder coil Plan O/P procedure with urology keep overnight to monitor respiratory status (4) Acute UTI: Code(s): N39.0 - Urinary tract infection, site not specified Status: Acute Assessment and Plan: Rociphen IV pending cultures Proteus mirabilis lst UA Plan Code status: Full code per patient DVT prophylaxis: Eliquis on hold for procedure Stress ulcer prophylaxis: Protonix 40 daily PT/OT notes: Ambulatory Disposition: Patient continues admission the medical unit for COPD exacerbation still with SOB and anxiety about respiratory status will continue current treatment was told she was had Pneumonia updated her on her current findings ABX for UTI pending cultures Time Spent With Patient Time with patient: 15 - 25 minutes Subjective Date/time seen: 11/16/23 11:50 Interval history: Patient is a 73-year-old female who presented to the emergency department with complaints of shortness of breath that started that morning. Patient was in the preoperative area at [place] for a planned left ureter stent exchange when patient started having worsening respiratory distress admitted to IMU for acute respiratory failure with hypercapnia with COPD exacerbation. 11/16/23: Patient still very anxious and states she has SOB does not feel at baseline she reported she is afraid to go home due to her respiratory status. Patient denied any fever, chills, pain, or CP. Review of Systems Review of Systems: All systems reviewed & are unremarkable except as noted in HPI and below Exam Narrative: Physical Exam: GENERAL: pleasant anxious, Alert and oriented x 3 female. On Bipap HEENT: Moist mucous membranes. LUNGS: Diminished to auscultation bilaterally. USE of accessory muscle use, tachypnea CARDIOVASCULAR: Regular rate and rhythm. No murmur. ABDOMEN: Soft, non tenderness and non-distended. EXTREMITIES: No edema. Non-tender SKIN: No rashes or lesions. Skin warm, dry. NEUROLOGIC: No focal neurological deficits. PSYCHIATRIC: Appropriate mood and affect. Good judgement and insight. Objective Data Vital Signs Vital Signs: Vital Signs - 24 hr
[2023-11-16] MEDS: SERTRALINE HCL 25 MG TABLET PO (18:04)
[2023-11-16] MEDS: ACETAMINOPHEN 325 MG TABLET 650 MG PO (21:00)
[2023-11-17] VITALS (17 sets, daily range): BP systolic 106–120; BP diastolic 62–77; PULSE 73–86; RESP 16–22; TEMP 36.6–36.8; O2SAT 95–100
[2023-11-17] MEDS: methylPREDNISolone SOD SUCC 125 MG VIAL 60 MG IV PUSH ×4 (00:33→17:50)
[2023-11-17] MEDS: ALBUTEROL SULFATE (*SP) AEROSOL 1 PUFF 2 PUFF INHALATION (01:56)
--- NOTE | 2023-11-17 02:25 | PCRCNOTE ---
Pt refused her 0200 nebulizer treatment. She stated she wanted the prn albuterol inhaler instead. RT gave patient 2 puffs of Albuterol inhaler.
[2023-11-17 05:48] LABS: Basophils Percent Auto 0.1 % (0.2-1.2); Hematocrit 32.4 % (37.0-47.0); Hemoglobin 9.8 g/dL (12.0-15.0); Immature Granulocyte Absolute 0.16 K/mm3 (0.00-0.031); Immature Granulocyte Percent A 1.1 % (0-0.5); Lymphocytes Absolute Auto 0.19 K/mm3 (0.9-3.2); Lymphocytes Percent Auto 1.3 % (18.3-44.2); Mean Corpuscular HGB Conc 30.2 g/dl (32-36); Mean Corpuscular Hemoglobin 28.3 pg (26-34); Mean Corpuscular Volume 93.6 fl (80-100); Mean Platelet Volume 9.1 fl (7.4-10.4); Monocytes Absolute Auto 0.3 K/mm3 (0.1-0.6); Monocytes Percent Auto 1.9 % (2.6-8.5); Neutrophils Absolute Auto 13.5 K/mm3 (1.3-6.7); Neutrophils Percent Auto 95.6 % (45.5-73.1); Platelet Count Result 466 k/mm3 (150-375); Red Blood Count 3.46 M/mm3 (4.2-5.4); Red Cell Distribution Width 15.5 % (11.5-14.5); White Blood Count 14.2 K/mm3 (4.5-10.0)
[2023-11-17 06:06] LABS: Albumin Level 3.4 g/dL (3.5-5.1); Alkaline Phosphatase 89 U/L (38-126); Anion Gap 6 mmol/L (4-12); Aspartate Amino Transferase 26 U/L (14-36); Bilirubin,Total 0.2 mg/dL (0.2-1.3); Blood Urea Nitrogen 29 mg/dL (7-17); Calcium 8.2 mg/dL (8.4-10.2); Carbon Dioxide 30 mmol/L (22-30); Chloride 103 mmol/L (98-107); Estimated CRCL calculation 42 ml/min; Estimated Glomerular Filt Rate 55; Glucose 192 mg/dL (65-110); Potassium 3.9 mmol/L (3.4-5.0); Sodium 139 mmol/L (137-145)
[2023-11-17 06:16] LABS: Alanine Aminotransferase 20 U/L (6-35)
[2023-11-17] MEDS: ALBUTEROL SULFATE NEB 2.5 MG/3 ML INH INHALATION ×3 (07:33→20:58)
[2023-11-17] MEDS: UMECLIDINIUM/VILANTEROL 62.5-25 MCG ELLIPTA 1 PUFF INHALATION (07:33)
[2023-11-17] MEDS: LORazepam INJ (*CRX) 2 MG/ML VIAL 0.5 MG IV PUSH (08:25)
[2023-11-17] MEDS: FERROUS SULFATE 325 MG TABLET DR BY MOUTH (11:31)
[2023-11-17] MEDS: AMIODARONE HCL 100 MG TABLET PO (11:32)
[2023-11-17] MEDS: ASCORBIC ACID 500 MG TABLET PO (11:33)
[2023-11-17] MEDS: SPIRONOLACTONE 25 MG TABLET PO (11:33)
[2023-11-17] MEDS: FUROSEMIDE 20 MG TABLET PO (11:35)
--- NOTE | 2023-11-17 13:23 | P.PNIM_ITS ---
Progress Note: A&P Assessment and Plan (1) Acute and chronic respiratory failure with hypercapnia: Code(s): J96.22 - Acute and chronic respiratory failure with hypercapnia Status: Acute Assessment and Plan: * secondary to COPD and possible anxiety over surgery scheduled * Currently on Bipap improving * ABG PGH 7.322/PO2 192.1/pCO2 53.9 wean as tolerated * Chronic hypoxia on 3 L at home * previous smoker * DuoNebs * steroids * CXR with Small pleural effusion/ severe emphysema * ABG @ 1600 * Ativan PRN for anxiety * will start on low dose sertraline 11/15/23: * F/U ABG WNL * Weaned from Bipap * Back to her 3.5 L Baseline 11/16/23: * on 3 L NC * still SOB and anxious 11/17/2023 * Patient placed back on bipap for anxiety respiratory distress * Ativan IV * Will provided PO Xanax PRN at discharge for he panic attacks (2) COPD exacerbation: Code(s): J44.1 - Chronic obstructive pulmonary disease with (acute) exacerbation Status: Acute Assessment and Plan: * Bronchodilators. * Chest x-ray reviewed severe emphysema * incentive spirometry while awake. * steroids initiated * Rocephin allergic to PCN * supplemental oxygen therapy to maintain oxygen 92%/Wears 3L at home * on Bipap wean to 3 L * Follow-up with solar sales assessor as outpatient 11/15/2023 * Back to [facility] * continue with current treatment 11/16/23: * No change in treatment (3) Renal calculus, left: Code(s): N20.0 - Calculus of kidney Status: Acute Assessment and Plan: * Plan for Staged left stent exchange * Increased SOB pre-op sent to ER and admitted for respiratory distress * Urology consulted (Dr. Puentes) * NPO tonight * IV fluids * can hopefully have procedure tomorrow if respiratory status has improved 11/15/2023 * Stent exchange 11/15/23 tolerated well but unable to perform stent exchange due to indwelling stone shows incrustation on the bladder coil * Plan O/P procedure with urology * keep overnight to monitor respiratory status (4) Acute UTI: Code(s): N39.0 - Urinary tract infection, site not specified Status: Acute Assessment and Plan: RULED OUT * Rociphen IV pending cultures * Proteus mirabilis lst UA Plan Code status: Full code per patient DVT prophylaxis: Eliquis on hold for procedure Stress ulcer prophylaxis: Protonix 40 daily PT/OT notes: Ambulatory Disposition: Patient continues admission the medical unit for COPD exacerbation still with SOB and anxiety about respiratory status will continue current treatment, UA negative for UTI still having episodes of anxiety and respiratory distress. updated at bedside with discharge plans. Time Spent With Patient Time with patient: 15 - 25 minutes Subjective Date/time seen: 11/17/23 13:23 Interval history: Patient is a 73-year-old female who presented to the emergency department with complaints of shortness of breath that started that morning. Patient was in the preoperative area at [place] for a planned left ureter stent exchange when patient started having worsening r
--- NOTE | 2023-11-17 13:23 | PM.IMPN ---
Progress Note: A&P Assessment and Plan (1) Acute and chronic respiratory failure with hypercapnia: Code(s): J96.22 - Acute and chronic respiratory failure with hypercapnia Status: Acute Assessment and Plan: secondary to COPD and possible anxiety over surgery scheduled Currently on Bipap improving ABG PGH 7.322/PO2 192.1/pCO2 53.9 wean as tolerated Chronic hypoxia on 3 L at home previous smoker DuoNebs steroids CXR with Small pleural effusion/ severe emphysema ABG @ 1600 Ativan PRN for anxiety will start on low dose sertraline 11/15/23: F/U ABG WNL Weaned from Bipap Back to her 3.5 L Baseline 11/16/23: on 3 L NC still SOB and anxious 11/17/2023 Patient placed back on bipap for anxiety respiratory distress Ativan IV Will provided PO Xanax PRN at discharge for he panic attacks (2) COPD exacerbation: Code(s): J44.1 - Chronic obstructive pulmonary disease with (acute) exacerbation Status: Acute Assessment and Plan: Bronchodilators. Chest x-ray reviewed severe emphysema incentive spirometry while awake. steroids initiated Rocephin allergic to PCN supplemental oxygen therapy to maintain oxygen 92%/Wears 3L at home on Bipap wean to 3 L Follow-up with insulation power unit tender as outpatient 11/15/2023 Back to [facility] [place] continue with current treatment 11/16/23: No change in treatment (3) Renal calculus, left: Code(s): N20.0 - Calculus of kidney Status: Acute Assessment and Plan: Plan for Staged left stent exchange Increased SOB pre-op sent to ER and admitted for respiratory distress Urology consulted (Dr. Puentes) NPO tonight IV fluids can hopefully have procedure tomorrow if respiratory status has improved 11/15/2023 Stent exchange 11/15/23 tolerated well but unable to perform stent exchange due to indwelling stone shows incrustation on the bladder coil Plan O/P procedure with urology keep overnight to monitor respiratory status (4) Acute UTI: Code(s): N39.0 - Urinary tract infection, site not specified Status: Acute Assessment and Plan: RULED OUT Rociphen IV pending cultures Proteus mirabilis lst UA Plan Code status: Full code per patient DVT prophylaxis: Eliquis on hold for procedure Stress ulcer prophylaxis: Protonix 40 daily PT/OT notes: Ambulatory Disposition: Patient continues admission the medical unit for COPD exacerbation still with SOB and anxiety about respiratory status will continue current treatment, UA negative for UTI still having episodes of anxiety and respiratory distress. updated at bedside with discharge plans. Time Spent With Patient Time with patient: 15 - 25 minutes Subjective Date/time seen: 11/17/23 13:23 Interval history: Patient is a 73-year-old female who presented to the emergency department with complaints of shortness of breath that started that morning. Patient was in the preoperative area at [place] for a planned left ureter stent exchange when patient started having worsening respiratory distress admitted to IMU for acute respiratory failure with hypercapnia with COPD exacerbation. 11/17/23: Patient with another episode of axniety, SOB with tachypnea, and use of accessory muscle. Patient states she is scared to go home. Patient stated symptoms improved with Ativan and Bipap. Review of Systems Review of Systems: All systems reviewed & are unremarkable except as noted in HPI and below Exam Narrative: Physical Exam: GENERAL: pleasant anxious, Alert and oriented x 3 female. On Bipap HEENT: Moist mucous membranes. LUNGS: Diminished to auscultation bilaterally. USE of accessory muscle use, tachypnea CARDIOVASCULAR: Regular rate and rhythm. No murmur. ABDOMEN: Soft, non tenderness and non-distended. EXTREMITIES: No edema. Non-tender SKIN: No rashes or lesions. Skin warm, dry.
[2023-11-17] MEDS: SERTRALINE HCL 25 MG TABLET PO (17:49)
[2023-11-17] MEDS: ACETAMINOPHEN 325 MG TABLET 650 MG PO (20:48)
[2023-11-18] VITALS (7 sets, daily range): BP systolic 106–119; BP diastolic 64–70; PULSE 72–81; RESP 16–20; TEMP 36.7–36.8; O2SAT 98–99
[2023-11-18] MEDS: methylPREDNISolone SOD SUCC 125 MG VIAL 60 MG IV PUSH ×2 (00:55→06:34)
[2023-11-18] MEDS: ALBUTEROL SULFATE NEB 2.5 MG/3 ML INH INHALATION (02:35)
[2023-11-18 05:47] LABS: Basophils Percent Auto 0.2 % (0.2-1.2); Hematocrit 34.1 % (37.0-47.0); Hemoglobin 10.4 g/dL (12.0-15.0); Immature Granulocyte Percent A 1.5 % (0-0.5); Lymphocytes Absolute Auto 0.22 K/mm3 (0.9-3.2); Lymphocytes Percent Auto 1.6 % (18.3-44.2); Mean Corpuscular HGB Conc 30.5 g/dl (32-36); Mean Corpuscular Hemoglobin 28.7 pg (26-34); Mean Corpuscular Volume 93.9 fl (80-100); Mean Platelet Volume 9.2 fl (7.4-10.4); Monocytes Absolute Auto 0.3 K/mm3 (0.1-0.6); Monocytes Percent Auto 2.5 % (2.6-8.5); Neutrophils Absolute Auto 12.7 K/mm3 (1.3-6.7); Neutrophils Percent Auto 94.2 % (45.5-73.1); Nucleated Red Blood Cells Perc 0.3 % (0.0-0.2); Platelet Count Result 466 k/mm3 (150-375); Red Blood Count 3.63 M/mm3 (4.2-5.4); Red Cell Distribution Width 15.5 % (11.5-14.5); White Blood Count 13.5 K/mm3 (4.5-10.0)
[2023-11-18 05:54] LABS: Alanine Aminotransferase 19 U/L (6-35); Albumin Level 3.4 g/dL (3.5-5.1); Alkaline Phosphatase 88 U/L (38-126); Anion Gap 6 mmol/L (4-12); Aspartate Amino Transferase 27 U/L (14-36); Bilirubin,Total 0.2 mg/dL (0.2-1.3); Blood Urea Nitrogen 31 mg/dL (7-17); Calcium 8.1 mg/dL (8.4-10.2); Carbon Dioxide 32 mmol/L (22-30); Chloride 101 mmol/L (98-107); Estimated CRCL calculation 46 ml/min; Estimated Glomerular Filt Rate > 60; Glucose 153 mg/dL (65-110); Potassium 4.1 mmol/L (3.4-5.0); Sodium 139 mmol/L (137-145)
[2023-11-18] MEDS: FERROUS SULFATE 325 MG TABLET DR BY MOUTH (08:46)
[2023-11-18] MEDS: ASCORBIC ACID 500 MG TABLET PO (08:46)
[2023-11-18] MEDS: AMIODARONE HCL 100 MG TABLET PO (08:46)
[2023-11-18] MEDS: SPIRONOLACTONE 25 MG TABLET PO (08:46)
[2023-11-18] MEDS: FUROSEMIDE 20 MG TABLET PO (08:47)
--- NOTE | 2023-11-18 12:26 | PM.DS ---
DS: Admitting Diagnosis Discharge Date 11/18/2023 Admitting Diagnosis Acute respiratory failure with hypoxia secondary to COPD exacerbation DS: Discharge Diagnosis Discharge Diagnosis (1) Acute and chronic respiratory failure with hypercapnia: Code(s): J96.22 - Acute and chronic respiratory failure with hypercapnia Status: Acute (2) COPD exacerbation: Code(s): J44.1 - Chronic obstructive pulmonary disease with (acute) exacerbation Status: Acute (3) Renal calculus, left: Code(s): N20.0 - Calculus of kidney Status: Acute (4) Acute UTI: Code(s): N39.0 - Urinary tract infection, site not specified Status: Acute Plan Disposition: Patient was discharged home with plan for follow-up with chemical lab technician outpatient as well as Urology DS: Summary Hospital Course Reason for hospitalization: Acute respiratory failure with hypoxia secondary to COPD exacerbation an anxiety attack Hospital Course: Patient was a 73-year-old female who presented to the emergency department with complaints of shortness of breath that started that morning. Patient was in the preoperative area at [place] for a planned left ureter stent exchange when patient started having worsening respiratory distress. Patient was sent to the emergency department for further evaluation. Patient does have a past medical history of COPD, AFib, PE, chronic respiratory failure on home oxygen, and bilateral renal stones. upon arrival to the emergency room patient was immediately placed on BiPAP with ABG showing acute respiratory failure with hypercapnia. Patient did report she was extremely anxious about upcoming procedure because she has had difficulty with intubations in past, patient given ativan and admitted to the IMU. Patient's respiratory status did improve while on BiPAP and she was able to go for ureter stent exchange however following day she continued to have shortness of breath, anxiety and was placed back on the BiPAP due to work of breathing. Initiated patient on azithromycin and steroids as well as starting some sertraline for her anxiety p.r.n. Ativan which she had some improvement. Patient remained BiPAP for 24 hours in weaned to her 3.5 L supplemental oxygen. Ureter stent exchange was unsuccessful due to encrustation of stone patient will need follow-up outpatient with Urology. Patient's UA was needed for UTI. Patient is discharged home with send in prescription for sertraline as well as p.r.n. Xanax for anxiety attacks will need to follow up with primary care physician as well as chemical lab technician patient gets extremely anxious with any procedures with there is a need for intubation. Urology as scheduling patient for outpatient follow-up procedure. Status at Discharge Functional status at discharge: independent ambulation Overall status at discharge: patient is back to baseline Time Spent with Patient Time attestation: Total time spent providing and/or coordinating discharge services: Time spent: Greater than 30 minutes Exam Narrative: Physical Exam: GENERAL: pleasant anxious, Alert and oriented x 3 female. On Bipap HEENT: Moist mucous membranes. LUNGS: Diminished to auscultation bilaterally. CARDIOVASCULAR: Regular rate and rhythm. No murmur. ABDOMEN: Soft, non tenderness and non-distended. EXTREMITIES: No edema. Non-tender SKIN: No rashes or lesions. Skin warm, dry. NEUROLOGIC: No focal neurological deficits. PSYCHIATRIC: Appropriate mood and affect. Good judgement and insight. DS: Data Data Completed and Pending Labs on day of discharge: Labs from last 24 hours 11/18/23 04:59 WBC 13.5 H RBC 3.63 L Hgb 10.4 L Hct 34.1 L MCV 93.9 MCH 28.7 MCHC 30.5 L RDW 15.5 H Plt Count 466 H MPV 9.2 Immature Gran % (Auto) 1.5 H Neut % (Auto) 94.2 H Lymph % (Auto) 1.6 L [place] % (Auto) 2.5 L Eos % (Auto) 0.0 Baso % (Auto) 0.2 Lym
--- NOTE | 2023-11-20 06:40 | WPDHPUPDATE1 ---
History and Physical Update Update Date/Time: 11/20/23 06:40 History and Physical has been reviewed, including an updated exam of the patient. There are NO changes in the patient's condition. Risks, benefits, and alternatives have been discussed and questions answered. Patient agrees to proceed with procedure.
== END 2023-11-18 13:20 | disposition home or self-care (01) | DRG 189 ==
LOC: ANHED 06:59 → ANHIMU 09:24 → ANH2MED 11-15 16:26
PROVIDERS: Emergency Medicine; Urology; Admitting Provider Internal Medicine; Emergency Provider Emergency Medicine; PCP Family Medicine; Visit Provider Nurse Practitioner Family
PROC: 0TJB8ZZ Inspection of Bladder, Via Natural or Artificial Opening Endoscopic (ICD-10-PCS; CPT 52352; principal; 2023-11-15 12:30)
DX: J96.22 Acute and chronic respiratory failure with hypercapnia (principal); J44.1 Chronic obstructive pulmonary disease with (acute) exacerbation; N20.0 Calculus of kidney; M81.0 Age-related osteoporosis without current pathological fracture; I48.0 Paroxysmal atrial fibrillation; F41.9 Anxiety disorder, unspecified; R91.8 Other nonspecific abnormal finding of lung field; Z99.81 Dependence on supplemental oxygen; Z90.710 Acquired absence of both cervix and uterus; Z87.891 Personal history of nicotine dependence; Z90.722 Acquired absence of ovaries, bilateral; Z86.711 Personal history of pulmonary embolism
CPT/HCPCS: 36415; 36600; 71045; 80053; 81001; 82805; 82810; 83605; 83735; 85018; 85025; 87086; 93005; 94002; 94003; 94640; 96365; 96366; 96375; 99199; 99291; A9270; C1769; J0696; J2060; J2704; J2919; J3010; J3475; J7030; J7120

== ENCOUNTER 2023-11-25 10:27 | Outpatient (CLI) | payer MEDICARE, SELFPAY ==
--- NOTE | 2023-11-25 10:33 | ECG_ITS ---
Test Date: 2023-11-25 10:53:06 Measurements Intervals [place] Rate: 71 P: 91 [place]: 127 QRS: 34 QRSD: 97 T: 182 QT: 445 QTc: 484 Interpretive Statements SINUS RHYTHM ST DEVIATION AND MARKED T-WAVE ABNORMALITY, CONSIDER ANTEROLATERAL ISCHEMIA [-0.5+ mV T WAVE IN I/aVL/V3-V6] ST DEVIATION AND MODERATE T-WAVE ABNORMALITY, CONSIDER ANTERIOR ISCHEMIA [-0.1+ mV T WAVE IN II/aVF] ABNORMAL ECG Compared to ECG 11/14/2023 06:55:18 SINUS RHYTHM REPLACES ATRIAL FIBRILLATION ANTERIOR T-WAVE INVERSION IS PRESENT Electronically Signed On 11-25-2023 14:40:14 CDT by Hipolito Cash M.D.
[2023-11-25 11:16] LABS: Prothrombin Time 13.8 Seconds (11.1-14.7)
[2023-11-25 11:17] LABS: Partial Thromboplastin Time 22.7 Seconds (22.3-36.8)
== END 2023-11-25 10:28 | disposition home or self-care (01) ==
LOC: ANHSURGERY 10:31
PROVIDERS: PCP Family Medicine; Visit Provider Urology
DX: N20.1 Calculus of ureter (principal); N20.0 Calculus of kidney; I48.0 Paroxysmal atrial fibrillation; R94.31 Abnormal electrocardiogram [ECG] [EKG]; Z01.818 Encounter for other preprocedural examination
CPT/HCPCS: 36415; 85610; 85730; 87086; 93005

== ENCOUNTER 2023-11-29 03:48 | Day surgery (SDC) | payer MEDICARE, SELFPAY ==
[2023-11-22 10:53] VITALS: BMI 18.8
--- NOTE | 2023-11-22 11:16 | PC.NURSE ---
Report to the Outpatient Waiting Room, entrance under the green pavilion located off [facility], at time _07:30am____on date _11/29/23 . Planned Procedure Time: ___09:30am .? Time changes happen often and if your time is changed the preop area will call you the afternoon before. - You and your visitor will be asked to self-screen and do not enter if you have any COVID symptoms. Please call surgeon if you need to reschedule. - A mask is optional within the hospital at this time. Patients may have clear liquids (water, carbonated beverages, clear teas, apple juice) until 3 hours prior to surgery with a maximum of 20 ounces. - No food from midnight until time of surgery and no smoking (6:30) Take only the following medications with a SIP of water on the morning of surgery: __Amiodarone, Xanax if needed, Albuteral and Inhalers as needed DO NOT STOP ANY OF YOUR OTHER PRESCRIPTION MEDICATIONS PRIOR TO SURGERY EXCEPT THE FOLLOWING Medications to discontinue per physician Eliquis per Dr Puentes instructions - pt to call today Pt to stop Vitamins 3 days prior per Anesthesia. Date to take last dose__11/25/23 Please no make-up, nail honduran, hairspray, perfume, deodorant, or body powder the day of surgery.? No jewelry (including any body piercings) or valuables the day of surgery, leave them at home.? Please take a shower or bath the night before, or the morning of, surgery with an antibacterial soap.? Wear comfortable, loose fitting clothing.? - Jewelry must be removed prior to entering the operating room.? Rings and piercings that are not removed may be cut off. - The hospital will not accept responsibility for valuables.? - Please leave all valuables, including medications, at home the day of surgery. If you are going home after surgery, a licensed truck driver instructor must drive you home.? - NO public transportation without another adult if you receive anesthesia. - We recommend that an adult stay with you for 24 hours following discharge. - We also recommend that you do not drive, make important decision, drink alcoholic beverages, or take any drugs that were not prescribed by your health care provider for at least 24 hours after your discharge time. Follow any additional instructions given to you from your surgeon. Telephone instructions given to ___patient and asked if any additional questions and then verbalized understanding. Patient advised to call surgeon office or pre surgery nurse liaison [phone] if any additional questions.
--- NOTE | 2023-11-27 07:07 | PM.HPGS ---
History of Present Illness History of Present Illness Consent: Risks, benefits, and alternatives have been discussed and questions answered. Patient agrees to proceed with procedure. Chief complaint: retained and encrusted left ureteral stent Narrative: Alexus Zambrano is a 73 year old female With severe respiratory disease who is status post percutaneous nephrolithotomy at [facility] in the past. She presented here recently with a recurrent staghorn calculus in her left kidney. It was recommended she go back to her urologist at [facility] but she is unable to do that for various reasons. She has opted instead, to manage this with periodic stent changes. This can be challenging and time as her stents become encrusted quickly. Review of Systems Cardiovascular: Cardiovascular: Denies chest pain, Denies lightheadedness, Denies palpitations and Denies dyspnea Respiratory: Respiratory: Denies dyspnea Gastrointestinal: Gastrointestinal: Denies diarrhea, Denies nausea and Denies vomiting Genitourinary: Genitourinary: Denies hematuria and Denies dysuria Endocrine: Endocrine: Denies palpitations PMFSH Past Medical History Medical History Bladder stone Chronic respiratory failure COPD (chronic obstructive pulmonary disease) Emphysema lung History of kidney stones with extraction History of pulmonary embolism History of tobacco abuse Multiple nodules of lung On home O2 Osteoporosis Paroxysmal A-fib Renal calculus, left Snoring Spontaneous pneumothorax x3 Surgical History Surgical History History of adenoidectomy History of breast biopsy History of hysterectomy with bilateral oophorectomy History of tonsillectomy Hx of fracture of wrist s/p L ORIF S/P IVC filter Family History Family History Father Patient's father is Sibling Family history of malignant neoplasm of breast Mother Diabetes mellitus Family history of congestive heart failure Sibling Family history of malignant neoplasm of breast Sibling Family history of malignant neoplasm of breast Social History Social History Smoking packs per day: 0.5 Smoking cigarettes per day: 10.0 Years smoked: 28 Smoking pack-years: 14.00 Smoking status: Former smoker Tobacco type: cigarettes Second hand tobacco smoke exposure: No Smoking end date: 02/18/97 Alcohol intake: never Substance use: never Substance use type: does not use Do You Feel Safe in your Home?: Yes Lack of Transportation: No Lack of Food: Never True Current Housing: I Have Housing Concerned About Future Housing: No Difficulty Paying Gas/Electric Bills: No Difficulty Paying for Meds: No Currently Unemployed: No Education: Trade/Vocational Certificate Difficulty w/ Childcare or Family Care: No Living arrangements: with family Additional living arrangements comments: Occupation/Education: other Gender identity (if verbalized by the patient): Female Spiritual care concerns: No Meds Home Medications and Allergies Home Medications Medication Instructions Recorded Confirmed Type amiodarone 200 mg tablet 100 mg PO DAILY 01/26/22 11/22/23 History apixaban 2.5 mg tablet (Eliquis) 2.5 mg PO Q12HR #60 tabs 08/26/22 11/22/23 Rx furosemide 20 mg tablet 20 mg PO DAILY #30 tabs 08/26/22 11/22/23 Rx spironolactone 25 mg tablet 25 mg PO DAILY #30 tabs 08/26/22 11/22/23 Rx ascorbic acid (vitamin C) 500 mg 500 mg PO DAILY@0800 #90 tabs 09/24/22 11/22/23 Rx tablet (Vitamin C) albuterol sulfate 90 mcg/actuation 2 puff inhalation Q4-6H PRN 08/08/23 11/22/23 History aerosol inhaler Shortness Of Breath Or Wheezing ferrous sulfate 325 mg (65 mg 325 mg PO MARLENE
[2023-11-29] VITALS (9 sets, daily range): BP systolic 102–130; BP diastolic 62–80; PULSE 60–71; RESP 13–21; TEMP 36.2–37; O2SAT 98–100
--- NOTE | ~2023-11-29 | XR_ITS ---
Supine and upright views of the abdomen Clinical history: Lithotripsy Findings: Bowel gas pattern is nonspecific. No evidence for obstruction or free air. Left ureteral st ent in place. Multiple large left renal stones are present, measuring up to 2 cm in diameter, probabl y at the left mid pole, lower pole and possibly left renal pelvis or proximal ureter. There is a susp ected 9 mm stone at the mid to distal left ureter along the course of the stent. No definite right re nal stone seen. IVC filter present. Osseous structures are intact. Impression: Multiple large left renal stones with left ureteral stent in place. Probable 9 mm stone at the mid to distal left ureter along the course of the stent. Reviewed, dictated and finalized at location M. Impression: Multiple large left renal stones with left ureteral stent in place. Probable 9 mm stone at the mid to distal left ureter along the course of the st ent.
--- NOTE | 2023-11-29 06:33 | WPDHPUPDATE1 ---
History and Physical Update Update Date/Time: 11/29/23 06:33 History and Physical has been reviewed, including an updated exam of the patient. There are NO changes in the patient's condition. Risks, benefits, and alternatives have been discussed and questions answered. Patient agrees to proceed with procedure.
[2023-11-29] MEDS: LACTATED RINGERS 1,000 ML 30 ML IV CONT (07:50)
--- NOTE | 2023-11-29 08:11 | WPDANESEPPF ---
Anes - Initial Pre Proc Eval Procedure: Operation Date: 11/29/23 09:30 Proposed Procedures p Left Extracorporeal Shock Wave Lithotripsy, - Sage Puentes MD s Cystoscopy, Left Ureteral Stent Exchange - Sage Puentes MD Date/Time: 11/29/23 08:11 Surgeon: Sage Puentes MD Pre Op Diagnosis: retained and encrusted left ureteral stent Patient Data Age: 73 Gender: F Height: 1.68 m Weight: 52.8 kg Last Vital Signs Temp 36.7 C 11/29/23 08:04 Pulse 71 11/29/23 08:04 Resp 20 11/29/23 08:04 BP 110/62 11/29/23 08:04 Pulse Ox 98 11/29/23 08:04 O2 Del Method Room Air 11/29/23 08:04 Allergies Allergy/AdvReac Type Severity Reaction Status Date / Time codeine Allergy Intermediate Anaphylactic Verified 11/29/23 07:38 Shock erythromycin base Allergy Mild HIVES AND Verified 11/29/23 07:38 EDEMA Penicillins Allergy Mild EDEMA & Verified 11/29/23 07:38 HIVES Sulfa (Sulfonamide Allergy Mild HIVES AND Verified 11/29/23 07:38 Antibiotics) EDEMA ampicillin Allergy Unknown RASH Verified 11/29/23 07:38 Home Medications Medication Instructions Recorded Confirmed Type amiodarone 200 mg tablet 100 mg PO DAILY 01/26/22 11/29/23 History apixaban 2.5 mg tablet (Eliquis) 2.5 mg PO Q12HR #60 tabs 08/26/22 11/29/23 Rx furosemide 20 mg tablet 20 mg PO DAILY #30 tabs 08/26/22 11/29/23 Rx spironolactone 25 mg tablet 25 mg PO DAILY #30 tabs 08/26/22 11/29/23 Rx ascorbic acid (vitamin C) 500 mg 500 mg PO DAILY@0800 #90 tabs 09/24/22 11/29/23 Rx tablet (Vitamin C) albuterol sulfate 90 mcg/actuation 2 puff inhalation Q4-6H PRN 08/08/23 11/29/23 History aerosol inhaler Shortness Of Breath Or Wheezing ferrous sulfate 325 mg (65 mg 325 mg PO DAILY@0800 #90 tabs 06/24/24 10/11/24 Rx iron) tablet umeclidinium 62.5 mcg-vilanterol 1 inh inhalation DAILY #60 ea 10/16/23 11/29/23 Rx 25 mcg/actuation powdr for inhalation (Anoro Ellipta) alprazolam 1 mg tablet (Xanax) 1 mg PO BID PRN anxiety #10 tabs 11/18/23 11/29/23 Rx sertraline 50 mg tablet (Zoloft) 25 mg PO QPM #30 tabs 11/18/23 11/29/23 Rx Patient hx anesthesia problems: none Family hx anesthesia problems: none Results Review: All pre-operative results and documents have been reviewed as part of the pre-operative evaluation. [facility] Past Medical History Medical History Bladder stone Chronic respiratory failure COPD (chronic obstructive pulmonary disease) Emphysema lung History of kidney stones with extraction History of pulmonary embolism History of tobacco abuse Multiple nodules of lung On home O2 Osteoporosis Paroxysmal A-fib Renal calculus, left Snoring Spontaneous pneumothorax x3 Surgical History Surgical History History of adenoidectomy History of breast biopsy History of hysterectomy with bilateral oophorectomy History of tonsillectomy Hx of fracture of wrist s/p L ORIF S/P IVC filter Family History Family History Father Patient's father is Sibling Family history of malignant neoplasm of breast Mother Diabetes mellitus Family history of congestive heart failure Sibling Family history of malignant neoplasm of breast Sibling Family history of malignant neoplasm of breast Social History Social History Smoking packs per day: 0.5 Smoking cigarettes per day: 10.0 Years smoked: 28 Smoking pack-years: 14.00 Smoking status: Former smoker Tobacco type: cigarettes Second hand tobacco smoke exposure: No Smoking end date: 02/18/97 Alcohol intake: never Substance use: never Substance use type: does not use Do You Feel Safe in your Home?: Yes Lack of Transportation: No Lack of Food: Never True Current Housing:
[2023-11-29] MEDS: ceFAZolin 2 GM/D5W 50 ML 2 GM/50 ML BAG IVPB (08:31)
--- NOTE | 2023-11-29 09:14 | W.PM.PROC2 ---
Procedure Note - Detailed Date of Procedure 11/29/23 Pre-op Diagnosis Retained and encrusted left ureteral stent Post-op Diagnosis Same Procedure Performed Cystoscopy, left ureteral stent exchange, left ESWL Surgeon Sage Puentes MD Anesthesia General Description of Procedure Patient is brought to the operative suite where she is prepped draped in usual routine sterile fashion while in a frog-leg position after the uneventful induction of a general LMA anesthetic. Cystoscopy was undertaken with a 16 F flexible cystoscope. There was incrustation of her bladder coil indwelling stent. We delivered 500 shocks to some incrustation on the proximal coil and then I was able to remove the stent. It was replaced with a 4.8 F variable length stent. The upper coil appeared to go into a middle pole calyx. The lower coil was in her bladder. Scopes wires removed and she was taken recovery room in good condition. We will plan to repeat this procedure in 3 months. Pathology Yes Complications No immediate complications Condition Stable
== END 2023-11-29 10:55 | disposition home or self-care (01) ==
PROVIDERS: PCP Family Medicine; Visit Provider Urology
PROC: (CPT 50590; principal; 2023-11-29 09:30)
PROC: (CPT 52352; 2023-11-29 09:30)
DX: T83.89XA Other specified complication of genitourinary prosthetic devices, implants and grafts, initial encounter (principal); N20.0 Calculus of kidney; Y83.8 Other surgical procedures as the cause of abnormal reaction of the patient, or of later complication, without mention of misadventure at the time of the procedure; J44.9 Chronic obstructive pulmonary disease, unspecified; J43.9 Emphysema, unspecified; I48.0 Paroxysmal atrial fibrillation; J96.10 Chronic respiratory failure, unspecified whether with hypoxia or hypercapnia; Z99.81 Dependence on supplemental oxygen; Z86.711 Personal history of pulmonary embolism; Z87.891 Personal history of nicotine dependence; Z79.01 Long term (current) use of anticoagulants; Z79.51 Long term (current) use of inhaled steroids
CPT/HCPCS: 52332; 50590; 74018; C1758; C1769; C2617; J0690; J1100; J2003; J2405; J2704; J3010; J7030; J7120

== ENCOUNTER 2023-12-10 11:22 | Outpatient (CLI) | payer MEDICARE, SELFPAY ==
--- NOTE | ~2023-12-10 | XR_ITS ---
XR abdomen/kub 1V Ordering provider: Sage Puentes MD History: . Calcium kidney stone F/U . Comparison: November 29, 2023 FINDINGS: BOWEL: Nonobstructive bowel gas pattern. ORGANOMEGALY: None. SIGNIFICANT PATHOLOGIC CALCIFICATIONS: Multiple left kidney stones with left double-J stent. No signi ficant change from previous examination. OTHER: IVC filter is noted. No free air is seen under the diaphragm. IMPRESSION: NO ACUTE ABDOMINAL FINDINGS. Left kidney stones with left double-J stent unchanged from previous examination Reviewed, dictated and finalized at location A.
== END 2023-12-10 11:23 | disposition home or self-care (01) ==
PROVIDERS: PCP Family Medicine; Visit Provider Urology
DX: N20.0 Calculus of kidney (principal)
CPT/HCPCS: 74018

== ENCOUNTER 2023-12-20 15:07 | Inpatient (IN) | payer MEDICARE, SELFPAY ==
[2023-12-20] VITALS (21 sets, daily range): BP systolic 125–155; BP diastolic 75–91; PULSE 86–112; RESP 18–27; TEMP 36.4–36.8; O2SAT 93–100; BMI 18.2
--- NOTE | ~2023-12-20 | CT_ITS ---
EXAMINATION: CT diagnostic chest w con DATE: 12/21/2023 14:21 INDICATION: Lung mass TECHNIQUE: Computed tomography (CT) of the chest was performed with 75 CC Omnipaque 350 intravenous c ontrast. Automated exposure control and iterative reconstruction technique were employed. Exam dose: 192.53 mGy-cm total exam DLP. COMPARISON: 12/20/2023 portable AP chest 08/20/2022 CT chest FINDINGS: Again noted is severe bullous emphysema and prominent fibrocalcific scarring in both upper lobes, right more prominent than left. No pulmonary infiltrate or consolidation or interval pulmonary mass lesion is noted. Normal heart size. No pericardial or pleural effusion. There is thoracic aortic and abdominal aortic calcification but no aneurysm or dissection. No hilar or mediastinal mass lesion or lymphadenopathy. Large concentrically calcified gallstone is noted in the dependent aspect of the gallbladder. No gall bladder wall thickening or pericholecystic fluid is evident. Normal splenic size. Normal morphology of the adrenal glands. Left internal urinary stent, numerous left renal and renal pelvic calcified calculi. IVC filter. No suspicious osteolytic or osteoblastic lesions. IMPRESSION: Severe bullous emphysema, with prominent fibrocalcific scarring in the upper lobes, righ t greater than left IVC filter Cholelithiasis Extensive left nephrolithiasis; left internal urinary stent Reviewed, dictated and finalized at [facility]. Reviewed, dictated and finalized at [facility]. IMPRESSION: Severe bullous emphysema, with prominent fibrocalcific scarring in the upper lobes, right greater than left IVC filter Cholelithiasis Extensive left nephrolithiasis; left internal urinary stent
--- NOTE | ~2023-12-20 | XR_ITS ---
XR chest 1V portable Ordering provider: Bettina Alvarez MD History: 73 years Female with . resp distress . Comparison: November 14, 2023 FINDINGS: MEDIASTINUM: The cardiac silhouette is not enlarged. LUNGS: Mass seen in the right upper lobe unchanged from previous examination. Emphysematous changes o f the lungs with emphysematous bulla in the right upper lobe. No pneumothorax. Prominent bronchovascu lar markings in the right lower lobe most likely due to atelectatic changes. Prominent bronchovascula r markings in the left upper lobe most likely due to atelectasis. Emphysematous bulla is highly sugge stive in the left lung base. OTHER: No free air under the diaphragm. IMPRESSION: Mass in the right upper lobe area unchanged. Otherwise, No significant change from previous examination. Reviewed, dictated and finalized at [facility].
--- NOTE | 2023-12-20 15:20 | ECG_ITS ---
Test Date: 2023-12-20 15:27:58 Measurements Intervals [place] Rate: 68 P: 99 [place]: 131 QRS: 34 QRSD: 94 T: 95 QT: 346 QTc: 370 Interpretive Statements SINUS RHYTHM ATRIAL PREMATURE COMPLEX INCOMPLETE RIGHT BUNDLE BRANCH BLOCK LEFT VENTRICULAR HYPERTROPHY AND ST-T CHANGE CANNOT R/O SEPTAL INFARCT, AGE INDETERMINATE ST-T WAVE ABNORMALITY IN ANTEROLATERAL LEADS- CONSIDER ISCHEMIA BASELINE ARTIFACT- I, II, III, AVR, AVL, AVF, V1-V6 ABNORMAL ECG Compared to ECG 11/25/2023 10:53:06 NO SIGNIFICANT CHANGE Electronically Signed On 12-20-2023 15:40:47 CDT by Jeffery Bernstein D.O.
[2023-12-20 15:52] LABS: Basophils Absolute Auto 0.1 K/mm3 (0.0-0.1); Basophils Percent Auto 1.4 % (0.2-1.2); Eosinophils Absolute Auto 0.3 K/mm3 (0-0.3); Eosinophils Percent Auto 3.7 % (0-4.4); Hematocrit 40.3 % (37.0-47.0); Hemoglobin 12.2 g/dL (12.0-15.0); Immature Granulocyte Absolute 0.07 K/mm3 (0.00-0.031); Immature Granulocyte Percent A 0.8 % (0-0.5); Lymphocytes Absolute Auto 1.29 K/mm3 (0.9-3.2); Lymphocytes Percent Auto 14.8 % (18.3-44.2); Mean Corpuscular HGB Conc 30.3 g/dl (32-36); Mean Corpuscular Hemoglobin 28.8 pg (26-34); Mean Corpuscular Volume 95.3 fl (80-100); Mean Platelet Volume 9.5 fl (7.4-10.4); Monocytes Absolute Auto 0.7 K/mm3 (0.1-0.6); Monocytes Percent Auto 7.5 % (2.6-8.5); Neutrophils Absolute Auto 6.2 K/mm3 (1.3-6.7); Neutrophils Percent Auto 71.8 % (45.5-73.1); Platelet Count Result 380 k/mm3 (150-375); Red Blood Count 4.23 M/mm3 (4.2-5.4); White Blood Count 8.7 K/mm3 (4.5-10.0)
[2023-12-20 16:05] LABS: Lactic Acid Reflex 1.3 mmol/L (0.7-2.0)
[2023-12-20 16:06] LABS: Alanine Aminotransferase 14 U/L (6-35); Albumin Level 4.3 g/dL (3.5-5.1); Alkaline Phosphatase 123 U/L (38-126); Anion Gap 9 mmol/L (4-12); Aspartate Amino Transferase 29 U/L (14-36); Bilirubin,Total 0.3 mg/dL (0.2-1.3); Blood Urea Nitrogen 32 mg/dL (7-17); Calcium 9.8 mg/dL (8.4-10.2); Carbon Dioxide 33 mmol/L (22-30); Chloride 99 mmol/L (98-107); Estimated CRCL calculation 42 ml/min; Estimated Glomerular Filt Rate 55; Glucose 135 mg/dL (65-110); Magnesium 3.1 mg/dL (1.6-2.3); Potassium 3.7 mmol/L (3.4-5.0); Sodium 141 mmol/L (137-145)
[2023-12-20 16:18] LABS: Troponin I < 0.012 ng/mL (0.000-0.034)
[2023-12-20 16:19] LABS: INR 1.2; Partial Thromboplastin Time 23.1 Seconds (22.3-36.8); Prothrombin Time 15.5 Seconds (11.1-14.7)
--- NOTE | 2023-12-20 16:28 | PC.NURSE ---
Pr voided per bedpan. Noted hematuria, pt reports recently had a stent placed in her kidney
--- NOTE | 2023-12-20 17:21 | ED.SOB ---
HPI - SOB/Dyspnea General Chief Complaint: Shortness of Breath/Dyspnea Stated Complaint: sob Time Seen by Provider: 12/20/23 17:15 Source: patient, EMS and RN notes reviewed Mode of arrival: EMS Limitations: no limitations History of Present Illness HPI Narrative: Patient presents in respiratory distress. She was tachypneic for EMS, SpO2 reportedly 94% on her baseline O2 3LPM via [place] which she is on for COPD. They gave her a DuoNeb and she briefly desaturated to the low 90s so they placed her on CPAP and her saturations were 100%. They also gave 2 Magnesium, Decadron 10. States she woke up at 3am short of breath. Usually if she sits in a recliner this helps although she denies any orthopnea particularly. She continued to be short of breath and she took 1/2 of a Zoloft at 7am. Denies lower extremity edema. Has never required intubation or BIPAP for COPD. She has been coughing recently but this is new, does not have a chronic cough with her COPD. No fevers, chest pain. 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 Non smoker. Related Data Home Medications Medication Instructions Recorded Confirmed amiodarone 200 mg tablet 100 mg PO DAILY 01/26/22 12/06/23 albuterol sulfate 90 mcg/actuation 2 puff inhalation Q4-6H PRN 08/08/23 12/06/23 aerosol inhaler Shortness Of Breath Or Wheezing Allergies Allergy/AdvReac Type Severity Reaction Status Date / Time codeine Allergy Intermediate Anaphylactic Verified 12/20/23 15:20 Shock erythromycin base Allergy Mild HIVES AND Verified 12/20/23 15:20 EDEMA Penicillins Allergy Mild EDEMA & Verified 12/20/23 15:20 HIVES Sulfa (Sulfonamide Allergy Mild HIVES AND Verified 12/20/23 15:20 Antibiotics) EDEMA ampicillin Allergy Unknown RASH Verified 12/20/23 15:20 [facility] Past Medical History Medical History (Updated 12/20/23 @ 20:54 by Bettina Alvarez MD) Bladder stone Chronic respiratory failure COPD (chronic obstructive pulmonary disease) Emphysema lung History of kidney stones with extraction History of pulmonary embolism History of tobacco abuse Multiple nodules of lung On home O2 3LPM baseline Osteoporosis Paroxysmal A-fib Renal calculus, left Snoring Spontaneous pneumothorax x3 Surgical History Surgical History History of adenoidectomy History of breast biopsy History of hysterectomy with bilateral oophorectomy History of tonsillectomy Hx of fracture of wrist s/p L ORIF S/P IVC filter Family History Family History Father Patient's father is Sibling Family history of malignant neoplasm of breast Mother Diabetes mellitus Family history of congestive heart failure Sibling Family history of malignant neoplasm of breast Sibling Family history of malignant neoplasm of breast Social History Social History Smoking packs per day: 0.5 Smoking cigarettes per day: 10.0 Years smoked: 28 Smoking pack-years: 14.00 Smoking status: Former smoker Tobacco type: cigarettes Second hand tobacco smoke exposure: No Smoking end date: 02/18/97 Alcohol intake: never Substance use: never Substance use type: does not use Do You Feel Safe in your Home?: Yes Lack of Transportation: No Lack of Food: Never True Current Housing: I Have Housing Concerned About Future Housing: No Difficulty Paying Gas/Electric Bills: No Difficulty Paying for Meds: No Currently Unemployed: No Education: Trade/Vocational Certificate Difficulty w/ Childcare or Family Care: No Living arrangements: with family Additional living arrangements comments: Occupation/Education: other Gender identity (if verbalized by the patient): Female Spiritual care concerns: No Exam Narrative: GENERAL: well-nourished, and in no acute distress. HEAD: Normocephalic, atraumatic. EYES: Non injected, non icteric ENT: Nares clear, no rhinorrhea or epistaxis. NECK: Supple. CHEST: Resting comfortably initially upon entering the room. Speaking in 5-6 word sentences on bipa with 99-100% SPO2. Poor air movement in the middle and at the bases bilaterally HEART: Tachycardic rate and rhythm. . ABDOMEN: Soft, nondistended. EXTREMITIES: Normal range of motion. No bilateral lower extremity edema. SKIN: Warm, dry, no rash. NEURO: No focal deficits. Alert and oriented x3. PSYCH: Normal mood and affect. Course Vital Signs Vital signs: Vital Signs Temperature 97.6 F 12/20/23 15:09 Pulse Rate 105 H 12/20/23 15:09 Respiratory Rate 24 H 12/20/23 15:09 Blood Pressure 155/89 H 12/20/23 15:09 Pulse Oximetry 100 12/20/23 15:09 Oxygen Delivery CPAP 12/20/23 15:09 Fraction of Inspired Oxygen 100 12/20/23 15:09 Temperature 98.2 F 12/20/23 17:00 Pulse Rate 107 H 12/20/23 19:33 Respiratory Rate 18 12/20/23 19:33 Blood Pressure 136/88 12/20/23 19:33 Pulse Oximetry 96 12/20/23 19:33 Oxygen Delivery BiPAP 12/20/23 18:40 Oxygen Flow Rate 50 12/20/23 15:52 Fraction of Inspired Oxygen 32 12/20/23 18:40 MDM - SOB/Dyspnea MDM Narrative Medical decision making narrative: Patient presents in respiratory distress. History of COPD on 3LPM baseline. DOes not typically have a cough but has been recently. No prior bipap or intubation. 94% on nasal cannula for EMS. They administered DuoNeb. She briefly desaturated so they placed on CPAP and administered magnesium and Decadron as well. In the ED she is afebrile with VS notable for mild hypertension, tachypnea, and mild tachycardia. Saturating appropriately on CPAP. Patient was transitioned from CPAP to BiPAP at 12/6 with a rate of 20 and FiO2 of 50%. Dimer within normal limits. Mild hypermagnesemia likely due to recent administration by EMS. ABG after a few hours on BIPAP (with FiO2 now downtitrated to 40%) with some mild CO2 retention but not significantly elevated. She is resting comfortably on BiPAP though air movement remains poor. BAP-65 Score for Acute Exacerbation of COPD (predicts mortality in acute COPD exacerbation) BUN >/=25 mg/dL (No 0, Yes +1): 1 AMS (No 0, Yes +1): 0 Pulse >/=109 beats/min (No 0, Yes +1): 0 Age, years: 41-64 versus >/= 65: 73yo Result: Class III, 2.2% in hospital mortality. 1.2% requiring intubation within 48 hours. Given patient had a change in their baseline cough, will add antibiotic along with rest of COPD management. Patient does have increased work of breathing with albuterol and does feel somewhat anxious so given a small dose of Ativan. Otherwise remains an appropriate BIPAP candidate at this time. DIscussed with [facility] Liss[facility]. Patient will be IMU admit given BIPAP. Differential Diagnosis Differential diagnosis: Likely acute exacerbation of chronic obstructive airways disease, congestive heart failure, community acquired pneumonia, pulmonary embolism and other (acute viral syndrome; PTX (patient has hx per review of EMR)) Lab Data Attestation: I reviewed the patient's lab results. Lab results narrative: thrombocytosis; mild hyperglycemia with no anion gap and no acidosis 12/20/23 15:45 12/20/23 15:45 Labs: Lab Results 12/20/23 12/20/23 12/20/23 Range/Units 15:45 17:34 18:13 WBC 8.7 (4.5-10.0) K/mm3 RBC 4.23 (4.2-5.4) M/mm3 Hgb 12.2 (12.0-15.0) g/dL Hct 40.3 (37.0-47.0) % MCV 95.3 (80-100) fl MCH 28.8 (26-34) pg MCHC 30.3 L (32-36) g/dl RDW 17.0 H (11.5-14.5) % Plt Count 380 H (150-375) k/mm3 MPV 9.5 (7.4-10.4) fl Immature Gran % (Auto) 0.8 H (0-0.5) % Neut % (Auto) 71.8 (45.5-73.1) % Lymph % (Auto) 14.8 L (18.3-44.2) % Metcalfe % (Auto) 7.5 (2.6-8.5) % Eos % (Auto) 3.7 (0-4.4) % Baso % (Auto) 1.4 H (0.2-1.2) % Lymph # (Auto) 1.29 (0.9-3.2) K/mm3 Metcalfe # (Auto) 0.7 H (0.1-0.6) K/mm3 Eos # (Auto) 0.3 (0-0.3) K/mm3 Baso # (Auto) 0.1 (0.0-0.1) K/mm3 Abs Immat Gran (auto) 0.07 H (0.00-0.031) K/mm3 Absolute Neuts (auto) 6.2 (1.3-6.7) K/mm3 Absolute Nucleated RBC 0.000 (0.0-0.012) K/mm3 Nucleated RBC % 0.0 (0.0-0.2) % PT 15.5 H (11.1-14.7) Seconds INR 1.2 APTT 23.1 (22.3-36.8) Seconds D-Dimer 0.40 (<0.48) ug/mL Expiratory Pressure 6 CMH2O Inspiratory Pressure 12 CMH2O Sodium 141 (137-145) mmol/L Potassium 3.7 (3.4-5.0) mmol/L Chloride 99 (98-107) mmol/L Carbon Dioxide 33 H (22-30) mmol/L Anion Gap 9 (4-12) mmol/L BUN 32 H (7-17) mg/dL Creatinine 1.00 (0.7-1.0) mg/dL Estim Creat Clear Calc 42 ml/min Estimated GFR 55 L (59 - ) Glucose 135 H (65-110) mg/dL Lactic Acid 1.3 (0.7-2.0) mmol/L Calcium 9.8 (8.4-10.2) mg/dL Magnesium 3.1 H (1.6-2.3) mg/dL Total Bilirubin 0.3 (0.2-1.3) mg/dL AST 29 (14-36) U/L ALT 14 (6-35) U/L Alkaline Phosphatase 123 (38-126) U/L Troponin I < 0.012 (0.000-0.034) ng/mL NT-Pro-B Natriuret Pep 267 H (19.9-100) pg/mL Total Protein 8.0 (6.3-8.2) g/dL Albumin 4.3 (3.5-5.1) g/dL Influenza A (RT-PCR) Negative (Negative) Influenza B (RT-PCR) Negative (Negative) RSV (RT-PCR) Negative (Negative) SARS-CoV-2 RNA (RT-PCR) Negative (Negative) ABG Data ABG results: 12/20/23 17:34 Puncture Site Right brachial ABG pH 7.376 ABG pCO2 50.3 H ABG pO2 126.0 H ABG PO2/FiO2 Ratio 3.15 ABG HCO3 28.8 H ABG O2 Saturation 98.4 ABG O2 Content 17.9 ABG Base Excess 2.8 A-a Gradient 101.4 Oxyhemoglobin 97.8 Total Hemoglobin 12.9 O2 Delivery Device Non-invasive vent O2 Liters/Min Not Reportable Vent Rate 20 FiO2 40 Attestation: I personally reviewed and interpreted this ABG as follows: Interpretation: Chronic primary resp acidosis with secondary metabolic alkalosis Imaging Data Radiologist's impression: Impressions Chest X-Ray 12/20/23 15:49 IMPRESSION: Mass in the right upper lobe area unchanged. Otherwise, No significant change from previous examination. ECG Data EKG #1: Attestation: I personally reviewed and interpreted this ECG as follows: ECG completion date: 12/20/23 ECG completion time: 15:27 Prior ECG tracings: available for review ( T-waves inversions were appreciated on EKG from 11/25/2023) Interpretation: normal sinus rhythm at a rate of 60 beats per minute however there is interference from aberrant beat. Pre populated algorithm suggests left ventricular hypertrophy but S wave depth in V1 + tallest R wave height in V5-6 is <35mm and R wave in lead I + S wave in lead III is <25mm. There are T-waves in V4, V5, and V6. Discharge Plan Discharge Clinical Impression: COPD exacerbation, Thrombocytosis, Hyperglycemia, Lung mass, Respiratory distress Patient Disposition: Still a Patient Condition: Serious
[2023-12-20 17:43] LABS: Alveolar/Arterial O2 Gradient 101.4 mmHg; Base Excess ABG 2.8 mEq/l (+/-2.0); Device NON-INVASIVE VENT; Fractional Inspired Oxygen 40 %; HCO3 ABG 28.8 mEq/l (22.0-26.0); Oxygen Content ABG 17.9 %vol (16.0-22.0); Oxygen Saturation ABG 98.4 % (95.0-100.0); Oxyhemoglobin 97.8 % THb (90.0-100.0); PCO2 ABG 50.3 mmHg (35.0-45.0); PO2 FiO2 Ratio Arterial Blood 3.15 %; Site Drawn RIGHT BRACHIAL; Total Hemoglobin 12.9 g/dL (12.0-18.0); pH ABG 7.376 (7.350-7.450)
[2023-12-20 17:44] LABS: Non-Invasive Expiratory Pressure 6 CMH2O; Non-Invasive Inspiratory Pressure 12 CMH2O; Non-Invasive Vent Rate 20 /MIN
[2023-12-20] MEDS: DOXYCYCLINE 100 MG/NS 100 ML 100 MG/100 ML BAG IVPB (18:08)
[2023-12-20] MEDS: ALBUTEROL SULFATE NEB 2.5 MG/3 ML INH 10 MG INHALATION (18:22)
[2023-12-20] MEDS: LORazepam INJ (*CRX) 2 MG/ML VIAL 0.5 MG IV PUSH (18:27)
[2023-12-20 18:40] LABS: NT Pro B Type Natriuretic Pept 267 pg/mL (19.9-100)
--- NOTE | 2023-12-20 18:53 | PM.IMHP ---
H&P: HPI History of Present Illness Date/Time: 12/20/23 18:53 Chief Complaint: Shortness of Breath Narrative: 73 y/o F presents here with shortness of breath with PMH of COPD, chronic respiratory failure, PE, osteoporosis, paroxysmal AFib, and spontaneous pneumothorax (x3). The patient presents here via EMS from home for further evaluation of shortness of breath and respiratory distress. Patient reports onset of shortness of breath yesterday and has been progressing since onset. Woke this morning with severe respiratory distress which prompted her to call 911. Upon EMS arrival the patient was 94% on room air. However given significant respiratory distress she was started on CPAP in route and administered a DuoNeb, magnesium 2 g, and Decadron 10 mg IVP. Post completion of the DuoNeb, the patient desaturated to 90%. CPAP was transition to BiPAP upon arrival and the patient arrived 100% on the CPAP. She is endorsing a cough, fever, and chills accompanying at the shortness of breath. Denies chest pain, palpitations, or dizziness. She is a former smoker. Denies sick contacts. No previous hx of diabetes. Initial VS at presentation: 97.6? F, HR 105, RR 24, 155/89, and 100% on CPAP. Now on BiPAP and maintaining 93%. ED workup showed: No leukocytosis, no anemia, INR 1.2, D-dimer negative, creatinine 1.0 and GFR 55, CO2 33, glucose 135, lactic 1.3, magnesium 3.1, and initial troponin negative. BNP 267 (normal for age). CXR showed mass in the right upper lobe area that is unchanged, otherwise no significant changes from previous examination. Review of Systems Review of Systems: All systems reviewed & are unremarkable except as noted in HPI and below [facility] Past Medical History Medical History Bladder stone Chronic respiratory failure COPD (chronic obstructive pulmonary disease) Emphysema lung History of kidney stones with extraction History of pulmonary embolism History of tobacco abuse Multiple nodules of lung On home O2 3LPM baseline Osteoporosis Paroxysmal A-fib Renal calculus, left Snoring Spontaneous pneumothorax x3 Surgical History Surgical History History of adenoidectomy History of breast biopsy History of hysterectomy with bilateral oophorectomy History of tonsillectomy Hx of fracture of wrist s/p L ORIF S/P IVC filter Family History Family History Father Patient's father is Sibling Family history of malignant neoplasm of breast Mother Diabetes mellitus Family history of congestive heart failure Sibling Family history of malignant neoplasm of breast Sibling Family history of malignant neoplasm of breast Social History Social History Smoking packs per day: 0.5 Smoking cigarettes per day: 10.0 Years smoked: 25 Smoking pack-years: 12.50 Smoking status: Former smoker Tobacco type: cigarettes Second hand tobacco smoke exposure: No Smoking end date: 02/18/97 Alcohol intake: never Substance use: never Substance use type: does not use Do You Feel Safe in your Home?: Yes Lack of Transportation: No Lack of Food: Never True Current Housing: I Have Housing Concerned About Future Housing: No Difficulty Paying Gas/Electric Bills: No Difficulty Paying for Meds: No Currently Unemployed: No Education: Trade/Vocational Certificate Difficulty w/ Childcare or Family Care: No Living arrangements: with family Additional living arrangements comments: Occupation/Education: other Gender identity (if verbalized by the patient): Female Spiritual care concerns: No Meds Home Medications and Allergies Home Medications Medication Instructions Recorded Confirmed Type amiodarone 200 mg tablet 100 mg PO DAILY 01/26/22 12/20/23 History apixaban 2.5 mg tablet (Eliquis) 2.5 mg PO Q12HR #60 tabs 08/26/22 12/20/23 Rx furosemide 20 mg tablet 20 mg PO DAILY #30 tabs 08/26/22 12/20/23 Rx spironolactone 25 mg tablet 25 mg PO DAILY #30 tabs 08/26/22 12/20/23 Rx ascorbic acid (vitamin C) 500 mg 500 mg PO DAILY@0800 #90 tabs 09/24/22 12/20/23 Rx tablet (Vitamin C) albuterol sulfate 90 mcg/actuation 2 puff inhalation Q4-6H PRN 08/08/23 12/20/23 History aerosol inhaler Shortness Of Breath Or Wheezing umeclidinium 62.5 mcg-vilanterol 1 inh inhalation DAILY #60 ea 10/16/23 12/20/23 Rx 25 mcg/actuation powdr for inhalation (Anoro Ellipta) sertraline 50 mg tablet (Zoloft) 25 mg PO BID #30 tabs 12/06/23 12/20/23 Rx ferrous sulfate 325 mg (65 mg 325 mg PO DAILY@0800 #90 tabs 12/19/23 12/20/23 Rx iron) tablet Allergies Allergy/AdvReac Type Severity Reaction Status Date / Time codeine Allergy Intermediate Anaphylactic Verified 12/20/23 22:42 Shock erythromycin base Allergy Mild HIVES AND Verified 12/20/23 22:42 EDEMA Penicillins Allergy Mild EDEMA & Verified 12/20/23 22:42 HIVES Sulfa (Sulfonamide Allergy Mild HIVES AND Verified 12/20/23 22:42 Antibiotics) EDEMA ampicillin Allergy Unknown RASH Verified 12/20/23 22:42 Vital Signs Vital Signs - 24 hr 12/20/23 15:09 12/20/23 15:27 12/20/23 15:52 Temperature 97.6 F Pulse Rate 105 H 99 Respiratory Rate 24 H 24 H Blood Pressure 155/89 H Pulse Oximetry 100 100 100 Oxygen Delivery CPAP BiPAP BiPAP Oxygen Flow Rate 50 Fraction of Inspired Oxygen 100 12/20/23 15:56 12/20/23 15:30 12/20/23 16:00 Temperature 97.9 F Pulse Rate 97 106 H 96 Respiratory Rate 24 H 24 H Blood Pressure 155/89 H 142/91 H Pulse Oximetry 99 100 Oxygen Delivery Oxygen Flow Rate Fraction of Inspired Oxygen 12/20/23 17:00 12/20/23 17:21 12/20/23 17:19 Temperature 98.2 F Pulse Rate 94 Respiratory Rate 20 20 Blood Pressure 131/75 Pulse Oximetry 100 100 Oxygen Delivery BiPAP BiPAP Oxygen Flow Rate Fraction of Inspired Oxygen 50 12/20/23 17:29 12/20/23 18:22 12/20/23 17:50 Temperature Pulse Rate 94 103 H Respiratory Rate 22 H 27 H Blood Pressure Pulse Oximetry 100 100 Oxygen Delivery BiPAP BiPAP Oxygen Flow Rate Fraction of Inspired Oxygen 40 12/20/23 18:40 12/20/23 18:00 Temperature Pulse Rate 100 Respiratory Rate 24 H Blood Pressure 125/79 Pulse Oximetry 93 94 Oxygen Delivery BiPAP Oxygen Flow Rate Fraction of Inspired Oxygen 32 Exam Const: General: comfortable and no acute distress Other: , female, nontoxic appearance. HENMT: Face/Nose/Sinus: Normal nares present Mouth: Yes moist mucous membranes Eyes: General: appearance normal, both eyes and all related structures Sclera: sclerae normal Pupils: Equal, round and reactive pupils present EOM: EOMs intact bilaterally Resp: Effort & Inspection: normal respiratory effort Other: Modest air movement in all lobes without crackles or wheezing. Tolerating BiPAP well. Cardio: Rate: regular rate Rhythm: regular rhythm Other: S1-S2 present without murmur, rub, ectopy GI: Other: Abdomen soft, nondistended, nontender. Skin: General skin exam: normal color and no rashes or lesions noted Wounds: no wounds Neuro: Speech: normal speech Motor exam (neuro): 5/5 motor strength present throughout Sensory Exam: normal sensation Other: A&O x4 Extrem: General: normal to inspection Psych: Mental Status: mental status grossly normal Affect: normal affect Other: Good insight and judgment, pleasant H&P: Results Labs Labs: Short CBC 12/20/23 Range/Units 15:45 WBC 8.7 (4.5-10.0) K/mm3 Hgb 12.2 (12.0-15.0) g/dL Hct 40.3 (37.0-47.0) % Plt Count 380 H (150-375) k/mm3 BMP 12/20/23 15:45 Sodium 141 Potassium 3.7 Chloride 99 Carbon Dioxide 33 H BUN 32 H Creatinine 1.00 Glucose 135 H Calcium 9.8 Cardiac Enzymes 12/20/23 Range/Units 15:45 Troponin I < 0.012 (0.000-0.034) ng/mL Liver Function 12/20/23 Range/Units 15:45 Total Bilirubin 0.3 (0.2-1.3) mg/dL AST 29 (14-36) U/L ALT 14 (6-35) U/L Alkaline Phosphatase 123 (38-126) U/L Albumin 4.3 (3.5-5.1) g/dL Assessment and Plan Assessment and plan (1) COPD exacerbation: Code(s): J44.1 - Chronic obstructive pulmonary disease with (acute) exacerbation Status: Acute Assessment and Plan: - CXR: Mass in the right upper lobe area unchanged. Otherwise, no significant change from previous examination. - started on doxycycline IVPB b.i.d. 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 No significant change compared to prior. - continue home medications: Amiodarone, Eliquis (3) Elevated glucose: Code(s): R73.09 - Other abnormal glucose Status: Acute Assessment and Plan: - initial glucose 135 - update A1C Plan Diet: Regular GI Prophylaxis: Not currently indicated DVT Prophylaxis: Continue home Eliquis Lines: Peripheral Code Status: Full code Quality VTE Prophylaxis VTE prophylaxis: pharmacologic ordered Hospitalist [facility] Advance Care Plan I have confirmed that the patient's Advanced Care Plan is present, code status is documented, or surrogate decision maker is listed in patient medical record.: Yes Medication Reconciliation I have utilized all available resources to obtain, update and review the patients current medications (includes all prescriptions, OTC, herbals, cannabis, and nutritional supplements).: Yes
[2023-12-20 19:17] LABS: Influenza A QL RT-PCR Negative (Negative); Influenza B QL RT-PCR Negative (Negative); RSV RNA, RT-PCR Negative (Negative); SARS-CoV-2 RNA PCR Negative (Negative)
--- NOTE | 2023-12-20 22:23 | ADMGEN ---
This patient, Alexus Zambrano, was admitted to IMU Room 231-01 on 12/20/23 at 2157. Patient/family oriented to hospital policies and general routines including ID bracelet, bed and alarms, visiting hours, pain management, procedures, bathroom and other care routines, personal items, smoking policy, room service/diet, and visiting hours. Information on how to activate the Rapid Response Team has been discussed. Patient/Family are encouraged to report perceived risks to care and to ask questions if they do not understand what they are told or what they should do.
[2023-12-21] VITALS (27 sets, daily range): BP systolic 106–131; BP diastolic 58–76; PULSE 86–107; RESP 20–24; TEMP 36.4–36.7; O2SAT 97–100
[2023-12-21] MEDS: APIXABAN 2.5 MG TABLET PO ×3 (01:26→20:37)
[2023-12-21] MEDS: SERTRALINE HCL 25 MG TABLET PO ×3 (01:26→16:44)
[2023-12-21] MEDS: IPRATROPIUM 0.5 MG/ALBUTEROL SULFATE 2.5 MG AMPUL.NEB 3 ML INHALATION ×4 (01:44→20:44)
[2023-12-21 04:54] LABS: Basophils Percent Auto 0.4 % (0.2-1.2); Hematocrit 38.9 % (37.0-47.0); Hemoglobin 11.9 g/dL (12.0-15.0); Immature Granulocyte Absolute 0.04 K/mm3 (0.00-0.031); Immature Granulocyte Percent A 0.7 % (0-0.5); Lymphocytes Absolute Auto 0.33 K/mm3 (0.9-3.2); Lymphocytes Percent Auto 5.9 % (18.3-44.2); Mean Corpuscular HGB Conc 30.6 g/dl (32-36); Mean Corpuscular Hemoglobin 28.6 pg (26-34); Mean Corpuscular Volume 93.5 fl (80-100); Mean Platelet Volume 9.1 fl (7.4-10.4); Monocytes Absolute Auto 0.2 K/mm3 (0.1-0.6); Monocytes Percent Auto 3.1 % (2.6-8.5); Neutrophils Percent Auto 89.9 % (45.5-73.1); Platelet Count Result 397 k/mm3 (150-375); Red Blood Count 4.16 M/mm3 (4.2-5.4); Red Cell Distribution Width 17.2 % (11.5-14.5); White Blood Count 5.6 K/mm3 (4.5-10.0)
[2023-12-21 05:03] LABS: Hemoglobin A1C 5.3 % (<5.7)
[2023-12-21 05:12] LABS: Alanine Aminotransferase 17 U/L (6-35); Albumin Level 4.1 g/dL (3.5-5.1); Alkaline Phosphatase 115 U/L (38-126); Anion Gap 8 mmol/L (4-12); Aspartate Amino Transferase 31 U/L (14-36); Bilirubin,Total 0.4 mg/dL (0.2-1.3); Blood Urea Nitrogen 37 mg/dL (7-17); Calcium 9.5 mg/dL (8.4-10.2); Carbon Dioxide 34 mmol/L (22-30); Chloride 99 mmol/L (98-107); Estimated CRCL calculation 31 ml/min; Estimated Glomerular Filt Rate 44; Glucose 166 mg/dL (65-110); Potassium 4.5 mmol/L (3.4-5.0); Sodium 141 mmol/L (137-145)
[2023-12-21] MEDS: DOXYCYCLINE 100 MG/NS 100 ML 100 MG/100 ML BAG IVPB ×2 (05:16→17:16)
[2023-12-21] MEDS: SPIRONOLACTONE 25 MG TABLET PO (09:59)
[2023-12-21] MEDS: FUROSEMIDE 20 MG TABLET PO (09:59)
[2023-12-21] MEDS: AMIODARONE HCL 100 MG TABLET PO (10:00)
[2023-12-21] MEDS: predniSONE 20 MG TABLET 40 MG PO (10:00)
[2023-12-21] MEDS: FERROUS SULFATE 325 MG TABLET DR PO (10:00)
[2023-12-21] MEDS: ASCORBIC ACID 500 MG TABLET PO (10:00)
--- NOTE | 2023-12-21 12:58 | PM.IMPN ---
Progress Note: A&P Assessment and Plan (1) COPD exacerbation: Code(s): J44.1 - Chronic obstructive pulmonary disease with (acute) exacerbation Status: Acute Assessment and Plan: - CXR: Mass in the right upper lobe area unchanged. Otherwise, no significant change from previous examination. - started on doxycycline IVPB b.i.d. - DuoNebs hunter and steroids hunter - given 2G of magnesium by EMS S/p BIPAP continue steroids adn bronchodilators and monitor (2) Paroxysmal A-fib: Code(s): I48.0 - Paroxysmal atrial fibrillation Status: Chronic Assessment and Plan: - EKG, initial: Sinus rhythm, atrial premature complex, incomplete RBBB, left ventricular hypertrophy and ST-T change cannot rule out septal infarct age indeterminate, ST-T-wave abnormality in anterolateral leads. No significant change compared to prior. - continue home medications: Amiodarone, Eliquis (3) Elevated glucose: Code(s): R73.09 - Other abnormal glucose Status: Acute Assessment and Plan: - initial glucose 135 - A1c 5.3 Plan RUL mass CXR reviewed Pulm consulted CT chest pending Patient noted she had no knowledge of lung mass prior Diet: Regular DVT Prophylaxis: Continue home Eliquis Lines: Peripheral Code Status: Full code Subjective Date/time seen: 12/21/23 12:58 Interval history: Currently on baseline oxygen Comfortable at bedside Did not know about lung mass until today pulm consulted Review of Systems Review of Systems: All systems reviewed & are unremarkable except as noted in HPI and below Exam Narrative: modest air movement in all lung hager without crackles or wheezing. Const: General: comfortable and no acute distress Other: , female, nontoxic appearance. HENMT: Face/Nose/Sinus: Normal nares present Mouth: Yes moist mucous membranes Eyes: General: appearance normal, both eyes and all related structures Sclera: sclerae normal Pupils: Equal, round and reactive pupils present EOM: EOMs intact bilaterally Resp: Effort & Inspection: normal respiratory effort Other: Modest air movement in all lobes without crackles or wheezing. Tolerating BiPAP well. Cardio: Rate: regular rate Rhythm: regular rhythm Other: S1-S2 present without murmur, rub, ectopy GI: Other: Abdomen soft, nondistended, nontender. Skin: General skin exam: normal color and no rashes or lesions noted Wounds: no wounds Neuro: Cranial nerves: Yes Equal, round and reactive pupils present Speech: normal speech Motor exam (neuro): 5/5 motor strength present throughout Sensory Exam: normal sensation Other: A&O x4 Extrem: General: normal to inspection Psych: Mental Status: mental status grossly normal Affect: normal affect Other: Good insight and judgment, pleasant Objective Data Vital Signs Vital Signs: Vital Signs - 24 hr 12/20/23 15:09 12/20/23 15:27 12/20/23 15:52 Temperature 97.6 F Pulse Rate 105 H 99 Respiratory Rate 24 H 24 H Blood Pressure 155/89 H Pulse Oximetry 100 100 100 Oxygen Delivery CPAP BiPAP BiPAP Oxygen Flow Rate 50 Fraction of Inspired Oxygen 100 12/20/23 15:56 12/20/23 15:30 12/20/23 16:00 Temperature 97.9 F Pulse Rate 97 106 H 96 Respiratory Rate 24 H 24 H Blood Pressure 155/89 H 142/91 H Pulse Oximetry 99 100 Oxygen Delivery Oxygen Flow Rate Fraction of Inspired Oxygen 12/20/23 17:00 12/20/23 17:21 12/20/23 17:19 Temperature 98.2 F Pulse Rate 94 Respiratory Rate 20 20 Blood Pressure 131/75 Pulse Oximetry 100 100 Oxygen Delivery BiPAP BiPAP Oxygen Flow Rate Fraction of Inspired Oxygen 50 12/20/23 17:29 12/20/23 18:22 12/20/23 17:50 Temperature Pulse Rate 94 103 H Respiratory Rate 22 H 27 H Blood Pressure Pulse Oximetry 100 100 Oxygen Delivery BiPAP BiPAP Oxygen Flow Rate Fraction of Inspired Oxygen 40 12/20/23 18:40 12/20/23 18:00 12/20/23 19:33 Temperature Pulse Rate 100 107 H Respiratory Rate 24 H 18 Blood Pressure 125/79 136/88 Pulse Oximetry 93 94 96 Oxygen Delivery BiPAP Oxygen Flow Rate Fraction of Inspired Oxygen 32 12/20/23 21:19 12/20/23 22:04 12/20/23 22:12 Temperature 98.2 F Pulse Rate 86 101 H 110 H Respiratory Rate 20 25 H 18 Blood Pressure 153/87 H Pulse Oximetry 97 96 96 Oxygen Delivery BiPAP Oxygen Flow Rate Fraction of Inspired Oxygen 12/20/23 23:51 12/20/23 22:10 12/21/23 01:45 Temperature 98.1 F Pulse Rate 107 H 110 H 99 Respiratory Rate 22 H 18 20 Blood Pressure 131/81 Pulse Oximetry 98 96 Oxygen Delivery BiPAP Oxygen Flow Rate Fraction of Inspired Oxygen 32 12/21/23 01:40 12/21/23 01:55 12/20/23 22:00 Temperature Pulse Rate 99 98 112 H Respiratory Rate 23 H 20 Blood Pressure Pulse Oximetry 99 Oxygen Delivery BiPAP Oxygen Flow Rate Fraction of Inspired Oxygen 12/21/23 00:00 12/21/23 00:00 12/21/23 02:00 Temperature Pulse Rate 107 H 104 H 99 Respiratory Rate 22 H Blood Pressure Pulse Oximetry 98 Oxygen Delivery BiPAP Oxygen Flow Rate Fraction of Inspired Oxygen 32 12/21/23 04:00 12/21/23 01:45 12/21/23 04:00 Temperature 98.1 F Pulse Rate 96 96 Respiratory Rate 22 H 22 H Blood Pressure 131/58 L Pulse Oximetry 97 99 97 Oxygen Delivery BiPAP BiPAP Oxygen Flow Rate Fraction of Inspired Oxygen 32 32 12/21/23 04:00 12/21/23 06:00 12/21/23 08:00 Temperature 97.9 F Pulse Rate 93 92 95 Respiratory Rate 24 H Blood Pressure 121/75 Pulse Oximetry 97 Oxygen Delivery Oxygen Flow Rate Fraction of Inspired Oxygen 12/21/23 08:29 12/21/23 08:41 12/21/23 08:41 Temperature Pulse Rate 90 92 Respiratory Rate 22 H 22 H Blood Pressure Pulse Oximetry 97 97 Oxygen Delivery BiPAP BiPAP Oxygen Flow Rate Fraction of Inspired Oxygen 32 12/21/23 08:41 12/21/23 10:00 12/21/23 08:00 Temperature Pulse Rate 92 97 94 Respiratory Rate 22 H Blood Pressure Pulse Oximetry Oxygen Delivery Oxygen Flow Rate Fraction of Inspired Oxygen 12/21/23 10:00 12/21/23 08:00 12/21/23 12:00 Temperature Pulse Rate 95 93 Respiratory Rate 20 Blood Pressure 107/74 Pulse Oximetry 98 Oxygen Delivery BiPAP Oxygen Flow Rate Fraction of Inspired Oxygen 30 12/21/23 12:00 12/21/23 12:00 Temperature Pulse Rate 94 Respiratory Rate Blood Pressure Pulse Oximetry Oxygen Delivery BiPAP Oxygen Flow Rate Fraction of Inspired Oxygen 30 Intake/Output Intake/Output: Intake & Output 12/18/23 12/19/23 12/20/23 12/21/23 23:59 23:59 23:59 23:59 Intake Total 100 1130 Output Total 0 Balance 100 1130 Meds/Results Medications: Active Medications Generic Name Dose Route Start Last Admin Trade Name Freq PRN Reason Stop Dose Admin Acetaminophen 650 mg 12/20/23 18:48 Acetaminophen 325 Mg Tablet PO Q4H PRN Mild Pain (1-3) or Fever Albuterol 2 puff 12/20/23 23:12 Albuterol Sulfate (*Sp) Aerosol 1 Puff INHALATION Q4-6H PRN Shortness Of Breath Or Wheezing Albuterol/Ipratropium 3 ml 12/21/23 02:00 12/21/23 08:29 Ipratropium 0.5 Mg/Albuterol Sulfate 2.5 Mg Ampul.Neb 3 Ml INHALATION 3 ml Q6HRT HUNTER Administration Amiodarone HCl 100 mg 12/21/23 09:00 12/21/23 10:00 Amiodarone Hcl 100 Mg Tablet PO 100 mg DAILY HUNTER Administration Apixaban 2.5 mg 12/20/23 23:15 12/21/23 09:59 Apixaban 2.5 Mg Tablet PO 2.5 mg Q12HR HUNTER Administration Ascorbic Acid 500 mg 12/21/23 08:00 12/21/23 10:00 Ascorbic Acid 500 Mg Tablet PO 500 mg DAILY@0800 HUNTER Administration Ferrous Sulfate 325 mg 12/21/23 08:00 12/21/23 10:00 Ferrous Sulfate [address] PO 325 mg DAILY@0800 HUNTER Administration Furosemide 20 mg 12/21/23 09:00 12/21/23 09:59 Furosemide 20 Mg Tablet PO 20 mg DAILY HUNTER Administration Doxycycline Hyclate 100 mg in 100 mls @ 100 mls/hr 12/21/23 06:00 12/21/23 06:26 Vibramycin 100 Mg/Ns 100 Ml IVPB Infused Q12H HUNTER Infusion Ondansetron HCl 4 mg 12/20/23 18:48 Ondansetron Inj 4 Mg/2 Ml Vial IV PUSH Q4H PRN Nausea Prednisone 40 mg 12/21/23 08:00 12/21/23 10:00 Prednisone 20 Mg Tablet PO 12/26/23 07:59 40 mg DAILY@0800 HUNTER Administration Sertraline HCl 25 mg 12/20/23 23:20 12/21/23 09:59 Sertraline Hcl 25 Mg Tablet PO 25 mg BID HUNTER Administration Spironolactone 25 mg 12/21/23 09:00 12/21/23 09:59 Spironolactone 25 Mg Tablet PO 25 mg DAILY HUNTER Administration Umeclidinium/Vilanterol 1 puff 12/21/23 09:00 12/21/23 08:45 Umeclidinium/Vilanterol 62.5-25 Mcg Ellipta INHALATION Not Given DAILY [facility] Radiology Results: ITS Impressions Chest X-Ray 12/20/23 15:49 IMPRESSION: Mass in the right upper lobe area unchanged. Otherwise, No significant change from previous examination. Labs Labs: Laboratory Results - last 24 hr 12/20/23 12/20/23 12/20/23 15:45 17:34 18:13 WBC 8.7 RBC 4.23 Hgb 12.2 Hct 40.3 MCV 95.3 MCH 28.8 MCHC 30.3 L RDW 17.0 H Plt Count 380 H MPV 9.5 Immature Gran % (Auto) 0.8 H Neut % (Auto) 71.8 Lymph % (Auto) 14.8 L [place] % (Auto) 7.5 Eos % (Auto) 3.7 Baso % (Auto) 1.4 H Lymph # (Auto) 1.29 [place] # (Auto) 0.7 H Eos # (Auto) 0.3 Baso # (Auto) 0.1 Abs Immat Gran (auto) 0.07 H Absolute Neuts (auto) 6.2 Absolute Nucleated RBC 0.000 Nucleated RBC % 0.0 PT 15.5 H INR 1.2 APTT 23.1 D-Dimer 0.40 Puncture Site Right brachial ABG pH 7.376 ABG pCO2 50.3 H ABG pO2 126.0 H ABG PO2/FiO2 Ratio 3.15 ABG HCO3 28.8 H ABG O2 Saturation 98.4 ABG O2 Content 17.9 ABG Base Excess 2.8 A-a Gradient 101.4 Oxyhemoglobin 97.8 Total Hemoglobin 12.9 O2 Delivery Device Non-invasive vent O2 Liters/Min Not Reportable Vent Rate 20 FiO2 40 Expiratory Pressure 6 Inspiratory Pressure 12 Sodium 141 Potassium 3.7 Chloride 99 Carbon Dioxide 33 H Anion Gap 9 BUN 32 H Creatinine 1.00 Estim Creat Clear Calc 42 Estimated GFR 55 L Glucose 135 H Hemoglobin A1c Lactic Acid 1.3 Calcium 9.8 Magnesium 3.1 H Total Bilirubin 0.3 AST 29 ALT 14 Alkaline Phosphatase 123 Troponin I < 0.012 NT-Pro-B Natriuret Pep 267 H Total Protein 8.0 Albumin 4.3 Influenza A (RT-PCR) Negative Influenza B (RT-PCR) Negative RSV (RT-PCR) Negative SARS-CoV-2 RNA (RT-PCR) Negative 12/21/23 04:45 WBC 5.6 RBC 4.16 L Hgb 11.9 L Hct 38.9 MCV 93.5 MCH 28.6 MCHC 30.6 L RDW 17.2 H Plt Count 397 H MPV 9.1 Immature Gran % (Auto) 0.7 H Neut % (Auto) 89.9 H Lymph % (Auto) 5.9 L [place] % (Auto) 3.1 Eos % (Auto) 0.0 Baso % (Auto) 0.4 Lymph # (Auto) 0.33 L [place] # (Auto) 0.2 Eos # (Auto) 0.0 Baso # (Auto) 0.0 Abs Immat Gran (auto) 0.04 H Absolute Neuts (auto) 5.0 Absolute Nucleated RBC 0.000 Nucleated RBC % 0.0 PT INR APTT D-Dimer Puncture Site ABG pH ABG pCO2 ABG pO2 ABG PO2/FiO2 Ratio ABG HCO3 ABG O2 Saturation ABG O2 Content ABG Base Excess A-a Gradient Oxyhemoglobin Total Hemoglobin O2 Delivery Device O2 Liters/Min Vent Rate FiO2 Expiratory Pressure Inspiratory Pressure Sodium 141 Potassium 4.5 Chloride 99 Carbon Dioxide 34 H Anion Gap 8 BUN 37 H Creatinine 1.20 H Estim Creat Clear Calc 31 Estimated GFR 44 L Glucose 166 H Hemoglobin A1c 5.3 Lactic Acid Calcium 9.5 Magnesium Total Bilirubin 0.4 AST 31 ALT 17 Alkaline Phosphatase 115 Troponin I NT-Pro-B Natriuret Pep Total Protein 7.0 Albumin 4.1 Influenza A (RT-PCR) Influenza B (RT-PCR) RSV (RT-PCR) SARS-CoV-2 RNA (RT-PCR) Quality VTE Prophylaxis VTE prophylaxis: pharmacologic ordered
--- NOTE | 2023-12-21 13:38 | PCPTNOTE ---
HOLD PT eval per TITUS Arredondo--pt is very SOB and going to go down for CT scan of lungs.
--- NOTE | 2023-12-21 14:11 | PCOTNOTE ---
HOLD OT eval per TITUS Arredondo--pt is very SOB and going to go down for CT scan of lungs.
[2023-12-21] MEDS: SODIUM CHLORIDE 0.9% IV 1,000 ML 50 ML IV CONT (20:36)
[2023-12-22] VITALS (27 sets, daily range): BP systolic 119–127; BP diastolic 67–81; PULSE 74–91; RESP 20–25; TEMP 36.4–36.8; O2SAT 94–100
--- NOTE | 2023-12-22 01:18 | PC.NURSE ---
Daylight Savings Time For Daylight Savings Time Ending in the Fall - Clocks are moved back. For Daylight Savings Time Beginning in the Spring - Clocks are moved ahead. For [facility], the time of change occurs at 0200 hrs. Time is taken from the linux server administrator. This entry on the patient's chart recognizes the change in time reflected during documentation. Example: 2 entries for vital signs may be charted for 0200 hrs.
[2023-12-22] MEDS: IPRATROPIUM 0.5 MG/ALBUTEROL SULFATE 2.5 MG AMPUL.NEB 3 ML INHALATION ×4 (02:43→20:28)
[2023-12-22 05:03] LABS: Basophils Percent Auto 0.2 % (0.2-1.2); Hematocrit 37.2 % (37.0-47.0); Immature Granulocyte Percent A 0.6 % (0-0.5); Lymphocytes Absolute Auto 0.61 K/mm3 (0.9-3.2); Lymphocytes Percent Auto 3.9 % (18.3-44.2); Mean Corpuscular HGB Conc 29.6 g/dl (32-36); Mean Corpuscular Hemoglobin 27.8 pg (26-34); Mean Corpuscular Volume 93.9 fl (80-100); Mean Platelet Volume 9.5 fl (7.4-10.4); Monocytes Absolute Auto 1.5 K/mm3 (0.1-0.6); Monocytes Percent Auto 9.4 % (2.6-8.5); Neutrophils Absolute Auto 13.5 K/mm3 (1.3-6.7); Neutrophils Percent Auto 85.9 % (45.5-73.1); Platelet Count Result 410 k/mm3 (150-375); Red Blood Count 3.96 M/mm3 (4.2-5.4); Red Cell Distribution Width 17.4 % (11.5-14.5); White Blood Count 15.8 K/mm3 (4.5-10.0)
[2023-12-22 05:25] LABS: Alanine Aminotransferase 14 U/L (6-35); Albumin Level 3.8 g/dL (3.5-5.1); Alkaline Phosphatase 90 U/L (38-126); Anion Gap 7 mmol/L (4-12); Aspartate Amino Transferase 25 U/L (14-36); Bilirubin,Total 0.3 mg/dL (0.2-1.3); Blood Urea Nitrogen 44 mg/dL (7-17); Calcium 9.1 mg/dL (8.4-10.2); Carbon Dioxide 31 mmol/L (22-30); Chloride 104 mmol/L (98-107); Estimated CRCL calculation 36 ml/min; Estimated Glomerular Filt Rate 55; Glucose 118 mg/dL (65-110); Magnesium 2.2 mg/dL (1.6-2.3); Potassium 4.4 mmol/L (3.4-5.0); Sodium 142 mmol/L (137-145)
[2023-12-22] MEDS: DOXYCYCLINE 100 MG/NS 100 ML 100 MG/100 ML BAG IVPB ×2 (05:45→17:29)
[2023-12-22] MEDS: FERROUS SULFATE 325 MG TABLET DR PO (08:30)
[2023-12-22] MEDS: AMIODARONE HCL 100 MG TABLET PO (08:30)
[2023-12-22] MEDS: ASCORBIC ACID 500 MG TABLET PO (08:30)
[2023-12-22] MEDS: predniSONE 20 MG TABLET 40 MG PO (08:30)
[2023-12-22] MEDS: SERTRALINE HCL 25 MG TABLET PO ×2 (08:31→17:29)
[2023-12-22] MEDS: APIXABAN 2.5 MG TABLET PO ×2 (08:31→20:50)
[2023-12-22] MEDS: ACETAMINOPHEN 325 MG TABLET 650 MG PO ×2 (08:31→17:29)
[2023-12-22] MEDS: SPIRONOLACTONE 25 MG TABLET PO (08:31)
[2023-12-22] MEDS: FUROSEMIDE 20 MG TABLET PO (08:31)
--- NOTE | 2023-12-22 09:14 | PCOTNOTE ---
Attempted OT evaluation. Patient refuses at this time due to not feeling well and any exertion causing shortness of breath. RN aware. Will follow.
--- NOTE | 2023-12-22 10:35 | PCPTNOTE ---
HOLD PT eval, due to pt having increased SOB.
--- NOTE | 2023-12-22 15:38 | P.PNIM_ITS ---
Progress Note: A&P Assessment and Plan (1) COPD exacerbation: Code(s): J44.1 - Chronic obstructive pulmonary disease with (acute) exacerbation Status: Acute Assessment and Plan: - started on doxycycline IVPB b.i.d. - DuoNebs hunter and steroids hunter - given 2G of magnesium by EMS Still on bIPAP continue steroids adn bronchodilators and monitor Pulm consulted (2) Paroxysmal A-fib: Code(s): I48.0 - Paroxysmal atrial fibrillation Status: Chronic Assessment and Plan: - EKG, initial: Sinus rhythm, atrial premature complex, incomplete RBBB, left ventricular hypertrophy and ST-T change cannot rule out septal infarct age indeterminate, ST-T-wave abnormality in anterolateral leads. No significant change compared to prior. - continue home medications: Amiodarone, Eliquis (3) Elevated glucose: Code(s): R73.09 - Other abnormal glucose Status: Acute Assessment and Plan: - initial glucose 135 - A1c 5.3 Plan RUL mass ruled out, Ct chest showed scarring, not mass CXR initially showed RUL mass Pulm consulted Diet: Regular DVT Prophylaxis: Continue home Eliquis Lines: Peripheral Code Status: Full code Subjective Date/time seen: 12/22/23 15:38 Interval history: patient depending on BiPAP Review of Systems Review of Systems: All systems reviewed & are unremarkable except as noted in HPI and below Exam Narrative: modest air movement in all lung hager without crackles or wheezing. Const: General: comfortable and no acute distress Other: , female, nontoxic appearance. HENMT: Face/Nose/Sinus: Normal nares present Mouth: Yes moist mucous membranes Eyes: General: appearance normal, both eyes and all related structures Sclera: sclerae normal Pupils: Equal, round and reactive pupils present EOM: EOMs intact bilaterally Resp: Effort & Inspection: normal respiratory effort Other: Modest air movement in all lobes without crackles or wheezing. Tolerating BiPAP well. Cardio: Rate: regular rate Rhythm: regular rhythm Other: S1-S2 present without murmur, rub, ectopy GI: Other: Abdomen soft, nondistended, nontender. Skin: General skin exam: normal color and no rashes or lesions noted Wounds: no wounds Neuro: Cranial nerves: Yes Equal, round and reactive pupils present Speech: normal speech Motor exam (neuro): 5/5 motor strength present throughout Sensory Exam: normal sensation Other: A&O x4 Extrem: General: normal to inspection Psych: Mental Status: mental status grossly normal Affect: normal affect Other: Good insight and judgment, pleasant Objective Data Vital Signs Vital Signs: Vital Signs - 24 hr 12/21/23 18:00 12/21/23 20:44 12/21/23 20:47 Temperature Pulse Rate 92 88 88 Respiratory Rate 22 H 22 H Blood Pressure Pulse Oximetry 100 Oxygen Delivery BiPAP Oxygen Flow Rate Fraction of Inspired Oxygen 12/21/23 20:48 12/21/23 21:05 12/21/23 23:35 Temperature 98.0 F Pulse Rate 88 92 90 Respiratory Rate 20 Blood Pressure 107/64 Pulse Oximetry 100 100 98 Oxygen Delivery BiPAP Oxygen Flow Rate Fraction of Inspired Oxygen 32 12/21/23 23:36 12/21/23 23:54 12/21/23 20:00 Temperature 97.6 F Pulse Rate 88 98 Respiratory Rate 20 Blood Pressure 131/76 Pulse Oximetry 98 98 Oxygen Delivery Nasal Cannula Oxygen Flow Rate 3 Fraction of Inspired Oxygen 12/21/23 22:00 12/22/23 00:00 12/21/23 20:00 Temperature Pulse Rate 88 81 92 Respiratory Rate 20 Blood Pressure Pulse Oximetry 100 Oxygen Delivery BiPAP Oxygen Flow Rate Fraction of Inspired Oxygen 32 12/22/23 00:00 12/22/23 01:03 PLANNING ASSOCIATE 12/22/23 02:44 Temperature Pulse Rate 88 75 74 Respiratory Rate 20 25 H Blood Pressure Pulse Oximetry 98 98 Oxygen Delivery BiPAP BiPAP Oxygen Flow Rate Fraction of Inspired Oxygen 32 12/22/23 02:47 12/22/23 05:03 12/22/23 04:40 Temperature 97.6 F Pulse Rate 74 83 83 Respiratory Rate 25 H 22 H 22 H Blood Pressure 126/70 Pulse Oximetry 100 100 Oxygen Delivery BiPAP Oxygen Flow Rate Fraction of Inspired Oxygen 32 12/22/23 04:00 12/22/23 06:00 12/22/23 08:30 Temperature Pulse Rate 84 81 78 Respiratory Rate Blood Pressure Pulse Oximetry Oxygen Delivery Oxygen Flow Rate Fraction of Inspired Oxygen 12/22/23 08:29 12/22/23 08:31 12/22/23 08:00 Temperature 97.7 F Pulse Rate 79 79 81 Respiratory Rate 20 20 20 Blood Pressure 127/67 Pulse Oximetry 99 95 Oxygen Delivery BiPAP Oxygen Flow Rate Fraction of Inspired Oxygen 12/22/23 08:00 12/22/23 08:00 12/22/23 10:00 Temperature Pulse Rate 74 79 Respiratory Rate Blood Pressure Pulse Oximetry 99 Oxygen Delivery BiPAP Oxygen Flow Rate Fraction of Inspired Oxygen 32 12/22/23 12:00 12/22/23 13:46 12/22/23 13:50 Temperature 97.8 F Pulse Rate 88 91 90 Respiratory Rate 22 H 23 H 23 H Blood Pressure 127/69 Pulse Oximetry 99 95 Oxygen Delivery BiPAP Oxygen Flow Rate Fraction of Inspired Oxygen 12/22/23 12:00 12/22/23 12:00 12/22/23 14:00 Temperature Pulse Rate 88 89 Respiratory Rate Blood Pressure Pulse Oximetry 99 Oxygen Delivery BiPAP Oxygen Flow Rate Fraction of Inspired Oxygen 32 Intake/Output Intake/Output: Intake & Output 12/19/23 12/20/23 12/21/23 12/22/23 23:59 23:59 23:59 22:59 Intake Total 100 1710 940 Output Total 0 500 240 Balance 100 1210 700 Meds/Results Medications: Active Medications Generic Name Dose Route Start Last Admin Trade Name Freq PRN Reason Stop Dose Admin Acetaminophen 650 mg 12/20/23 18:48 12/22/23 08:31 Acetaminophen 325 Mg Tablet PO 650 mg Q4H PRN Administration Mild Pain (1-3) or Fever Albuterol 2 puff 12/20/23 23:12 Albuterol Sulfate (*Sp) Aerosol 1 Puff INHALATION Q4-6H PRN Shortness Of Breath Or Wheezing Albuterol/Ipratropium 3 ml 12/21/23 02:00 12/22/23 13:46 Ipratropium 0.5 Mg/Albuterol Sulfate 2.5 Mg Ampul.Neb 3 Ml INHALATION 3 ml Q6HRT HUNTER Administration Amiodarone HCl 100 mg 12/21/23 09:00 12/22/23 08:30 Amiodarone Hcl 100 Mg Tablet PO 100 mg DAILY HUNTER Administration Apixaban 2.5 mg 12/20/23 23:15 12/22/23 08:31 Apixaban 2.5 Mg Tablet PO 2.5 mg Q12HR HUNTER Administration Ascorbic Acid 500 mg 12/21/23 08:00 12/22/23 08:30 Ascorbic Acid 500 Mg Tablet PO 500 mg DAILY@0800 HUNTER Administration Ferrous Sulfate 325 mg 12/21/23 08:00 12/22/23 08:30 Ferrous Sulfate [address] PO 325 mg DAILY@0800 HUNTER Administration Furosemide 20 mg 12/21/23 09:00 12/22/23 08:31 Furosemide 20 Mg Tablet PO 20 mg DAILY HUNTER Administration Doxycycline Hyclate 100 mg in 100 mls @ 100 mls/hr 12/21/23 06:00 12/22/23 06:45 Vibramycin 100 Mg/Ns 100 Ml IVPB Infused Q12H HUNTER Infusion Sodium Chloride 1,000 mls @ 50 mls/hr 12/21/23 17:40 12/21/23 20:36 Normal Saline Iv IV CONT 50 mls/hr .Q20H HUNTER Administration Ondansetron HCl 4 mg 12/20/23 18:48 Ondansetron Inj 4 Mg/2 Ml Vial IV PUSH Q4H PRN Nausea Prednisone 40 mg 12/21/23 08:00 12/22/23 08:30 Prednisone 20 Mg Tablet PO 12/26/23 07:59 40 mg DAILY@0800 HUNTER Administration Sertraline HCl 25 mg 12/20/23 23:20 12/22/23 08:31 Sertraline Hcl 25 Mg Tablet PO 25 mg BID HUNTER Administration Spironolactone 25 mg 12/21/23 09:00 12/22/23 08:31 Spironolactone 25 Mg Tablet PO 25 mg DAILY HUNTER Administration Umeclidinium/Vilanterol 1 puff 12/21/23 09:00 12/22/23 08:28 Umeclidinium/Vilanterol 62.5-25 Mcg Ellipta INHALATION Not Given DAILY [facility] Radiology Results: ITS Impressions Chest X-Ray 12/20/23 15:49 IMPRESSION: Mass in the right upper lobe area unchanged. Otherwise, No significant change from previous examination. Chest CT 12/21/23 14:57 IMPRESSION: Severe bullous emphysema, with prominent fibrocalcific scarring in the upper lobes, right greater than left IVC filter Cholelithiasis Extensive left nephrolithiasis; left internal urinary stent Labs Labs: Laboratory Results - last 24 hr 12/22/23 04:41 WBC 15.8 H RBC 3.96 L Hgb 11.0 L Hct 37.2 MCV 93.9 MCH 27.8 MCHC 29.6 L RDW 17.4 H Plt Count 410 H MPV 9.5 Immature Gran % (Auto) 0.6 H Neut % (Auto) 85.9 H Lymph % (Auto) 3.9 L [place] % (Auto) 9.4 H Eos % (Auto) 0.0 Baso % (Auto) 0.2 Lymph # (Auto) 0.61 L [place] # (Auto) 1.5 H Eos # (Auto) 0.0 Baso # (Auto) 0.0 Abs Immat Gran (auto) 0.10 H Absolute Neuts (auto) 13.5 H Absolute Nucleated RBC 0.000 Nucleated RBC % 0.0 Sodium 142 Potassium 4.4 Chloride 104 Carbon Dioxide 31 H Anion Gap 7 BUN 44 H Creatinine 1.00 Estim Creat Clear Calc 36 Estimated GFR 55 L Glucose 118 H Calcium 9.1 Magnesium 2.2 Total Bilirubin 0.3 AST 25 ALT 14 Alkaline Phosphatase 90 Total Protein 7.0 Albumin 3.8 Quality VTE Prophylaxis VTE prophylaxis: pharmacologic ordered
[2023-12-22] MEDS: SODIUM CHLORIDE 0.9% IV 1,000 ML 50 ML IV CONT (16:11)
[2023-12-23] VITALS (29 sets, daily range): BP systolic 92–139; BP diastolic 45–72; PULSE 71–107; RESP 20–28; TEMP 36.6–36.7; O2SAT 95–100; BMI 18.6
[2023-12-23] MEDS: IPRATROPIUM 0.5 MG/ALBUTEROL SULFATE 2.5 MG AMPUL.NEB 3 ML INHALATION ×4 (01:49→20:54)
[2023-12-23] MEDS: DOXYCYCLINE 100 MG/NS 100 ML 100 MG/100 ML BAG IVPB (05:16)
[2023-12-23 05:53] LABS: Basophils Percent Auto 0.1 % (0.2-1.2); Hematocrit 34.4 % (37.0-47.0); Hemoglobin 10.1 g/dL (12.0-15.0); Immature Granulocyte Absolute 0.11 K/mm3 (0.00-0.031); Immature Granulocyte Percent A 0.9 % (0-0.5); Lymphocytes Percent Auto 8.3 % (18.3-44.2); Mean Corpuscular HGB Conc 29.4 g/dl (32-36); Mean Corpuscular Hemoglobin 28.1 pg (26-34); Mean Corpuscular Volume 95.6 fl (80-100); Mean Platelet Volume 9.1 fl (7.4-10.4); Monocytes Absolute Auto 1.2 K/mm3 (0.1-0.6); Monocytes Percent Auto 9.6 % (2.6-8.5); Neutrophils Absolute Auto 9.7 K/mm3 (1.3-6.7); Neutrophils Percent Auto 81.1 % (45.5-73.1); Platelet Count Result 354 k/mm3 (150-375); Red Cell Distribution Width 17.5 % (11.5-14.5)
[2023-12-23 06:12] LABS: Alanine Aminotransferase 14 U/L (6-35); Albumin Level 3.3 g/dL (3.5-5.1); Alkaline Phosphatase 73 U/L (38-126); Anion Gap 4 mmol/L (4-12); Aspartate Amino Transferase 24 U/L (14-36); Bilirubin,Total 0.2 mg/dL (0.2-1.3); Blood Urea Nitrogen 32 mg/dL (7-17); Calcium 8.2 mg/dL (8.4-10.2); Carbon Dioxide 31 mmol/L (22-30); Chloride 108 mmol/L (98-107); Estimated CRCL calculation 41 ml/min; Estimated Glomerular Filt Rate > 60; Glucose 85 mg/dL (65-110); Magnesium 1.9 mg/dL (1.6-2.3); Potassium 3.7 mmol/L (3.4-5.0); Sodium 143 mmol/L (137-145)
[2023-12-23] MEDS: UMECLIDINIUM/VILANTEROL 62.5-25 MCG ELLIPTA 1 PUFF INHALATION (07:54)
[2023-12-23] MEDS: AMIODARONE HCL 100 MG TABLET PO (08:30)
[2023-12-23] MEDS: FUROSEMIDE 20 MG TABLET PO (08:30)
[2023-12-23] MEDS: APIXABAN 2.5 MG TABLET PO ×2 (08:31→21:22)
[2023-12-23] MEDS: SPIRONOLACTONE 25 MG TABLET PO (08:31)
[2023-12-23] MEDS: predniSONE 20 MG TABLET 40 MG PO (08:31)
[2023-12-23] MEDS: SERTRALINE HCL 25 MG TABLET PO ×2 (08:31→18:21)
--- NOTE | 2023-12-23 08:40 | PCPTNOTE ---
Attempted PT evaluation. Per nursing staff, pt returned to BiPap this morning due to SOB. Pt not safe to participate in skilled therapy at this time. Will follow.
[2023-12-23] MEDS: ASCORBIC ACID 500 MG TABLET PO (11:40)
[2023-12-23] MEDS: FERROUS SULFATE 325 MG TABLET DR PO (11:40)
[2023-12-23] MEDS: SODIUM CHLORIDE 0.9% IV 1,000 ML 50 ML IV CONT (11:42)
--- NOTE | 2023-12-23 13:20 | PCOTNOTE ---
OT evaluation attempted. Per nursing staff, pt returned to BiPap this morning due to SOB. Pt not safe to participate in skilled therapy at this time. Will follow.
--- NOTE | 2023-12-23 14:25 | P.PNIM_ITS ---
Progress Note: A&P Assessment and Plan (1) COPD exacerbation: Code(s): J44.1 - Chronic obstructive pulmonary disease with (acute) exacerbation Status: Acute Assessment and Plan: - started on doxycycline IVPB b.i.d. to complete 5 days Continue IV steroids and bronchodilators Still on bIPAP Pulm consulted (2) Paroxysmal A-fib: Code(s): I48.0 - Paroxysmal atrial fibrillation Status: Chronic Assessment and Plan: - EKG, initial: Sinus rhythm, atrial premature complex, incomplete RBBB, left ventricular hypertrophy and ST-T change cannot rule out septal infarct age indeterminate, ST-T-wave abnormality in anterolateral leads. No significant change compared to prior. - continue home medications: Amiodarone, Eliquis (3) Elevated glucose: Code(s): R73.09 - Other abnormal glucose Status: Acute Assessment and Plan: - initial glucose 135 - A1c 5.3 Plan Acute on chronic respiratory failure 3 liter NC oxygen at baseline continue BiPAP continue titrating RUL mass ruled out, Ct chest showed scarring, not mass CXR initially showed RUL mass Pulm consulted Diet: Regular DVT Prophylaxis: Continue home Eliquis Lines: Peripheral Code Status: Full code Subjective Date/time seen: 12/23/23 14:25 Interval history: patient depending on BiPAP Pulm consulted and will evaluated today Review of Systems Review of Systems: All systems reviewed & are unremarkable except as noted in HPI and below Exam Narrative: modest air movement in all lung hager without crackles or wheezing. Const: General: comfortable and no acute distress Other: , female, nontoxic appearance. HENMT: Face/Nose/Sinus: Normal nares present Mouth: Yes moist mucous membranes Eyes: General: appearance normal, both eyes and all related structures Sclera: sclerae normal Pupils: Equal, round and reactive pupils present EOM: EOMs intact bilaterally Resp: Effort & Inspection: normal respiratory effort Other: Modest air movement in all lobes without crackles or wheezing. Tolerating BiPAP well. Cardio: Rate: regular rate Rhythm: regular rhythm Other: S1-S2 present without murmur, rub, ectopy GI: Other: Abdomen soft, nondistended, nontender. Skin: General skin exam: normal color and no rashes or lesions noted Wou nds: no wounds Neuro: Cranial nerves: Yes Equal, round and reactive pupils present Speech: normal speech Motor exam (neuro): 5 motor strength present throughout Sensory Exam: normal sensation Other: A&O x4 Extrem: General: normal to inspection Psych: Mental Status: mental status grossly normal Affect: normal affect Other: Good insight and judgment, pleasant Objective Data Vital Signs Vital Signs: Vital Signs - 24 hr 12/22/23 16:00 12/22/23 16:00 12/22/23 18:00 Temperature Pulse Rate 79 88 Respiratory Rate Blood Pressure Pulse Oximetry 100 Oxygen Delivery BiPAP Oxygen Flow Rate Fraction of Inspired Oxygen 32 12/22/23 16:00 12/22/23 20:30 12/22/23 20:32 Temperature 98.3 F Pulse Rate 80 89 90 Respiratory Rate 24 H 20 23 H Blood Pressure 124/67 Pulse Oximetry 98 97 Oxygen Delivery BiPAP Oxygen Flow Rate Fraction of Inspired Oxygen 12/22/23 20:00 12/22/23 20:20 12/22/23 20:45 Temperature 97.8 F Pulse Rate 85 85 90 Respiratory Rate 24 H 24 H 22 H Blood Pressure 119/81 Pulse Oximetry 99 99 Oxygen Delivery BiPAP Oxygen Flow Rate Fraction of Inspired Oxygen 32 12/23/23 01:49 12/23/23 01:51 12/23/23 02:06 Temperature Pulse Rate 92 89 94 Respiratory Rate 20 20 20 Blood Pressure Pulse Oximetry 97 Oxygen Delivery BiPAP Oxygen Flow Rate Fraction of Inspired Oxygen 12/22/23 20:00 12/22/23 22:00 12/23/23 00:00 Temperature Pulse Rate 80 79 79 Respiratory Rate Blood Pressure Pulse Oximetry Oxygen Delivery Oxygen Flow Rate Fraction of Inspired Oxygen 12/23/23 02:00 12/23/23 00:15 12/23/23 00:15 Temperature 97.8 F Pulse Rate 75 82 82 Respiratory Rate 20 20 Blood Pressure 139/65 Pulse Oximetry 98 98 Oxygen Delivery BiPAP Oxygen Flow Rate Fraction of Inspired Oxygen 32 12/22/23 23:25 12/22/23 23:40 12/23/23 00:30 Temperature Pulse Rate 91 84 78 Respiratory Rate 22 H 20 20 Blood Pressure Pulse Oximetry 94 94 98 Oxygen Delivery Nasal Cannula Nasal Cannula BiPAP Oxygen Flow Rate 3 3 Fraction of Inspired Oxygen 32 12/23/23 03:47 12/23/23 04:00 12/23/23 04:00 Temperature 98.0 F Pulse Rate 71 71 73 Respiratory Rate 20 22 H Blood Pressure 123/72 Pulse Oximetry 97 98 Oxygen Delivery BiPAP Oxygen Flow Rate Fraction of Inspired Oxygen 32 12/23/23 06:00 12/23/23 07:49 12/23/23 07:49 Temperature Pulse Rate 77 78 Respiratory Rate 20 Blood Pressure Pulse Oximetry 99 Oxygen Delivery Nasal Cannula Oxygen Flow Rate 3 Fraction of Inspired Oxygen 32 12/23/23 07:55 12/23/23 08:30 12/23/23 08:00 Temperature 97.9 F Pulse Rate 77 107 H 87 Respiratory Rate 20 26 H Blood Pressure 113/52 L Pulse Oximetry 97 Oxygen Delivery Oxygen Flow Rate Fraction of Inspired Oxygen 12/23/23 08:00 12/23/23 09:21 12/23/23 09:21 Temperature Pulse Rate 87 78 Respiratory Rate 26 H 22 H Blood Pressure Pulse Oximetry 97 100 100 Oxygen Delivery BiPAP BiPAP BiPAP Oxygen Flow Rate Fraction of Inspired Oxygen 32 32 12/23/23 08:00 12/23/23 10:00 12/23/23 12:00 Temperature Pulse Rate 83 75 75 Respiratory Rate 22 H Blood Pressure Pulse Oximetry 100 Oxygen Delivery BiPAP Oxygen Flow Rate Fraction of Inspired Oxygen 32 12/23/23 12:00 12/23/23 12:00 12/23/23 14:00 Temperature 98 F Pulse Rate 84 81 81 Respiratory Rate 28 H 21 H Blood Pressure 132/59 L Pulse Oximetry 100 97 Oxygen Delivery BiPAP Oxygen Flow Rate Fraction of Inspired Oxygen 12/23/23 14:00 12/23/23 14:00 12/23/23 14:15 Temperature Pulse Rate 81 82 Respiratory Rate 21 H 20 Blood Pressure Pulse Oximetry 97 Oxygen Delivery BiPAP Oxygen Flow Rate Fraction of Inspired Oxygen 32 Intake/Output Intake/Output: Intake & Output 12/21/23 12/22/23 12/22/23 12/23/23 00:59 00:59 23:59 23:59 Intake Total 1525.8 Output Total 440 Balance 1085.8 Meds/Results Medications: Active Medications Generic Name Dose Route Start Last Admin Trade Name Freq PRN Reason Stop Dose Admin Acetaminophen 650 mg 12/20/23 18:48 12/22/23 17:29 Acetaminophen 325 Mg Tablet PO 650 mg Q4H PRN Administration Mild Pain (1-3) or Fever Albuterol 2 puff 12/20/23 23:12 Albuterol Sulfate (*Sp) Aerosol 1 Puff INHALATION Q4-6H PRN Shortness Of Breath Or Wheezing Albuterol/Ipratropium 3 ml 12/21/23 02:00 12/23/23 14:00 Ipratropium 0.5 Mg/Albuterol Sulfate 2.5 Mg Ampul.Neb 3 Ml INHALATION 3 ml Q6HRT KENYETTA Administration Amiodarone HCl 100 mg 12/21/23 09:00 12/23/23 08:30 Amiodarone Hcl 100 Mg Tablet PO 100 mg DAILY KENYETTA Administration Apixaban 2.5 mg 12/20/23 23:15 12/23/23 08:31 Apixaban 2.5 Mg Tablet PO 2.5 mg Q12HR KENYETTA Administration Ascorbic Acid 500 mg 12/21/23 08:00 12/23/23 11:40 Ascorbic Acid 500 Mg Tablet PO 500 mg DAILY@0800 KENYETTA Administration Doxycycline Hyclate 100 mg 12/23/23 19:00 Doxycycline Hyclate 100 Mg Tablet PO 12/25/23 09:01 Q12HR [facility] Ferrous Sulfate 325 mg 12/21/23 08:00 12/23/23 11:40 Ferrous Sulfate [address] PO 325 mg DAILY@0800 [facility] Administration Furosemide 20 mg 12/21/23 09:00 12/23/23 08:30 Furosemide 20 Mg Tablet PO 20 mg DAILY KENYETTA Administration Sodium Chloride 1,000 mls @ 50 mls/hr 12/21/23 17:40 12/23/23 11:42 Normal Saline Iv IV CONT 50 mls/hr .Q20H KENYETTA Administration Ondansetron HCl 4 mg 12/20/23 18:48 Ondansetron Inj 4 Mg/2 Ml Vial IV PUSH Q4H PRN Nausea Prednisone 40 mg 12/21/23 08:00 12/23/23 08:31 Prednisone 20 Mg Tablet PO 12/26/23 07:59 40 mg DAILY@0800 KENYETTA Administration Sertraline HCl 25 mg 12/20/23 23:20 12/23/23 08:31 Sertraline Hcl 25 Mg Tablet PO 25 mg BID KENYETTA Administration Spironolactone 25 mg 12/21/23 09:00 12/23/23 08:31 Spironolactone 25 Mg Tablet PO 25 mg DAILY KENYETTA Administration Umeclidinium/Vilanterol 1 puff 12/21/23 09:00 12/23/23 07:54 Umeclidinium/Vilanterol 62.5-25 Mcg Ellipta INHALATION 1 puff DAILY KENYETTA Administration Radiology Results: ITS Impressions Chest X-Ray 12/20/23 15:49 IMPRESSION: Mass in the right upper lobe area unchanged. Otherwise, No significant change from previous examination. Chest CT 12/21/23 14:57 IMPRESSION: Severe bullous emphysema, with prominent fibrocalcific scarring in the upper lobes, right greater than left IVC filter Cholelithiasis Extensive left nephrolithiasis; left internal urinary stent Labs Labs: Laboratory Results - last 24 hr 12/23/23 05:47 WBC 12.0 H RBC 3.60 L Hgb 10.1 L Hct 34.4 L MCV 95.6 MCH 28.1 MCHC 29.4 L RDW 17.5 H Plt Count 354 MPV 9.1 Immature Gran % (Auto) 0.9 H Neut % (Auto) 81.1 H Lymph % (Auto) 8.3 L [place] % (Auto) 9.6 H Eos % (Auto) 0.0 Baso % (Auto) 0.1 L Lymph # (Auto) 1.00 [place] # (Auto) 1.2 H Eos # (Auto) 0.0 Baso # (Auto) 0.0 Abs Immat Gran (auto) 0.11 H Absolute Neuts (auto) 9.7 H Absolute Nucleated RBC 0.000 Nucleated RBC % 0.0 Sodium 143 Potassium 3.7 Chloride 108 H Carbon Dioxide 31 H Anion Gap 4 BUN 32 H D Creatinine 0.90 Estim Creat Clear Calc 41 Estimated GFR > 60 Glucose 85 Calcium 8.2 L Magnesium 1.9 Total Bilirubin 0.2 AST 24 ALT 14 Alkaline Phosphatase 73 Total Protein 6.0 L Albumin 3.3 L Quality VTE Prophylaxis VTE prophylaxis: pharmacologic ordered
--- NOTE | 2023-12-23 16:38 | P.CONPL_ITS ---
Assessment and Plan Assessment and plan (1) COPD exacerbation: Code(s): J44.1 - Chronic obstructive pulmonary disease with (acute) exacerbation Status: Acute Assessment and Plan: Mild CO2 retention, increased cough, sputum, shortness of breath; she is on O2 at home 3 L/min. (2) Acute and chronic respiratory failure with hypercapnia: Code(s): J96.22 - Acute and chronic respiratory failure with hypercapnia Status: Acute Assessment and Plan: Plan plan: 1. Will avoid over-pressurizing her end stage emphysematous lungs by stopping Bipap 12/6 and 40%, switching to Vapotherm for the ability of improving ventilation, decreasing work of breathing, improving oxygenation. 2. Vibratory vest, Cornet vibratory valve with Mucomyst t.i.d; she has excess peter tenacious mucoid secretions which are difficult for her to clear. 3. COPD management including nebulized bronchodilators. She has no nebulizer at home. Adding nebulizer (at discharge ) may improve distribution of medications. She has such advanced lung disease that using an inhaler may have limited benefit. * Stop Anoro now; she cannot inhale sufficiently. Continue albuterol and ipratropium. Add nebulized budesonide. This will be prescribed as a home medication as well. * Continue IV steroids. 4. Submit sputum for evaluation. Her secretions are really thick and pale green, and she is on doxycycline. She needs Pseudomonas coverage. She has no prior sputum cultures revealing any positive cultures. Her last sputum had normal respiratory ceci in 2022. She is allergic to PCN, ampicillin and Sulfa. She can start oral Levaquin and try to obtain sputum for testing. 5. Records from head filter tank tender helper Dr. Noam Luque [facility]. History of Present Illness History of Present Illness Consult date: 12/23/23 Requesting physician: Erika Ghosh MD Chief complaint: COPD on BIPAP Narrative: Patient is seen Dec 23, 2023 at 16:45 pm Room 231. NEW hospital consult: Alexus Zambrano is 73-years old, has been followed by our practice; she is in IMU Room 231 having respiratory dependence on BiPAP, able to come off for 30 minutes at the most before having excessive shortness of breath, requiring return to support on the device. She has end stage emphysema, in 2021 was transferred from here to [facility] to get higher level pulmonary services with bullectomy and endobronchial valve. Days later, she developed acute DVT in lower legs, already had an IVC filter from 2018. She recovered, having follow up care there with Dr Chung, cardiothoracic surgery, Dr Luque pulmonary and Dr Santos Cardiology. She has been treated with Eliquis for LE DVTs. She has been followed by pulmonologi Dr Luqeu since. The drive is about an hour each way, and the appt takes a full day. She and her want to transfer her care back to our practice, had an appt scheduled for Jan 30, 2024, however is worse sooner, now admitted. She has increased light green tenacious secretions, has difficulty getting these expectorated. This started a day or two ago. She has no nebulizer at home. She has an extremely went harsh cough and uses accessory muscles when she tries to expectorate her sputum. Her face turned red with significant distress while coughing up moderately like green tenacious secretions. PMH: End stage COPD. Has been managed by Dr Yordy Luque at [facility]; history of 3 pneumothoraces, improved after left ptx with bleb resection 05/13/21 and endobronchial valve 05/14/21 history of DVT and PE pulmonary hypertension hx of PAF; has been on Eliquis for this. DATA * 12/21/2023; chest CT = Severe bullous emphysema, with prominent fibrocalcific scarring in the upper lobes, right greater than left; IVC filter; Cholelithiasis; Extensive left nephrolithiasis; left internal urinary stent * Na+ 143; K+ 3.7, chloride 108, CO2 31, BUN elevated 32, creatinine 0.9, glucose 85. Estimated GFR is greater than 60. ABG Dec 20, 2023 = pH 7.37, pCO2 50.3, PO2 126, HC03 28.8, saturation 97% Review of Systems Review of Systems: No leg swelling. No nausea/vomiting. No sore throat. No sick contacts. All systems reviewed & are unremarkable except as noted in HPI and below PMFSH Past Medical History Medical History Bladder stone Chronic respiratory failure COPD (chronic obstructive pulmonary disease) Emphysema lung History of kidney stones with extraction History of pulmonary embolism History of tobacco abuse Multiple nodules of lung On home O2 3LPM baseline Osteoporosis Paroxysmal A-fib Renal calculus, left Snoring Spontaneous pneumothorax x3 Surgical History Surgical History History of adenoidectomy History of breast biopsy History of hysterectomy with bilateral oophorectomy History of tonsillectomy Hx of fracture of wrist s/p L ORIF S/P IVC filter Family History Family History Father Patient's father is Sibling Family history of malignant neoplasm of breast Mother Diabetes mellitus Family history of congestive heart failure Sibling Family history of malignant neoplasm of breast Sibling Family history of malignant neoplasm of breast Social History Social History Smoking packs per day: 0.5 Smoking cigarettes per day: 10.0 Years smoked: 25 Smoking pack-years: 12.50 Smoking status: Former smoker Tobacco type: cigarettes Second hand tobacco smoke exposure: No Smoking end date: 02/18/97 Alcohol intake: never Substance use: never Substance use type: does not use Do You Feel Safe in your Home?: Yes Lack of Transportation: No Lack of Food: Never True Current Housing: I Have Housing Concerned About Future Housing: No Difficulty Paying Gas/Electric Bills: No Difficulty Paying for Meds: No Currently Unemployed: No Education: Trade/Vocational Certificate Difficulty w/ Childcare or Family Care: No Living arrangements: with family Additional living arrangements comments: Occupation/Education: other Gender identity (if verbalized by the patient): Female Spiritual care concerns: No Meds Home Medications and Allergies Home Medications Medication Instructions Recorded Confirmed Type amiodarone 200 mg tablet 100 mg PO DAILY 01/26/22 12/20/23 History apixaban 2.5 mg tablet (Eliquis) 2.5 mg PO Q12HR #60 tabs 08/26/22 12/20/23 Rx furosemide 20 mg tablet 20 mg PO DAILY #30 tabs 08/26/22 12/20/23 Rx spironolactone 25 mg tablet 25 mg PO DAILY #30 tabs 08/26/22 12/20/23 Rx ascorbic acid (vitamin C) 500 mg 500 mg PO DAILY@0800 #90 tabs 09/24/22 12/20/23 Rx tablet (Vitamin C) albuterol sulfate 90 mcg/actuation 2 puff inhalation Q4-6H PRN 08/08/23 12/20/23 History aerosol inhaler Shortness Of Breath Or Wheezing umeclidinium 62.5 mcg-vilanterol 1 inh inhalation DAILY #60 ea 10/16/23 12/20/23 Rx 25 mcg/actuation powdr for inhalation (Anoro Ellipta) sertraline 50 mg tablet (Zoloft) 25 mg PO BID #30 tabs 12/06/23 12/20/23 Rx ferrous sulfate 325 mg (65 mg 325 mg PO DAILY@0800 #90 tabs 12/19/23 12/20/23 Rx iron) tablet Allergies Allergy/AdvReac Type Severity Reaction Status Date / Time codeine Allergy Intermediate Anaphylactic Verified 12/20/23 22:42 Shock erythromycin base Allergy Mild HIVES AND Verified 12/20/23 22:42 EDEMA Penicillins Allergy Mild EDEMA & Verified 12/20/23 22:42 HIVES Sulfa (Sulfonamide Allergy Mild HIVES AND Verified 12/20/23 22:42 Antibiotics) EDEMA ampicillin Allergy Unknown RASH Verified 12/20/23 22:42 Vital Signs Vital Signs - 24 hr 12/22/23 18:00 12/22/23 20:30 12/22/23 20:32 Temperature Pulse Rate 88 89 90 Respiratory Rate 20 23 H Blood Pressure Pulse Oximetry 97 Oxygen Delivery BiPAP Oxygen Flow Rate Fraction of Inspired Oxygen 12/22/23 20:00 12/22/23 20:20 12/22/23 20:45 Temperature 36.6 C Pulse Rate 85 85 90 Respiratory Rate 24 H 24 H 22 H Blood Pressure 119/81 Pulse Oximetry 99 99 Oxygen Delivery BiPAP Oxygen Flow Rate Fraction of Inspired Oxygen 32 12/23/23 01:49 12/23/23 01:51 12/23/23 02:06 Temperature Pulse Rate 92 89 94 Respiratory Rate 20 20 20 Blood Pressure Pulse Oximetry 97 Oxygen Delivery BiPAP Oxygen Flow Rate Fraction of Inspired Oxygen 12/22/23 20:00 12/22/23 22:00 12/23/23 00:00 Temperature Pulse Rate 80 79 79 Respiratory Rate Blood Pressure Pulse Oximetry Oxygen Delivery Oxygen Flow Rate Fraction of Inspired Oxygen 12/23/23 02:00 12/23/23 00:15 12/23/23 00:15 Temperature 36.6 C Pulse Rate 75 82 82 Respiratory Rate 20 20 Blood Pressure 139/65 Pulse Oximetry 98 98 Oxygen Delivery BiPAP Oxygen Flow Rate Fraction of Inspired Oxygen 32 12/22/23 23:25 12/22/23 23:40 12/23/23 00:30 Temperature Pulse Rate 91 84 78 Respiratory Rate 22 H 20 20 Blood Pressure Pulse Oximetry 94 94 98 Oxygen Delivery Nasal Cannula Nasal Cannula BiPAP Oxygen Flow Rate 3 3 Fraction of Inspired Oxygen 32 12/23/23 03:47 12/23/23 04:00 12/23/23 04:00 Temperature 36.7 C Pulse Rate 71 71 73 Respiratory Rate 20 22 H Blood Pressure 123/72 Pulse Oximetry 97 98 Oxygen Delivery BiPAP Oxygen Flow Rate Fraction of Inspired Oxygen 32 12/23/23 06:00 12/23/23 07:49 12/23/23 07:49 Temperature Pulse Rate 77 78 Respiratory Rate 20 Blood Pressure Pulse Oximetry 99 Oxygen Delivery Nasal Cannula Oxygen Flow Rate 3 Fraction of Inspired Oxygen 32 12/23/23 07:55 12/23/23 08:30 12/23/23 08:00 Temperature 36.6 C Pulse Rate 77 107 H 87 Respiratory Rate 20 26 H Blood Pressure 113/52 L Pulse Oximetry 97 Oxygen Delivery Oxygen Flow Rate Fraction of Inspired Oxygen 12/23/23 08:00 12/23/23 09:21 12/23/23 09:21 Temperature Pulse Rate 87 78 Respiratory Rate 26 H 22 H Blood Pressure Pulse Oximetry 97 100 100 Oxygen Delivery BiPAP BiPAP BiPAP Oxygen Flow Rate Fraction of Inspired Oxygen 32 32 12/23/23 08:00 12/23/23 10:00 12/23/23 12:00 Temperature Pulse Rate 83 75 75 Respiratory Rate 22 H Blood Pressure Pulse Oximetry 100 Oxygen Delivery BiPAP Oxygen Flow Rate Fraction of Inspired Oxygen 32 12/23/23 12:00 12/23/23 12:00 12/23/23 14:00 Temperature 36.6 C Pulse Rate 84 81 81 Respiratory Rate 28 H 21 H Blood Pressure 132/59 L Pulse Oximetry 100 97 Oxygen Delivery BiPAP Oxygen Flow Rate Fraction of Inspired Oxygen 12/23/23 14:00 12/23/23 14:00 12/23/23 14:15 Temperature Pulse Rate 81 82 Respiratory Rate 21 H 20 Blood Pressure Pulse Oximetry 97 Oxygen Delivery BiPAP Oxygen Flow Rate Fraction of Inspired Oxygen 32 Exam Narrative: GEN: Alert, oriented, moderate increased respiratory effort with accessory muscle use. She is thin, 65 inches, 111 lb, wearing O2 nasal cannula while biPAP is off. BiPAP was 12/6 and 40%. HEENT: pupils are equal, EOMI, symmetrical face; oral membranes moist, Mallampati II airway NECK: Trachea is midline CHEST: Hyperinflated chest; equal air entry, symmetric excursion, decreased yet clear breath sounds with occasional rhonchi. CV: Regular S1S2 no m/g/r ABD : (+) bowel sounds Extremities : no clubbing, cyanosis, or edema. She has thin calves, non tender. Skin is warm and dry. Scattered ecchymoses on forearms. PSYCH: normal thought and speech, gait is normal Results Laboratory Findings 12/23/23 05:47 12/23/23 05:47 ABG, PT/INR, D-dimer: ABG ABG pH 7.376 (7.350-7.450) 12/20/23 17:34 ABG pCO2 50.3 mmHg (35.0-45.0) H 12/20/23 17:34 ABG pO2 126.0 mmHg (80.0-100.0) H 12/20/23 17:34 ABG O2 Saturation 98.4 % (95.0-100.0) 12/20/23 17:34 PT/INR, D-dimer PT 15.5 Seconds (11.1-14.7) H 12/20/23 15:45 INR 1.2 12/20/23 15:45 D-Dimer 0.40 ug/mL (<0.48) 12/20/23 15:45 Abnormal lab findings: Abnormal Labs 12/20/23 12/20/23 12/21/23 15:45 17:34 04:45 WBC RBC 4.16 L Hgb 11.9 L Hct MCHC 30.3 L 30.6 L RDW 17.0 H 17.2 H Plt Count 380 H 397 H Immature Gran % (Auto) 0.8 H 0.7 H Neut % (Auto) 89.9 H Lymph % (Auto) 14.8 L 5.9 L [place] % (Auto) Baso % (Auto) 1.4 H Lymph # (Auto) 0.33 L [place] # (Auto) 0.7 H Abs Immat Gran (auto) 0.07 H 0.04 H Absolute Neuts (auto) PT 15.5 H ABG pCO2 50.3 H ABG pO2 126.0 H ABG HCO3 28.8 H Chloride Carbon Dioxide 33 H 34 H BUN 32 H 37 H Creatinine 1.20 H Estimated GFR 55 L 44 L Glucose 135 H 166 H Calcium Magnesium 3.1 H NT-Pro-B Natriuret Pep 267 H Total Protein Albumin 12/22/23 12/23/23 04:41 05:47 WBC 15.8 H 12.0 H RBC 3.96 L 3.60 L Hgb 11.0 L 10.1 L Hct 34.4 L MCHC 29.6 L 29.4 L RDW 17.4 H 17.5 H Plt Count 410 H Immature Gran % (Auto) 0.6 H 0.9 H Neut % (Auto) 85.9 H 81.1 H Lymph % (Auto) 3.9 L 8.3 L [place] % (Auto) 9.4 H 9.6 H Baso % (Auto) 0.1 L Lymph # (Auto) 0.61 L [place] # (Auto) 1.5 H 1.2 H Abs Immat Gran (auto) 0.10 H 0.11 H Absolute Neuts (auto) 13.5 H 9.7 H PT ABG pCO2 ABG pO2 ABG HCO3 Chloride 108 H Carbon Dioxide 31 H 31 H BUN 44 H 32 H D Creatinine Estimated GFR 55 L Glucose 118 H Calcium 8.2 L Magnesium NT-Pro-B Natriuret Pep Total Protein 6.0 L Albumin 3.3 L
[2023-12-23] MEDS: DOXYCYCLINE HYCLATE 100 MG TABLET PO (18:21)
[2023-12-23] MEDS: ACETYLCYSTEINE 20% INHAL SOLN 800 MG/4 ML VIAL 200 MG INHALATION (20:54)
[2023-12-23] MEDS: methylPREDNISolone SOD SUCC 40 MG VIAL IV PUSH (21:22)
[2023-12-23] MEDS: ACETAMINOPHEN 325 MG TABLET 650 MG PO (21:24)
[2023-12-24] VITALS (29 sets, daily range): BP systolic 132–146; BP diastolic 62–87; PULSE 70–101; RESP 20–30; TEMP 36.1–36.6; O2SAT 93–99
[2023-12-24] MEDS: IPRATROPIUM 0.5 MG/ALBUTEROL SULFATE 2.5 MG AMPUL.NEB 3 ML INHALATION ×4 (01:31→20:30)
[2023-12-24 04:03] LABS: Basophils Percent Auto 0.2 % (0.2-1.2); Hematocrit 38.7 % (37.0-47.0); Hemoglobin 11.4 g/dL (12.0-15.0); Immature Granulocyte Percent A 1.1 % (0-0.5); Lymphocytes Absolute Auto 0.45 K/mm3 (0.9-3.2); Lymphocytes Percent Auto 4.8 % (18.3-44.2); Mean Corpuscular HGB Conc 29.5 g/dl (32-36); Mean Corpuscular Volume 95.1 fl (80-100); Mean Platelet Volume 9.2 fl (7.4-10.4); Monocytes Absolute Auto 0.1 K/mm3 (0.1-0.6); Monocytes Percent Auto 1.5 % (2.6-8.5); Neutrophils Absolute Auto 8.6 K/mm3 (1.3-6.7); Neutrophils Percent Auto 92.4 % (45.5-73.1); Platelet Count Result 375 k/mm3 (150-375); Red Blood Count 4.07 M/mm3 (4.2-5.4); Red Cell Distribution Width 17.3 % (11.5-14.5); White Blood Count 9.3 K/mm3 (4.5-10.0)
[2023-12-24 04:17] LABS: Alanine Aminotransferase 19 U/L (6-35); Albumin Level 3.7 g/dL (3.5-5.1); Alkaline Phosphatase 87 U/L (38-126); Anion Gap 7 mmol/L (4-12); Aspartate Amino Transferase 26 U/L (14-36); Bilirubin,Total 0.3 mg/dL (0.2-1.3); Blood Urea Nitrogen 26 mg/dL (7-17); Calcium 8.8 mg/dL (8.4-10.2); Carbon Dioxide 30 mmol/L (22-30); Chloride 108 mmol/L (98-107); Estimated CRCL calculation 46 ml/min; Estimated Glomerular Filt Rate > 60; Glucose 120 mg/dL (65-110); Magnesium 1.9 mg/dL (1.6-2.3); Potassium 4.4 mmol/L (3.4-5.0); Sodium 145 mmol/L (137-145)
[2023-12-24] MEDS: methylPREDNISolone SOD SUCC 40 MG VIAL IV PUSH ×3 (05:26→21:56)
[2023-12-24] MEDS: SODIUM CHLORIDE 0.9% IV 1,000 ML 50 ML IV CONT (08:17)
[2023-12-24] MEDS: SPIRONOLACTONE 25 MG TABLET PO (08:40)
[2023-12-24] MEDS: FUROSEMIDE 20 MG TABLET PO (08:41)
[2023-12-24] MEDS: ASCORBIC ACID 500 MG TABLET PO (08:41)
[2023-12-24] MEDS: APIXABAN 2.5 MG TABLET PO ×2 (08:41→21:55)
[2023-12-24] MEDS: FERROUS SULFATE 325 MG TABLET DR PO (08:41)
[2023-12-24] MEDS: AMIODARONE HCL 100 MG TABLET PO (08:41)
[2023-12-24] MEDS: DOXYCYCLINE HYCLATE 100 MG TABLET PO (08:41)
[2023-12-24] MEDS: SERTRALINE HCL 25 MG TABLET PO ×2 (08:41→16:20)
--- NOTE | 2023-12-24 09:13 | PM.IMPN ---
Progress Note: A&P Assessment and Plan (1) COPD exacerbation: Code(s): J44.1 - Chronic obstructive pulmonary disease with (acute) exacerbation Status: Acute Assessment and Plan: - started on doxycycline IVPB b.i.d. to complete 5 days -started levofloxacin Continue IV steroids and bronchodilators Still on bIPAP Pulm consulted (2) Paroxysmal A-fib: Code(s): I48.0 - Paroxysmal atrial fibrillation Status: Chronic Assessment and Plan: - EKG, initial: Sinus rhythm, atrial premature complex, incomplete RBBB, left ventricular hypertrophy and ST-T change cannot rule out septal infarct age indeterminate, ST-T-wave abnormality in anterolateral leads. No significant change compared to prior. - continue home medications: Amiodarone, Eliquis (3) Elevated glucose: Code(s): R73.09 - Other abnormal glucose Status: Acute Assessment and Plan: - initial glucose 135 - A1c 5.3 Plan Acute on chronic respiratory failure 3 liter NC oxygen at baseline HFNC F35,FiO2 32 Vibratory vest, Cornet vibratory valve with Mucomyst t.i.d Continue albuterol and ipratropium. Add nebulized budesonide s/p BiPAP Sputum culture pending Pulmonology is following f/u with director process engineering Dr. Noam Luque [facility] in [facility] RUL mass ruled out, Ct chest showed scarring, not mass CXR initially showed RUL mass Pulm consulted Diet: Regular DVT Prophylaxis: Continue home Eliquis Lines: Peripheral Code Status: Full code Subjective Date/time seen: 12/24/23 09:13 Interval history: No acute events overnight.High-flow nasal cannula at 35 and FiO2 32. Pending alpha 1 antitrypsin levels. Patient has ureteral stent which needs to be replaced every 3 months. Levaquin is added and sputum culture is still pending. Review of Systems Review of Systems: All systems reviewed & are unremarkable except as noted in HPI and below Exam Narrative: modest air movement in all lung hager without crackles or wheezing. Const: General: comfortable and no acute distress Other: , female, nontoxic appearance. HENMT: Face/Nose/Sinus: Normal nares present Mouth: Yes moist mucous membranes Eyes: General: appearance normal, both eyes and all related structures Sclera: sclerae normal Pupils: Equal, round and reactive pupils present EOM: EOMs intact bilaterally Resp: Effort & Inspection: normal respiratory effort Other: Modest air movement in all lobes without crackles or wheezing. Tolerating BiPAP well. Cardio: Rate: regular rate Rhythm: regular rhythm Other: S1-S2 present without murmur, rub, ectopy GI: Other: Abdomen soft, nondistended, nontender. Skin: General skin exam: normal color and no rashes or lesions noted Wounds: no wounds Neuro: Cranial nerves: Yes Equal, round and reactive pupils present Speech: normal speech Motor exam (neuro): 5/5 motor strength present throughout Sensory Exam: normal sensation Other: A&O x4 Extrem: General: normal to inspection Psych: Mental Status: mental status grossly normal Affect: normal affect Other: Good insight and judgment, pleasant Objective Data Vital Signs Vital Signs: Vital Signs - 24 hr 12/23/23 09:21 12/23/23 09:21 12/23/23 10:00 Temperature Pulse Rate 78 75 Respiratory Rate 22 H Blood Pressure Pulse Oximetry 100 100 Oxygen Delivery BiPAP BiPAP Oxygen Flow Rate Fraction of Inspired Oxygen 32 12/23/23 12:00 12/23/23 12:00 12/23/23 12:00 Temperature 98 F Pulse Rate 75 84 81 Respiratory Rate 22 H 28 H Blood Pressure 132/59 L Pulse Oximetry 100 100 Oxygen Delivery BiPAP Oxygen Flow Rate Fraction of Inspired Oxygen 32 12/23/23 14:00 12/23/23 14:00 12/23/23 14:00 Temperature Pulse Rate 81 81 Respiratory Rate 21 H 21 H Blood Pressure Pulse Oximetry 97 97 Oxygen Delivery BiPAP BiPAP Oxygen Flow Rate Fraction of Inspired Oxygen 32 12/23/23 14:15 12/23/23 16:52 12/23/23 14:00 Temperature Pulse Rate 82 81 Respiratory Rate 20 Blood Pressure Pulse Oximetry 98 Oxygen Delivery Nasal Cannula Oxygen Flow Rate 3 Fraction of Inspired Oxygen 32 12/23/23 16:00 12/23/23 16:00 12/23/23 16:00 Temperature 98 F Pulse Rate 80 79 79 Respiratory Rate 22 H 22 H Blood Pressure 92/45 L Pulse Oximetry 100 98 Oxygen Delivery Nasal Cannula Oxygen Flow Rate 3 Fraction of Inspired Oxygen 12/23/23 18:00 12/23/23 19:52 12/23/23 20:18 Temperature 98.1 F Pulse Rate 87 82 Respiratory Rate 22 H Blood Pressure 139/65 Pulse Oximetry 97 97 Oxygen Delivery High Flow Therapy with Na Oxygen Flow Rate 35 Fraction of Inspired Oxygen 32 12/23/23 20:55 12/23/23 20:55 12/23/23 21:11 Temperature Pulse Rate 79 79 79 Respiratory Rate 20 20 Blood Pressure Pulse Oximetry 95 Oxygen Delivery High Flow Therapy with Na Oxygen Flow Rate 35 Fraction of Inspired Oxygen 32 12/23/23 20:00 12/23/23 22:00 12/23/23 23:58 Temperature 98.1 F Pulse Rate 82 76 78 Respiratory Rate 22 H Blood Pressure 136/70 Pulse Oximetry 96 Oxygen Delivery Oxygen Flow Rate Fraction of Inspired Oxygen 12/24/23 00:00 12/24/23 00:00 12/24/23 01:32 Temperature Pulse Rate 74 79 Respiratory Rate Blood Pressure Pulse Oximetry 96 95 Oxygen Delivery High Flow Therapy with Na High Flow Therapy with Na Oxygen Flow Rate 35 35 Fraction of Inspired Oxygen 32 32 12/24/23 01:32 12/24/23 01:37 12/24/23 02:00 Temperature Pulse Rate 79 77 74 Respiratory Rate 20 20 Blood Pressure Pulse Oximetry Oxygen Delivery Oxygen Flow Rate Fraction of Inspired Oxygen 12/24/23 03:27 12/24/23 04:00 12/24/23 04:00 Temperature 97.7 F Pulse Rate 78 74 Respiratory Rate 22 H Blood Pressure 137/62 Pulse Oximetry 97 97 Oxygen Delivery High Flow Therapy with Na Oxygen Flow Rate 35 Fraction of Inspired Oxygen 32 12/24/23 05:09 12/24/23 06:00 12/24/23 07:54 Temperature 97.7 F Pulse Rate 70 72 83 Respiratory Rate 29 H Blood Pressure 146/87 H Pulse Oximetry 95 96 Oxygen Delivery High Flow Therapy with Na Oxygen Flow Rate 35 Fraction of Inspired Oxygen 32 Intake/Output Intake/Output: Intake & Output 12/22/23 12/22/23 12/23/23 12/24/23 00:59 23:59 23:59 23:59 Intake Total 1995.8 2000 Output Total 1440 400 Balance 555.8 1600 Meds/Results Medications: Active Medications Generic Name Dose Route Start Last Admin Trade Name Freq PRN Reason Stop Dose Admin Acetaminophen 650 mg 12/20/23 18:48 12/23/23 21:24 Acetaminophen 325 Mg Tablet PO 650 mg Q4H PRN Administration Mild Pain (1-3) or Fever Acetylcysteine 200 mg 12/23/23 22:00 12/23/23 20:54 Acetylcysteine 20% Inhal Soln 800 Mg/4 Ml Vial INHALATION 200 mg Q8HR KENYETTA Administration Albuterol 2 puff 12/20/23 23:12 Albuterol Sulfate (*Sp) Aerosol 1 Puff INHALATION Q4-6H PRN Shortness Of Breath Or Wheezing Albuterol/Ipratropium 3 ml 12/21/23 02:00 12/24/23 01:31 Ipratropium 0.5 Mg/Albuterol Sulfate 2.5 Mg Ampul.Neb 3 Ml INHALATION 3 ml Q6HRT KENYETTA Administration Amiodarone HCl 100 mg 12/21/23 09:00 12/24/23 08:41 Amiodarone Hcl 100 Mg Tablet PO 100 mg DAILY KENYETTA Administration Apixaban 2.5 mg 12/20/23 23:15 12/24/23 08:41 Apixaban 2.5 Mg Tablet PO 2.5 mg Q12HR KENYETTA Administration Ascorbic Acid 500 mg 12/21/23 08:00 12/24/23 08:41 Ascorbic Acid 500 Mg Tablet PO 500 mg DAILY@0800 KENYETTA Administration Doxycycline Hyclate 100 mg 12/23/23 19:00 12/24/23 08:41 Doxycycline Hyclate 100 Mg Tablet PO 12/25/23 09:01 100 mg Q12HR KENYETTA Administration Ferrous Sulfate 325 mg 12/21/23 08:00 12/24/23 08:41 Ferrous Sulfate [address] PO 325 mg DAILY@0800 KENYETTA Administration Furosemide 20 mg 12/21/23 09:00 12/24/23 08:41 Furosemide 20 Mg Tablet PO 20 mg DAILY KENYETTA Administration Sodium Chloride 1,000 mls @ 50 mls/hr 12/21/23 17:40 12/24/23 08:17 Normal Saline Iv IV CONT 50 mls/hr .Q20H KENYETTA Administration Methylprednisolone Sodium Succinate 40 mg 12/23/23 22:00 12/24/23 05:26 Methylprednisolone Sod Succ 40 Mg Vial IV PUSH 40 mg Q8HR KENYETTA Administration Ondansetron HCl 4 mg 12/20/23 18:48 Ondansetron Inj 4 Mg/2 Ml Vial IV PUSH Q4H PRN Nausea Sertraline HCl 25 mg 12/20/23 23:20 12/24/23 08:41 Sertraline Hcl 25 Mg Tablet PO 25 mg BID KENYETTA Administration Spironolactone 25 mg 12/21/23 09:00 12/24/23 08:40 Spironolactone 25 Mg Tablet PO 25 mg DAILY KENYETTA Administration Radiology Results: ITS Impressions Chest X-Ray 12/20/23 15:49 IMPRESSION: Mass in the right upper lobe area unchanged. Otherwise, No significant change from previous examination. Chest CT 12/21/23 14:57 IMPRESSION: Severe bullous emphysema, with prominent fibrocalcific scarring in the upper lobes, right greater than left IVC filter Cholelithiasis Extensive left nephrolithiasis; left internal urinary stent Labs Labs: Laboratory Results - last 24 hr 12/24/23 03:52 WBC 9.3 RBC 4.07 L Hgb 11.4 L Hct 38.7 MCV 95.1 MCH 28.0 MCHC 29.5 L RDW 17.3 H Plt Count 375 MPV 9.2 Immature Gran % (Auto) 1.1 H Neut % (Auto) 92.4 H Lymph % (Auto) 4.8 L [place] % (Auto) 1.5 L Eos % (Auto) 0.0 Baso % (Auto) 0.2 Lymph # (Auto) 0.45 L [place] # (Auto) 0.1 Eos # (Auto) 0.0 Baso # (Auto) 0.0 Abs Immat Gran (auto) 0.10 H Absolute Neuts (auto) 8.6 H Absolute Nucleated RBC 0.000 Nucleated RBC % 0.0 Sodium 145 Potassium 4.4 Chloride 108 H Carbon Dioxide 30 Anion Gap 7 BUN 26 H Creatinine 0.80 Estim Creat Clear Calc 46 Estimated GFR > 60 Glucose 120 H Calcium 8.8 Magnesium 1.9 Total Bilirubin 0.3 AST 26 ALT 19 Alkaline Phosphatase 87 Total Protein 7.0 Albumin 3.7 Quality VTE Prophylaxis VTE prophylaxis: pharmacologic ordered Hospitalist MIPS Advance Care Plan I have confirmed that the patient's Advanced Care Plan is present, code status is documented, or surrogate decision maker is listed in patient medical record.: Yes Medication Reconciliation I have utilized all available resources to obtain, update and review the patients current medications (includes all prescriptions, OTC, herbals, cannabis, and nutritional supplements).: Yes
--- NOTE | 2023-12-24 09:39 | PCPTNOTE ---
Attempted PT evaluation, pt adamantly refused with pt stating I'm just getting my breathing pattern back. RN aware. will follow.
[2023-12-24] MEDS: ACETYLCYSTEINE 20% INHAL SOLN 800 MG/4 ML VIAL 200 MG INHALATION ×3 (09:53→20:31)
[2023-12-24] MEDS: levoFLOXacin 750 MG TABLET PO (11:10)
--- NOTE | 2023-12-24 14:02 | PCOTNOTE ---
Attempted to see pt for OT evaluation however pt declines at this time due to labored breathing and not feeling up to moving. RN aware. Will continue to follow.
[2023-12-24] MEDS: guaiFENesin 12 HR 600 MG TABCR PO (18:32)
[2023-12-24 18:47] LABS: Bacteria Urine 4+ /hpf; Non Pathogenic Casts 0-2; RBC Urine >100 /hpf (0-2); Squamous Epithelial Cell Urine None Seen /hpf (Few); WBC Urine 51-100 /hpf (0-3)
[2023-12-24 18:48] LABS: Add Urine Microscopic? YES; Appearance Urine Cloudy (Clear); Bilirubin Urine Negative (Negative); Blood Urine 3+ (Negative); Glucose Urine UA Negative (Negative); Ketones Urine Negative (Negative); Leukocyte Esterase Ur 3+ LEU/UL (Negative); Nitrate Urine Negative (Negative); Protein Urine 3+ mg/dL (Negative); Specific Grav Ur 1.014 (1.001-1.035); Urobilinogen Urine 0.2 mg/dL (<2.0)
[2023-12-24 18:50] LABS: Color Urine Amber (Yellow)
[2023-12-25] VITALS (31 sets, daily range): BP systolic 134–161; BP diastolic 54–83; PULSE 73–101; RESP 20–30; TEMP 36.4–36.8; O2SAT 90–97
[2023-12-25] MEDS: guaiFENesin 12 HR 600 MG TABCR PO ×4 (01:00→17:30)
[2023-12-25] MEDS: ACETYLCYSTEINE 20% INHAL SOLN 800 MG/4 ML VIAL 200 MG INHALATION ×4 (02:33→20:46)
[2023-12-25] MEDS: IPRATROPIUM 0.5 MG/ALBUTEROL SULFATE 2.5 MG AMPUL.NEB 3 ML INHALATION ×4 (02:33→20:46)
[2023-12-25] MEDS: methylPREDNISolone SOD SUCC 40 MG VIAL IV PUSH ×3 (06:47→20:18)
[2023-12-25] MEDS: SODIUM CHLORIDE 0.9% IV 1,000 ML 50 ML IV CONT (06:47)
[2023-12-25 07:42] LABS: Hematocrit 38.9 % (37.0-47.0); Hemoglobin 11.8 g/dL (12.0-15.0); Mean Corpuscular HGB Conc 30.3 g/dl (32-36); Mean Corpuscular Hemoglobin 28.7 pg (26-34); Mean Corpuscular Volume 94.6 fl (80-100); Mean Platelet Volume 9.4 fl (7.4-10.4); Platelet Count Result 392 k/mm3 (150-375); Red Blood Count 4.11 M/mm3 (4.2-5.4); Red Cell Distribution Width 17.2 % (11.5-14.5)
[2023-12-25 07:59] LABS: Alveolar/Arterial O2 Gradient 243.3 mmHg; Base Excess ABG -0.6 mEq/l (+/-2.0); Fractional Inspired Oxygen 50 %; HCO3 ABG 25.7 mEq/l (22.0-26.0); Oxygen Content ABG 16.7 %vol (16.0-22.0); Oxygen Saturation ABG 88.5 % (95.0-100.0); Oxyhemoglobin 88.5 % THb (90.0-100.0); PCO2 ABG 48.7 mmHg (35.0-45.0); PO2 ABG 58.4 mmHg (80.0-100.0); PO2 FiO2 Ratio Arterial Blood 1.17 %; Total Hemoglobin 13.4 g/dL (12.0-18.0)
[2023-12-25 08:01] LABS: Device HIGH FLOW THERAPY; Modified Allen's Test Pass; Site Drawn RIGHT RADIAL
[2023-12-25 08:24] LABS: Alanine Aminotransferase 17 U/L (6-35); Albumin Level 3.6 g/dL (3.5-5.1); Alkaline Phosphatase 84 U/L (38-126); Anion Gap 6 mmol/L (4-12); Aspartate Amino Transferase 23 U/L (14-36); Bilirubin,Total 0.4 mg/dL (0.2-1.3); Blood Urea Nitrogen 29 mg/dL (7-17); Calcium 8.4 mg/dL (8.4-10.2); Carbon Dioxide 28 mmol/L (22-30); Chloride 108 mmol/L (98-107); Estimated CRCL calculation 48 ml/min; Estimated Glomerular Filt Rate > 60; Glucose 108 mg/dL (65-110); Potassium 4.3 mmol/L (3.4-5.0); Sodium 142 mmol/L (137-145)
[2023-12-25] MEDS: FUROSEMIDE 20 MG TABLET PO (08:37)
[2023-12-25] MEDS: APIXABAN 2.5 MG TABLET PO ×2 (08:37→20:18)
[2023-12-25] MEDS: SPIRONOLACTONE 25 MG TABLET PO (08:37)
[2023-12-25] MEDS: SERTRALINE HCL 25 MG TABLET PO ×2 (08:37→17:30)
[2023-12-25] MEDS: FERROUS SULFATE 325 MG TABLET DR PO (08:37)
[2023-12-25] MEDS: AMIODARONE HCL 100 MG TABLET PO (08:37)
[2023-12-25] MEDS: ASCORBIC ACID 500 MG TABLET PO (08:37)
--- NOTE | 2023-12-25 10:51 | P.PNPL_ITS ---
Progress Note: A&P Assessment and Plan (1) COPD exacerbation: Code(s): J44.1 - Chronic obstructive pulmonary disease with (acute) exacerbation Status: Acute Assessment and Plan: Now on Vapotherm 30%, much more comfortable and better tolerated that BiPAP. Mild CO2 retention, increased cough, sputum, shortness of breath; she is on O2 at home 3 L/min. (2) Acute and chronic respiratory failure with hypercapnia: Code(s): J96.22 - Acute and chronic respiratory failure with hypercapnia Status: Acute Assessment and Plan: Plan plan: 1. Continue not using Bipap; continue Vapotherm and wean O2 as tolerated. 2. Add 3% NS to help mobilize secretions. 3. Add slower gentler settings to Vibratory vest as she felt that the vibration is too rough; after the third session yesterday, she was too sore. 4. Continue Cornet vibratory valve with Mucomyst t.i.d; she has excessive tenacious mucoid secretions which are difficult for her to clear. 5. Continue COPD management including nebulized bronchodilators and Levaquin, WBC increased to 12 K, 6. continue Levaquin, steroids, doxycycline stopped yesterday. 7. When she has sputum, submit for sputum studies. Gram stain, c&s, fungal studies, AFB. She has no nebulizer at home. Adding nebulizer at discharge may improve distribution of medications. She has such advanced lung disease that using an inhaler may have limited benefit. However, she really wants to have her Anoro re-started. She is allergic to PCN, ampicillin and Sulfa. Subjective Date/time seen: 12/25/23 10:51 Interval history: hospital follow up: 12/24 : she is struggling to breathe, sitting on the side of the bed, cannot cough to expectorate anything. The Vapotherm is more comfortable than the BiPAP. She is requesting Anoro as this inhaler has helped in the past. She is eating enough, moving her bowels, no fevers, WBC is elevated 12 K. 12/23/2023, new consult; Alexus Zambrano is 73-years old, has been followed by our practice; she is in IMU Room 231 having respiratory dependence on BiPAP, able to come off for 30 minutes at the most before having excessive shortness of breath, requiring return to support on the device. She has end stage emphysema, in 2021 was transferred from here to [facility] to get higher level pulmonary services with bullectomy and en dobronchial valve. Days later, she developed acute DVT in lower legs, already had an IVC filter from 2018. She recovered, having follow up care there with Dr Chung, cardiothoracic surgery, Dr Luque pulmonary and Dr [facility]iology. She has been treated with Eliquis for LE DVTs. She has been followed by rental representative Dr Luque since. The drive is about an hour each way, and the appt takes a full day. She and her want to transfer her care back to our practice, had an appt scheduled for Jan 30, 2024, however is worse sooner, now admitted. She has increased light green tenacious secretions, has difficulty getting these expectorated. This started a day or two ago. She has no nebulizer at home. She has an extremely went harsh cough and uses accessory muscles when she tries to expectorate her sputum. Her face turned red with significant distress while coughing up moderately like green tenacious secretions. PMH: End stage COPD. Has been managed by Dr Yordy Luque at [facility] in [facility]; history of 3 pneumothoraces, improved after left ptx with bleb resection 05/13/21 and endobronchial valve 05/14/21 history of DVT and PE pulmonary hypertension hx of PAF; has been on Eliquis for this. DATA * 12/21/2023; chest CT = Severe bullous emphysema, with prominent fibrocalcific scarring in the upper lobes, right greater than left; IVC filter; Cholelithiasis; Extensive left nephrolithiasis; left internal urinary stent * Na+ 143; K+ 3.7, chloride 108, CO2 31, BUN elevated 32, creatinine 0.9, glucose 85. Estimated GFR is greater than 60. ABG Dec 20, 2023 = pH 7.37, pCO2 50.3, PO2 126, HC03 28.8, saturation 97% Review of Systems Review of Systems: All systems reviewed & are unremarkable except as noted in HPI and below Exam Narrative: GEN: Alert, oriented, moderate increased respiratory effort with accessory muscle use. She is thin, 65 inches, 111 lb, wearing O2 nasal cannula. NECK: Trachea is midline CHEST: Hyperinflated chest; equal air entry, symmetric excursion, decreased yet clear breath sounds, no additional sounds. no rhonchi. . CV: Regular S1S2 no m/g/r ABD : (+) bowel sounds Extremities : no clubbing, cyanosis, or edema. She has thin calves, non tender. Skin is warm and dry. PSYCH: normal thought and speech Objective Data Vital Signs Vital Signs: Vital Signs - 24 hr 12/24/23 11:45 12/24/23 12:00 12/24/23 12:00 Temperature 36.6 C Pulse Rate 84 88 Respiratory Rate 22 H Blood Pressure 135/68 Pulse Oximetry 96 96 Oxygen Delivery High Flow Therapy with Na Oxygen Flow Rate 35 Fraction of Inspired Oxygen 32 12/24/23 14:37 12/24/23 14:38 12/24/23 14:58 Temperature Pulse Rate 86 93 90 Respiratory Rate 20 24 H 20 Blood Pressure Pulse Oximetry 95 Oxygen Delivery High Flow Therapy with Na Oxygen Flow Rate 35 Fraction of Inspired Oxygen 32 12/24/23 14:00 12/24/23 15:24 12/24/23 16:00 Temperature 36.1 C L Pulse Rate 85 85 Respiratory Rate 30 H Blood Pressure 138/75 Pulse Oximetry 98 98 Oxygen Delivery High Flow Therapy with Na Oxygen Flow Rate 35 Fraction of Inspired Oxygen 32 12/24/23 16:00 12/24/23 18:00 12/24/23 20:18 Temperature 36.4 C Pulse Rate 90 96 86 Respiratory Rate 30 H Blood Pressure 143/75 H Pulse Oximetry 96 Oxygen Delivery Oxygen Flow Rate Fraction of Inspired Oxygen 12/24/23 20:32 12/24/23 20:35 12/24/23 20:00 Temperature Pulse Rate 92 93 93 Respiratory Rate 20 20 20 Blood Pressure Pulse Oximetry 93 93 Oxygen Delivery High Flow Therapy with Na High Flow Therapy with Na Oxygen Flow Rate 35 35 Fraction of Inspired Oxygen 32 32 12/24/23 20:00 12/24/23 22:00 12/24/23 23:34 Temperature 36.4 C Pulse Rate 82 80 78 Respiratory Rate 30 H Blood Pressure 132/65 Pulse Oximetry 96 Oxygen Delivery Oxygen Flow Rate Fraction of Inspired Oxygen 12/25/23 02:34 12/24/23 20:45 12/25/23 02:47 Temperature Pulse Rate 79 89 81 Respiratory Rate 20 20 20 Blood Pressure Pulse Oximetry Oxygen Delivery Oxygen Flow Rate Fraction of Inspired Oxygen 12/25/23 00:00 12/25/23 04:00 12/25/23 04:34 Temperature 36.4 C Pulse Rate 81 81 88 Respiratory Rate 20 20 30 H Blood Pressure 138/75 Pulse Oximetry 96 96 96 Oxygen Delivery High Flow Therapy with Na High Flow Therapy with Na Oxygen Flow Rate 35 35 Fraction of Inspired Oxygen 32 32 12/25/23 00:00 12/25/23 02:00 12/25/23 04:00 Temperature Pulse Rate 81 84 73 Respiratory Rate Blood Pressure Pulse Oximetry Oxygen Delivery Oxygen Flow Rate Fraction of Inspired Oxygen 12/25/23 06:00 12/25/23 07:33 12/25/23 07:47 Temperature Pulse Rate 74 Respiratory Rate Blood Pressure Pulse Oximetry 93 Oxygen Delivery High Flow Therapy with Na High Flow Therapy with Na Oxygen Flow Rate 35 35 Fraction of Inspired Oxygen 50 12/25/23 07:47 12/25/23 08:09 12/25/23 08:00 Temperature 36.4 C L Pulse Rate 95 100 94 Respiratory Rate 24 H 24 H 28 H Blood Pressure 149/82 H Pulse Oximetry 97 Oxygen Delivery Oxygen Flow Rate Fraction of Inspired Oxygen 12/25/23 08:37 12/25/23 08:00 12/25/23 08:00 Temperature Pulse Rate 89 88 89 Respiratory Rate 24 H Blood Pressure Pulse Oximetry 96 Oxygen Delivery High Flow Therapy with Na Oxygen Flow Rate 35 Fraction of Inspired Oxygen 40 12/25/23 08:12 12/25/23 09:00 12/25/23 10:15 Temperature Pulse Rate Respiratory Rate Blood Pressure Pulse Oximetry 96 95 93 Oxygen Delivery High Flow Therapy with Na High Flow Therapy with Na High Flow Therapy with Na Oxygen Flow Rate 35 35 30 Fraction of Inspired Oxygen 40 32 32 12/25/23 10:00 Temperature Pulse Rate 98 Respiratory Rate Blood Pressure Pulse Oximetry Oxygen Delivery Oxygen Flow Rate Fraction of Inspired Oxygen Intake/Output Intake/Output: Intake & Output 12/22/23 12/23/23 12/24/23 12/25/23 23:59 23:59 23:59 23:59 Intake Total 1995.8 2490 1200 Output Total 1440 1225 400 Balance 555.8 1265 800 Meds/Results Medications: Active Medications Generic Name Dose Route Start Last Admin Trade Name Freq PRN Reason Stop Dose Admin Acetaminophen 650 mg 12/20/23 18:48 12/23/23 21:24 Acetaminophen 325 Mg Tablet PO 650 mg Q4H PRN Administration Mild Pain (1-3) or Fever Acetylcysteine 200 mg 12/24/23 14:00 12/25/23 07:47 Acetylcysteine 20% Inhal Soln 800 Mg/4 Ml Vial INHALATION 200 mg Q6HRT KENYETTA Administration Albuterol 2 puff 12/20/23 23:12 Albuterol Sulfate (*Sp) Aerosol 1 Puff INHALATION Q4-6H PRN Shortness Of Breath Or Wheezing Albuterol/Ipratropium 3 ml 12/21/23 02:00 12/25/23 07:47 Ipratropium 0.5 Mg/Albuterol Sulfate 2.5 Mg Ampul.Neb 3 Ml INHALATION 3 ml Q6HRT KENYETTA Administration Amiodarone HCl 100 mg 12/21/23 09:00 12/25/23 08:37 Amiodarone Hcl 100 Mg Tablet PO 100 mg DAILY KENYETTA Administration Apixaban 2.5 mg 12/20/23 23:15 12/25/23 08:37 Apixaban 2.5 Mg Tablet PO 2.5 mg Q12HR KENYETTA Administration Ascorbic Acid 500 mg 12/21/23 08:00 12/25/23 08:37 Ascorbic Acid 500 Mg Tablet PO 500 mg DAILY@0800 KENYETTA Administration Ferrous Sulfate 325 mg 12/21/23 08:00 12/25/23 08:37 Ferrous Sulfate [address] PO 325 mg DAILY@0800 KENYETTA Administration Furosemide 20 mg 12/21/23 09:00 12/25/23 08:37 Furosemide 20 Mg Tablet PO 20 mg DAILY KENYETTA Administration Guaifenesin 600 mg 12/24/23 18:05 12/25/23 06:47 Guaifenesin 12 Hr 600 Mg Tabcr PO 600 mg Q6HR KENYETTA Administration Sodium Chloride 1,000 mls @ 50 mls/hr 12/21/23 17:40 12/25/23 06:47 Normal Saline Iv IV CONT 50 mls/hr .Q20H KENYETTA Administration Levofloxacin 750 mg 12/24/23 10:00 12/24/23 11:10 Levofloxacin 750 Mg Tablet PO 750 mg Q48H KENYETTA Administration Methylprednisolone Sodium Succinate 40 mg 12/23/23 22:00 12/25/23 06:47 Methylprednisolone Sod Succ 40 Mg Vial IV PUSH 40 mg Q8HR KENYETTA Administration Ondansetron HCl 4 mg 12/20/23 18:48 Ondansetron Inj 4 Mg/2 Ml Vial IV PUSH Q4H PRN Nausea Sertraline HCl 25 mg 12/20/23 23:20 12/25/23 08:37 Sertraline Hcl 25 Mg Tablet PO 25 mg BID KENYETTA Administration Spironolactone 25 mg 12/21/23 09:00 12/25/23 08:37 Spironolactone 25 Mg Tablet PO 25 mg DAILY KENYETTA Administration Radiology Results: ITS Impressions Chest X-Ray 12/20/23 15:49 IMPRESSION: Mass in the right upper lobe area unchanged. Otherwise, No significant change from previous examination. Chest CT 12/21/23 14:57 IMPRESSION: Severe bullous emphysema, with prominent fibrocalcific scarring in the upper lobes, right greater than left IVC filter Cholelithiasis Extensive left nephrolithiasis; left internal urinary stent Labs Labs: Laboratory Results - last 24 hr 12/24/23 12/25/23 12/25/23 18:33 07:30 07:56 WBC 12.0 H RBC 4.11 L Hgb 11.8 L Hct 38.9 MCV 94.6 MCH 28.7 MCHC 30.3 L RDW 17.2 H Plt Count 392 H MPV 9.4 Puncture Site Right radial ABG pH 7.340 L ABG pCO2 48.7 H ABG pO2 58.4 L ABG PO2/FiO2 Ratio 1.17 ABG HCO3 25.7 ABG O2 Saturation 88.5 L ABG O2 Content 16.7 ABG Base Excess -0.6 A-a Gradient 243.3 Oxyhemoglobin 88.5 L Total Hemoglobin 13.4 O2 Delivery Device High flow therapy O2 Liters/Min 35.0 FiO2 50 Sodium 142 Potassium 4.3 Chloride 108 H Carbon Dioxide 28 Anion Gap 6 BUN 29 H Creatinine 0.80 Estim Creat Clear Calc 48 Estimated GFR > 60 Glucose 108 Calcium 8.4 Total Bilirubin 0.4 AST 23 ALT 17 Alkaline Phosphatase 84 Total Protein 7.0 Albumin 3.6 Urine Color [place] Urine Appearance Cloudy H Urine pH 8.0 Ur Specific [place] 1.014 Urine Protein 3+ H Urine Glucose (UA) Negative Urine Ketones Negative Ur Blood (Man) 3+ H Urine Nitrate Negative Urine Bilirubin Negative Urine Urobilinogen 0.2 Leukocyte Esterase Rfl 3+ H Urine RBC >100 H Urine WBC 51-100 H Ur Squamous Epith Cells None seen Urine Bacteria 4+ H Urine Casts 0-2
[2023-12-25] MEDS: SODIUM CHLOR 3% 15 ML NEB (RESPIRATORY THERAPY) 6 ML INHALATION ×2 (13:51→20:47)
--- NOTE | 2023-12-25 15:42 | P.PNIM_ITS ---
Progress Note: A&P Assessment and Plan (1) COPD exacerbation: Code(s): J44.1 - Chronic obstructive pulmonary disease with (acute) exacerbation Status: Acute Assessment and Plan: - started on doxycycline IVPB b.i.d. to complete 5 days -started levofloxacin Continue IV steroids and bronchodilators Still on bIPAP Pulm consulted (2) Paroxysmal A-fib: Code(s): I48.0 - Paroxysmal atrial fibrillation Status: Chronic Assessment and Plan: - EKG, initial: Sinus rhythm, atrial premature complex, incomplete RBBB, left ventricular hypertrophy and ST-T change cannot rule out septal infarct age indeterminate, ST-T-wave abnormality in anterolateral leads. No significant change compared to prior. - continue home medications: Amiodarone, Eliquis (3) Elevated glucose: Code(s): R73.09 - Other abnormal glucose Status: Acute Assessment and Plan: - initial glucose 135 - A1c 5.3 Plan Acute on chronic respiratory failure 3 liter NC oxygen at baseline HFNC F35,FiO2 32 Vibratory vest, Cornet vibratory valve with Mucomyst t.i.d Continue albuterol and ipratropium. Add nebulized budesonide s/p BiPAP Sputum culture pending Pulmonology is following f/u with director engineering Dr. Noam Luque, [facility] in [facility] Possible discharge to LTAC RUL mass ruled out, Ct chest showed scarring, not mass CXR initially showed RUL mass Pulm consulted Diet: Regular DVT Prophylaxis: Continue home Eliquis Lines: Peripheral Code Status: Full code Subjective Date/time seen: 12/25/23 15:42 Interval history: No acute events overnight.High-flow nasal cannula at 35 and FiO2 32. Pending alpha 1 antitrypsin levels. Possible discharge to LTAC. Review of Systems Review of Systems: All systems reviewed & are unremarkable except as noted in HPI and below Exam Narrative: modest air movement in all lung hager without crackles or wheezing. Const: General: comfortable and no acute distress Other: , female, nontoxic appearance. HENMT: Face/Nose/Sinus: Normal nares present Mouth: Yes moist mucous membranes Eyes: General: appearance normal, both eyes and all related structures Sclera: sclerae normal Pupils: Equal, round and reactive pupils present EOM: EOMs intact bilaterally Resp: Effort & Inspection: normal respiratory effort Other: Modest air movement in all lobes without crackles or wheezing. Tolerating BiPAP well. Cardio: Rate: regular rate Rhythm: regular rhythm Other: S1-S2 present without murmur, rub, ectopy GI: Other: Abdomen soft, nondistended, nontender. Skin: General skin exam: normal color and no rashes or lesions noted Wounds: no wounds Neuro: Cranial nerves: Yes Equal, round and reactive pupils present Speech: normal speech Motor exam (neuro): 5/5 motor strength present throughout Sensory Exam: normal sensation Other: A&O x4 Extrem: General: normal to inspection Psych: Mental Status: mental status grossly normal Affect: normal affect Other: Good insight and judgment, pleasant Objective Data Vital Signs Vital Signs: Vital Signs - 24 hr 12/24/23 16:00 12/24/23 16:00 12/24/23 18:00 Temperature Pulse Rate 90 96 Respiratory Rate Blood Pressure Pulse Oximetry 98 Oxygen Delivery High Flow Therapy with Na Oxygen Flow Rate 35 Fraction of Inspired Oxygen 32 12/24/23 20:18 12/24/23 20:32 12/24/23 20:35 Temperature 97.6 F Pulse Rate 86 92 93 Respiratory Rate 30 H 20 20 Blood Pressure 143/75 H Pulse Oximetry 96 93 Oxygen Delivery High Flow Therapy with Na Oxygen Flow Rate 35 Fraction of Inspired Oxygen 32 12/24/23 20:00 12/24/23 20:00 12/24/23 22:00 Temperature Pulse Rate 93 82 80 Respiratory Rate 20 Blood Pressure Pulse Oximetry 93 Oxygen Delivery High Flow Therapy with Na Oxygen Flow Rate 35 Fraction of Inspired Oxygen 32 12/24/23 23:34 12/25/23 02:34 12/24/23 20:45 Temperature 97.6 F Pulse Rate 78 79 89 Respiratory Rate 30 H 20 20 Blood Pressure 132/65 Pulse Oximetry 96 Oxygen Delivery Oxygen Flow Rate Fraction of Inspired Oxygen 12/25/23 02:47 12/25/23 00:00 12/25/23 04:00 Temperature Pulse Rate 81 81 81 Respiratory Rate 20 20 20 Blood Pressure Pulse Oximetry 96 96 Oxygen Delivery High Flow Therapy with Na High Flow Therapy with Na Oxygen Flow Rate 35 35 Fraction of Inspired Oxygen 32 32 12/25/23 04:34 12/25/23 00:00 12/25/23 02:00 Temperature 97.6 F Pulse Rate 88 81 84 Respiratory Rate 30 H Blood Pressure 138/75 Pulse Oximetry 96 Oxygen Delivery Oxygen Flow Rate Fraction of Inspired Oxygen 12/25/23 04:00 12/25/23 06:00 12/25/23 07:33 Temperature Pulse Rate 73 74 Respiratory Rate Blood Pressure Pulse Oximetry Oxygen Delivery High Flow Therapy with Na Oxygen Flow Rate 35 Fraction of Inspired Oxygen 12/25/23 07:47 12/25/23 07:47 12/25/23 08:09 Temperature Pulse Rate 95 100 Respiratory Rate 24 H 24 H Blood Pressure Pulse Oximetry 93 Oxygen Delivery High Flow Therapy with Na Oxygen Flow Rate 35 Fraction of Inspired Oxygen 50 12/25/23 08:00 12/25/23 08:37 12/25/23 08:00 Temperature 97.5 F L Pulse Rate 94 89 88 Respiratory Rate 28 H Blood Pressure 149/82 H Pulse Oximetry 97 Oxygen Delivery Oxygen Flow Rate Fraction of Inspired Oxygen 12/25/23 08:00 12/25/23 08:12 12/25/23 09:00 Temperature Pulse Rate 89 Respiratory Rate 24 H Blood Pressure Pulse Oximetry 96 96 95 Oxygen Delivery High Flow Therapy with Na High Flow Therapy with Na High Flow Therapy with Na Oxygen Flow Rate 35 35 35 Fraction of Inspired Oxygen 40 40 32 12/25/23 10:15 12/25/23 10:00 12/25/23 11:30 Temperature 98.1 F Pulse Rate 98 87 Respiratory Rate 30 H Blood Pressure 147/73 H Pulse Oximetry 93 95 Oxygen Delivery High Flow Therapy with Na Oxygen Flow Rate 30 Fraction of Inspired Oxygen 32 12/25/23 12:00 12/25/23 12:00 12/25/23 12:55 Temperature Pulse Rate 89 Respiratory Rate Blood Pressure Pulse Oximetry 95 Oxygen Delivery High Flow Therapy with Na High Flow Therapy with Na Oxygen Flow Rate 30 32 Fraction of Inspired Oxygen 32 12/25/23 13:51 12/25/23 13:50 12/25/23 14:16 Temperature Pulse Rate 84 82 Respiratory Rate 24 H 24 H Blood Pressure Pulse Oximetry 94 Oxygen Delivery High Flow Therapy with Na Oxygen Flow Rate 30 Fraction of Inspired Oxygen 32 Intake/Output Intake/Output: Intake & Output 12/22/23 12/23/23 12/24/23 12/25/23 23:59 23:59 23:59 23:59 Intake Total 1995.8 2490 1200 Output Total 1440 1225 400 Balance 555.8 1265 800 Meds/Results Medications: Active Medications Generic Name Dose Route Start Last Admin Trade Name Freq PRN Reason Stop Dose Admin Acetaminophen 650 mg 12/20/23 18:48 12/23/23 21:24 Acetaminophen 325 Mg Tablet PO 650 mg Q4H PRN Administration Mild Pain (1-3) or Fever Acetylcysteine 200 mg 12/24/23 14:00 12/25/23 13:51 Acetylcysteine 20% Inhal Soln 800 Mg/4 Ml Vial INHALATION 200 mg Q6HRT KENYETTA Administration Albuterol 2 puff 12/20/23 23:12 Albuterol Sulfate (*Sp) Aerosol 1 Puff INHALATION Q4-6H PRN Shortness Of Breath Or Wheezing Albuterol/Ipratropium 3 ml 12/21/23 02:00 12/25/23 13:51 Ipratropium 0.5 Mg/Albuterol Sulfate 2.5 Mg Ampul.Neb 3 Ml INHALATION 3 ml Q6HRT KENYETTA Administration Amiodarone HCl 100 mg 12/21/23 09:00 12/25/23 08:37 Amiodarone Hcl 100 Mg Tablet PO 100 mg DAILY KENYETTA Administration Apixaban 2.5 mg 12/20/23 23:15 12/25/23 08:37 Apixaban 2.5 Mg Tablet PO 2.5 mg Q12HR KENYETTA Administration Ascorbic Acid 500 mg 12/21/23 08:00 12/25/23 08:37 Ascorbic Acid 500 Mg Tablet PO 500 mg DAILY@0800 KENYETTA Administration Ferrous Sulfate 325 mg 12/21/23 08:00 12/25/23 08:37 Ferrous Sulfate [address] PO 325 mg DAILY@0800 KENYETTA Administration Furosemide 20 mg 12/21/23 09:00 12/25/23 08:37 Furosemide 20 Mg Tablet PO 20 mg DAILY KENYETTA Administration Guaifenesin 600 mg 12/24/23 18:05 12/25/23 12:53 Guaifenesin 12 Hr 600 Mg Tabcr PO 600 mg Q6HR KENYETTA Administration Sodium Chloride 1,000 mls @ 50 mls/hr 12/21/23 17:40 12/25/23 06:47 Normal Saline Iv IV CONT 50 mls/hr .Q20H KENYETTA Administration Levofloxacin 750 mg 12/24/23 10:00 12/24/23 11:10 Levofloxacin 750 Mg Tablet PO 750 mg Q48H KENYETTA Administration Methylprednisolone Sodium Succinate 40 mg 12/23/23 22:00 12/25/23 13:08 Methylprednisolone Sod Succ 40 Mg Vial IV PUSH 40 mg Q8HR KENYETTA Administration Ondansetron HCl 4 mg 12/20/23 18:48 Ondansetron Inj 4 Mg/2 Ml Vial IV PUSH Q4H PRN Nausea Sertraline HCl 25 mg 12/20/23 23:20 12/25/23 08:37 Sertraline Hcl 25 Mg Tablet PO 25 mg BID KENYETTA Administration Sodium Chloride 6 ml 12/25/23 13:00 12/25/23 13:51 Sodium Chlor 3% 15 Ml Neb (Respiratory Therapy) INHALATION 6 ml QID KENYETTA Administration Spironolactone 25 mg 12/21/23 09:00 12/25/23 08:37 Spironolactone 25 Mg Tablet PO 25 mg DAILY KENYETTA Administration Radiology Results: ITS Impressions Chest X-Ray 12/20/23 15:49 IMPRESSION: Mass in the right upper lobe area unchanged. Otherwise, No significant change from previous examination. Chest CT 12/21/23 14:57 IMPRESSION: Severe bullous emphysema, with prominent fibrocalcific scarring in the upper lobes, right greater than left IVC filter Cholelithiasis Extensive left nephrolithiasis; left internal urinary stent Labs Labs: Laboratory Results - last 24 hr 12/24/23 12/25/23 12/25/23 18:33 07:30 07:56 WBC 12.0 H RBC 4.11 L Hgb 11.8 L Hct 38.9 MCV 94.6 MCH 28.7 MCHC 30.3 L RDW 17.2 H Plt Count 392 H MPV 9.4 Puncture Site Right radial ABG pH 7.340 L ABG pCO2 48.7 H ABG pO2 58.4 L ABG PO2/FiO2 Ratio 1.17 ABG HCO3 25.7 ABG O2 Saturation 88.5 L ABG O2 Content 16.7 ABG Base Excess -0.6 A-a Gradient 243.3 Oxyhemoglobin 88.5 L Total Hemoglobin 13.4 O2 Delivery Device High flow therapy O2 Liters/Min 35.0 FiO2 50 Sodium 142 Potassium 4.3 Chloride 108 H Carbon Dioxide 28 Anion Gap 6 BUN 29 H Creatinine 0.80 Estim Creat Clear Calc 48 Estimated GFR > 60 Glucose 108 Calcium 8.4 Total Bilirubin 0.4 AST 23 ALT 17 Alkaline Phosphatase 84 Total Protein 7.0 Albumin 3.6 Urine Color [place] Urine Appearance Cloudy H Urine pH 8.0 Ur Specific [place] 1.014 Urine Protein 3+ H Urine Glucose (UA) Negative Urine Ketones Negative Ur Blood (Man) 3+ H Urine Nitrate Negative Urine Bilirubin Negative Urine Urobilinogen 0.2 Leukocyte Esterase Rfl 3+ H Urine RBC >100 H Urine WBC 51-100 H Ur Squamous Epith Cells None seen Urine Bacteria 4+ H Urine Casts 0-2 Quality VTE Prophylaxis VTE prophylaxis: pharmacologic ordered Hospitalist [facility] Advance Care Plan I have confirmed that the patient's Advanced Care Plan is present, code status is documented, or surrogate decision maker is listed in patient medical record.: Yes Medication Reconciliation I have utilized all available resources to obtain, update and review the patie nts current medications (includes all prescriptions, OTC, herbals, cannabis, and nutritional supplements).: Yes
[2023-12-25] MEDS: UMECLIDINIUM/VILANTEROL 62.5-25 MCG ELLIPTA 1 PUFF INHALATION (16:25)
[2023-12-25] MEDS: ACETAMINOPHEN 325 MG TABLET 650 MG PO (20:17)
[2023-12-26] VITALS (24 sets, daily range): BP systolic 140–148; BP diastolic 71–92; PULSE 72–105; RESP 22–28; TEMP 36.4–37; O2SAT 93–97
[2023-12-26] MEDS: guaiFENesin 12 HR 600 MG TABCR PO ×4 (00:35→17:56)
[2023-12-26] MEDS: SODIUM CHLORIDE 0.9% IV 1,000 ML 50 ML IV CONT ×2 (00:37→17:58)
[2023-12-26] MEDS: IPRATROPIUM 0.5 MG/ALBUTEROL SULFATE 2.5 MG AMPUL.NEB 3 ML INHALATION ×4 (02:25→20:20)
[2023-12-26] MEDS: ACETYLCYSTEINE 20% INHAL SOLN 800 MG/4 ML VIAL 200 MG INHALATION ×4 (02:25→20:20)
[2023-12-26 05:27] LABS: Hematocrit 39.6 % (37.0-47.0); Hemoglobin 11.4 g/dL (12.0-15.0); Mean Corpuscular HGB Conc 28.8 g/dl (32-36); Mean Corpuscular Hemoglobin 28.4 pg (26-34); Mean Corpuscular Volume 98.8 fl (80-100); Mean Platelet Volume 10.2 fl (7.4-10.4); Platelet Count Result 353 k/mm3 (150-375); Red Blood Count 4.01 M/mm3 (4.2-5.4); Red Cell Distribution Width 17.6 % (11.5-14.5); White Blood Count 9.8 K/mm3 (4.5-10.0)
[2023-12-26 05:40] LABS: Alanine Aminotransferase 18 U/L (6-35); Albumin Level 3.5 g/dL (3.5-5.1); Alkaline Phosphatase 60 U/L (38-126); Anion Gap 5 mmol/L (4-12); Aspartate Amino Transferase 29 U/L (14-36); Bilirubin,Total 0.5 mg/dL (0.2-1.3); Blood Urea Nitrogen 33 mg/dL (7-17); Calcium 8.3 mg/dL (8.4-10.2); Carbon Dioxide 27 mmol/L (22-30); Chloride 110 mmol/L (98-107); Estimated CRCL calculation 55 ml/min; Estimated Glomerular Filt Rate > 60; Glucose 140 mg/dL (65-110); Sodium 142 mmol/L (137-145)
[2023-12-26] MEDS: methylPREDNISolone SOD SUCC 40 MG VIAL IV PUSH (06:15)
[2023-12-26] MEDS: SODIUM CHLOR 3% 15 ML NEB (RESPIRATORY THERAPY) 6 ML INHALATION ×3 (07:38→14:21)
[2023-12-26] MEDS: UMECLIDINIUM/VILANTEROL 62.5-25 MCG ELLIPTA 1 PUFF INHALATION (07:39)
[2023-12-26] MEDS: SPIRONOLACTONE 25 MG TABLET PO (09:16)
[2023-12-26] MEDS: FUROSEMIDE 20 MG TABLET PO (09:17)
[2023-12-26] MEDS: SERTRALINE HCL 25 MG TABLET PO ×2 (09:17→17:56)
[2023-12-26] MEDS: levoFLOXacin 750 MG TABLET PO (09:17)
[2023-12-26] MEDS: FERROUS SULFATE 325 MG TABLET DR PO (09:17)
[2023-12-26] MEDS: AMIODARONE HCL 100 MG TABLET PO (09:17)
[2023-12-26] MEDS: ASCORBIC ACID 500 MG TABLET PO (09:17)
[2023-12-26] MEDS: APIXABAN 2.5 MG TABLET PO ×2 (09:17→21:11)
--- NOTE | 2023-12-26 13:15 | PM.IMPN ---
Progress Note: A&P Assessment and Plan (1) COPD exacerbation: Code(s): J44.1 - Chronic obstructive pulmonary disease with (acute) exacerbation Status: Acute Assessment and Plan: started on doxycycline IVPB b.i.d. to complete 5 days Continue levofloxacin Continue IV steroids and bronchodilators Currently on Vapotherm Pulm consulted (2) Paroxysmal A-fib: Code(s): I48.0 - Paroxysmal atrial fibrillation Status: Chronic Assessment and Plan: - EKG, initial: Sinus rhythm, atrial premature complex, incomplete RBBB, left ventricular hypertrophy and ST-T change cannot rule out septal infarct age indeterminate, ST-T-wave abnormality in anterolateral leads. No significant change compared to prior. - continue home medications: Amiodarone, Eliquis (3) Elevated glucose: Code(s): R73.09 - Other abnormal glucose Status: Acute Assessment and Plan: - initial glucose 135 - A1c 5.3 Plan Acute on chronic respiratory failure 3 liter NC oxygen at baseline HFNC F35,FiO2 32 Vibratory vest, Cornet vibratory valve with Mucomyst t.i.d Continue albuterol and ipratropium. Add nebulized budesonide s/p BiPAP Sputum culture pending Pulmonology is following f/u with chief of safety and protection Dr. Noam Luque, [facility] in [facility] Possible discharge to LTAC RUL mass ruled out, Ct chest showed scarring, not mass CXR initially showed RUL mass Pulm consulted Diet: Regular DVT Prophylaxis: Continue home Eliquis Lines: Peripheral Code Status: Full code Subjective Date/time seen: 12/26/23 13:15 Interval history: Patient is still on Vapotherm. Unable to wean. Possible transfer to LTAC. Discussed with care coordination. Review of Systems Review of Systems: All systems reviewed & are unremarkable except as noted in HPI and below Exam Narrative: modest air movement in all lung hager without crackles or wheezing. Const: General: comfortable and no acute distress Other: , female, nontoxic appearance. HENMT: Face/Nose/Sinus: Normal nares present Mouth: Yes moist mucous membranes Eyes: General: appearance normal, both eyes and all related structures Sclera: sclerae normal Pupils: Equal, round and reactive pupils present EOM: EOMs intact bilaterally Resp: Effort & Inspection: normal respiratory effort Other: Modest air movement in all lobes without crackles or wheezing. Tolerating BiPAP well. Cardio: Rate: regular rate Rhythm: regular rhythm Other: S1-S2 present without murmur, rub, ectopy GI: Other: Abdomen soft, nondistended, nontender. Skin: General skin exam: normal color and no rashes or lesions noted Wounds: no wounds Neuro: Cranial nerves: Yes Equal, round and reactive pupils present Speech: normal speech Motor exam (neuro): 5/5 motor strength present throughout Sensory Exam: normal sensation Other: A&O x4 Extrem: General: normal to inspection Psych: Mental Status: mental status grossly normal Affect: normal affect Other: Good insight and judgment, pleasant Objective Data Vital Signs Vital Signs: Vital Signs - 24 hr 12/25/23 13:51 12/25/23 13:50 12/25/23 14:16 Temperature Pulse Rate 84 82 Respiratory Rate 24 H 24 H Blood Pressure Pulse Oximetry 94 Oxygen Delivery High Flow Therapy with Na Oxygen Flow Rate 30 Fraction of Inspired Oxygen 32 12/25/23 15:32 12/25/23 14:00 12/25/23 16:00 Temperature 98.2 F Pulse Rate 94 87 101 H Respiratory Rate 28 H Blood Pressure 161/83 H Pulse Oximetry 90 Oxygen Delivery Oxygen Flow Rate Fraction of Inspired Oxygen 12/25/23 16:00 12/25/23 18:00 12/25/23 20:13 Temperature 98.1 F Pulse Rate 81 84 Respiratory Rate 28 H Blood Pressure 134/78 Pulse Oximetry 90 93 Oxygen Delivery High Flow Therapy with Na Oxygen Flow Rate 30 Fraction of Inspired Oxygen 32 12/25/23 20:47 12/25/23 21:14 12/25/23 21:15 Temperature Pulse Rate 96 97 Respiratory Rate 24 H 24 H Blood Pressure Pulse Oximetry 94 Oxygen Delivery High Flow Therapy with Na Oxygen Flow Rate 30 Fraction of Inspired Oxygen 32 12/25/23 20:00 12/25/23 23:42 12/26/23 00:00 Temperature Pulse Rate 97 79 79 Respiratory Rate 24 H 28 H 28 H Blood Pressure 139/54 L Pulse Oximetry 94 93 93 Oxygen Delivery High Flow Therapy with Na High Flow Therapy with Na Oxygen Flow Rate 30 30 Fraction of Inspired Oxygen 50 40 12/25/23 20:00 12/25/23 22:00 12/26/23 00:00 Temperature Pulse Rate 90 80 79 Respiratory Rate Blood Pressure Pulse Oximetry Oxygen Delivery Oxygen Flow Rate Fraction of Inspired Oxygen 12/26/23 02:25 12/26/23 02:35 12/26/23 04:58 Temperature 97.6 F Pulse Rate 96 99 81 Respiratory Rate 24 H 24 H 28 H Blood Pressure 146/71 H Pulse Oximetry 94 Oxygen Delivery Oxygen Flow Rate Fraction of Inspired Oxygen 12/26/23 02:00 12/26/23 04:00 12/26/23 04:00 Temperature Pulse Rate 72 81 72 Respiratory Rate 28 H Blood Pressure Pulse Oximetry 94 Oxygen Delivery High Flow Therapy with Na Oxygen Flow Rate 30 Fraction of Inspired Oxygen 40 12/26/23 06:00 12/26/23 07:43 12/26/23 07:43 Temperature Pulse Rate 73 94 Respiratory Rate 24 H Blood Pressure Pulse Oximetry 94 Oxygen Delivery High Flow Therapy with Na Oxygen Flow Rate 30 Fraction of Inspired Oxygen 35 12/26/23 08:00 12/26/23 09:17 12/26/23 08:00 Temperature Pulse Rate 99 80 79 Respiratory Rate 24 H Blood Pressure Pulse Oximetry Oxygen Delivery Oxygen Flow Rate Fraction of Inspired Oxygen 12/26/23 08:00 12/26/23 10:00 12/26/23 11:08 Temperature Pulse Rate 100 96 Respiratory Rate 26 H Blood Pressure Pulse Oximetry 94 Oxygen Delivery High Flow Therapy with Na Oxygen Flow Rate 30 Fraction of Inspired Oxygen 32 12/26/23 11:14 12/26/23 12:00 12/26/23 12:00 Temperature 98.1 F Pulse Rate 96 98 105 H Respiratory Rate 28 H 24 H Blood Pressure 145/83 H Pulse Oximetry 93 Oxygen Delivery Oxygen Flow Rate Fraction of Inspired Oxygen Intake/Output Intake/Output: Intake & Output 12/23/23 12/24/23 12/25/23 12/26/23 23:59 23:59 23:59 23:59 Intake Total 1995.8 2490 1440 1491.7 Output Total 1440 1225 1250 300 Balance 555.8 1589 990 2533.7 Meds/Results Medications: Active Medications Generic Name Dose Route Start Last Admin Trade Name Freq PRN Reason Stop Dose Admin Acetaminophen 650 mg 12/20/23 18:48 12/25/23 20:17 Acetaminophen 325 Mg Tablet PO 650 mg Q4H PRN Administration Mild Pain (1-3) or Fever Acetylcysteine 200 mg 12/24/23 14:00 11/07/24 07:38 Acetylcysteine 20% Inhal Soln 800 Mg/4 Ml Vial INHALATION 200 mg Q6HRT KENYETTA Administration Albuterol 2 puff 12/20/23 23:12 Albuterol Sulfate (*Sp) Aerosol 1 Puff INHALATION Q4-6H PRN Shortness Of Breath Or Wheezing Albuterol/Ipratropium 3 ml 12/21/23 02:00 12/26/23 07:38 Ipratropium 0.5 Mg/Albuterol Sulfate 2.5 Mg Ampul.Neb 3 Ml INHALATION 3 ml Q6HRT KENYETTA Administration Amiodarone HCl 100 mg 12/21/23 09:00 12/26/23 09:17 Amiodarone Hcl 100 Mg Tablet PO 100 mg DAILY KENYETTA Administration Apixaban 2.5 mg 12/20/23 23:15 12/26/23 09:17 Apixaban 2.5 Mg Tablet PO 2.5 mg Q12HR KENYETTA Administration Ascorbic Acid 500 mg 12/21/23 08:00 12/26/23 09:17 Ascorbic Acid 500 Mg Tablet PO 500 mg DAILY@0800 KENYETTA Administration Ferrous Sulfate 325 mg 12/21/23 08:00 12/26/23 09:17 Ferrous Sulfate [address] PO 325 mg DAILY@0800 KENYETTA Administration Furosemide 20 mg 12/21/23 09:00 12/26/23 09:17 Furosemide 20 Mg Tablet PO 20 mg DAILY KENYETTA Administration Guaifenesin 600 mg 12/24/23 18:05 12/26/23 12:16 Guaifenesin 12 Hr 600 Mg Tabcr PO 600 mg Q6HR KENYETTA Administration Sodium Chloride 1,000 mls @ 50 mls/hr 12/21/23 17:40 12/26/23 00:37 Normal Saline Iv IV CONT 50 mls/hr .Q20H KENYETTA Administration Levofloxacin 750 mg 12/27/23 09:00 Levofloxacin 750 Mg Tablet PO DAILY [facility] Methylprednisolone Sodium Succinate 40 mg 12/23/23 22:00 12/26/23 06:15 Methylprednisolone Sod Succ 40 Mg Vial IV PUSH 40 mg Q8HR KENYETTA Administration Ondansetron HCl 4 mg 12/20/23 18:48 Ondansetron Inj 4 Mg/2 Ml Vial IV PUSH Q4H PRN Nausea Sertraline HCl 25 mg 12/20/23 23:20 12/26/23 09:17 Sertraline Hcl 25 Mg Tablet PO 25 mg BID KENYETTA Administration Sodium Chloride 6 ml 12/25/23 13:00 12/26/23 11:12 Sodium Chlor 3% 15 Ml Neb (Respiratory Therapy) INHALATION 6 ml QID KENYETTA Administration Spironolactone 25 mg 12/21/23 09:00 12/26/23 09:16 Spironolactone 25 Mg Tablet PO 25 mg DAILY KENYETTA Administration Umeclidinium/Vilanterol 1 puff 12/25/23 16:05 12/26/23 07:39 Umeclidinium/Vilanterol 62.5-25 Mcg Ellipta INHALATION 1 puff DAILYRT KENYETTA Administration Radiology Results: ITS Impressions Chest X-Ray 12/20/23 15:49 IMPRESSION: Mass in the right upper lobe area unchanged. Otherwise, No significant change from previous examination. Chest CT 12/21/23 14:57 IMPRESSION: Severe bullous emphysema, with prominent fibrocalcific scarring in the upper lobes, right greater than left IVC filter Cholelithiasis Extensive left nephrolithiasis; left internal urinary stent Labs Labs: Laboratory Results - last 24 hr 12/26/23 04:48 WBC 9.8 RBC 4.01 L Hgb 11.4 L Hct 39.6 MCV 98.8 MCH 28.4 MCHC 28.8 L RDW 17.6 H Plt Count 353 MPV 10.2 Sodium 142 Potassium 5.0 Chloride 110 H Carbon Dioxide 27 Anion Gap 5 BUN 33 H Creatinine 0.70 Estim Creat Clear Calc 55 Estimated GFR > 60 Glucose 140 H Calcium 8.3 L Total Bilirubin 0.5 AST 29 ALT 18 Alkaline Phosphatase 60 Total Protein 6.0 L Albumin 3.5 Quality VTE Prophylaxis VTE prophylaxis: pharmacologic ordered Hospitalist [facility] Advance Care Plan I have confirmed that the patient's Advanced Care Plan is present, code status is documented, or surrogate decision maker is listed in patient medical record.: Yes Medication Reconciliation I have utilized all available resources to obtain, update and review the patients current medications (includes all prescriptions, OTC, herbals, cannabis, and nutritional supplements).: Yes
--- NOTE | 2023-12-26 14:03 | P.PNPL_ITS ---
Progress Note: A&P Assessment and Plan (1) COPD exacerbation: Code(s): J44.1 - Chronic obstructive pulmonary disease with (acute) exacerbation Status: Acute Assessment and Plan: Now on Vapotherm 30%, improved comfort however she is not thriving. today she looks really fragile. She is not responding to therapy. She has mild CO2 retention, increased cough, sputum, shortness of breath; she is on O2 at home 3 L/min. She is not requiring much more here, however she is failing to improve. (2) Acute and chronic respiratory failure with hypercapnia: Code(s): J96.22 - Acute and chronic respiratory failure with hypercapnia Status: Acute Assessment and Plan: She is on 30% Vapotherm, saturation is 93-96%. Plan plan: 1. Continue Vapotherm, no PAP. She cannot have O2 weaned at this time, saturation is borderline. 2. Adjust Vibratory vest settings, 5 Hz, slower vibrations. Today, RT Alina changed settings which she was able to tolerate. Continue Cornet vibratory valve with Mucomyst t.i.d and 3% Ns; she has excessive tenacious mucoid secretions which are difficult for her to clear. 3. Continue COPD management including nebulized bronchodilators, Levaquin now IV not po, increase methylprednisolone to 60 mg IV Q 6 from 40 mg IV Q 8 hrs. 4. So far, she has not been able to expectorate sputum, so no specimens have been sent for sputum studies. Gram stain, c&s, fungal studies, AFB. She has no nebulizer at home. Anoro was restarted yesterday however with her advanced COPD, she may not be able to inhale effectively to get this dispersed in the airways. She is allergic to PCN, ampicillin and Sulfa. Subjective Date/time seen: 12/26/23 14:03 Interval history: hospital follow up: 12/25; Al is at the bedside; RR 24, on 3 L/min. 3% saline has not help mobilize secretions. She did not use the vibratory vest yesterday on lower settings. She continues to struggle to expectorate thick tenacious sputum. She had a couple of Ensure to drink, not expending any energy due to dyspnea. She is sitting up in the bed, being very still to conserve energy. This is not a good day for her. Staff has been talking with her about transfer to an LTAC, [facility] in [facility], however today, she is not stable enough to get her nails trimmed, much less travel to another facility. 12/24 : she is struggling to breathe, sitting on the side of the bed, cannot cough to expectorate anything. The Vapotherm is more comfortable than the BiPAP. She is requesting Anoro as this inhaler has helped in the past. She is eating enough, moving her bowels, no fevers, WBC is elevated 12 K. 12/23/2023, new consult; Alexus Zambrano is 73-years old, has been followed by our practice; she is in IMU Room 231 having respiratory dependence on BiPAP, able to come off for 30 minutes at the most before having excessive shortness of breath, requiring return to support on the device. She has end stage emphysema, in 2021 was transferred from here to [facility] in [facility] to get higher level pulmonary services with bullectomy and endobronchial valve. Days later, she developed acute DVT in lower legs, already had an IVC filter from 2018. She recovered, having follow up care there with Dr Chung, cardiothoracic surgery, Dr Luque pulmonary and Dr [facility]iology. She has been treated with Eliquis for LE DVTs. She has been followed by drug abuse resistance education officer Dr Luque since. The drive is about an hour each way, and the appt takes a full day. She and her want to transfer her care back to our practice, had an appt scheduled for Jan 30, 2024, however is worse sooner, now admitted. She has increased light green tenacious secretions, has difficulty getting these expectorated. This started a day or two ago. She has no nebulizer at home. She has an extremely went harsh cough and uses accessory muscles when she tries to expectorate her sputum. Her face turned red with significant distress while coughing up moderately like green tenacious secretions. PMH: End stage COPD. Has been managed by Dr Yordy Luque at [facility] in [facility]; history of 3 pneumothoraces, improved after left ptx with bleb resection 05/13/21 and endobronchial valve 05/14/21 history of DVT and PE pulmonary hypertension hx of PAF; has been on Eliquis for this. DATA * 12/21/2023; chest CT = Severe bullous emphysema, with prominent fibrocalcific scarring in the upper lobes, right greater than left; IVC filter; Cholelithiasis; Extensive left nephrolithiasis; left internal urinary stent * Na+ 143; K+ 3.7, chloride 108, CO2 31, BUN elevated 32, creatinine 0.9, glucose 85. Estimated GFR is greater than 60. ABG Dec 20, 2023 = pH 7.37, pCO2 50.3, PO2 126, HC03 28.8, saturation 97% Review of Systems Review of Systems: Not really eating, not moving around. All systems reviewed & are unremarkable except as noted in HPI and below Exam Narrative: GEN: Alert, oriented, moderate increased respiratory effort with accessory muscle use. Respiratory rate is remaining elevated at 22-24. She is thin, 65 inches, 111 lb, wearing O2 nasal cannula at 30% NECK: Trachea is midline CHEST: Hyperinflated chest; equal air entry, symmetric excursion,hyperinflated thorax; decreased breath sounds anteriorly, squeaks in the left posterior thor ax. CV: Regular S1S2 no m/g/r ABD : (+) bowel sounds Extremities : no clubbing, cyanosis, or edema. She has thin calves, non tender. Skin is warm and dry. PSYCH: normal thought; not speaking in order to save energy. Objective Data Vital Signs Vital Signs: Vital Signs - 24 hr 12/25/23 14:16 12/25/23 15:32 12/25/23 16:00 Temperature 36.8 C Pulse Rate 82 94 101 H Respiratory Rate 24 H 28 H Blood Pressure 161/83 H Pulse Oximetry 90 Oxygen Delivery Oxygen Flow Rate Fraction of Inspired Oxygen 12/25/23 16:00 12/25/23 18:00 12/25/23 20:13 Temperature 36.7 C Pulse Rate 81 84 Respiratory Rate 28 H Blood Pressure 134/78 Pulse Oximetry 90 93 Oxygen Delivery High Flow Therapy with Na Oxygen Flow Rate 30 Fraction of Inspired Oxygen 32 12/25/23 20:47 12/25/23 21:14 12/25/23 21:15 Temperature Pulse Rate 96 97 Respiratory Rate 24 H 24 H Blood Pressure Pulse Oximetry 94 Oxygen Delivery High Flow Therapy with Na Oxygen Flow Rate 30 Fraction of Inspired Oxygen 32 12/25/23 20:00 12/25/23 23:42 12/26/23 00:00 Temperature Pulse Rate 97 79 79 Respiratory Rate 24 H 28 H 28 H Blood Pressure 139/54 L Pulse Oximetry 94 93 93 Oxygen Delivery High Flow Therapy with Na High Flow Therapy with Na Oxygen Flow Rate 30 30 Fraction of Inspired Oxygen 50 40 12/25/23 20:00 12/25/23 22:00 12/26/23 00:00 Temperature Pulse Rate 90 80 79 Respiratory Rate Blood Pressure Pulse Oximetry Oxygen Delivery Oxygen Flow Rate Fraction of Inspired Oxygen 12/26/23 02:25 12/26/23 02:35 12/26/23 04:58 Temperature 36.4 C Pulse Rate 96 99 81 Respiratory Rate 24 H 24 H 28 H Blood Pressure 146/71 H Pulse Oximetry 94 Oxygen Delivery Oxygen Flow Rate Fraction of Inspired Oxygen 12/26/23 02:00 12/26/23 04:00 12/26/23 04:00 Temperature Pulse Rate 72 81 72 Respiratory Rate 28 H Blood Pressure Pulse Oximetry 94 Oxygen Delivery High Flow Therapy with Na Oxygen Flow Rate 30 Fraction of Inspired Oxygen 40 12/26/23 06:00 12/26/23 07:43 12/26/23 07:43 Temperature Pulse Rate 73 94 Respiratory Rate 24 H Blood Pressure Pulse Oximetry 94 Oxygen Delivery High Flow Therapy with Na Oxygen Flow Rate 30 Fraction of Inspired Oxygen 35 12/26/23 08:00 12/26/23 09:17 12/26/23 08:00 Temperature Pulse Rate 99 80 79 Respiratory Rate 24 H Blood Pressure Pulse Oximetry Oxygen Delivery Oxygen Flow Rate Fraction of Inspired Oxygen 12/26/23 08:00 12/26/23 10:00 12/26/23 11:08 Temperature Pulse Rate 100 96 Respiratory Rate 26 H Blood Pressure Pulse Oximetry 94 Oxygen Delivery High Flow Therapy with Na Oxygen Flow Rate 30 Fraction of Inspired Oxygen 32 12/26/23 11:14 12/26/23 12:00 12/26/23 12:00 Temperature 36.7 C Pulse Rate 96 98 105 H Respiratory Rate 28 H 24 H Blood Pressure 145/83 H Pulse Oximetry 93 Oxygen Delivery Oxygen Flow Rate Fraction of Inspired Oxygen 12/26/23 12:00 Temperature Pulse Rate 105 H Respiratory Rate 24 H Blood Pressure Pulse Oximetry 93 Oxygen Delivery High Flow Therapy with Na Oxygen Flow Rate 30 Fraction of Inspired Oxygen 32 Intake/Output Intake/Output: Intake & Output 12/23/23 12/24/23 12/25/23 12/26/23 23:59 23:59 23:59 23:59 Intake Total 1995.8 2490 1440 1491.7 Output Total 1440 1225 1250 300 Balance 555.8 5236 949 2305.7 Meds/Results Medications: Active Medications Generic Name Dose Route Start Last Admin Trade Name Freq PRN Reason Stop Dose Admin Acetaminophen 650 mg 12/20/23 18:48 12/25/23 20:17 Acetaminophen 325 Mg Tablet PO 650 mg Q4H PRN Administration Mild Pain (1-3) or Fever Acetylcysteine 200 mg 12/24/23 14:00 12/26/23 07:38 Acetylcysteine 20% Inhal Soln 800 Mg/4 Ml Vial INHALATION 200 mg Q6HRT KENYETTA Administration Albuterol 2 puff 12/20/23 23:12 Albuterol Sulfate (*Sp) Aerosol 1 Puff INHALATION Q4-6H PRN Shortness Of Breath Or Wheezing Albuterol/Ipratropium 3 ml 12/21/23 02:00 12/26/23 07:38 Ipratropium 0.5 Mg/Albuterol Sulfate 2.5 Mg Ampul.Neb 3 Ml INHALATION 3 ml Q6HRT KENYETTA Administration Amiodarone HCl 100 mg 12/21/23 09:00 12/26/23 09:17 Amiodarone Hcl 100 Mg Tablet PO 100 mg DAILY KENYETTA Administration Apixaban 2.5 mg 12/20/23 23:15 12/26/23 09:17 Apixaban 2.5 Mg Tablet PO 2.5 mg Q12HR KENYETTA Administration Ascorbic Acid 500 mg 12/21/23 08:00 12/26/23 09:17 Ascorbic Acid 500 Mg Tablet PO 500 mg DAILY@0800 KENYETTA Administration Ferrous Sulfate 325 mg 12/21/23 08:00 12/26/23 09:17 Ferrous Sulfate [address] PO 325 mg DAILY@0800 KENYETTA Administration Furosemide 20 mg 12/21/23 09:00 12/26/23 09:17 Furosemide 20 Mg Tablet PO 20 mg DAILY KENYETTA Administration Guaifenesin 600 mg 12/24/23 18:05 12/26/23 12:16 Guaifenesin 12 Hr 600 Mg Tabcr PO 600 mg Q6HR KENYETTA Administration Sodium Chloride 1,000 mls @ 50 mls/hr 12/21/23 17:40 12/26/23 00:37 Normal Saline Iv IV CONT 50 mls/hr .Q20H KENYETTA Administration Levofloxacin 750 mg 12/27/23 09:00 Levofloxacin 750 Mg Tablet PO DAILY [facility] Methylprednisolone Sodium Succinate 40 mg 12/23/23 22:00 12/26/23 06:15 Methylprednisolone Sod Succ 40 Mg Vial IV PUSH 40 mg Q8HR KENYETTA Administration Ondansetron HCl 4 mg 12/20/23 18:48 Ondansetron Inj 4 Mg/2 Ml Vial IV PUSH Q4H PRN Nausea Sertraline HCl 25 mg 12/20/23 23:20 12/26/23 09:17 Sertraline Hcl 25 Mg Tablet PO 25 mg BID KENYETTA Administration Sodium Chloride 6 ml 12/25/23 13:00 12/26/23 11:12 Sodium Chlor 3% 15 Ml Neb (Respiratory Therapy) INHALATION 6 ml QID KENYETTA Administration Spironolactone 25 mg 12/21/23 09:00 12/26/23 09:16 Spironolactone 25 Mg Tablet PO 25 mg DAILY KENYETTA Administration Umeclidinium/Vilanterol 1 puff 12/25/23 16:05 12/26/23 07:39 Umeclidinium/Vilanterol 62.5-25 Mcg Ellipta INHALATION 1 puff DAILYRT KENYETTA Administration Radiology Results: ITS Impressions Chest X-Ray 12/20/23 15:49 IMPRESSION: Mass in the right upper lobe area unchanged. Otherwise, No significant change from previous examination. Chest CT 12/21/23 14:57 IMPRESSION: Severe bullous emphysema, with prominent fibrocalcific scarring in the upper lobes, right greater than left IVC filter Cholelithiasis Extensive left nephrolithiasis; left internal urinary stent Labs Labs: Laboratory Results - last 24 hr 12/26/23 04:48 WBC 9.8 RBC 4.01 L Hgb 11.4 L Hct 39.6 MCV 98.8 MCH 28.4 MCHC 28.8 L RDW 17.6 H Plt Count 353 MPV 10.2 Sodium 142 Potassium 5.0 Chloride 110 H Carbon Dioxide 27 Anion Gap 5 BUN 33 H Creatinine 0.70 Estim Creat Clear Calc 55 Estimated GFR > 60 Glucose 140 H Calcium 8.3 L Total Bilirubin 0.5 AST 29 ALT 18 Alkaline Phosphatase 60 Total Protein 6.0 L Albumin 3.5
[2023-12-26] MEDS: ACETAMINOPHEN 325 MG TABLET 650 MG PO (17:56)
[2023-12-26] MEDS: methylPREDNISolone SOD SUCC 40 MG VIAL 60 MG IV PUSH ×2 (17:57→21:11)
[2023-12-27] VITALS (21 sets, daily range): BP systolic 140–160; BP diastolic 70–92; PULSE 66–106; RESP 23–28; TEMP 36.4–36.9; O2SAT 95–100
[2023-12-27] MEDS: guaiFENesin 12 HR 600 MG TABCR PO ×3 (00:33→12:22)
[2023-12-27] MEDS: ACETYLCYSTEINE 20% INHAL SOLN 800 MG/4 ML VIAL 200 MG INHALATION ×3 (02:20→15:12)
[2023-12-27] MEDS: IPRATROPIUM 0.5 MG/ALBUTEROL SULFATE 2.5 MG AMPUL.NEB 3 ML INHALATION ×3 (02:20→15:09)
[2023-12-27] MEDS: SODIUM CHLOR 3% 15 ML NEB (RESPIRATORY THERAPY) 6 ML INHALATION ×3 (02:21→15:13)
[2023-12-27] MEDS: methylPREDNISolone SOD SUCC 40 MG VIAL 60 MG IV PUSH ×3 (02:40→15:23)
[2023-12-27 05:11] LABS: Mean Corpuscular HGB Conc 30.8 g/dl (32-36); Mean Corpuscular Hemoglobin 29.1 pg (26-34); Mean Corpuscular Volume 94.4 fl (80-100); Mean Platelet Volume 9.6 fl (7.4-10.4); Platelet Count Result 356 k/mm3 (150-375); Red Blood Count 4.13 M/mm3 (4.2-5.4); Red Cell Distribution Width 17.2 % (11.5-14.5); White Blood Count 9.8 K/mm3 (4.5-10.0)
[2023-12-27 05:30] LABS: Alanine Aminotransferase 19 U/L (6-35); Albumin Level 3.3 g/dL (3.5-5.1); Alkaline Phosphatase 73 U/L (38-126); Anion Gap 2 mmol/L (4-12); Aspartate Amino Transferase 21 U/L (14-36); Bilirubin,Total 0.5 mg/dL (0.2-1.3); Blood Urea Nitrogen 30 mg/dL (7-17); Calcium 8.4 mg/dL (8.4-10.2); Carbon Dioxide 31 mmol/L (22-30); Chloride 109 mmol/L (98-107); Estimated CRCL calculation 53 ml/min; Estimated Glomerular Filt Rate > 60; Glucose 142 mg/dL (65-110); Potassium 4.3 mmol/L (3.4-5.0); Sodium 142 mmol/L (137-145)
[2023-12-27] MEDS: UMECLIDINIUM/VILANTEROL 62.5-25 MCG ELLIPTA 1 PUFF INHALATION (09:03)
[2023-12-27] MEDS: SERTRALINE HCL 25 MG TABLET PO ×2 (09:34→18:02)
[2023-12-27] MEDS: SPIRONOLACTONE 25 MG TABLET PO (09:34)
[2023-12-27] MEDS: levoFLOXacin 750 MG TABLET PO (09:35)
[2023-12-27] MEDS: FERROUS SULFATE 325 MG TABLET DR PO (09:35)
[2023-12-27] MEDS: ASCORBIC ACID 500 MG TABLET PO (09:35)
[2023-12-27] MEDS: APIXABAN 2.5 MG TABLET PO (09:35)
[2023-12-27] MEDS: AMIODARONE HCL 100 MG TABLET PO (09:35)
--- NOTE | 2023-12-27 12:52 | P.PNPL_ITS ---
Progress Note: A&P Assessment and Plan (1) COPD exacerbation: Code(s): J44.1 - Chronic obstructive pulmonary disease with (acute) exacerbation Status: Acute Assessment and Plan: Now on Vapotherm 30%, improved comfort however she is not thriving. today she looks really fragile. She is not responding to therapy. She has mild CO2 retention, increased cough, sputum, shortness of breath; she is on O2 at home 3 L/min. She is not requiring much more here, however she is failing to improve. (2) Acute and chronic respiratory failure with hypercapnia: Code(s): J96.22 - Acute and chronic respiratory failure with hypercapnia Status: Acute Assessment and Plan: She is on 30% Vapotherm, saturation is 93-96%. Plan plan: 1. Hospice / Pall Medicine Consult. Maria Elena QURESHI entered the order for telephonic case manager to get this service. 2. Continue Vapotherm, no PAP. She cannot have O2 weaned at this time, saturation is borderline. 3. Stop vibratory vest, not helping. 3. Continue COPD management including nebulized bronchodilators, Levaquin now IV not po, increase methylprednisolone to 60 mg IV Q 6 from 40 mg IV Q 8 hrs. Subjective Date/time seen: 12/27/23 12:52 Interval history: hospital follow up: 12/26; She is worse today, struggling; cannot expectorate. She is anxious. I spoke with her and her Al at the bedside. I am recommending hospice/Palliative Care. She is agreeable to having them talk to her. 12/25; Al is at the bedside; RR 24, on 3 L/min. 3% saline has not help mobilize secretions. She did not use the vibratory vest yesterday on lower settings. She continues to struggle to expectorate thick tenacious sputum. She had a couple of Ensure to drink, not expending any energy due to dyspnea. She is sitting up in the bed, being very still to conserve energy. This is not a good day for her. Staff has been talking with her about transfer to an LTAC, [facility] in [facility], however today, she is not stable enough to get her nails trimmed, much less travel to another facility. 12/24 : she is struggling to breathe, sitting on the side of the bed, cannot cough to expectorate anything. The Vapotherm is more comfortable than the BiPAP. She is requesting Anoro as this inhaler has helped in the past. She is eating enough, moving her bowels, no fevers, WBC is elevated 12 K. 12/23/2023, new consult; Alexus Zambrano is 73-years old, has been followed by our practice; she is in IMU Room 231 having respiratory dependence on BiPAP, able to come off for 30 minutes at the most before having excessive shortness of breath, requiring return to support on the device. She has end stage emphysema, in 2021 was transferred from here to [facility] in [facility] to get higher level pulmonary services with bullectomy and endobronchial valve. Days later, she developed acute DVT in lower legs, already had an IVC filter from 2018. She recovered, having follow up care there with Dr Chung, cardiothoracic surgery, Dr Luque pulmonary and Dr Santos Cardiology. She has been treated with Eliquis for LE DVTs. She has been followed by vulcanized fiber unit operator Dr Luque since. The drive is about an hour each way, and the appt takes a full day. She and her want to transfer her care back to our practice, had an appt scheduled for Jan 30, 2024, however is worse sooner, now admitted. She has increased light green tenacious secretions, has difficulty getting these expectorated. This started a day or two ago. She has no nebulizer at home. She has an extremely went harsh cough and uses accessory muscles when she tries to expectorate her sputum. Her face turned red with significant distress while coughing up moderately like green tenacious secretions. PMH: End stage COPD. Has been managed by Dr Yordy Luque at [facility]; history of 3 pneumothoraces, improved after left ptx with bleb resection 05/13/21 and endobronchial valve 05/14/21 history of DVT and PE pulmonary hypertension hx of PAF; has been on Eliquis for this. DATA * 12/21/2023; chest CT = Severe bullous emphysema, with prominent fibrocalcific scarring in the upper lobes, right greater than left; IVC filter; Cholelithiasis; Extensive left nephrolithiasis; left internal urinary stent * Na+ 143; K+ 3.7, chloride 108, CO2 31, BUN elevated 32, creatinine 0.9, glucose 85. Estimated GFR is greater than 60. ABG Dec 20, 2023 = pH 7.37, pCO2 50.3, PO2 126, HC03 28.8, saturation 97% Review of Systems Review of Systems: All systems reviewed & are unremarkable except as noted in HPI and below Exam Narrative: GEN: Alert, oriented, moderate increased respiratory effort with accessory muscle use. Respiratory rate is remaining elevated at 26+ She is thin, 65 inches, 111 lb, wearing O2 nasal cannula at 30% NECK: Trachea is midline CHEST: Hyperinflated chest; equal air entry, symmetric excursion,hyperinflated thorax; decreased breath sounds anteriorly, scatterd crackles CV: Regular S1S2 no m/g/r ABD : (+) bowel sounds Extremities : no clubbing, cyanosis, or edema. She has thin calves, non tender. Skin is warm and dry. PSYCH: normal thought; not speaking in order to save energy. Objective Data Vital Signs Vital Signs: Vital Signs - 24 hr 12/26/23 14:00 12/26/23 14:23 12/26/23 14:32 Temperature Pulse Rate 89 91 88 Respiratory Rate 24 H 24 H Blood Pressure Pulse Oximetry Oxygen Delivery Oxygen Flow Rate Fraction of Inspired Oxygen 12/26/23 16:00 12/26/23 16:00 12/26/23 16:00 Temperature 36.6 C Pulse Rate 84 84 82 Respiratory Rate 22 H 22 H Blood Pressure 140/92 H Pulse Oximetry 97 97 Oxygen Delivery High Flow Therapy with Na Oxygen Flow Rate 30 Fraction of Inspired Oxygen 32 12/26/23 18:00 12/26/23 20:24 12/26/23 20:00 Temperature Pulse Rate 81 91 81 Respiratory Rate 22 H 22 H Blood Pressure Pulse Oximetry 97 Oxygen Delivery High Flow Therapy with Na Oxygen Flow Rate 30 Fraction of Inspired Oxygen 32 12/26/23 20:00 12/26/23 21:06 12/27/23 00:15 Temperature 37.0 C 36.9 C Pulse Rate 82 83 75 Respiratory Rate 24 H 24 H Blood Pressure 148/71 H 146/71 H Pulse Oximetry 94 95 Oxygen Delivery Oxygen Flow Rate Fraction of Inspired Oxygen 12/26/23 22:00 12/27/23 00:00 12/27/23 00:00 Temperature Pulse Rate 79 75 75 Respiratory Rate 24 H Blood Pressure Pulse Oximetry 95 Oxygen Delivery High Flow Therapy with Na Oxygen Flow Rate 30 Fraction of Inspired Oxygen 32 12/27/23 02:49 12/27/23 02:00 12/26/23 20:40 Temperature Pulse Rate 81 73 94 Respiratory Rate 24 H 24 H Blood Pressure Pulse Oximetry Oxygen Delivery Oxygen Flow Rate Fraction of Inspired Oxygen 12/27/23 04:00 12/27/23 04:21 12/27/23 04:00 Temperature 36.4 C Pulse Rate 81 83 71 Respiratory Rate 24 H 24 H Blood Pressure 155/89 H Pulse Oximetry 95 100 Oxygen Delivery High Flow Therapy with Na Oxygen Flow Rate 30 Fraction of Inspired Oxygen 32 12/27/23 06:00 12/27/23 03:05 12/27/23 08:00 Temperature 36.6 C Pulse Rate 68 83 79 Respiratory Rate 24 H 26 H Blood Pressure 140/77 Pulse Oximetry 98 Oxygen Delivery Oxygen Flow Rate Fraction of Inspired Oxygen 12/27/23 09:35 12/27/23 08:00 12/27/23 08:00 Temperature Pulse Rate 76 66 Respiratory Rate Blood Pressure Pulse Oximetry 98 Oxygen Delivery High Flow Therapy with Na Oxygen Flow Rate 30 Fraction of Inspired Oxygen 35 12/27/23 08:49 12/27/23 08:49 12/27/23 09:56 Temperature Pulse Rate 83 85 Respiratory Rate 23 H 23 H Blood Pressure Pulse Oximetry 98 Oxygen Delivery High Flow Therapy with Na Oxygen Flow Rate 30 Fraction of Inspired Oxygen 40 12/27/23 10:00 12/27/23 10:00 12/27/23 12:00 Temperature 36.6 C Pulse Rate 84 93 Respiratory Rate 28 H Blood Pressure 158/70 H Pulse Oximetry 95 96 Oxygen Delivery High Flow Therapy with Na Oxygen Flow Rate 30 Fraction of Inspired Oxygen 35 Intake/Output Intake/Output: Intake & Output 12/24/23 12/25/23 12/26/23 12/27/23 23:59 23:59 23:59 23:59 Intake Total 2490 1440 2999.2 1434.2 Output Total 1225 1250 1000 400 Balance 1050 848 7987.2 1034.2 Meds/Results Medications: Active Medications Generic Name Dose Route Start Last Admin Trade Name Freq PRN Reason Stop Dose Admin Acetaminophen 650 mg 12/20/23 18:48 12/26/23 17:56 Acetaminophen 325 Mg Tablet PO 650 mg Q4H PRN Administration Mild Pain (1-3) or Fever Acetylcysteine 200 mg 12/24/23 14:00 12/27/23 08:49 Acetylcysteine 20% Inhal Soln 800 Mg/4 Ml Vial INHALATION 200 mg Q6HRT KENYETTA Administration Albuterol 2 puff 12/20/23 23:12 Albuterol Sulfate (*Sp) Aerosol 1 Puff INHALATION Q4-6H PRN Shortness Of Breath Or Wheezing Albuterol/Ipratropium 3 ml 12/21/23 02:00 12/27/23 08:49 Ipratropium 0.5 Mg/Albuterol Sulfate 2.5 Mg Ampul.Neb 3 Ml INHALATION 3 ml Q6HRT KENYETTA Administration Amiodarone HCl 100 mg 12/21/23 09:00 12/27/23 09:35 Amiodarone Hcl 100 Mg Tablet PO 100 mg DAILY KENYETTA Administration Apixaban 2.5 mg 12/20/23 23:15 12/27/23 09:35 Apixaban 2.5 Mg Tablet PO 2.5 mg Q12HR KENYETTA Administration Ascorbic Acid 500 mg 12/21/23 08:00 12/27/23 09:35 Ascorbic Acid 500 Mg Tablet PO 500 mg DAILY@0800 KENYETTA Administration Ferrous Sulfate 325 mg 12/21/23 08:00 12/27/23 09:35 Ferrous Sulfate [address] PO 325 mg DAILY@0800 KENYETTA Administration Furosemide 20 mg 12/21/23 09:00 12/26/23 09:17 Furosemide 20 Mg Tablet PO 20 mg DAILY KENYETTA Administration Guaifenesin 600 mg 12/24/23 18:05 12/27/23 12:22 Guaifenesin 12 Hr 600 Mg Tabcr PO 600 mg Q6HR KENYETTA Administration Sodium Chloride 1,000 mls @ 50 mls/hr 12/21/23 17:40 12/27/23 09:39 Normal Saline Iv IV CONT 0 mls/hr .Q20H KENYETTA Infusion Levofloxacin 750 mg 12/27/23 09:00 12/27/23 09:35 Levofloxacin 750 Mg Tablet PO 750 mg DAILY KENYETTA Administration Methylprednisolone Sodium Succinate 60 mg 12/26/23 15:00 12/27/23 09:34 Methylprednisolone Sod Succ 40 Mg Vial IV PUSH 60 mg Q6H KENYETTA Administration Ondansetron HCl 4 mg 12/20/23 18:48 Ondansetron Inj 4 Mg/2 Ml Vial IV PUSH Q4H PRN Nausea Sertraline HCl 25 mg 12/20/23 23:20 12/27/23 09:34 Sertraline Hcl 25 Mg Tablet PO 25 mg BID KENYETTA Administration Sodium Chloride 6 ml 12/25/23 13:00 12/27/23 09:00 Sodium Chlor 3% 15 Ml Neb (Respiratory Therapy) INHALATION 6 ml QID KENYETTA Administration Spironolactone 25 mg 12/21/23 09:00 12/27/23 09:34 Spironolactone 25 Mg Tablet PO 25 mg DAILY KENYETTA Administration Umeclidinium/Vilanterol 1 puff 12/25/23 16:05 12/27/23 09:03 Umeclidinium/Vilanterol 62.5-25 Mcg Ellipta INHALATION 1 puff DAILYRT KENYETTA Administration Radiology Results: ITS Impressions Chest X-Ray 12/20/23 15:49 IMPRESSION: Mass in the right upper lobe area unchanged. Otherwise, No significant change from previous examination. Chest CT 12/21/23 14:57 IMPRESSION: Severe bullous emphysema, with prominent fibrocalcific scarring in the upper lobes, right greater than left IVC filter Cholelithiasis Extensive left nephrolithiasis; left internal urinary stent Labs Labs: Laboratory Results - last 24 hr 12/27/23 04:55 WBC 9.8 RBC 4.13 L Hgb 12.0 Hct 39.0 MCV 94.4 MCH 29.1 MCHC 30.8 L RDW 17.2 H Plt Count 356 MPV 9.6 Sodium 142 Potassium 4.3 Chloride 109 H Carbon Dioxide 31 H Anion Gap 2 L BUN 30 H Creatinine 0.70 Estim Creat Clear Calc 53 Estimated GFR > 60 Glucose 142 H Calcium 8.4 Total Bilirubin 0.5 AST 21 ALT 19 Alkaline Phosphatase 73 Total Protein 6.0 L Albumin 3.3 L
--- NOTE | 2023-12-27 14:00 | PM.IMPN ---
Progress Note: A&P Assessment and Plan (1) COPD exacerbation: Code(s): J44.1 - Chronic obstructive pulmonary disease with (acute) exacerbation Status: Acute Assessment and Plan: started on doxycycline IVPB b.i.d. to complete 5 days Continue levofloxacin Continue IV steroids and bronchodilators Currently on Vapotherm Pulm consulted (2) Paroxysmal A-fib: Code(s): I48.0 - Paroxysmal atrial fibrillation Status: Chronic Assessment and Plan: - EKG, initial: Sinus rhythm, atrial premature complex, incomplete RBBB, left ventricular hypertrophy and ST-T change cannot rule out septal infarct age indeterminate, ST-T-wave abnormality in anterolateral leads. No significant change compared to prior. - continue home medications: Amiodarone, Eliquis (3) Elevated glucose: Code(s): R73.09 - Other abnormal glucose Status: Acute Assessment and Plan: - initial glucose 135 - A1c 5.3 Plan Comfort measures only. Acute on chronic respiratory failure 3 liter NC oxygen at baseline HFNC F35,FiO2 32 Vibratory vest, Cornet vibratory valve with Mucomyst t.i.d Continue albuterol and ipratropium. Add nebulized budesonide s/p BiPAP Sputum culture pending Pulmonology is following f/u with air bag buffer Dr. Noam Luque, [facility] Possible discharge to LTAC RUL mass ruled out, Ct chest showed scarring, not mass CXR initially showed RUL mass Pulm consulted Diet: Regular DVT Prophylaxis: Continue home Eliquis Lines: Peripheral Code Status: Full code Subjective Date/time seen: 12/27/23 14:00 Interval history: Patient is still in Vapotherm. Unable to deescalate the oxygen needs. Discussed with her about the goal of care including hospice. Both of them wants to discuss with Dr. Andersen and decide hospice or not.Pt agreed to hospice but when signing DNR form she backs up on her decision. She undecided on her Hospice and DNR status. Received the call around 18:15, patient agrees to be in hospice and DNR. Review of Systems Review of Systems: All systems reviewed & are unremarkable except as noted in HPI and below Exam Narrative: modest air movement in all lung hager without crackles or wheezing. Const: General: comfortable and no acute distress Other: , female, nontoxic appearance. HENMT: Face/Nose/Sinus: Normal nares present Mouth: Yes moist mucous membranes Eyes: General: appearance normal, both eyes and all related structures Sclera: sclerae normal Pupils: Equal, round and reactive pupils present EOM: EOMs intact bilaterally Resp: Effort & Inspection: normal respiratory effort Other: Modest air movement in all lobes without crackles or wheezing. Tolerating BiPAP well. Cardio: Rate: regular rate Rhythm: regular rhythm Other: S1-S2 present without murmur, rub, ectopy GI: Other: Abdomen soft, nondistended, nontender. Skin: General skin exam: normal color and no rashes or lesions noted Wounds: no wounds Neuro: Cranial nerves: Yes Equal, round and reactive pupils present Speech: normal speech Motor exam (neuro): 5/5 motor strength present throughout Sensory Exam: normal sensation Other: A&O x4 Extrem: General: normal to inspection Psych: Mental Status: mental status grossly normal Affect: normal affect Other: Good insight and judgment, pleasant Objective Data Vital Signs Vital Signs: Vital Signs - 24 hr 12/26/23 14:23 12/26/23 14:32 12/26/23 16:00 Temperature 98 F Pulse Rate 91 88 84 Respiratory Rate 24 H 24 H 22 H Blood Pressure 140/92 H Pulse Oximetry 97 Oxygen Delivery Oxygen Flow Rate Fraction of Inspired Oxygen 12/26/23 16:00 12/26/23 16:00 12/26/23 18:00 Temperature Pulse Rate 84 82 81 Respiratory Rate 22 H Blood Pressure Pulse Oximetry 97 Oxygen Delivery High Flow Therapy with Na Oxygen Flow Rate 30 Fraction of Inspired Oxygen 32 12/26/23 20:24 12/26/23 20:00 12/26/23 20:00 Temperature Pulse Rate 91 81 82 Respiratory Rate 22 H 22 H Blood Pressure Pulse Oximetry 97 Oxygen Delivery High Flow Therapy with Na Oxygen Flow Rate 30 Fraction of Inspired Oxygen 32 12/26/23 21:06 12/27/23 00:15 12/26/23 22:00 Temperature 98.6 F 98.4 F Pulse Rate 83 75 79 Respiratory Rate 24 H 24 H Blood Pressure 148/71 H 146/71 H Pulse Oximetry 94 95 Oxygen Delivery Oxygen Flow Rate Fraction of Inspired Oxygen 12/27/23 00:00 12/27/23 00:00 12/27/23 02:49 Temperature Pulse Rate 75 75 81 Respiratory Rate 24 H 24 H Blood Pressure Pulse Oximetry 95 Oxygen Delivery High Flow Therapy with Na Oxygen Flow Rate 30 Fraction of Inspired Oxygen 32 12/27/23 02:00 12/26/23 20:40 12/27/23 04:00 Temperature Pulse Rate 73 94 81 Respiratory Rate 24 H 24 H Blood Pressure Pulse Oximetry 95 Oxygen Delivery High Flow Therapy with Na Oxygen Flow Rate 30 Fraction of Inspired Oxygen 32 12/27/23 04:21 12/27/23 04:00 12/27/23 06:00 Temperature 97.6 F Pulse Rate 83 71 68 Respiratory Rate 24 H Blood Pressure 155/89 H Pulse Oximetry 100 Oxygen Delivery Oxygen Flow Rate Fraction of Inspired Oxygen 12/27/23 03:05 12/27/23 08:00 12/27/23 09:35 Temperature 98 F Pulse Rate 83 79 76 Respiratory Rate 24 H 26 H Blood Pressure 140/77 Pulse Oximetry 98 Oxygen Delivery Oxygen Flow Rate Fraction of Inspired Oxygen 12/27/23 08:00 12/27/23 08:00 12/27/23 08:49 Temperature Pulse Rate 66 Respiratory Rate Blood Pressure Pulse Oximetry 98 98 Oxygen Delivery High Flow Therapy with Na High Flow Therapy with Na Oxygen Flow Rate 30 30 Fraction of Inspired Oxygen 35 40 12/27/23 08:49 12/27/23 09:56 12/27/23 10:00 Temperature Pulse Rate 83 85 Respiratory Rate 23 H 23 H Blood Pressure Pulse Oximetry 95 Oxygen Delivery High Flow Therapy with Na Oxygen Flow Rate 30 Fraction of Inspired Oxygen 35 12/27/23 10:00 12/27/23 12:00 Temperature 98 F Pulse Rate 84 93 Respiratory Rate 28 H Blood Pressure 158/70 H Pulse Oximetry 96 Oxygen Delivery Oxygen Flow Rate Fraction of Inspired Oxygen Intake/Output Intake/Output: Intake & Output 12/24/23 12/25/23 12/26/23 12/27/23 23:59 23:59 23:59 23:59 Intake Total 2490 1440 2999.2 1434.2 Output Total 1225 1250 1000 400 Balance 1979 392 2086.2 1034.2 Meds/Results Medications: Active Medications Generic Name Dose Route Start Last Admin Trade Name Freq PRN Reason Stop Dose Admin Acetaminophen 650 mg 12/20/23 18:48 12/26/23 17:56 Acetaminophen 325 Mg Tablet PO 650 mg Q4H PRN Administration Mild Pain (1-3) or Fever Acetylcysteine 200 mg 12/24/23 14:00 12/27/23 08:49 Acetylcysteine 20% Inhal Soln 800 Mg/4 Ml Vial INHALATION 200 mg Q6HRT KENYETTA Administration Albuterol 2 puff 12/20/23 23:12 Albuterol Sulfate (*Sp) Aerosol 1 Puff INHALATION Q4-6H PRN Shortness Of Breath Or Wheezing Albuterol/Ipratropium 3 ml 12/21/23 02:00 12/27/23 08:49 Ipratropium 0.5 Mg/Albuterol Sulfate 2.5 Mg Ampul.Neb 3 Ml INHALATION 3 ml Q6HRT KENYETTA Administration Amiodarone HCl 100 mg 12/21/23 09:00 12/27/23 09:35 Amiodarone Hcl 100 Mg Tablet PO 100 mg DAILY KENYETTA Administration Apixaban 2.5 mg 12/20/23 23:15 12/27/23 09:35 Apixaban 2.5 Mg Tablet PO 2.5 mg Q12HR KENYETTA Administration Ascorbic Acid 500 mg 12/21/23 08:00 12/27/23 09:35 Ascorbic Acid 500 Mg Tablet PO 500 mg DAILY@0800 KENYETTA Administration Ferrous Sulfate 325 mg 12/21/23 08:00 12/27/23 09:35 Ferrous Sulfate [address] PO 325 mg DAILY@0800 KENYETTA Administration Furosemide 20 mg 12/21/23 09:00 12/26/23 09:17 Furosemide 20 Mg Tablet PO 20 mg DAILY KENYETTA Administration Guaifenesin 600 mg 12/24/23 18:05 12/27/23 12:22 Guaifenesin 12 Hr 600 Mg Tabcr PO 600 mg Q6HR KENYETTA Administration Sodium Chloride 1,000 mls @ 50 mls/hr 12/21/23 17:40 12/27/23 09:39 Normal Saline Iv IV CONT 0 mls/hr .Q20H KENYETTA Infusion Levofloxacin 750 mg 12/27/23 09:00 12/27/23 09:35 Levofloxacin 750 Mg Tablet PO 750 mg DAILY KENYETTA Administration Methylprednisolone Sodium Succinate 60 mg 12/26/23 15:00 12/27/23 09:34 Methylprednisolone Sod Succ 40 Mg Vial IV PUSH 60 mg Q6H KENYETTA Administration Ondansetron HCl 4 mg 12/20/23 18:48 Ondansetron Inj 4 Mg/2 Ml Vial IV PUSH Q4H PRN Nausea Sertraline HCl 25 mg 12/20/23 23:20 12/27/23 09:34 Sertraline Hcl 25 Mg Tablet PO 25 mg BID KENYETTA Administration Sodium Chloride 6 ml 12/25/23 13:00 12/27/23 09:00 Sodium Chlor 3% 15 Ml Neb (Respiratory Therapy) INHALATION 6 ml QID KENYETTA Administration Spironolactone 25 mg 12/21/23 09:00 12/27/23 09:34 Spironolactone 25 Mg Tablet PO 25 mg DAILY KENYETTA Administration Umeclidinium/Vilanterol 1 puff 12/25/23 16:05 12/27/23 09:03 Umeclidinium/Vilanterol 62.5-25 Mcg Ellipta INHALATION 1 puff DAILYRT KENYETTA Administration Radiology Results: ITS Impressions Chest X-Ray 12/20/23 15:49 IMPRESSION: Mass in the right upper lobe area unchanged. Otherwise, No significant change from previous examination. Chest CT 12/21/23 14:57 IMPRESSION: Severe bullous emphysema, with prominent fibrocalcific scarring in the upper lobes, right greater than left IVC filter Cholelithiasis Extensive left nephrolithiasis; left internal urinary stent Labs Labs: Laboratory Results - last 24 hr 12/27/23 04:55 WBC 9.8 RBC 4.13 L Hgb 12.0 Hct 39.0 MCV 94.4 MCH 29.1 MCHC 30.8 L RDW 17.2 H Plt Count 356 MPV 9.6 Sodium 142 Potassium 4.3 Chloride 109 H Carbon Dioxide 31 H Anion Gap 2 L BUN 30 H Creatinine 0.70 Estim Creat Clear Calc 53 Estimated GFR > 60 Glucose 142 H Calcium 8.4 Total Bilirubin 0.5 AST 21 ALT 19 Alkaline Phosphatase 73 Total Protein 6.0 L Albumin 3.3 L Quality VTE Prophylaxis VTE prophylaxis: pharmacologic ordered Hospitalist [facility] Advance Care Plan I have confirmed that the patient's Advanced Care Plan is present, code status is documented, or surrogate decision maker is listed in patient medical record.: Yes Medication Reconciliation I have utilized all available resources to obtain, update and review the patients current medications (includes all prescriptions, OTC, herbals, cannabis, and nutritional supplements).: Yes
--- NOTE | 2023-12-27 14:05 | PCPTNOTE ---
Patient refused treatment this session due to patent working with OT earlier and patient did not feel she could do anther therapy session with PT.
--- NOTE | 2023-12-30 18:27 | PM.DS ---
DS: Admitting Diagnosis Discharge Date 12/27/23 Admitting Diagnosis Shortness of breath DS: Discharge Diagnosis Discharge Diagnosis (1) COPD exacerbation: Code(s): J44.1 - Chronic obstructive pulmonary disease with (acute) exacerbation Status: Acute Assessment and Plan: started on doxycycline IVPB b.i.d. to complete 5 days Continue levofloxacin Continue IV steroids and bronchodilators Currently on Vapotherm Pulm consulted (2) Paroxysmal A-fib: Code(s): I48.0 - Paroxysmal atrial fibrillation Status: Chronic Assessment and Plan: - EKG, initial: Sinus rhythm, atrial premature complex, incomplete RBBB, left ventricular hypertrophy and ST-T change cannot rule out septal infarct age indeterminate, ST-T-wave abnormality in anterolateral leads. No significant change compared to prior. - continue home medications: Amiodarone, Eliquis (3) Elevated glucose: Code(s): R73.09 - Other abnormal glucose Status: Acute Assessment and Plan: - initial glucose 135 - A1c 5.3 Plan Comfort measures only. Acute on chronic respiratory failure 3 liter NC oxygen at baseline HFNC F35,FiO2 32 Vibratory vest, Cornet vibratory valve with Mucomyst t.i.d Continue albuterol and ipratropium. Add nebulized budesonide s/p BiPAP Sputum culture pending Pulmonology is following f/u with senior sales operations manager Dr. Noam Luque, [facility] in [facility] Possible discharge to LTAC RUL mass ruled out, Ct chest showed scarring, not mass CXR initially showed RUL mass Pulm consulted Diet: Regular DVT Prophylaxis: Continue home Eliquis Lines: Peripheral Code Status: Full code DS: Summary Hospital Course Hospital Course: 73 y/o F presents here with shortness of breath with PMH of COPD, chronic respiratory failure, PE, osteoporosis, paroxysmal AFib, and spontaneous pneumothorax (x3). The patient presents here via EMS from home for further evaluation of shortness of breath and respiratory distress. Patient reports onset of shortness of breath yesterday and has been progressing since onset. Woke this morning with severe respiratory distress which prompted her to call 911. Upon EMS arrival the patient was 94% on room air. However given significant respiratory distress she was started on CPAP in route and administered a DuoNeb, magnesium 2 g, and Decadron 10 mg IVP. Post completion of the DuoNeb, the patient desaturated to 90%. CPAP was transition to BiPAP upon arrival and the patient arrived 100% on the CPAP. She is endorsing a cough, fever, and chills accompanying at the shortness of breath. Denies chest pain, palpitations, or dizziness. She is a former smoker. Denies sick contacts. No previous hx of diabetes. Initial VS at presentation: 97.6? F, HR 105, RR 24, 155/89, and 100% on CPAP. Now on BiPAP and maintaining 93%. ED workup showed: No leukocytosis, no anemia, INR 1.2, D-dimer negative, creatinine 1.0 and GFR 55, CO2 33, glucose 135, lactic 1.3, magnesium 3.1, and initial troponin negative. BNP 267 (normal for age). CXR showed mass in the right upper lobe area that is unchanged, otherwise no significant changes from previous examination. During the hospitalization pulmonology was consulted. Patient has end-stage emphysematous lung. Patient was on Vapotherm and was unable to wean. Patient denied intubation or any other aggressive treatment. Hospice was consulted and patient was discharged on hospice with comfort care Time Spent with Patient Time attestation: Total time spent providing and/or coordinating discharge services: Exam Narrative: modest air movement in all lung hager without crackles or wheezing. Const: General: comfortable and no acute distress Other: , female, nontoxic appearance. HENMT: Face/Nose/Sinus: Normal nares present Mouth: Yes moist mucous membranes Eyes: General: appearance normal, both eyes and all related structures Sclera: sclerae normal Pupils: Equal, round and reactive pupils present EOM: EOMs intact bilaterally Resp: Effort & Inspection: normal respiratory effort Other: Modest air movement in all lobes without crackles or wheezing. Tolerating BiPAP well. Cardio: Rate: regular rate Rhythm: regular rhythm Other: S1-S2 present without murmur, rub, ectopy GI: Other: Abdomen soft, nondistended, nontender. Skin: General skin exam: normal color and no rashes or lesions noted Wounds: no wounds Neuro: Cranial nerves: Yes Equal, round and reactive pupils present Speech: normal speech Motor exam (neuro): 5/5 motor strength present throughout Sensory Exam: normal sensation Other: A&O x4 Extrem: General: normal to inspection Psych: Mental Status: mental status grossly normal Affect: normal affect Other: Good insight and judgment, pleasant Discharge Plan Discharge Consulting providers: Vita Andersen; Lisseth Leon; Jeffery Bernstein; Delroy Sharma; Gamaliel De Jesus Patient Disposition: Hospice [facility] Inpatient Activity: as tolerated Diet: as tolerated Discharge Instructions: Discharge to hospice Patient Instructions: Apixaban (By mouth), COPD (Chronic Obstructive Pulmonary Disease) (DC) Date of admission: 12/21/23 08:39 Primary Care Provider: Mic Estrada Admitting Provider: Erika Ghosh Attending physician on admission: Jon Burton Condition: Serious
== END 2023-12-27 18:16 | disposition hospice, inpatient (51) | DRG 190 ==
LOC: ANHED 18:03 → ANHIMU 20:35
PROVIDERS: Internal Medicine Critical Care Medicine; Student in an Organized Health Care Education/Training Program; Admitting Provider Internal Medicine; Emergency Provider Student in an Organized Health Care Education/Training Program; PCP Family Medicine; Visit Provider General Practice
DX: J44.1 Chronic obstructive pulmonary disease with (acute) exacerbation (principal); J96.22 Acute and chronic respiratory failure with hypercapnia; J43.9 Emphysema, unspecified; I48.0 Paroxysmal atrial fibrillation; R73.09 Other abnormal glucose; M81.0 Age-related osteoporosis without current pathological fracture; Z66 Do not resuscitate; Z51.5 Encounter for palliative care; Z88.0 Allergy status to penicillin; Z95.828 Presence of other vascular implants and grafts; Z87.891 Personal history of nicotine dependence; Z86.711 Personal history of pulmonary embolism; Z20.822 Contact with and (suspected) exposure to COVID-19; Z79.01 Long term (current) use of anticoagulants
CPT/HCPCS: 36415; 36600; 71045; 71260; 80053; 81001; 82104; 82805; 83036; 83605; 83735; 83880; 84484; 85018; 85025; 85027; 85380; 85610; 85730; 87070; 87086; 87186; 87205; 87637; 93005; 94002; 94003; 94640; 94667; 94668; 94669; 96365; 96366; 96375; 97161; 97165; 97530; 99285; A9270; G0378; J2060; J2919; J7030; J7512; Q9967

== ENCOUNTER 2023-12-27 18:17 | HOS | payer OTHER, MEDICARE, SELFPAY ==
[2023-12-27 19:58] VITALS: BMI 19.0
[2023-12-27 20:00] VITALS: PULSE 99; RESP 20; O2SAT 99
[2023-12-27 20:33] VITALS: BP 142/74; PULSE 87; RESP 24; TEMP 36.9; O2SAT 99
--- NOTE | 2023-12-27 21:42 | PC.NURSE ---
MAINE faxed to med/surg and verbal report given to Joey QURESHI
[2023-12-27 22:11] VITALS: PULSE 99; RESP 20
[2023-12-27] MEDS: HYDROmorphone HCL/PF (*CRX) 50 MG in SODIUM CHLORIDE 0.9% IV 95 ML IV CONT (22:11)
--- NOTE | 2023-12-27 22:20 | PC.NURSE ---
Transferred via bed to [facility] with all belongings and spouse present. witnessed hydromorphone drip started and locked by Joey QURESHI.
[2023-12-27 22:26] VITALS: BP 144/84; PULSE 99; RESP 20; TEMP 36.7; O2SAT 100
--- NOTE | 2023-12-27 22:41 | ADMGEN ---
This patient, Alexus Zambrano, was transferred to [address] [place] [address] Room 318-01. Patient/family oriented to hospital policies and general routines including ID bracelet, bed and alarms, visiting hours, pain management, procedures, bathroom and other care routines, personal items, smoking policy, room service/diet, and visiting hours. Information on how to activate the Rapid Response Team has been discussed. Patient/Family are encouraged to report perceived risks to care and to ask questions if they do not understand what they are told or what they should do.
--- NOTE | 2023-12-28 09:32 | P.HP_ITS ---
H&P: HPI History of Present Illness Date/Time: 12/28/23 09:32 Chief Complaint: uncontrolled dyspnea Narrative: This unfortunate 73-year-old female with history of severe COPD, former smoker, paroxysmal atrial fibrillation, pulmonary emboli, and spontaneous pneumothoraces 3 times, plus chronic respiratory failure requiring oxygen at 3 liters/minute. She eas admitted [facility] on December 19 with increasing shortness of breath and cough. CT of the chest showed severe emphysema with bulla. Labs showed elevated white count. She was treated with antibiotics bronchodilators oxygen and steroids. Though her oxygen saturations were maintained and her pCO2 was only mildly elevated she failed to improve as far as appetite and functional status. She was on people term oxygen at FiO2 of 30%. She was followed by pulmonology as well. Dr. Floyd recommended she consider hospice and palliative care. After discussion with hospice admission nurse yesterday she was admitted inpatient hospice service due to uncontrolled dyspnea and end-stage COPD with acute on chronic respiratory failure. She denied pain, shortness of breath, nausea. She admits to generalized weakness and fatigue. Review of Systems Review of Systems: All systems reviewed & are unremarkable except as noted in HPI and below PMFSH Past Medical History Medical History Bladder stone Chronic respiratory failure COPD (chronic obstructive pulmonary disease) Emphysema lung History of kidney stones with extraction History of pulmonary embolism History of tobacco abuse Multiple nodules of lung On home O2 3LPM baseline Osteoporosis Paroxysmal A-fib Renal calculus, left Snoring Spontaneous pneumothorax x3 Surgical History Surgical History History of adenoidectomy History of breast biopsy History of hysterectomy with bilateral oophorectomy History of tonsillectomy Hx of fracture of wrist s/p L ORIF S/P IVC filter Family History Family History Father Patient's father is Sibling Family history of malignant neoplasm of breast Mother Diabetes mellitus Family history of congestive heart failure Sibling Family history of malignant neoplasm of breast Sibling Family history of malignant neoplasm of breast Social History Social History (Updated 12/28/23 @ 09:33 by Nba Phipps MD) Social History: Code Status: DNR Smoking packs per day: 0.5 Smoking cigarettes per day: 10.0 Years smoked: 25 Smoking pack-years: 12.50 Smoking status: Former smoker Tobacco type: cigarettes Second hand tobacco smoke exposure: No Smoking end date: 02/18/97 Alcohol intake: never Substance use: never Substance use type: does not use Do You Feel Safe in your Home?: Yes Lack of Transportation: No Lack of Food: Never True Current Housing: I Have Housing Concerned About Future Housing: No Difficulty Paying Gas/Electric Bills: No Difficulty Paying for Meds: No Currently Unemployed: No Education: Trade/Vocational Certificate Difficulty w/ Childcare or Family Care: No Living arrangements: with family Additional living arrangements comments: Occupation/Education: other Gender identity (if verbalized by the patient): Female Spiritual care concerns: No Meds Home Medications and Allergies Home Medications Medication Instructions Recorded Confirmed Type amiodarone 200 mg tablet 100 mg PO DAILY 01/26/22 12/27/23 History apixaban 2.5 mg tablet (Eliquis) 2.5 mg PO Q12HR #60 tabs 08/26/22 12/27/23 Rx furosemide 20 mg tablet 20 mg PO DAILY #30 tabs 08/26/22 12/27/23 Rx spironolactone 25 mg tablet 25 mg PO DAILY #30 tabs 08/26/22 12/27/23 Rx ascorbic acid (vitamin C) 500 mg 500 mg PO DAILY@0800 #90 tabs 09/24/22 12/27/23 Rx tablet (Vitamin C) albuterol sulfate 90 mcg/actuation 2 puff inhalation Q4-6H PRN 08/08/23 12/27/23 History aerosol inhaler Shortness Of Breath Or Wheezing umeclidinium 62.5 mcg-vilanterol 1 inh inhalation DAILY #60 ea 10/16/23 12/27/23 Rx 25 mcg/actuation powdr for inhalation (Anoro Ellipta) sertraline 50 mg tablet (Zoloft) 25 mg PO BID #30 tabs 12/06/23 12/27/23 Rx ferrous sulfate 325 mg (65 mg 325 mg PO DAILY@0800 #90 tabs 12/19/23 12/27/23 Rx iron) tablet Allergies Allergy/AdvReac Type Severity Reaction Status Date / Time codeine Allergy Intermediate Anaphylactic Verified 12/20/23 22:42 Shock erythromycin base Allergy Mild HIVES AND Verified 12/20/23 22:42 EDEMA Penicillins Allergy Mild EDEMA & Verified 12/20/23 22:42 HIVES Sulfa (Sulfonamide Allergy Mild HIVES AND Verified 12/20/23 22:42 Antibiotics) EDEMA ampicillin Allergy Unknown RASH Verified 12/20/23 22:42 Vital Signs Vital Signs - 24 hr 12/27/23 20:33 12/27/23 22:11 12/27/23 22:26 Temperature 98.5 F 98.0 F Pulse Rate 87 99 99 Respiratory Rate 24 H 20 20 Blood Pressure 142/74 H 144/84 H Pulse Oximetry 99 100 Oxygen Delivery Oxygen Flow Rate 12/27/23 20:00 Temperature Pulse Rate 99 Respiratory Rate 20 Blood Pressure Pulse Oximetry 99 Oxygen Delivery Nasal Cannula Oxygen Flow Rate 6 Exam Narrative: HEENT: PERRL, sclerae nonicteric, pharyngeal mucosa pink and intact NECK: No JVD CHEST: Normal effort. Distant but coarse breath sounds. No wheezes or crackles. HEART: NL S1/S2, regular, no murmur ABDOMEN: BS+, soft, nontender, no mass, no bruits EXTREMITIES: No cyanosis, edema, or clubbing NEUROLOGIC: CN intact and symmetric to inspection. MUSCULOSKELETAL: Tone and strength symmetric. PSYCH: Alert. Oriented to person, place, and time. Assessment and Plan Assessment and plan (1) Hospice care: Code(s): Z51.5 - Encounter for palliative care Status: Acute Assessment and Plan: * Meets inpatient hospice criteria due to requiring continuous IV hydromorphone for control of symptoms. * PRN palliative regimen ordered. * 12/28/2023 care with patient and family at bedside. All questions were answered to their satisfaction. (2) Acute and chronic respiratory failure with hypercapnia: Code(s): J96.22 - Acute and chronic respiratory failure with hypercapnia Status: Acute (3) COPD exacerbation: Code(s): J44.1 - Chronic obstructive pulmonary disease with (acute) exacerbation Status: Acute (4) Lung mass: Code(s): R91.8 - Other nonspecific abnormal finding of lung field Status: Acute Hospitalist [facility] Advance Care Plan I have confirmed that the patient's Advanced Care Plan is present, code status is documented, or surrogate decision maker is listed in patient medical record.: Yes
--- NOTE | 2023-12-28 11:04 | P.PNIM_ITS ---
Progress Note: A&P Assessment and Plan (1) Hospice care: Code(s): Z51.5 - Encounter for palliative care Status: Acute Assessment and Plan: * Meets inpatient hospice criteria due to requiring continuous IV hydromorphone for control of symptoms. * PRN palliative regimen ordered. * 12/28/2023 care with patient and family at bedside. All questions were answered to their satisfaction. (2) Acute and chronic respiratory failure with hypercapnia: Code(s): J96.22 - Acute and chronic respiratory failure with hypercapnia Status: Acute (3) COPD exacerbation: Code(s): J44.1 - Chronic obstructive pulmonary disease with (acute) exacerbation Status: Acute (4) Lung mass: Code(s): R91.8 - Other nonspecific abnormal finding of lung field Status: Acute Plan Comfort measures only.Admitted under Hospice Acute on chronic respiratory failure 3 liter NC oxygen at baseline S/P HFNC F35,FiO2 32 S/P Vibratory vest, Cornet vibratory valve with Mucomyst t.i.d Continue albuterol and ipratropium. Add nebulized budesonide s/p BiPAP Sputum culture pending Pulmonology is following f/u with collections specialist Dr. Noam Luque [facility] Discharge to hospice RUL mass ruled out, Ct chest showed scarring, not mass CXR initially showed RUL mass Pulm consulted Diet: Regular DVT Prophylaxis: Continue home Eliquis Lines: Peripheral Code Status: DNR Subjective Date/time seen: 12/28/23 11:04 Interval history: Had a long conversation with her daughter and her . Both wanted to continue comfort care. Agrees with the hospice. Review of Systems Review of Systems: All systems reviewed & are unremarkable except as noted in HPI and below ROS unobtainable: Yes unobtainable due to medical condition Exam Narrative: HEENT: PERRL, sclerae nonicteric, pharyngeal mucosa pink and intact NECK: No JVD CHEST: Normal effort. Distant but coarse breath sounds. No wheezes or crackles. HEART: NL S1/S2, regular, no murmur ABDOMEN: BS+, soft, nontender, no mass, no bruits EXTREMITIES: No cyanosis, edema, or clubbing NEUROLOGIC: CN intact and symmetric to inspection. MUSCULOSKELETAL: Tone and strength symmetric. PSYCH: Alert. Oriented to person, place, and time. Objective Data Vital Signs Vital Signs: Vital Signs - 24 hr 12/27/23 20:33 12/27/23 22:11 12/27/23 22:26 Temperature 98.5 F 98.0 F Pulse Rate 87 99 99 Respiratory Rate 24 H 20 20 Blood Pressure 142/74 H 144/84 H Pulse Oximetry 99 100 Oxygen Delivery Oxygen Flow Rate 12/27/23 20:00 12/28/23 10:25 Temperature Pulse Rate 99 Respiratory Rate 20 Blood Pressure Pulse Oximetry 99 Oxygen Delivery Nasal Cannula Nasal Cannula Oxygen Flow Rate 6 6 Intake/Output Intake/Output: Intake & Output 12/25/23 12/26/23 12/27/23 12/28/23 23:59 23:59 23:59 23:59 Intake Total 0 Balance 0 Meds/Results Medications: Active Medications Generic Name Dose Route Start Last Admin Trade Name Freq PRN Reason Stop Dose Admin Artificial Tears 1 - 2 drop 12/27/23 19:40 Artificial Tears Ophth Soln 15 Ml Bottle EACH EYE Q12H PRN Dry Eye(s) Bisacodyl 10 mg 12/27/23 19:40 Bisacodyl 10 Mg Suppository RECTAL DAILY PRN Constipation Glycopyrrolate 0.1 mg 12/27/23 19:40 Glycopyrrolate Inj (*Sp) 0.2 Mg/Ml Vial IV PUSH Q4H PRN secretions Hydromorphone HCl 1 mg 12/27/23 21:06 Hydromorphone Hcl Inj (*Crx) 1 Mg/Ml Syr IV PUSH Q2H PRN PAIN/DYSPNEA Hydromorphone HCl 50 mg/ 100 mls @ 0.5 mls/hr 12/27/23 21:05 12/27/23 22:11 Sodium Chloride IV CONT 0.25 mg/hr .Q24H KENYETTA 0.5 mls/hr Administration 0.25 MG/HR Lorazepam 1 mg 12/27/23 19:40 Lorazepam Inj (*Crx) 2 Mg/Ml Vial IV PUSH Q4H PRN RESTLESSNESS Prochlorperazine Edisylate 10 mg 12/27/23 19:40 Prochlorperazine Edisylate 10 Mg/2 Ml Vial IV PUSH Q6H PRN Nausea And Vomiting
--- NOTE | 2023-12-28 12:34 | PC.NURSE ---
Patient and family have no needs are this time. No pain. Patient able to eat breakfast and lunch.
--- NOTE | 2023-12-28 14:03 | PC.NURSE ---
1320 Recliner delivered to patients room.
[2023-12-28 14:13] VITALS: BP 154/78; PULSE 76; RESP 10; TEMP 35.8; O2SAT 100
--- NOTE | 2023-12-28 15:08 | P.TS_ITS ---
Transfer Discharge Sum: Prov Provider Date of admission: 12/27/23 18:17 Primary care physician: Mic Estrada MD Admitting clinician: Nba Phipps MD DS: Admitting Diagnosis Discharge Date 12/27/2024 Admitting Diagnosis SOB Transfer Discharge Sum: Med Medications Active and Home Medications: Home Medications amiodarone 200 mg tablet 100 mg PO DAILY 01/26/22 [History Confirmed 12/27/23] apixaban 2.5 mg tablet (Eliquis) 2.5 mg PO Q12HR #60 tabs 08/26/22 [Rx Confirmed 12/27/23] furosemide 20 mg tablet 20 mg PO DAILY #30 tabs 08/26/22 [Rx Confirmed 12/27/23] spironolactone 25 mg tablet 25 mg PO DAILY #30 tabs 08/26/22 [Rx Confirmed 12/27/23] ascorbic acid (vitamin C) 500 mg tablet (Vitamin C) 500 mg PO DAILY@0800 #90 tabs 09/24/22 [Rx Confirmed 12/27/23] albuterol sulfate 90 mcg/actuation aerosol inhaler 2 puff inhalation Q4-6H PRN Shortness Of Breath Or Wheezing 08/08/23 [History Confirmed 12/27/23] umeclidinium 62.5 mcg-vilanterol 25 mcg/actuation powdr for inhalation (Anoro Ellipta) 1 inh inhalation DAILY #60 ea 10/16/23 [Rx Confirmed 12/27/23] sertraline 50 mg tablet (Zoloft) 25 mg PO BID #30 tabs 12/06/23 [Rx Confirmed 12/27/23] ferrous sulfate 325 mg (65 mg iron) tablet 325 mg PO DAILY@0800 #90 tabs 12/19/23 [Rx Confirmed 12/27/23] Active Medications Artificial Tears (Artificial Tears Ophth Soln 15 Ml Bottle) 1 - 2 drop EACH EYE Q12H PRN PRN Reason: Dry Eye(s) Bisacodyl (Bisacodyl 10 Mg Suppository) 10 mg RECTAL DAILY PRN PRN Reason: Constipation Glycopyrrolate (Glycopyrrolate Inj (*Sp) 0.2 Mg/Ml Vial) 0.1 mg IV PUSH Q4H PRN PRN Reason: secretions Hydromorphone HCl (Hydromorphone Hcl Inj (*Crx) 1 Mg/Ml Syr) 1 mg IV PUSH Q2H PRN PRN Reason: PAIN/DYSPNEA Hydromorphone HCl 50 mg/ (Sodium Chloride) 100 mls @ 0.5 mls/hr IV CONT .Q24H KENYETTA Last Admin: 12/27/23 22:11 Dose: 0.25 mg/hr, 0.5 mls/hr Lorazepam (Lorazepam Inj (*Crx) 2 Mg/Ml Vial) 1 mg IV PUSH Q4H PRN PRN Reason: RESTLESSNESS Prochlorperazine Edisylate (Prochlorperazine Edisylate 10 Mg/2 Ml Vial) 10 mg IV PUSH Q6H PRN PRN Reason: Nausea And Vomiting Transfer Discharge Sum: Hosp Hospital Course Hospital course: 73 y/o F presents here with shortness of breath with PMH of COPD, chronic respiratory failure, PE, osteoporosis, paroxysmal AFib, and spontaneous pneumothorax (x3). The patient presents here via EMS from home for further evaluation of shortness of breath and respiratory distress. Patient reports onset of shortness of breath yesterday and has been progressing since onset. Woke this morning with severe respiratory distress which prompted her to call 911. Upon EMS arrival the patient was 94% on room air. However given significant respiratory distress she was started on CPAP in route and administered a DuoNeb, magnesium 2 g, and Decad arsen 10 mg IVP. Post completion of the DuoNeb, the patient desaturated to 90%. CPAP was transition to BiPAP upon arrival and the patient arrived 100% on the CPAP. She is endorsing a cough, fever, and chills accompanying at the shortness of breath. Denies chest pain, palpitations, or dizziness. She is a former smoker. Denies sick contacts. No previous hx of diabetes. Initial VS at presentation: 97.6? F, HR 105, RR 24, 155/89, and 100% on CPAP. Now on BiPAP and maintaining 93%. ED workup showed: No leukocytosis, no anemia, INR 1.2, D-dimer negative, creatinine 1.0 and GFR 55, CO2 33, glucose 135, lactic 1.3, magnesium 3.1, and initial troponin negative. BNP 267 (normal for age). CXR showed mass in the right upper lobe area that is unchanged, otherwise no significant changes from p revious examination. During the course of hospitalization, pulmonology was consulted. Pulmonology advised avoiding over pressure rising her end-stage emphysematous lungs by stopping Bipap 12/6 and 40%, switching to Vapotherm for the ability of improving ventilation, decreasing work of breathing, improving oxygenation. Unfortunately patient was not able to de escalated her oxygen therapy. After the long discussion with her, and daughter patient agreed to be in hospice. Time Spent with Patient Time attestation: Total time spent providing and/or coordinating transfer services:45 minutes
[2023-12-28 20:00] VITALS: O2SAT 93
[2023-12-28 21:23] VITALS: BP 153/80; PULSE 81; RESP 12; TEMP 36.8; O2SAT 99
[2023-12-28 22:47] VITALS: PULSE 98; RESP 20
[2023-12-28] MEDS: HYDROmorphone HCL/PF (*CRX) 50 MG in SODIUM CHLORIDE 0.9% IV 95 ML IV CONT (22:47)
[2023-12-29 08:00] VITALS: PULSE 81; O2SAT 93
--- NOTE | 2023-12-29 09:18 | P.PNIM_ITS ---
Progress Note: A&P Assessment and Plan (1) Hospice care: Code(s): Z51.5 - Encounter for palliative care Status: Acute Assessment and Plan: * Meets inpatient hospice criteria due to requiring continuous IV hydromorphone for control of symptoms. * PRN palliative regimen ordered. * 12/28/2023 discussed care with patient and family at bedside. All questions were answered to their satisfaction. * 12/29/2023 discussed care with patient and family at bedside. (2) Acute and chronic respiratory failure with hypercapnia: Code(s): J96.22 - Acute and chronic respiratory failure with hypercapnia Status: Acute (3) COPD exacerbation: Code(s): J44.1 - Chronic obstructive pulmonary disease with (acute) exacerbation Status: Acute (4) Lung mass: Code(s): R91.8 - Other nonspecific abnormal finding of lung field Status: Acute Plan Comfort measures only.Admitted under Hospice Acute on chronic respiratory failure 3 liter NC oxygen at baseline S/P HFNC F35,FiO2 32 S/P Vibratory vest, Cornet vibratory valve with Mucomyst t.i.d Continue albuterol and ipratropium. Add nebulized budesonide s/p BiPAP Sputum culture pending Pulmonology is following f/u with lab asst Dr. Noam Luque [facility] in [facility] Discharge to hospice RUL mass ruled out, Ct chest showed scarring, not mass CXR initially showed RUL mass Pulm consulted Diet: Regular DVT Prophylaxis: Continue home Eliquis Lines: Peripheral Code Status: DNR Subjective Date/time seen: 12/29/23 09:18 Interval history: Tired. No PO intake. No sob. No pain. Review of Systems Review of Systems: All systems reviewed & are unremarkable except as noted in HPI and below Exam Narrative: HEENT: PERRL, sclerae nonicteric, pharyngeal mucosa pink and intact NECK: No JVD CHEST: Normal effort. Distant but coarse breath sounds. No wheezes or crackles. HEART: NL S1/S2, regular, no murmur ABDOMEN: BS+, soft, nontender, no mass, no bruits EXTREMITIES: No cyanosis, edema, or clubbing NEUROLOGIC: CN intact and symmetric to inspection. MUSCULOSKELETAL: Tone and strength symmetric. PSYCH: Alert. Oriented to person, place, and time. Objective Data Vital Signs Vital Signs: Vital Signs - 24 hr 12/28/23 10:25 12/28/23 14:13 12/28/23 21:23 Temperature 96.4 F L 98.2 F Pulse Rate 76 81 Respiratory Rate 10 L 12 Blood Pressure 154/78 H 153/80 H Pulse Oximetry 100 99 Oxygen Delivery Nasal Cannula Oxygen Flow Rate 6 12/28/23 22:47 12/28/23 22:47 12/28/23 20:00 Temperature Pulse Rate 98 98 Respiratory Rate 20 20 Blood Pressure Pulse Oximetry 93 Oxygen Delivery High Flow Nasal Cannula Oxygen Flow Rate 6 Intake/Output Intake/Output: Intake & Output 12/26/23 12/27/23 12/28/23 12/29/23 23:59 23:59 23:59 23:59 Intake Total 112.3 Output Total 700 Balance 112.3 -700 Meds/Results Medications: Active Medications Generic Name Dose Route Start Last Admin Trade Name Freq PRN Reason Stop Dose Admin Artificial Tears 1 - 2 drop 12/27/23 19:40 Artificial Tears Ophth Soln 15 Ml Bottle EACH EYE Q12H PRN Dry Eye(s) Bisacodyl 10 mg 12/27/23 19:40 Bisacodyl 10 Mg Suppository RECTAL DAILY PRN Constipation Glycopyrrolate 0.1 mg 12/27/23 19:40 Glycopyrrolate Inj (*Sp) 0.2 Mg/Ml Vial IV PUSH Q4H PRN secretions Hydromorphone HCl 1 mg 12/27/23 21:06 Hydromorphone Hcl Inj (*Crx) 1 Mg/Ml Syr IV PUSH Q2H PRN PAIN/DYSPNEA Hydromorphone HCl 50 mg/ 100 mls @ 0.5 mls/hr 12/27/23 21:05 12/28/23 22:47 Sodium Chloride IV CONT 0.25 mg/hr .Q24H KENYETTA 0.5 mls/hr Administration 0.25 MG/HR Lorazepam 1 mg 12/27/23 19:40 Lorazepam Inj (*Crx) 2 Mg/Ml Vial IV PUSH Q4H PRN RESTLESSNESS Prochlorperazine Edisylate 10 mg 12/27/23 19:40 Prochlorperazine Edisylate 10 Mg/2 Ml Vial IV PUSH Q6H PRN Nausea And Vomiting
--- NOTE | 2023-12-29 09:57 | P.PNIM_ITS ---
Progress Note: A&P Assessment and Plan (1) Hospice care: Code(s): Z51.5 - Encounter for palliative care Status: Acute Assessment and Plan: * Meets inpatient hospice criteria due to requiring continuous IV hydromorphone for control of symptoms. * PRN palliative regimen ordered. * 12/28/2023 discussed care with patient and family at bedside. All questions were answered to their satisfaction. * 12/29/2023 discussed care with patient and family at bedside. (2) Acute and chronic respiratory failure with hypercapnia: Code(s): J96.22 - Acute and chronic respiratory failure with hypercapnia Status: Acute (3) COPD exacerbation: Code(s): J44.1 - Chronic obstructive pulmonary disease with (acute) exacerbation Status: Acute (4) Lung mass: Code(s): R91.8 - Other nonspecific abnormal finding of lung field Status: Acute Plan Comfort measures only.Admitted under Hospice Acute on chronic respiratory failure 3 liter NC oxygen at baseline S/P HFNC F35,FiO2 32 S/P Vibratory vest, Cornet vibratory valve with Mucomyst t.i.d Continue albuterol and ipratropium. Add nebulized budesonide s/p BiPAP Pulmonology is following f/u with steamb[employer] captain Dr. Noam Luque, [facility] in [facility] Discharge to hospice RUL mass ruled out, Ct chest showed scarring, not mass CXR initially showed RUL mass Pulm consulted Code Status: DNR Subjective Date/time seen: 12/29/23 09:57 Interval history: Resting well. Comfort care. Review of Systems Review of Systems: All systems reviewed & are unremarkable except as noted in HPI and below ROS unobtainable: Yes unobtainable due to medical condition Exam Narrative: HEENT: PERRL, sclerae nonicteric, pharyngeal mucosa pink and intact NECK: No JVD CHEST: Normal effort. Distant but coarse breath sounds. No wheezes or crackles. HEART: NL S1/S2, regular, no murmur ABDOMEN: BS+, soft, nontender, no mass, no bruits EXTREMITIES: No cyanosis, edema, or clubbing NEUROLOGIC: CN intact and symmetric to inspection. MUSCULOSKELETAL: Tone and strength symmetric. PSYCH: Alert. Oriented to person, place, and time. Objective Data Vital Signs Vital Signs: Vital Signs - 24 hr 12/28/23 10:25 12/28/23 14:13 12/28/23 21:23 Temperature 96.4 F L 98.2 F Pulse Rate 76 81 Respiratory Rate 10 L 12 Blood Pressure 154/78 H 153/80 H Pulse Oximetry 100 99 Oxygen Delivery Nasal Cannula Oxygen Flow Rate 6 12/28/23 22:47 12/28/23 22:47 12/28/23 20:00 Temperature Pulse Rate 98 98 Respiratory Rate 20 20 Blood Pressure Pulse Oximetry 93 Oxygen Delivery High Flow Nasal Cannula Oxygen Flow Rate 6 Intake/Output Intake/Output: Intake & Output 12/26/23 12/27/23 12/28/23 12/29/23 23:59 23:59 23:59 23:59 Intake Total 112.3 Output Total 700 Balance 112.3 -700 Meds/Results Medications: Active Medications Generic Name Dose Route Start Last Admin Trade Name Freq PRN Reason Stop Dose Admin Artificial Tears 1 - 2 drop 12/27/23 19:40 Artificial Tears Ophth Soln 15 Ml Bottle EACH EYE Q12H PRN Dry Eye(s) Bisacodyl 10 mg 12/27/23 19:40 Bisacodyl 10 Mg Suppository RECTAL DAILY PRN Constipation Glycopyrrolate 0.1 mg 12/27/23 19:40 Glycopyrrolate Inj (*Sp) 0.2 Mg/Ml Vial IV PUSH Q4H PRN secretions Hydromorphone HCl 1 mg 12/27/23 21:06 Hydromorphone Hcl Inj (*Crx) 1 Mg/Ml Syr IV PUSH Q2H PRN PAIN/DYSPNEA Hydromorphone HCl 50 mg/ 100 mls @ 0.5 mls/hr 12/27/23 21:05 12/28/23 22:47 Sodium Chloride IV CONT 0.25 mg/hr .Q24H KENYETTA 0.5 mls/hr Administration 0.25 MG/HR Lorazepam 1 mg 12/27/23 19:40 Lorazepam Inj (*Crx) 2 Mg/Ml Vial IV PUSH Q4H PRN RESTLESSNESS Prochlorperazine Edisylate 10 mg 12/27/23 19:40 Prochlorperazine Edisylate 10 Mg/2 Ml Vial IV PUSH Q6H PRN Nausea And Vomiting Hospitalist MIPS Advance Care Plan I have confirmed that the patient's Advanced Care Plan is present, code status is documented, or surrogate decision maker is listed in patient medical record.: Yes Medication Reconciliation I have utilized all available resources to obtain, update and review the patients current medications (includes all prescriptions, OTC, herbals, cannabis, and nutritional supplements).: Yes
[2023-12-29 14:00] VITALS: BP 141/77; PULSE 93; RESP 12; TEMP 36; O2SAT 89
[2023-12-29 20:00] VITALS: BP 147/78; PULSE 91; RESP 16; TEMP 36.6; O2SAT 89
[2023-12-30 08:00] VITALS: O2SAT 89
--- NOTE | 2023-12-30 09:18 | PCDIET ---
Pt is now on hospice care. Comfort measure, regular diet, Ensure Enlive TID previously with meals - will order. No further nutrition recommendations.
[2023-12-30 14:08] VITALS: PULSE 88; RESP 12
[2023-12-30] MEDS: HYDROmorphone HCL/PF (*CRX) 50 MG in SODIUM CHLORIDE 0.9% IV 95 ML IV CONT (14:08)
[2023-12-30 14:58] VITALS: BP 138/77; PULSE 89; RESP 14; TEMP 36.7; O2SAT 94
--- NOTE | 2023-12-30 17:38 | P.PNIM_ITS ---
Progress Note: A&P Assessment and Plan (1) Hospice care: Code(s): Z51.5 - Encounter for palliative care Status: Acute Assessment and Plan: * Meets inpatient hospice criteria due to requiring continuous IV hydromorphone for control of symptoms. * PRN palliative regimen ordered. * 12/28/2023 discussed care with patient and family at bedside. All questions were answered to their satisfaction. * 12/29/2023 discussed care with patient and family at bedside. * 12/30/2023 discussed care and prognosis with family at bedside. (2) COPD exacerbation: Code(s): J44.1 - Chronic obstructive pulmonary disease with (acute) exacerbation Status: Acute (3) Acute and chronic respiratory failure with hypercapnia: Code(s): J96.22 - Acute and chronic respiratory failure with hypercapnia Status: Acute (4) Paroxysmal A-fib: Code(s): I48.0 - Paroxysmal atrial fibrillation Status: Chronic Subjective Date/time seen: 12/30/23 17:38 Interval history: Tired. No PO intake. No sob. No pain. Review of Systems Review of Systems: ROS unobtainable: Yes unobtainable due to medical condition Exam Narrative: HEENT: PERRL, sclerae nonicteric, pharyngeal mucosa pink and intact NECK: No JVD CHEST: Normal effort. Distant but coarse breath sounds. No wheezes or crackles. HEART: NL S1/S2, regular, no murmur ABDOMEN: BS+, soft, nontender, no mass, no bruits EXTREMITIES: No cyanosis, edema, or clubbing NEUROLOGIC: CN intact and symmetric to inspection. MUSCULOSKELETAL: Tone and strength symmetric. PSYCH: Drowsy but arouses easily. Oriented to person. Objective Data Vital Signs Vital Signs: Vital Signs - 24 hr 12/29/23 20:00 12/29/23 20:00 12/30/23 08:00 Temperature 98 F Pulse Rate 91 Respiratory Rate 16 Blood Pressure 147/78 H Pulse Oximetry 89 L 89 L 89 L Oxygen Delivery Nasal Cannula Nasal Cannula Oxygen Flow Rate 3 3 12/30/23 14:08 12/30/23 14:08 12/30/23 14:58 Temperature 98.1 F Pulse Rate 88 88 89 Respiratory Rate 12 12 14 Blood Pressure 138/77 Pulse Oximetry 94 Oxygen Delivery Oxygen Flow Rate Intake/Output Intake/Output: Intake & Output 12/27/23 12/28/23 12/29/23 12/30/23 23:59 23:59 23:59 23:59 Intake Total 112.3 269.7 Output Total 700 Balance 112.3 -700 269.7 Meds/Results Medications: Active Medications Generic Name Dose Route Start Last Admin Trade Name Freq PRN Reason Stop Dose Admin Artificial Tears 1 - 2 drop 12/27/23 19:40 Artificial Tears Ophth Soln 15 Ml Bottle EACH EYE Q12H PRN Dry Eye(s) Bisacodyl 10 mg 12/27/23 19:40 Bisacodyl 10 Mg Suppository RECTAL DAILY PRN Constipation Glycopyrrolate 0.1 mg 12/27/23 19:40 Glycopyrrolate Inj (*Sp) 0.2 Mg/Ml Vial IV PUSH Q4H PRN secretions Hydromorphone HCl 1 mg 12/27/23 21:06 Hydromorphone Hcl Inj (*Crx) 1 Mg/Ml Syr IV PUSH Q2H PRN PAIN/DYSPNEA Hydromorphone HCl 50 mg/ 100 mls @ 0.5 mls/hr 12/27/23 21:05 12/30/23 14:08 Sodium Chloride IV CONT 01/01/24 17:59 0.25 mg/hr .Q24H KENYETTA 0.5 mls/hr Administration 0.25 MG/HR Hydromorphone HCl 50 mg/ 100 mls @ 0.5 mls/hr 01/01/24 18:00 Sodium Chloride IV CONT .Q24H KENYETTA 0.25 MG/HR Lorazepam 1 mg 12/27/23 19:40 Lorazepam Inj (*Crx) 2 Mg/Ml Vial IV PUSH Q4H PRN RESTLESSNESS Prochlorperazine Edisylate 10 mg 12/27/23 19:40 Prochlorperazine Edisylate 10 Mg/2 Ml Vial IV PUSH Q6H PRN Nausea And Vomiting
[2023-12-30 20:15] VITALS: BP 148/75; PULSE 80; RESP 9; TEMP 36.2; O2SAT 93
[2023-12-31 00:02] VITALS: O2SAT 92
[2023-12-31 07:45] VITALS: BP 172/92; PULSE 102; RESP 18; TEMP 36.6; O2SAT 86
[2023-12-31] MEDS: LORazepam INJ (*CRX) 2 MG/ML VIAL 1 MG IV PUSH (08:21)
[2023-12-31] MEDS: HYDROmorphone HCL/PF (*CRX) 50 MG in SODIUM CHLORIDE 0.9% IV 95 ML IV CONT (14:46)
--- NOTE | 2023-12-31 17:12 | P.PNIM_ITS ---
Progress Note: A&P Assessment and Plan (1) Hospice care: Code(s): Z51.5 - Encounter for palliative care Status: Acute Assessment and Plan: * Meets inpatient hospice criteria due to requiring continuous IV hydromorphone for control of symptoms. * PRN palliative regimen ordered. * 12/28/2023 discussed care with patient and family at bedside. All questions were answered to their satisfaction. * 12/29/2023 discussed care with patient and family at bedside. * 12/30/2023 discussed care and prognosis with family at bedside. * 12/31/2023 family wishes Ativan be given for only extreme agitation. Nursing staff informed. (2) COPD exacerbation: Code(s): J44.1 - Chronic obstructive pulmonary disease with (acute) exacerbation Status: Acute (3) Acute and chronic respiratory failure with hypercapnia: Code(s): J96.22 - Acute and chronic respiratory failure with hypercapnia Status: Acute (4) Paroxysmal A-fib: Code(s): I48.0 - Paroxysmal atrial fibrillation Status: Chronic Subjective Date/time seen: 12/31/23 17:12 Interval history: A little agitation this AM. Received IV Ativan x 1 around 8 AM and slept since. Review of Systems Review of Systems: ROS unobtainable: Yes unobtainable due to medical condition Exam Narrative: HEENT: Pharyngeal mucosa pink and intact NECK: No JVD CHEST: Normal effort. Distant but coarse breath sounds. No wheezes or crackles. HEART: NL S1/S2, regular, no murmur ABDOMEN: BS+, soft, nontender, no mass, no bruits EXTREMITIES: No cyanosis, edema, or clubbing NEUROLOGIC: CN intact and symmetric to inspection. MUSCULOSKELETAL: Tone and strength symmetric. PSYCH: Unresponsive to verbal or tactile stimuli. Objective Data Vital Signs Vital Signs: Vital Signs - 24 hr 12/30/23 20:00 12/30/23 20:15 12/31/23 00:02 Temperature 97.1 F L Pulse Rate 80 Respiratory Rate 9 L Blood Pressure 148/75 H Pulse Oximetry 93 92 Oxygen Delivery Nasal Cannula Nasal Cannula Oxygen Flow Rate 4 4 12/31/23 07:40 12/31/23 07:45 12/31/23 08:00 Temperature 97.8 F Pulse Rate 102 H Respiratory Rate 18 Blood Pressure 172/92 H Pulse Oximetry 86 L Oxygen Delivery Nasal Cannula Nasal Cannula Oxygen Flow Rate 4 4 Intake/Output Intake/Output: Intake & Output 12/28/23 12/29/23 12/30/23 12/31/23 23:59 23:59 23:59 23:59 Intake Total 112.3 269.7 62.3 Output Total 700 300 400 Balance 112.3 -700 -30.3 -337.7 Meds/Results Medications: Active Medications Generic Name Dose Route Start Last Admin Trade Name Freq PRN Reason Stop Dose Admin Artificial Tears 1 - 2 drop 12/27/23 19:40 Artificial Tears Ophth Soln 15 Ml Bottle EACH EYE Q12H PRN Dry Eye(s) Bisacodyl 10 mg 12/27/23 19:40 Bisacodyl 10 Mg Suppository RECTAL DAILY PRN Constipation Glycopyrrolate 0.1 mg 12/27/23 19:40 Glycopyrrolate Inj (*Sp) 0.2 Mg/Ml Vial IV PUSH Q4H PRN secretions Hydromorphone HCl 1 mg 12/27/23 21:06 Hydromorphone Hcl Inj (*Crx) 1 Mg/Ml Syr IV PUSH Q2H PRN PAIN/DYSPNEA Hydromorphone HCl 50 mg/ 100 mls @ 0.5 mls/hr 12/27/23 21:05 12/31/23 14:46 Sodium Chloride IV CONT 01/01/24 13:39 0.25 mg/hr .Q24H KENYETTA 0.5 mls/hr Administration 0.25 MG/HR Hydromorphone HCl 50 mg/ 100 mls @ 0.5 mls/hr 01/01/24 14:00 Sodium Chloride IV CONT .Q24H KENYETTA 0.25 MG/HR Lorazepam 1 mg 12/27/23 19:40 12/31/23 08:21 Lorazepam Inj (*Crx) 2 Mg/Ml Vial IV PUSH 1 mg Q4H PRN Administration RESTLESSNESS Prochlorperazine Edisylate 10 mg 12/27/23 19:40 Prochlorperazine Edisylate 10 Mg/2 Ml Vial IV PUSH Q6H PRN Nausea And Vomiting
[2023-12-31 20:20] VITALS: BP 172/90; PULSE 110; RESP 16; TEMP 36; O2SAT 86
[2024-01-01 07:40] VITALS: BP 162/88; PULSE 113; RESP 22; TEMP 36.8; O2SAT 86
[2024-01-01] MEDS: HYDROmorphone HCL/PF (*CRX) 50 MG in SODIUM CHLORIDE 0.9% IV 95 ML IV CONT (13:25)
--- NOTE | 2024-01-01 14:03 | P.PNIM_ITS ---
Progress Note: A&P Assessment and Plan (1) Hospice care: Code(s): Z51.5 - Encounter for palliative care Status: Acute Assessment and Plan: * Meets inpatient hospice criteria due to requiring continuous IV hydromorphone for control of symptoms. * PRN palliative regimen ordered. * 12/28/2023 discussed care with patient and family at bedside. All questions were answered to their satisfaction. * 12/29/2023 discussed care with patient and family at bedside. * 12/30/2023 discussed care and prognosis with family at bedside. * 12/31/2023 family wishes Ativan be given for only extreme agitation. Nursing staff informed. (2) COPD exacerbation: Code(s): J44.1 - Chronic obstructive pulmonary disease with (acute) exacerbation Status: Acute (3) Acute and chronic respiratory failure with hypercapnia: Code(s): J96.22 - Acute and chronic respiratory failure with hypercapnia Status: Acute (4) Paroxysmal A-fib: Code(s): I48.0 - Paroxysmal atrial fibrillation Status: Chronic Subjective Date/time seen: 01/01/24 14:03 Interval history: A little agitation 12/30 AM. Received IV Ativan x 1 around 8 AM 12/30. Quiet since. No PO intake. Review of Systems Review of Systems: ROS unobtainable: Yes unobtainable due to medical condition Exam Narrative: HEENT: Pharyngeal mucosa pink and intact NECK: No JVD CHEST: Normal effort. Distant but coarse breath sounds. No wheezes or crackles. HEART: NL S1/S2, regular, no murmur ABDOMEN: BS+, soft, nontender, no mass, no bruits EXTREMITIES: No cyanosis, edema, or clubbing NEUROLOGIC: CN intact and symmetric to inspection. MUSCULOSKELETAL: Tone and strength symmetric. PSYCH: Unresponsive to verbal or tactile stimuli. Objective Data Vital Signs Vital Signs: Vital Signs - 24 hr 12/31/23 20:20 12/31/23 20:00 01/01/24 07:40 Temperature 96.8 F L 98.3 F Pulse Rate 110 H 113 H Respiratory Rate 16 22 H Blood Pressure 172/90 H 162/88 H Pulse Oximetry 86 L 86 L Oxygen Delivery Nasal Cannula Oxygen Flow Rate 4 01/01/24 08:00 01/01/24 10:20 Temperature Pulse Rate Respiratory Rate Blood Pressure Pulse Oximetry Oxygen Delivery Nasal Cannula Nasal Cannula Oxygen Flow Rate 4 4 Intake/Output Intake/Output: Intake & Output 12/29/23 12/30/23 12/31/23 01/01/24 23:59 23:59 23:59 23:59 Intake Total 269.7 62.3 Output Total 700 300 750 350 Balance -700 -30.3 -687.7 -350 Meds/Results Medications: Active Medications Generic Name Dose Route Start Last Admin Trade Name Freq PRN Reason Stop Dose Admin Artificial Tears 1 - 2 drop 12/27/23 19:40 Artificial Tears Ophth Soln 15 Ml Bottle EACH EYE Q12H PRN Dry Eye(s) Bisacodyl 10 mg 12/27/23 19:40 Bisacodyl 10 Mg Suppository RECTAL DAILY PRN Constipation Glycopyrrolate 0.1 mg 12/27/23 19:40 Glycopyrrolate Inj (*Sp) 0.2 Mg/Ml Vial IV PUSH Q4H PRN secretions Hydromorphone HCl 1 mg 12/27/23 21:06 Hydromorphone Hcl Inj (*Crx) 1 Mg/Ml Syr IV PUSH Q2H PRN PAIN/DYSPNEA Hydromorphone HCl 50 mg/ 100 mls @ 0.5 mls/hr 01/01/24 14:00 01/01/24 13:25 Sodium Chloride IV CONT 0.25 mg/hr .Q24H KENYETTA 0.5 mls/hr Administration 0.25 MG/HR Lorazepam 1 mg 12/27/23 19:40 12/31/23 08:21 Lorazepam Inj (*Crx) 2 Mg/Ml Vial IV PUSH 1 mg Q4H PRN Administration RESTLESSNESS Prochlorperazine Edisylate 10 mg 12/27/23 19:40 Prochlorperazine Edisylate 10 Mg/2 Ml Vial IV PUSH Q6H PRN Nausea And Vomiting
--- NOTE | 2024-01-01 15:40 | PM.DDS ---
Discharge Summary Date and Time Date of : 01/01/24 Time of : 14:30 Provider Pronounced By: 2 RNs Name of First RN That Pronounced: Luz Hobbs Name of Second RN That Pronounced: Lorene Daniels Probable Cause of Probable Cause of : Acute on chronic respiratory failure with hypoxia and hypercarbia due to end-stage copd. Summary Hospital Course: Admitted to inpatient hospice service for symptom management. Medications were titrated to comfort. Mrs. Alexis peacefully. Additional Data Confirmation of as documented by pronouncing clinician: Pupillary Reflex, Palpable Pulses, Response to Stimuli, Heart Tones and Breath Sounds Name of Provider Notified: Dr. Nba Phipps Time Provider Notified: 14:35 [employer] Notified: Yes Date [facility] Notified of : 01/01/24 Time [facility] Notified of : 14:47
== END 2024-01-01 14:30 | disposition expired | DRG 951 ==
LOC: ANHIMU 19:09 → ANH3MEDSUR 22:22
PROVIDERS: Admitting Provider Internal Medicine; PCP Family Medicine; Visit Provider Internal Medicine
DX: Z51.5 Encounter for palliative care (principal); J96.21 Acute and chronic respiratory failure with hypoxia; J96.22 Acute and chronic respiratory failure with hypercapnia; J44.1 Chronic obstructive pulmonary disease with (acute) exacerbation; I48.0 Paroxysmal atrial fibrillation; M81.0 Age-related osteoporosis without current pathological fracture; Z66 Do not resuscitate; Z87.891 Personal history of nicotine dependence; Z86.711 Personal history of pulmonary embolism; Z99.81 Dependence on supplemental oxygen; Z90.710 Acquired absence of both cervix and uterus
CPT/HCPCS: A9270; J1171; J2060